=== PATIENT | male | born 1950 | race Caucasian/White ===

== ENCOUNTER 2019-09-04 18:55 | Inpatient (IN) | payer MEDICARE, BC ==
--- NOTE | 2019-09-04 19:33 | ED ---
Skin/Abscess/FB HPI - General Chief complaint: Skin/Abscess/Foreign Body Stated complaint: Infection Time Seen by Provider: 09/04/19 19:08 Source: patient Mode of arrival: wheelchair Limitations: no limitations - History of Present Illness Initial comments: Patient is 68-year-old male presenting to emergency Department with chief complaint of a scrotal abscess. 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 White states the patient developed a scrotal abscess on July 25 and they went to the hospital. States the urologist at [facility] performed an incision and drainage 2 days afterwards. Patient was started on Keflex but no improvement in symptoms. States she has been taking the abscess ever since. Although, the infection continues to not fully resolved and the cavity is enlarging. States today she went to [facility] for his pressure ulcers and also examined the scrotum. They performed a CT of the pelvis and it revealed a deep abscess measuring approximately 5 senators 3 cm 4 cm. Disposition the facility advised the patient to go to the ED for further evaluation. Patient has no sensation below the waist so has no complaints at this time. Denies any fevers or chills nausea vomiting or diarrhea. - Related Data Home Medications Medication Instructions Recorded Confirmed Liraglutide [Victoza 2-Peewee] 1.2 mg SQ DAILY 06/24/17 12/06/17 Lisinopril [Prinivil] 10 mg PO DAILY 06/24/17 12/06/17 Lovastatin [Mevacor] 40 mg PO DAILY 06/24/17 12/06/17 glipiZIDE XL [Glucotrol XL] 2.5 mg PO DAILY 06/24/17 12/06/17 metFORMIN HCL [Glucophage] 1,000 mg PO BID 06/24/17 12/06/17 Previous Rx's Medication Instructions Recorded Multivitamins, Thera [Multivitamin 1 each PO DAILY@1200 #30 tab 07/05/17 (formulary)] Allergies Allergy/AdvReac Type Severity Reaction Status Date / Time phenytoin [From Dilantin] Allergy Itching Verified 09/04/19 19:05 Sulfa (Sulfonamide Allergy Itching Verified 09/04/19 19:05 Antibiotics) Review of Systems ROS Statement: Those systems with pertinent positive or pertinent negative responses have been documented in the HPI. ROS Other: All systems not noted in ROS Statement are negative. Past Medical History Past Medical History: Diabetes Mellitus Additional Past Medical History / Comment(s): 2 aneusyms brain and aorta, p aralysis from T10 down History of Any Multi-Drug Resistant Organisms: None Reported Past Surgical History: Appendectomy Additional Past Surgical History / Comment(s): sabrina filter Past Psychological History: No Psychological Hx Reported Smoking Status: Former smoker Past Alcohol Use History: None Reported Past Drug Use History: None Reported - Past Family History Father Additional Family Medical History / Comment(s): of cancer General Exam Limitations: physical limitation (Paralysis below the with a baseline) General appearance: alert, in no apparent distress Head exam: Present: atraumatic, normocephalic, normal inspection Eye exam: Present: normal appearance Pupils: Present: normal accommodation ENT exam: Present: normal exam Neck exam: Present: normal inspection, full ROM Respiratory exam: Present: normal lung sounds bilaterally Cardiovascular Exam: Present: regular rate, normal rhythm, normal heart sounds exam: Present: scrotal swelling. Absent: normal inspection (Abscess that is covered dressing located on the posterior aspect of the scrotum. Yellowed drainage.), testicular tenderness (Paralysis), urethral discharge Extremities exam: Present: normal inspection, full ROM Back exam: Present: normal inspection, full ROM Neurological exam: Present: alert, oriented X3 Psychiatric exam: Present: normal affect, normal mood Skin exam: Present: warm, dry, intact, normal color Course Vital Signs 09/04/19 18:58 Temperature 98.9 F Pulse Rate 104 H Respiratory 20 Rate Blood Pressure 118/76 O2 Sat by Pulse 96 Oximetry Medical Decision Making - Medical Decision Making patient is 68-year-old male presenting to emergency Department with a chief complaint of scrotal abscess. The abscess was present for about 1.5 months. Incision and drainage performed 2 days after it was detected by urologist at [facility]. Patient was on antibiotics minimal improvement in symptoms. Packing was performed at rest since the incision and drainage with no improvement in symptoms. CBC and CMP obtained. Blood cultures and lactic pe nding. UA and urine culture pending. Wound culture obtained. Patient will be admitted for further medical management. Case discussed with Admitting is Dr. bradley. urology consulted Disposition Clinical Impression: Scrotal abscess Disposition: ADMITTED IP TO THIS HOSP Condition: Stable Instructions (If sedation given, give patient instructions): Abscess (ED) Additional Instructions: Patient will be admitted Is patient prescribed a controlled substance at d/c from ED?: No Referrals: Jeremiah Ferreira DO [Primary Care Provider] - 1-2 days Time of Disposition: 20:07
[2019-09-04] MEDS ORDERED: NALOXONE 0.4 MG/ML 1 ML VIAL IV PRN (19:54)
[2019-09-04] MEDS ORDERED: MORPHINE SULFATE 4 MG/ML SYRINGE IV PRN (19:54)
[2019-09-04] MEDS ORDERED: IBUPROFEN 400 MG TAB PO PRN (19:54)
[2019-09-04] MEDS ORDERED: ACETAMINOPHEN TAB 325 MG TAB PO PRN (19:54)
[2019-09-04] MEDS ORDERED: HYDROcodone/APAP 5-325MG 1 EACH TAB PO PRN (19:54)
[2019-09-04] MEDS ORDERED: ONDANSETRON 4 MG/2 ML VIAL IVP PRN (19:54)
[2019-09-04 20:01] LABS: Basophils % (A) 0 %; Eosinophils # (A) 0.2 k/uL (0-0.7); Eosinophils % (A) 3 %; HGB 13.5 gm/dL (13.0-17.5); Lymphocytes # (A) 1.6 k/uL (1.0-4.8); Lymphocytes % (A) 21 %; MCH 28.7 pg (25.0-35.0); MCHC 32.1 g/dL (31.0-37.0); MCV 89.4 fL (80.0-100.0); Mean Platelet Volume 7.6; Monocytes # (A) 0.4 k/uL (0-1.0); Monocytes % (A) 5 %; Neutrophils # (A) 5.4 k/uL (1.3-7.7); Neutrophils % (A) 68 %; Platelet Count 303 k/uL (150-450); RDW 15.4 % (11.5-15.5); WBC 7.9 k/uL (3.8-10.6)
[2019-09-04 20:10] LABS: ALT 19 U/L (4-49); AST 23 U/L (17-59); African American GFR (CKD) >90 (>60 ml/min/1.73 sqM); Albumin 3.6 g/dL (3.5-5.0); Alkaline Phosphatase 94 U/L (38-126); Anion Gap 9 mmol/L; Blood Urea Nitrogen 20 mg/dL (9-20); Calcium 9.4 mg/dL (8.4-10.2); Carbon Dioxide 24 mmol/L (22-30); Chloride 104 mmol/L (98-107); Glucose 150 mg/dL (74-99); Non-African American GFR(CKD) >90 (>60 ml/min/1.73 sqM); Potassium 5.2 mmol/L (3.5-5.1); Sodium 137 mmol/L (137-145); Total Bilirubin 0.2 mg/dL (0.2-1.3); Total Protein 6.6 g/dL (6.3-8.2)
[2019-09-04] MEDS ORDERED: cefTRIAXone IN SWFI 1,000 MG/10 ML SYRINGE IVP STA (20:14)
[2019-09-04 20:21] LABS: Amorphous Sediment,Urine Rare /hpf; Appearance,Urine Clear (Clear); Bacteria,Urine Occasional /hpf; Bilirubin,Urine Negative (Negative); Blood,Urine Negative (Negative); Color,Urine Yellow; Glucose,Urine (UA) Negative (Negative); Hyaline Casts,Urine 1 /lpf (0-2); Ketones,Urine Negative (Negative); Leukocyte Esterase,Urine Large (Negative); Mucus,Urine Rare /hpf; Nitrite,Urine Positive (Negative); PH, Urine 5.5 (5.0-8.0); Protein,Urine Negative (Negative); RBC,Urine 4 /hpf (0-5); Specific Gravity,Urine 1.016 (1.001-1.035); Squamous Epithelial Cell,Urine 1 /hpf (0-4); Urobilinogen,Urine <2.0 mg/dL (<2.0); WBC,Urine 40 /hpf (0-5)
[2019-09-04] MEDS: SODIUM CHLORIDE 0.9% 1,000 ML IV SCH (20:28)
[2019-09-04] MEDS: metFORMIN 500 MG TAB PO SCH (21:51)
[2019-09-04 21:54] LABS: Glucose,Whole Blood 111 mg/dL (75-99)
[2019-09-05 04:17] LABS: Basophils % (A) 0 %; Eosinophils # (A) 0.3 k/uL (0-0.7); Eosinophils % (A) 4 %; HCT 40.7 % (39.0-53.0); HGB 12.8 gm/dL (13.0-17.5); Lymphocytes # (A) 2.5 k/uL (1.0-4.8); Lymphocytes % (A) 33 %; MCH 28.8 pg (25.0-35.0); MCHC 31.5 g/dL (31.0-37.0); MCV 91.4 fL (80.0-100.0); Mean Platelet Volume 7.5; Monocytes # (A) 0.5 k/uL (0-1.0); Monocytes % (A) 7 %; Neutrophils # (A) 4.2 k/uL (1.3-7.7); Neutrophils % (A) 54 %; Platelet Count 265 k/uL (150-450); RBC 4.46 m/uL (4.30-5.90); RDW 15.7 % (11.5-15.5); WBC 7.8 k/uL (3.8-10.6)
[2019-09-05 04:26] LABS: ALT 17 U/L (4-49); AST 19 U/L (17-59); African American GFR (CKD) >90 (>60 ml/min/1.73 sqM); Albumin 3.4 g/dL (3.5-5.0); Alkaline Phosphatase 90 U/L (38-126); Anion Gap 7 mmol/L; Blood Urea Nitrogen 17 mg/dL (9-20); Carbon Dioxide 25 mmol/L (22-30); Chloride 105 mmol/L (98-107); Glucose 115 mg/dL (74-99); Non-African American GFR(CKD) >90 (>60 ml/min/1.73 sqM); Potassium 4.7 mmol/L (3.5-5.1); Sodium 137 mmol/L (137-145); Total Bilirubin 0.1 mg/dL (0.2-1.3); Total Protein 6.2 g/dL (6.3-8.2)
[2019-09-05 07:30] LABS: Glucose,Whole Blood 134 mg/dL (75-99)
[2019-09-05] MEDS ORDERED: CEFDINIR 300 MG CAP PO SCH (09:00)
[2019-09-05] MEDS ORDERED: NON FORMULARY DRUG (L.Acidoph,Paracasei, B.Lactis [Probiotic] 1 CAP) PO SCH (09:00)
[2019-09-05] MEDS ORDERED: NON FORMULARY DRUG (Cranberry Fruit Extract [Cranberry] 500 MG) PO SCH (09:00)
[2019-09-05] MEDS: metFORMIN 500 MG TAB PO SCH ×2 (09:03→20:17)
[2019-09-05] MEDS: ATORVASTATIN 10 MG TAB PO SCH (09:04)
[2019-09-05] MEDS: LISINOPRIL 10 MG TAB PO SCH (09:04)
[2019-09-05] MEDS: ASPIRIN 325 MG TAB PO SCH (09:04)
[2019-09-05] MEDS: IMIPRAMINE 10 MG TAB PO SCH (09:04)
[2019-09-05] MEDS: MULTIVITAMINS, THERA 1 EACH TAB PO SCH (09:04)
[2019-09-05] MEDS: Liraglutide [Victoza 2-Pak] 1.2 MG SQ SCH (09:24)
[2019-09-05] MEDS ORDERED: VANCOMYCIN IV PER PHARMACY 1 EACH MISC MISCELLANE PRN (10:27)
[2019-09-05] MEDS ORDERED: PIPERACILLIN-TAZOBACTAM 3.375 GM in SODIUM CHLORIDE 0.9% 100 ML IVPB SCH (11:00)
[2019-09-05 11:48] LABS: Glucose,Whole Blood 114 mg/dL (75-99)
[2019-09-05] MEDS: VANCOMYCIN 1,500 MG in SODIUM CHLORIDE 0.9% 250 ML IVPB SCH ×2 (12:18→21:03)
[2019-09-05] MEDS: SODIUM CHLORIDE 0.9% 1,000 ML IV SCH (12:41)
--- NOTE | 2019-09-05 13:53 | US ---
EXAMINATION TYPE: US venous doppler duplex LE LT DATE OF EXAM: 09/05/2019 1:00 PM COMPARISON: NONE CLINICAL HISTORY: assess for DVT lower left leg. Paralysis and immobility, scrotal abscess SIDE PERFORMED: Left TECHNIQUE: The lower extremity deep venous system is examined utilizing real time linear array sonog deonna with graded compression, doppler sonography and color-flow sonography. VESSELS IMAGED: External Iliac Vein (EIV) Common Femoral Vein Deep Femoral Vein Greater Saphenous Vein * Femoral Vein Popliteal Vein Small Saphenous Vein * Proximal Calf Veins (* superficial vessels) There is normal flow, compressibility, vascular waveforms. Left Leg: Negative for DVT IMPRESSION: No evident deep venous thrombosis at or above the left knee
--- NOTE | 2019-09-05 15:39 | P.HPIM ---
History of Present Illness H&P Date: 09/05/19 Chief Complaint: Scrotal wound History of presenting complaint: This is a 68-year-old patient of Dr. Ferreira. Chronic stable medical conditions include history of T10 paraplegia following a spinal injection, brain aneurysm, AAA, hyperlipidemia, [place] filter, diabetes. Patient on July 25 diagnosed to have a left scrotal abscess. Patient was taken to the [facility]. From there patient was transferred to Hospital where he stayed from July 26 through July 29. I&D was carried out. Patient is discharged home on 10 days of Keflex. Patient was sent home with dressing twice a day. It had pretty much cleared up. His noticed that recently the drainage was intermittently clear and body. Noticed 2 days patient noticed that the patient's urine was cloudy. Urine culture was sent off to [facility]. Patient normally straight cath himself 2-3 times a day. Due to neurogenic bladder Elliott catheter was placed in the hospital. No fever no chills. No pain. Review of systems: GEN.: None EYES: None HEENT: None NECK: None RESPIRATORY: None CARDIOVASCULAR: None GASTROINTESTINAL: None GENITOURINARY: As above MUSCULOSKELETAL: None LYMPHATICS: None HEMATOLOGICAL: None PSYCHIATRY: None NEUROLOGICAL: [Lower extremity weakness Past medical history to include: T10 paraplegia from spinal injection, prerenal aneurysm, abdominal aortic aneurysm, diabetes, Sabrina filter, hyperlipidemia, Social history: Does smoke in the remote past. No alcohol. . Physical examination: VITAL SIGNS: 98.9, 104, 20, 1180 76, 96% on room air GENERAL: BMI 27.5, laying in bed, awake. EYES: Pupils equal. Conjunctiva normal. HEENT: External appearance of nose and ears normal, oral cavity grossly normal. NECK: JVD not raised; masses not palpable. HEART: First and second heart sounds are normal; no edema. LUNGS: Respiratory rate normal; clear to auscultation. ABDOMEN: Soft, nontender, liver spleen not palpable, no masses palpable. Scrotum-on the left side opening with clear fluid, margins well epithelialized, no pus expressed PSYCH: Alert and oriented x3; mood and affect normal. NEUROLOGICAL: [Cranial nerves grossly intact; no facial asymmetry, lower extremity power 0/5 LYMPHATICS: No lymph nodes palpable in the axilla and neck INVESTIGATIONS, reviewed in the clinical context: White count 7.90 with 13.5 potassium 4.2 creatinine 0.64 Lactic acid 2.6 UA positive for leukoesterase, WBC Assessment: -This is a pleasant 68-year-old patient who on July 25 current diagnoses scrotal abscess taken down to: Hospital was there from July 26 through July 29. I&D was carried out. Was discharged on Keflex for 10 days. Drainage at clear. No having cloudy appearing urine and clear drainage from the same opening. Need to rule out a fistula. Otherwise the opening pot is a rather well epithelialized. 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 Consultations made to infectious disease and neurology. Patient started on vancomycin and cefepime. Lovenox for DVT prophylaxis. Accu-Cheks will be followed. Care was discussed with the patient and questions were answered. Past Medical History Past Medical History: Diabetes Mellitus Additional Past Medical History / Comment(s): 2 aneusyms brain and aorta, paralysis from T10 down History of Any Multi-Drug Resistant Organisms: None Reported Past Surgical History: Appendectomy Additional Past Surgical History / Comment(s): sabrina filter Past Psychological History: No Psychological Hx Reported Additional Psychological History / Comment(s): lives with his in the family home Smoking Status: Former smoker Past Alcohol Use History: None Reported Past Drug Use History: None Reported - Past Family History Father Additional Family Medical History / Comment(s): of cancer Medications and Allergies Home Medications Medication Instructions Recorded Confirmed Type Liraglutide [Victoza 2-Peewee] 1.2 mg SQ DAILY 06/24/17 09/04/19 History Lisinopril [Prinivil] 10 mg PO DAILY 06/24/17 09/04/19 History Lovastatin [Mevacor] 40 mg PO DAILY 06/24/17 09/04/19 History metFORMIN HCL [Glucophage] 1,000 mg PO BID 06/24/17 09/04/19 History Aspirin EC [Ecotrin] 325 mg PO DAILY 09/04/19 09/04/19 History Cefuroxime Axetil [Ceftin] 500 mg PO BID 09/04/19 09/04/19 History Cranberry Fruit Extract [Cranberry] 500 mg PO DAILY 09/04/19 09/04/19 History Imipramine [Tofranil] 10 mg PO DAILY 09/04/19 09/04/19 History L.acidoph,Paracasei, B.lactis 1 cap PO DAILY 09/04/19 09/04/19 History [Probiotic] Multivitamins, Thera [Multivitamin 1 tab PO DAILY 09/04/19 09/04/19 History (formulary)] Allergies Allergy/AdvReac Type Severity Reaction Status Date / Time phenytoin [From Dilantin] Allergy Rash/Hives Verified 09/04/19 20:16 Sulfa (Sulfonamide Allergy Rash/Hives Verified 09/04/19 20:16 Antibiotics) Physical Exam Vitals: Vital Signs Temp Pulse Pulse Resp BP BP Pulse Ox 09/05/19 08:24 97.5 F L 88 18 100/65 09/04/19 23:00 98.0 F 89 16 120/56 95 09/04/19 20:34 98.9 F 100 18 109/78 98 09/04/19 18:58 98.9 F 104 H 20 118/76 96 Intake and Output 09/04/19 09/05/19 09/05/19 22:59 06:59 14:59 Intake Total 225 590 Output Total 700 Balance 225 -110 Intake: Intake, IV Titration 225 Amount Sodium Chloride 0.9% 1, 225 000 ml @ 75 mls/hr IV . [id number] [facility] Rx#:[id number] Oral 590 Output: Urine 700 Other: Voiding Method Incontinent Indwelling Catheter Weight 87 kg Results CBC & Chem 7: 09/05/19 03:51 09/05/19 03:51 Labs: Abnormal Lab Results - Last 24 Hours (Table) 09/04/19 09/04/19 09/04/19 Range/Units 19:50 19:50 20:05 Hgb (13.0-17.5) gm/dL RDW (11.5-15.5) % Potassium 5.2 H (3.5-5.1) mmol/L Creatinine 0.64 L (0.66-1.25) mg/dL Glucose 150 H (74-99) mg/dL POC Glucose (mg/dL) (75-99) mg/dL Plasma Lactic Acid Carl 2.6 H* (0.7-2.0) mmol/L Total Bilirubin (0.2-1.3) mg/dL Total Protein (6.3-8.2) g/dL Albumin (3.5-5.0) g/dL Ur Leukocyte Esterase Large H (Negative) Urine WBC 40 H (0-5) /hpf Urine WBC Clumps Moderate H (None) /hpf Amorphous Sediment Rare H (None) /hpf Urine Bacteria Occasional H (None) /hpf Urine Mucus Rare H (None) /hpf 09/04/19 09/04/19 09/05/19 Range/Units 21:48 23:40 03:51 Hgb 12.8 L (13.0-17.5) gm/dL RDW 15.7 H (11.5-15.5) % Potassium (3.5-5.1) mmol/L Creatinine (0.66-1.25) mg/dL Glucose (74-99) mg/dL POC Glucose (mg/dL) 111 H (75-99) mg/dL Plasma Lactic Acid Carl 2.1 H* (0.7-2.0) mmol/L Total Bilirubin (0.2-1.3) mg/dL Total Protein (6.3-8.2) g/dL Albumin (3.5-5.0) g/dL Ur Leukocyte Esterase (Negative) Urine WBC (0-5) /hpf Urine WBC Clumps (None) /hpf Amorphous Sediment (None) /hpf Urine Bacteria (None) /hpf Urine Mucus (None) /hpf 09/05/19 09/05/19 Range/Units 03:51 07:29 Hgb (13.0-17.5) gm/dL RDW (11.5-15.5) % Potassium (3.5-5.1) mmol/L Creatinine 0.54 L (0.66-1.25) mg/dL Glucose 115 H (74-99) mg/dL POC Glucose (mg/dL) 134 H (75-99) mg/dL Plasma Lactic Acid Carl (0.7-2.0) mmol/L Total Bilirubin 0.1 L (0.2-1.3) mg/dL Total Protein 6.2 L (6.3-8.2) g/dL Albumin 3.4 L (3.5-5.0) g/dL Ur Leukocyte Esterase (Negative) Urine WBC (0-5) /hpf Urine WBC Clumps (None) /hpf Amorphous Sediment (None) /hpf Urine Bacteria (None) /hpf Urine Mucus (None) /hpf Microbiology - Last 24 Hours (Table) 09/04/19 20:20 Gram Stain - Preliminary Other - Other Wound Culture - Preliminary 09/04/19 20:05 Urine Culture - Preliminary Urine,Voided Thrombosis Risk Factor Assmnt - Choose All That Apply Any of the Below Risk Factors Present?: Yes Each Factor Represents 1 point: Obesity (BMI >25) Other Risk Factors: Yes Each Risk Factor Represents 2 Points: Patient confined to bed Other congenital or acquired thrombophilia - If yes, enter type in comment: No Thrombosis Risk Factor Assessment Total Risk Factor Score: 3 Thrombosis Risk Factor Assessment Level: Moderate Risk
[2019-09-05 16:26] LABS: Glucose,Whole Blood 170 mg/dL (75-99)
[2019-09-05] MEDS: INSULIN ASPART (NovoLOG) 100 UNIT/ML VIAL SQ SCH ×2 (17:27→21:03)
--- NOTE | 2019-09-05 18:35 | P.GSCN ---
History of Present Illness Consult date: 09/05/19 Reason for Consult: Scrotal abscess Requesting physician: Ramon Mancera History of present illness: The patient is a 68-year-old white male with an abdominal aortic aneurysm. 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 He has a neurogenic bladder as a result of this. Several years after the injury, he was evaluated at [facility] for urinary incontinence and underwent an attempted sling procedure. The patient and his are very vague regarding details of this. He self catheterizes 2-3 times daily and experiences urinary incontinence while transferring. It is for this reason he is taking imipramine. On 07/25/2019 the patient developed a small amount of perineal drainage. He was hospitalized at [facility] and underwent incision and drainage, the enlargement of the perineal incision. He has undergone dressing changes, but this is difficult due to the small size of the perineal incision. He was treated with Keflex, but recently has experienced increased drainage. He currently has an indwelling Elliott catheter in place. A CT scan of the pelvis performed yesterday at [facility] in [place] revealed a 33 x 49 mm right posterior scrotal abscess. The CT scan also showed several bladder calculi measuring up to 18 mm in size. In view of this, he was transferred to [facility] for further management. 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 Past Psychological History: No Psychological Hx Reported Additional Psychological History / Comment(s): lives with his in e family home Smoking Status: Former smoker Past Alcohol Use History: None Reported Past Drug Use History: None Reported - Past Family History Father Additional Family Medical History / Comment(s): of cancer Medications and Allergies Home Medications Medication Instructions Recorded Confirmed Type Liraglutide [Victoza 2-Peewee] 1.2 mg SQ DAILY 06/24/17 09/04/19 History Lisinopril [Prinivil] 10 mg PO DAILY 06/24/17 09/04/19 History Lovastatin [Mevacor] 40 mg PO DAILY 06/24/17 09/04/19 History metFORMIN HCL [Glucophage] 1,000 mg PO BID 06/24/17 09/04/19 History Aspirin EC [Ecotrin] 325 mg PO DAILY 09/04/19 09/04/19 History Cefuroxime Axetil [Ceftin] 500 mg PO BID 09/04/19 09/04/19 History Cranberry Fruit Extract [Cranberry] 500 mg PO DAILY 09/04/19 09/04/19 History Imipramine [Tofranil] 10 mg PO DAILY 09/04/19 09/04/19 History L.acidoph,Paracasei, B.lactis 1 cap PO DAILY 09/04/19 09/04/19 History [Probiotic] Multivitamins, Thera [Multivitamin 1 tab PO DAILY 09/04/19 09/04/19 History (formulary)] Allergies Allergy/AdvReac Type Severity Reaction Status Date / Time phenytoin [From Dilantin] Allergy Rash/Hives Verified 09/04/19 20:16 Sulfa (Sulfonamide Allergy Rash/Hives Verified 09/04/19 20:16 Antibiotics) Surgical - Exam Vital Signs Temp Pulse Resp BP Pulse Ox 98.9 F 104 H 20 118/76 96 09/04/19 18:58 09/04/19 18:58 09/04/19 18:58 09/04/19 18:58 09/04/19 18:58 - General well developed, well nourished, no distress - Respiratory normal respiratory effort - Abdomen Abdomen: soft, non tender, no guarding, no rigid, no rebound - Genitourinary normal penis with no external lesions, other (The left testicle is normal. 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 Induration of the right intrascrotal tissues as noted. There is no fluctuance. A small amount of fluid can be expressed through a small midline perineal incision.) - Psychiatric oriented to time, oriented to person, oriented to place, speech is normal, memory intact Results - Labs 09/05/19 03:51 09/05/19 03:51 Abnormal Lab Results - Last 24 Hours (Table) 09/04/19 09/04/19 09/04/19 Range/Units 19:50 19:50 20:05 Hgb (13.0-17.5) gm/dL RDW (11.5-15.5) % Potassium 5.2 H (3.5-5.1) mmol/L Creatinine 0.64 L (0.66-1.25) mg/dL Glucose 150 H (74-99) mg/dL POC Glucose (mg/dL) (75-99) mg/dL Plasma Lactic Acid Carl 2.6 H* (0.7-2.0) mmol/L Total Bilirubin (0.2-1.3) mg/dL Total Protein (6.3-8.2) g/dL Albumin (3.5-5.0) g/dL Ur Leukocyte Esterase Large H (Negative) Urine WBC 40 H (0-5) /hpf Urine WBC Clumps Moderate H (None) /hpf Amorphous Sediment Rare H (None) /hpf Urine Bacteria Occasional H (None) /hpf Urine Mucus Rare H (None) /hpf 09/04/19 09/04/19 09/05/19 Range/Units 21:48 23:40 03:51 Hgb 12.8 L (13.0-17.5) gm/dL RDW 15.7 H (11.5-15.5) % Potassium (3.5-5.1) mmol/L Creatinine (0.66-1.25) mg/dL Glucose (74-99) mg/dL POC Glucose (mg/dL) 111 H (75-99) mg/dL Plasma Lactic Acid Carl 2.1 H* (0.7-2.0) mmol/L Total Bilirubin (0.2-1.3) mg/dL Total Protein (6.3-8.2) g/dL Albumin (3.5-5.0) g/dL Ur Leukocyte Esterase (Negative) Urine WBC (0-5) /hpf Urine WBC Clumps (None) /hpf Amorphous Sediment (None) /hpf Urine Bacteria (None) /hpf Urine Mucus (None) /hpf 09/05/19 09/05/19 09/05/19 Range/Units 03:51 07:29 11:46 Hgb (13.0-17.5) gm/dL RDW (11.5-15.5) % Potassium (3.5-5.1) mmol/L Creatinine 0.54 L (0.66-1.25) mg/dL Glucose 115 H (74-99) mg/dL POC Glucose (mg/dL) 134 H 114 H (75-99) mg/dL Plasma Lactic Acid Carl (0.7-2.0) mmol/L Total Bilirubin 0.1 L (0.2-1.3) mg/dL Total Protein 6.2 L (6.3-8.2) g/dL Albumin 3.4 L (3.5-5.0) g/dL Ur Leukocyte Esterase (Negative) Urine WBC (0-5) /hpf Urine WBC Clumps (None) /hpf Amorphous Sediment (None) /hpf Urine Bacteria (None) /hpf Urine Mucus (None) /hpf 09/05/19 Range/Units 16:25 Hgb (13.0-17.5) gm/dL RDW (11.5-15.5) % Potassium (3.5-5.1) mmol/L Creatinine (0.66-1.25) mg/dL Glucose (74-99) mg/dL POC Glucose (mg/dL) 170 H (75-99) mg/dL Plasma Lactic Acid Carl (0.7-2.0) mmol/L Total Bilirubin (0.2-1.3) mg/dL Total Protein (6.3-8.2) g/dL Albumin (3.5-5.0) g/dL Ur Leukocyte Esterase (Negative) Urine WBC (0-5) /hpf Urine WBC Clumps (None) /hpf Amorphous Sediment (None) /hpf Urine Bacteria (None) /hpf Urine Mucus (None) /hpf Microbiology - Last 24 Hours (Table) 09/04/19 20:20 Gram Stain - Preliminary Other - Other Wound Culture - Preliminary Presumptive Staph aureus Gram Neg Bacilli 09/04/19 20:05 Urine Culture - Preliminary Urine,Voided Diabetes panel 09/04/19 09/05/19 Range/Units 19:50 03:51 Sodium 137 137 (137-145) mmol/L Potassium 5.2 H 4.7 (3.5-5.1) mmol/L Chloride 104 105 (98-107) mmol/L Carbon Dioxide 24 25 (22-30) mmol/L BUN 20 17 (9-20) mg/dL Creatinine 0.64 L 0.54 L (0.66-1.25) mg/dL Glucose 150 H 115 H (74-99) mg/dL Calcium 9.4 9.0 (8.4-10.2) mg/dL AST 23 19 (17-59) U/L ALT 19 17 (4-49) U/L Alkaline Phosphatase 94 90 (38-126) U/L Total Protein 6.6 6.2 L (6.3-8.2) g/dL Albumin 3.6 3.4 L (3.5-5.0) g/dL Calcium panel 09/04/19 09/05/19 Range/Units 19:50 03:51 Calcium 9.4 9.0 (8.4-10.2) mg/dL Albumin 3.6 3.4 L (3.5-5.0) g/dL Pituitary panel 09/04/19 09/05/19 Range/Units 19:50 03:51 Sodium 137 137 (137-145) mmol/L Potassium 5.2 H 4.7 (3.5-5.1) mmol/L Chloride 104 105 (98-107) mmol/L Carbon Dioxide 24 25 (22-30) mmol/L BUN 20 17 (9-20) mg/dL Creatinine 0.64 L 0.54 L (0.66-1.25) mg/dL Glucose 150 H 115 H (74-99) mg/dL Calcium 9.4 9.0 (8.4-10.2) mg/dL Adrenal panel 09/04/19 09/05/19 Range/Units 19:50 03:51 Sodium 137 137 (137-145) mmol/L Potassium 5.2 H 4.7 (3.5-5.1) mmol/L Chloride 104 105 (98-107) mmol/L Carbon Dioxide 24 25 (22-30) mmol/L BUN 20 17 (9-20) mg/dL Creatinine 0.64 L 0.54 L (0.66-1.25) mg/dL Glucose 150 H 115 H (74-99) mg/dL Calcium 9.4 9.0 (8.4-10.2) mg/dL Total Bilirubin 0.2 0.1 L (0.2-1.3) mg/dL AST 23 19 (17-59) U/L ALT 19 17 (4-49) U/L Alkaline Phosphatase 94 90 (38-126) U/L Total Protein 6.6 6.2 L (6.3-8.2) g/dL Albumin 3.6 3.4 L (3.5-5.0) g/dL - Imaging CT scan - pelvis: report reviewed Assessment and Plan (1) Scrotal abscess Current Visit: Yes Status: Acute Code(s): N49.2 - INFLAMMATORY DISORDERS OF SCROTUM SNOMED Code(s): 02795427 Plan: The patient has an open perineal wound that appears to have a right scrotal abscess which is incompletely drained. He has a Elliott catheter in place, dr tobar clear yellow urine. I intend to perform cystoscopy, examination under anesthesia, incision and drainage of right scrotal abscess. If there is evidence of a urethral fistula, a suprapubic cystostomy tube will be placed. The rationale for this is been reviewed with the patient and his . They are aware of potential risks, which include anesthesia, bleeding, infection, and incomplete resolution of the abscess. An attempt will be made to obtain surgical records from [facility], to determine whether or not the patient has a perineal mesh sling in place. Time with Patient: Greater than 30
[2019-09-05] MEDS: CEFEPIME 2 GM in SODIUM CHLORIDE 0.9% 100 ML IVPB SCH (20:18)
[2019-09-05 20:43] LABS: Glucose,Whole Blood 190 mg/dL (75-99)
--- NOTE | 2019-09-05 22:59 | P.CONS ---
History of Present Illness - Reason for Consult Consult date: 09/05/19 scrotal abscess Requesting physician: Ramon Mancera - Chief Complaint scrotal wound and draiange x few weeks - History of Present Illness Patient is a 68-year-old male with a past medical history significant for T10 paraplegia and this patient who did have urinary retention requiring self-catheterization the patient apparently did develop [facility] the next day the patient was taken to the local hospital with the patient has been diagnosed with a scrotal abscess patient did have surgical drainage of the same he mention that he was treated with IV antibiotic therapy and subsequently discharged home on oral Keflex patient apparently did have a follow-up visit with his urologist who told the patient to keep packing the wound however did notice a significant drainage from his wound for which the patient was taken to the wound care center antibiotics patient has been evaluated there and a CT scan subsequently was done which did shows evidence of scrotal abscess and the patient has been advised to come to [facility] to be evaluated by urology and drainage of this abscess, patient denies high- grade fever or chills patient do not have any pain in the region because of her underlying paraplegia the drainage has been moderate in amount per the has been changing the dressing. 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 History of Any Multi-Drug Resistant Organisms: None Reported Past Surgical History: Appendectomy Additional Past Surgical History / Comment(s): sabrina filter Past Psychological History: No Psychological Hx Reported Additional Psychological History / Comment(s): lives with his in the family home Smoking Status: Former smoker Past Alcohol Use History: None Reported Past Drug Use History: None Reported - Past Family History Father Additional Family Medical History / Comment(s): of cancer Medications and Allergies Home Medications Medication Instructions Recorded Confirmed Type Liraglutide [Victoza 2-Peewee] 1.2 mg SQ DAILY 06/24/17 09/04/19 History Lisinopril [Prinivil] 10 mg PO DAILY 06/24/17 09/04/19 History Lovastatin [Mevacor] 40 mg PO DAILY 06/24/17 09/04/19 History metFORMIN HCL [Glucophage] 1,000 mg PO BID 06/24/17 09/04/19 History Aspirin EC [Ecotrin] 325 mg PO DAILY 09/04/19 09/04/19 History Cefuroxime Axetil [Ceftin] 500 mg PO BID 09/04/19 09/04/19 History Cranberry Fruit Extract [Cranberry] 500 mg PO DAILY 09/04/19 09/04/19 History Imipramine [Tofranil] 10 mg PO DAILY 09/04/19 09/04/19 History L.acidoph,Paracasei, B.lactis 1 cap PO DAILY 09/04/19 09/04/19 History [Probiotic] Multivitamins, Thera [Multivitamin 1 tab PO DAILY 09/04/19 09/04/19 History (formulary)] Allergies Allergy/AdvReac Type Severity Reaction Status Date / Time phenytoin [From Dilantin] Allergy Rash/Hives Verified 09/04/19 20:16 Sulfa (Sulfonamide Allergy Rash/Hives Verified 09/04/19 20:16 Antibiotics) Physical Exam Vitals: Vital Signs Temp Pulse Pulse Resp BP BP Pulse Ox 09/05/19 12:49 98.3 F 85 17 125/59 98 09/05/19 08:24 97.5 F L 88 18 100/65 09/04/19 23:00 98.0 F 89 16 120/56 95 09/04/19 20:34 98.9 F 100 18 109/78 98 09/04/19 18:58 98.9 F 104 H 20 118/76 96 Intake and Output 09/04/19 09/05/19 09/05/19 22:59 06:59 14:59 Intake Total 225 590 Output Total 700 Balance 225 -110 Intake: Intake, IV Titration 225 Amount Sodium Chloride 0.9% 1, 225 000 ml @ 75 mls/hr IV . [id number] [facility] Rx#:[id number] Oral 590 Output: Urine 700 Other: Voiding Method Incontinent Incontinent Indwelling Catheter Indwelling Catheter Weight 87 kg GENERAL DESCRIPTION: Middle-aged male lying in bed, no distress. No tachypnea or accessory muscle of respiration use. HEENT: Shows Pallor , no scleral icterus. Oral mucous membrane is dry. NECK: Trachea central, no thyromegaly. LUNGS: Unlabored breathing. Clear to auscultation anteriorly. No wheeze or crackle. HEART: S1, S2, regular rate and rhythm. ABDOMEN: Soft, no tenderness , guarding or rigidity. : Patient did have a small perineal wound with purulent drainage some surrounding swelling EXTREMITIES: No edema of feet. SKIN: No rash, no masses palpable. NEUROLOGICAL: The patient is awake, alert, oriented x3, mood and affect normal. Results CBC & Chem 7: 09/05/19 03:51 09/05/19 03:51 Labs: Abnormal Lab Results - Last 24 Hours (Table) 09/04/19 09/04/19 09/04/19 Range/Units 19:50 19:50 20:05 Hgb (13.0-17.5) gm/dL RDW (11.5-15.5) % Potassium 5.2 H (3.5-5.1) mmol/L Creatinine 0.64 L (0.66-1.25) mg/dL Glucose 150 H (74-99) mg/dL POC Glucose (mg/dL) (75-99) mg/dL Plasma Lactic Acid Carl 2.6 H* (0.7-2.0) mmol/L Total Bilirubin (0.2-1.3) mg/dL Total Protein (6.3-8.2) g/dL Albumin (3.5-5.0) g/dL Ur Leukocyte Esterase Large H (Negative) Urine WBC 40 H (0-5) /hpf Urine WBC Clumps Moderate H (None) /hpf Amorphous Sediment Rare H (None) /hpf Urine Bacteria Occasional H (None) /hpf Urine Mucus Rare H (None) /hpf 09/04/19 09/04/19 09/05/19 Range/Units 21:48 23:40 03:51 Hgb 12.8 L (13.0-17.5) gm/dL RDW 15.7 H (11.5-15.5) % Potassium (3.5-5.1) mmol/L Creatinine (0.66-1.25) mg/dL Glucose (74-99) mg/dL POC Glucose (mg/dL) 111 H (75-99) mg/dL Plasma Lactic Acid Carl 2.1 H* (0.7-2.0) mmol/L Total Bilirubin (0.2-1.3) mg/dL Total Protein (6.3-8.2) g/dL Albumin (3.5-5.0) g/dL Ur Leukocyte Esterase (Negative) Urine WBC (0-5) /hpf Urine WBC Clumps (None) /hpf Amorphous Sediment (None) /hpf Urine Bacteria (None) /hpf Urine Mucus (None) /hpf 09/05/19 09/05/19 09/05/19 Range/Units 03:51 07:29 11:46 Hgb (13.0-17.5) gm/dL RDW (11.5-15.5) % Potassium (3.5-5.1) mmol/L Creatinine 0.54 L (0.66-1.25) mg/dL Glucose 115 H (74-99) mg/dL POC Glucose (mg/dL) 134 H 114 H (75-99) mg/dL Plasma Lactic Acid Carl (0.7-2.0) mmol/L Total Bilirubin 0.1 L (0.2-1.3) mg/dL Total Protein 6.2 L (6.3-8.2) g/dL Albumin 3.4 L (3.5-5.0) g/dL Ur Leukocyte Esterase (Negative) Urine WBC (0-5) /hpf Urine WBC Clumps (None) /hpf Amorphous Sediment (None) /hpf Urine Bacteria (None) /hpf Urine Mucus (None) /hpf Microbiology - Last 24 Hours (Table) 09/04/19 20:20 Gram Stain - Preliminary Other - Other Wound Culture - Preliminary 09/04/19 20:05 Urine Culture - Preliminary Urine,Voided Assessment and Plan Assessment: patient admitted to hospital with scrotal abscess that has not been drained completely with a history of treatment with Keflex possibly pointing towards MSSA to be the pathogen however underlying gram-negative infection and trend excluded we are waiting for the surgical drainage of this abscess and deep cultures for which urology has been consulted (1) Scrotal abscess Current Visit: Yes Status: Acute Code(s): N49.2 - INFLAMMATORY DISORDERS OF SCROTUM SNOMED Code(s): 50392492 Plan: 1-vancomycin pharmacy to dose her with a target trough of 15 while watching her kidney function and Vanco trough closely. 2- discontinue Zosyn to decrease risk of nephrotoxicity and add cefepime 2 g every 12 hours We will follow on clinical condition and cultures to further adjust medication if needed Thank you for this consultation we will follow the patient along with you Time with Patient: Greater than 30
[2019-09-06] MEDS: SODIUM CHLORIDE 0.9% 1,000 ML IV SCH ×3 (00:30→22:08)
[2019-09-06 06:53] LABS: Glucose,Whole Blood 137 mg/dL (75-99)
[2019-09-06 08:02] LABS: African American GFR (CKD) >90 (>60 ml/min/1.73 sqM); Non-African American GFR(CKD) >90 (>60 ml/min/1.73 sqM)
[2019-09-06] MEDS: MULTIVITAMINS, THERA 1 EACH TAB PO SCH (08:36)
[2019-09-06] MEDS: metFORMIN 500 MG TAB PO SCH ×2 (08:36→21:18)
[2019-09-06] MEDS: ATORVASTATIN 10 MG TAB PO SCH (08:36)
[2019-09-06] MEDS: LISINOPRIL 10 MG TAB PO SCH (08:36)
[2019-09-06] MEDS: IMIPRAMINE 10 MG TAB PO SCH (08:36)
[2019-09-06] MEDS: ASPIRIN 325 MG TAB PO SCH (08:36)
[2019-09-06] MEDS: INSULIN ASPART (NovoLOG) 100 UNIT/ML VIAL SQ SCH ×4 (08:36→21:18)
[2019-09-06] MEDS: CEFEPIME 2 GM in SODIUM CHLORIDE 0.9% 100 ML IVPB SCH ×2 (08:36→21:08)
[2019-09-06] MEDS: Liraglutide [Victoza 2-Pak] 1.2 MG SQ SCH (08:37)
[2019-09-06] MEDS: VANCOMYCIN 1,500 MG in SODIUM CHLORIDE 0.9% 250 ML IVPB SCH ×2 (11:03→22:08)
[2019-09-06 11:44] LABS: Glucose,Whole Blood 124 mg/dL (75-99)
[2019-09-06] MEDS ORDERED: IV FLUID CONTINUATION 1,000 ML IV ONE ×2 (11:50)
[2019-09-06] MEDS ORDERED: MIDAZOLAM 2 MG/2 ML VIAL ONE (12:27)
[2019-09-06] MEDS ORDERED: PHENYLEPHRINE-0.9% NACL SYG 1 MG/10 ML SYRINGE ONE (12:27)
[2019-09-06] MEDS ORDERED: fentaNYL (PF) 50 MCG/ML 2 ML AMP ONE (12:27)
[2019-09-06] MEDS ORDERED: PROPOFOL 10 MG/ML 20 ML VIAL IV ONE (12:27)
[2019-09-06] MEDS ORDERED: LIDOCAINE 1% INJ 10MG/ML (20 ML MDV) ONE (12:27)
--- NOTE | 2019-09-06 13:27 | P.OP ---
Date of Procedure: 09/06/19 Preoperative Diagnosis: Bladder calculi, right scrotal abscess Postoperative Diagnosis: Same Procedure(s) Performed: Cystoscopy, incision and drainage of right scrotal abscess, removal of right scrotal mesh graft Anesthesia: ASHLY Surgeon: Oziel Colon Estimated Blood Loss (ml): 5 IV fluids (ml): 500 Pathology: other (Sling mesh graft) Condition: stable Disposition: PACU Indications for Procedure: The patient is a 68-year-old white male with an abdominal aortic aneurysm. 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 He has a neurogenic bladder as a result of this. Several years after the injury, he was evaluated at [facility] for urinary incontinence and underwent an attempted sling procedure. The patient and his are very vague regarding details of this. He self catheterizes 2-3 times daily and experiences urinary incontinence while transferring. It is for this reason he is taking imipramine. On 07/25/2019 the patient developed a small amount of perineal drainage. He was hospitalized at [facility] and underwent incision and drainage, the enlargement of the perineal incision. He has undergone dressing changes, but t his is difficult due to the small size of the perineal incision. He was treated with Keflex, but recently has experienced increased drainage. He currently has an indwelling Elliott catheter in place. A CT scan of the pelvis performed yesterday at [facility] in [place] revealed a 33 x 49 mm right posterior scrotal abscess. The CT scan also showed several bladder calculi measuring up to 18 mm in size. Operative Findings: 4 flat bladder calculi, measuring up to 2 cm in size. Right intrascrotal mesh graft, removed entirely. Description of Procedure: The patient was taken to the operating room and placed in the dorsolithotomy position, with legs supported in Wei stirrups. The external genitalia was prepped and draped sterilely. The 30 lens was used to introduce the 17-Peruvian Stortz cystoscopic sheath through the urethra and into the bladder under direct vision. The anterior urethra appeared normal. The prostatic urethra showed evidence of mild lateral lobe enlargement. The bladder was examined in its entirety. Both ureteral orifices were normal anatomic location and configuration. No tumors were seen. 4 flat bladder calculi were seen, measuring up to 2 cm in diameter. The cystoscope was removed, and a 16-Peruvian Elliott catheter was placed and connected to gravity drainage. The perineal incision was probed. It was easy to advance a hemostat into the right intrascrotal cavity. A 2 cm transverse incision was made over an area of fluctuance. There was virtually no drainage. A finger was used to probe the right intrascrotal space. A mesh graft was palpable. It was secured to the right pubis. It was not secured on the left side. The graft was grasped with a hemostat, and digital dissection was used to pinch the area that was secured to the pubis. It was possible to remove the graft intact, along with the 2 right- sided bone anchors. A single left-sided bone anchor was secured to the graft. Palpation of the right intrascrotal space revealed no residual foreign bodies. The space was then thoroughly irrigated with 0.9 normal saline. A Dulce Maria drain was then passed from the scrotal incision through the perineal incision, and the drain was secured to the skin edges at each incision using a 2-0 nylon suture. Half-inch iodoform gauze was then used to pack the right hemiscrotum. Blood loss was minimal. Sponge and needle counts were correct. A sterile dressing was applied over the scrotum and perineum. The patient tolerated the procedure well was taken to the recovery room in stable condition.
[2019-09-06 13:39] LABS: Glucose,Whole Blood 108 mg/dL (75-99)
--- NOTE | 2019-09-06 14:06 | PN ---
PROGRESS NOTE DATE OF SERVICE: 09/06/2019. REASON FOR FOLLOWUP: Scrotal abscess. INTERVAL HISTORY: The patient is currently afebrile. The patient has been breathing comfortably. The patient denies having any chest pain. No shortness of breath or cough. No nausea. No vomiting or abdominal pain. No diarrhea. PHYSICAL EXAMINATION: Blood pressure 120/56 with pulse of 79, temperature 97.4, he is 98% on room air. General description is an elderly male lying in bed in no distress. RESPIRATORY SYSTEM: Unlabored breathing. Clear to auscultation anteriorly. HEART: S1, S2. Regular rate and rhythm. ABDOMEN: Soft. No tenderness. LABS: No new labs have been obtained today. Culture showed gram-negative bacilli. DIAGNOSTIC IMPRESSION AND PLAN: Patient with scrotal abscess, status post drainage. Waiting for surgery this afternoon. The patient is covered with vancomycin and cefepime. Will be discharged on antibiotic depending upon the culture report. Continue with supportive care. MMODL / IJN: [id number] /
[2019-09-06 17:22] LABS: Glucose,Whole Blood 174 mg/dL (75-99)
--- NOTE | 2019-09-06 18:53 | P.PN ---
Progress Note - Text Progress Note Date: 09/06/19 Chief Complaint: Scrotal wound History of presenting complaint: This is a 68-year-old patient of Dr. Ferreira. Chronic stable medical conditions include history of T10 paraplegia following a spinal injection, brain aneurysm, AAA, hyperlipidemia, [place] filter, diabetes. Patient on July 25 diagnosed to have a left scrotal abscess. Patient was taken to the [facility]. From there patient was transferred to Hospital where he stayed from July 26 through July 29. I&D was carried out. Patient is discharged home on 10 days of Keflex. Patient was sent home with dressing twice a day. It had pretty much cleared up. His noticed that recently the drainage was intermittently clear and body. Noticed 2 days patient noticed that the patient's urine was cloudy. Urine culture was [facility]. Patient normally straight cath himself 2-3 times a day. Due to neurogenic bladder Elliott catheter was placed in the hospital. No fever no chills. No pain. Today-laying in bed. Comfortable. at the bedside. Saw the patient the morning. Pending to go down to the operating room this afternoon with Dr. Webster. Review of systems: Was done for constitutional, cardiovascular, GI, pulmonary. relevant finding as above Active Medications Acetaminophen (Tylenol Tab) 650 mg PO Q6HR PRN PRN Reason: Mild Pain or Fever > 100.5 Hydrocodone Bitart/Acetaminophen ([place] 5-325) 1 each PO Q4HR PRN PRN Reason: Moderate Pain Aspirin (Aspirin) 325 mg PO DAILY [facility] Last Admin: 09/06/19 08:36 Dose: 325 mg Documented by: Atorvastatin Calcium (Lipitor) 10 mg PO DAILY [facility] Last Admin: 09/06/19 08:36 Dose: 10 mg Documented by: Sodium Chloride (Saline 0.9%) 1,000 mls @ 75 mls/hr IV .[id number] [facility] Last Admin: 09/06/19 11:45 Dose: Not Given Documented by: Vancomycin HCl 1,500 mg/ (Sodium Chloride) 250 mls @ 125 mls/hr IVPB Q12HR [facility] Last Admin: 09/06/19 11:03 Dose: 125 mls/hr Documented by: Cefepime HCl 2 gm/ Sodium (Chloride) 100 mls @ 200 mls/hr IVPB Q12HR [facility] Last Admin: 09/06/19 08:36 Dose: 200 mls/hr Documented by: Ibuprofen (Motrin) 400 mg PO Q6HR PRN PRN Reason: Mild Pain or Fever > 100.5 Imipramine HCl (Tofranil) 10 mg PO DAILY [facility] Last Admin: 09/06/19 08:36 Dose: 10 mg Documented by: Insulin Aspart (Novolog) 0 unit SQ ACHS [facility]; Protocol Last Admin: 09/06/19 17:38 Dose: 2 unit Documented by: Lisinopril (Zestril) 10 mg PO DAILY [facility] Last Admin: 09/06/19 08:36 Dose: 10 mg Documented by: Metformin HCl (Glucophage) 1,000 mg PO BID [facility] Last Admin: 09/06/19 08:36 Dose: 1,000 mg Documented by: Miscellaneous Information (Vancomycin Trough Due) 0 each MISCELLANE DIRECTED ONE Stop: 09/07/19 08:01 Morphine Sulfate (Morphine Sulfate (Inj)) 4 mg IV Q4HR PRN PRN Reason: Severe Pain Multivitamins (Theragran) 1 each PO DAILY [facility] Last Admin: 09/06/19 08:36 Dose: 1 each Documented by: Naloxone HCl (Narcan) 0.2 mg IV Q2M PRN PRN Reason: Opioid Reversal Liraglutide [Victoza (2-Peewee] 1.2 Mg) 1.2 mg SQ DAILY [facility] Last Admin: 09/06/19 08:37 Dose: Not Given Documented by: Ondansetron HCl (Zofran) 4 mg IVP Q8HR PRN PRN Reason: Nausea And Vomiting Last Admin: 09/06/19 11:56 Dose: 4 mg Documented by: Physical examination: VITAL SIGNS: 97.4, 79, 16, 120/56, 98% on room air GENERAL: BMI 27.5, laying in bed, awake. EYES: Pupils equal. Conjunctiva normal. HEENT: External appearance of nose and ears normal, oral cavity grossly normal. NECK: JVD not raised; masses not palpable. HEART: First and second heart sounds are normal; no edema. LUNGS: Respiratory rate normal; clear to auscultation. ABDOMEN: Soft, nontender, liver spleen not palpable, no masses palpable. Scrotum-on the left side opening with clear fluid, margins well epithelialized, no pus expressed PSYCH: Alert and oriented x3; mood and affect normal. NEUROLOGICAL: [Cranial nerves grossly intact; no facial asymmetry, lower extremity power 0/5 INVESTIGATIONS, reviewed in the clinical context: White count 7.90 with 13.5 potassium 4.2 creatinine 0.64 Lactic acid 2.6 UA positive for leukoesterase, WBC Assessment: -This is a pleasant 68-year-old patient who on July 25 current diagnoses scrotal abscess taken down to: Hospital was there from July 26 through July 29. I&D was carried out. Was discharged on Keflex for 10 days. Drainage at clear. No having cloudy appearing urine and clear drainage from the same opening. Need to rule out a fistula. Otherwise the opening pot is a rather well epithelialized. 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 Patient late in the day was taken to the operating room. Patient had a cystoscopy with I&D of the right scrotal abscess and removal of right scrotal mesh graft.
[2019-09-06 20:20] LABS: Glucose,Whole Blood 200 mg/dL (75-99)
[2019-09-07 06:48] LABS: Glucose,Whole Blood 144 mg/dL (75-99)
[2019-09-07] MEDS ORDERED: VANCOMYCIN TROUGH DUE 1 EACH MISC MISCELLANE ONE (08:00)
[2019-09-07 08:41] LABS: African American GFR (CKD) >90 (>60 ml/min/1.73 sqM); Non-African American GFR(CKD) >90 (>60 ml/min/1.73 sqM)
[2019-09-07] MEDS: CEFEPIME 2 GM in SODIUM CHLORIDE 0.9% 100 ML IVPB SCH ×2 (09:00→21:11)
[2019-09-07] MEDS: ASPIRIN 325 MG TAB PO SCH (09:01)
[2019-09-07] MEDS: MULTIVITAMINS, THERA 1 EACH TAB PO SCH (09:01)
[2019-09-07] MEDS: metFORMIN 500 MG TAB PO SCH ×2 (09:01→21:00)
[2019-09-07] MEDS: LISINOPRIL 10 MG TAB PO SCH (09:01)
[2019-09-07] MEDS: ATORVASTATIN 10 MG TAB PO SCH (09:01)
[2019-09-07] MEDS: INSULIN ASPART (NovoLOG) 100 UNIT/ML VIAL SQ SCH ×4 (09:02→21:00)
[2019-09-07] MEDS: Liraglutide [Victoza 2-Pak] 1.2 MG SQ SCH (09:03)
[2019-09-07] MEDS: IMIPRAMINE 10 MG TAB PO SCH (09:06)
[2019-09-07] MEDS: VANCOMYCIN 1,500 MG in SODIUM CHLORIDE 0.9% 250 ML IVPB SCH (10:48)
[2019-09-07 11:27] LABS: Glucose,Whole Blood 133 mg/dL (75-99)
[2019-09-07] MEDS: SODIUM CHLORIDE 0.9% 1,000 ML IV SCH (15:45)
--- NOTE | 2019-09-07 16:15 | PN ---
PROGRESS NOTE DATE OF SERVICE: 09/07/2019. REASON FOR FOLLOWUP: Scrotal abscess. INTERVAL HISTORY: The patient is currently afebrile, has been breathing comfortably. The patient denies having any chest pain, shortness of breath or cough. No nausea, vomiting, abdominal pain or diarrhea. PHYSICAL EXAMINATION: Blood pressure 107/56, pulse of 70, temperature is 97.6. He is 99% on room air. General description is an elderly male lying in bed in no distress. RESPIRATORY SYSTEM: Unlabored breathing. Clear to auscultation anteriorly. HEART: S1, S2. Regular rate and rhythm. ABDOMEN: Soft. No tenderness. LABS: No new labs have been obtained today. Cultures showing Gram-negative bacilli and Staph aureus. DIAGNOSTIC IMPRESSION AND PLAN: Patient with scrotal abscess in this patient who is status post surgery yesterday with drainage of the abscess and removal of the mass. Unfortunately no deep cultures were done. Superficial culture is showing MSSA and a Gram-negative, with ID of the Gram- negative still pending. The patient will continue on cefepime. Vancomycin will be discontinued. He will get a midline for outpatient IV antibiotic therapy and continue supportive care. MMODL / IJN: [id number] /
--- NOTE | 2019-09-07 16:26 | P.PN ---
Progress Note - Text Progress Note Date: 09/07/19 Chief Complaint: Scrotal wound History of presenting complaint: This is a 68-year-old patient of Dr. Ferreira. Chronic stable medical conditions include history of T10 paraplegia following a spinal injection, brain aneurysm, AAA, hyperlipidemia, [place] filter, diabetes. Patient on July 25 diagnosed to have a left scrotal abscess. Patient was taken to the [facility] [place] [facility]. From there patient was transferred to Hospital where he stayed from July 26 through July 29. I&D was carried out. Patient is discharged home on 10 days of Keflex. Patient was sent home with dressing twice a day. It had pretty much cleared up. His noticed that recently the drainage was intermittently clear and body. Noticed 2 days patient noticed that the patient's urine was cloudy. Urine culture was sent off to [facility]. Patient normally straight cath himself 2-3 times a day. Due to neurogenic bladder Elliott catheter was placed in the hospital. No fever no chills. No pain. Underwent left scrotal abscess I&D. Dulce Maria drain in place Today-laying in bed. No new issues. No fever no chills. at bedside. Review of systems: Was done for constitutional, cardiovascular, GI, pulmonary. relevant finding as above Active Medications Acetaminophen (Tylenol Tab) 650 mg PO Q6HR PRN PRN Reason: Mild Pain or Fever > 100.5 Hydrocodone Bitart/Acetaminophen ([place] 5-325) 1 each PO Q4HR PRN PRN Reason: Moderate Pain Aspirin (Aspirin) 325 mg PO DAILY [facility] Last Admin: 09/07/19 09:01 Dose: 325 mg Documented by: Atorvastatin Calcium (Lipitor) 10 mg PO DAILY [facility] Last Admin: 09/07/19 09:01 Dose: 10 mg Documented by: Sodium Chloride (Saline 0.9%) 1,000 mls @ 75 mls/hr IV .[id number] [facility] Last Admin: 09/07/19 15:45 Dose: Not Given Documented by: Cefepime HCl 2 gm/ Sodium (Chloride) 100 mls @ 200 mls/hr IVPB Q12HR [facility] Last Admin: 09/07/19 09:00 Dose: 200 mls/hr Documented by: Ibuprofen (Motrin) 400 mg PO Q6HR PRN PRN Reason: Mild Pain or Fever > 100.5 Imipramine HCl (Tofranil) 10 mg PO DAILY [facility] Last Admin: 09/07/19 09:06 Dose: 10 mg Documented by: Insulin Aspart (Novolog) [address] [facility]; Protocol Last Admin: 09/07/19 13:44 Dose: Not Given Documented by: Lisinopril (Zestril) 10 mg PO DAILY [facility] Last Admin: 09/07/19 09:01 Dose: 10 mg Documented by: Metformin HCl (Glucophage) 1,000 mg PO BID [facility] Last Admin: 09/07/19 09:01 Dose: 1,000 mg Documented by: Morphine Sulfate (Morphine Sulfate (Inj)) 4 mg IV Q4HR PRN PRN Reason: Severe Pain Multivitamins (Theragran) 1 each PO DAILY [facility] Last Admin: 09/07/19 09:01 Dose: 1 each Documented by: Naloxone HCl (Narcan) 0.2 mg IV Q2M PRN PRN Reason: Opioid Reversal Liraglutide [Victoza (2-Peewee] 1.2 Mg) 1.2 mg SQ DAILY [facility] Last Admin: 09/07/19 09:03 Dose: Not Given Documented by: Ondansetron HCl (Zofran) 4 mg IVP Q8HR PRN PRN Reason: Nausea And Vomiting Last Admin: 09/06/19 11:56 Dose: 4 mg Documented by: Physical examination: VITAL SIGNS: 97.6, 70, 17, 107/56, 99% on room air GENERAL: Laying in bed, comfortable EYES: Pupils equal. Conjunctiva normal. HEENT: External appearance of nose and ears normal, oral cavity grossly normal. NECK: JVD not raised; masses not palpable. HEART: First and second heart sounds are normal; no edema. LUNGS: Respiratory rate normal; clear to auscultation. ABDOMEN: Soft, nontender, liver spleen not palpable, no masses palpable. Scrotal-Dulce Maria drain PSYCH: Alert and oriented x3; mood and affect normal. 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 Other medications to continue. Local wound care per Dr. Webster. Discussed with patient and .
[2019-09-07 17:05] LABS: Glucose,Whole Blood 209 mg/dL (75-99)
--- NOTE | 2019-09-07 19:07 | P.PN ---
Progress Note - Text Progress Note Date: 09/07/19 Mr. Arnett feels well today. He is afebrile with stable vital signs. The Elliott catheter is draining clear yellow urine. The wound is packed and there is no visible drainage. Urine culture has shown Klebsiella. The wound culture results are pending. Dressing changes will be initiated, and the is prepared to continue them at home. They are already established with a local wound care center. I anticipate he will be ready for discharge on September 08.
[2019-09-07 19:58] LABS: Glucose,Whole Blood 183 mg/dL (75-99)
[2019-09-08] MEDS: SODIUM CHLORIDE 0.9% 1,000 ML IV SCH ×2 (04:12→17:46)
[2019-09-08 06:49] LABS: Glucose,Whole Blood 138 mg/dL (75-99)
[2019-09-08 07:12] LABS: HCT 36.3 % (39.0-53.0); HGB 11.6 gm/dL (13.0-17.5); Hypochromasia Slight; MCHC 32.1 g/dL (31.0-37.0); MCV 90.4 fL (80.0-100.0); Mean Platelet Volume 7.2; Platelet Count 239 k/uL (150-450); RBC 4.02 m/uL (4.30-5.90); RDW 15.5 % (11.5-15.5); WBC 5.5 k/uL (3.8-10.6)
[2019-09-08 07:25] LABS: African American GFR (CKD) >90 (>60 ml/min/1.73 sqM); Anion Gap 7 mmol/L; Blood Urea Nitrogen 13 mg/dL (9-20); Calcium 8.6 mg/dL (8.4-10.2); Carbon Dioxide 25 mmol/L (22-30); Chloride 106 mmol/L (98-107); Glucose 131 mg/dL (74-99); Non-African American GFR(CKD) >90 (>60 ml/min/1.73 sqM); Potassium 4.6 mmol/L (3.5-5.1); Sodium 138 mmol/L (137-145)
[2019-09-08] MEDS: LISINOPRIL 10 MG TAB PO SCH (07:54)
[2019-09-08] MEDS: metFORMIN 500 MG TAB PO SCH ×2 (07:54→21:42)
[2019-09-08] MEDS: MULTIVITAMINS, THERA 1 EACH TAB PO SCH (07:54)
[2019-09-08] MEDS: INSULIN ASPART (NovoLOG) 100 UNIT/ML VIAL SQ SCH ×4 (07:54→21:43)
[2019-09-08] MEDS: ATORVASTATIN 10 MG TAB PO SCH (07:54)
[2019-09-08] MEDS: ASPIRIN 325 MG TAB PO SCH (07:54)
[2019-09-08] MEDS: IMIPRAMINE 10 MG TAB PO SCH (07:55)
[2019-09-08] MEDS: CEFEPIME 2 GM in SODIUM CHLORIDE 0.9% 100 ML IVPB SCH (07:55)
[2019-09-08] MEDS: Liraglutide [Victoza 2-Pak] 1.2 MG SQ SCH (07:57)
--- NOTE | 2019-09-08 11:28 | P.PN ---
Progress Note - Text Progress Note Date: 09/08/19 Mr. Arnett feels well and has no complaints. He remains afebrile. His Elliott catheter is draining clear yellow urine. His scrotal wound is clean. There is minimal drainage. I removed his Dulce Maria drain this morning, and the Elliott catheter will be removed. He will resume self-catheterization. To clarify, no residual abscess was identified at the time of his scrotal exploration. A scrotal incision was made at an area of fluctuance, and through this incision it was possible to identify and remove the mesh which I'm sure is the reason the infection persisted. Based on the culture results, I am not convinced that the patient will require outpatient IV antibiotics but I will defer to Dr. Paris. Mr. Arnett will follow-up with me in 3 weeks. Once the scrotal wound has healed, he will undergo elective outpatient cystolithotripsy. Please notify me if I can be of any further assistance during this hospitalization.
[2019-09-08 11:48] LABS: Glucose,Whole Blood 187 mg/dL (75-99)
[2019-09-08] MEDS: AMPICILLIN-SULBACTAM 3 GM in SODIUM CHLORIDE 0.9% 100 ML IVPB SCH ×3 (14:06→23:33)
--- NOTE | 2019-09-08 15:49 | PN ---
PROGRESS NOTE DATE OF SERVICE: 09/08/2019 REASON FOR FOLLOWUP: Scrotal abscess and cellulitis. INTERVAL HISTORY: The patient is currently afebrile. The patient has been breathing comfortably. Denies having any chest pain or cough. No nausea. No vomiting. No abdominal pain. Patient's drain from the surgical site has been discontinued this morning per Urology. PHYSICAL EXAMINATION: Blood pressure 107/51 with pulse of 70, temperature 96.4. He is 96% on room air. General description is an elderly male lying in bed in no distress. RESPIRATORY SYSTEM: Unlabored breathing, clear to auscultation anteriorly. HEART: S1, S2. Regular rate and rhythm. ABDOMEN: Soft, no tenderness. LABS: Hemoglobin is 11.6, white count 5.5, creatinine 0.51. Wound culture has been MSSA, Acinetobacter, Klebsiella. DIAGNOSTIC IMPRESSION AND PLAN: Patient with a scrotal abscess with infected mesh that has been discontinued. Culture has been different multiple pathogen. Antibiotic will be adjusted to Unasyn 3 g q.6 hours. Recommend finishing therapy with Unasyn 3 grams q. hours for at least 2 weeks with close outpatient followup. MMODL / IJN: [id number] /
[2019-09-08 17:01] LABS: Glucose,Whole Blood 168 mg/dL (75-99)
[2019-09-08 20:45] LABS: Glucose,Whole Blood 200 mg/dL (75-99)
[2019-09-09] MEDS: AMPICILLIN-SULBACTAM 3 GM in SODIUM CHLORIDE 0.9% 100 ML IVPB SCH ×4 (06:04→23:35)
[2019-09-09 06:21] VITALS: RESP 16
[2019-09-09 07:13] LABS: Glucose,Whole Blood 143 mg/dL (75-99)
[2019-09-09] MEDS: LISINOPRIL 10 MG TAB PO SCH (07:56)
[2019-09-09] MEDS: ATORVASTATIN 10 MG TAB PO SCH (07:56)
[2019-09-09] MEDS: MULTIVITAMINS, THERA 1 EACH TAB PO SCH (07:56)
[2019-09-09] MEDS: metFORMIN 500 MG TAB PO SCH ×2 (07:57→21:51)
[2019-09-09] MEDS: INSULIN ASPART (NovoLOG) 100 UNIT/ML VIAL SQ SCH ×4 (07:57→21:50)
[2019-09-09] MEDS: ASPIRIN 325 MG TAB PO SCH (07:57)
[2019-09-09] MEDS: IMIPRAMINE 10 MG TAB PO SCH (07:59)
[2019-09-09] MEDS: SODIUM CHLORIDE 0.9% 1,000 ML IV SCH ×2 (08:00→22:51)
[2019-09-09] MEDS: Liraglutide [Victoza 2-Pak] 1.2 MG SQ SCH (09:53)
[2019-09-09 11:39] LABS: Glucose,Whole Blood 135 mg/dL (75-99)
[2019-09-09 16:40] LABS: Glucose,Whole Blood 106 mg/dL (75-99)
--- NOTE | 2019-09-09 16:55 | PN ---
PROGRESS NOTE DATE OF SERVICE: 09/09/2019 REASON FOR FOLLOWUP: Scrotal abscess and cellulitis. INTERVAL HISTORY: The patient is currently afebrile, has been breathing comfortably. Patient denies having any chest pain. No shortness of breath. No cough. No abdominal pain. No diarrhea. No purulent drainage from his scrotal wound. PHYSICAL EXAMINATION: Blood pressure 147/71 with a pulse of 70. Temperature 97.4. He is 98% on room air. General description is an elderly male lying in bed in no distress. Respiratory system: Unlabored breathing, clear to auscultation anteriorly. Heart S1, S2. Regular rate and rhythm. ABDOMEN: Soft, no tenderness. Scrotal wound no purulent drainage, redness has resolved. LABS: Hemoglobin 11.6, white count 5.5, BUN of 13, creatinine 0.51. DIAGNOSTIC IMPRESSION AND PLAN: Patient with scrotal abscess in this patient who is status post drainage. Culture positive for MSSA, Acinetobacter and Klebsiella. The patient is currently covered with Unasyn. Recommend keeping the patient on Unasyn 3 g q.8 hours for at least 2 weeks and if this is not a possibility, the other option would be Rocephin 2 g daily and oral Cipro. We will discuss further with the rn case manager, working on discharge. Continue supportive care. MMODL / IJN: [id number] /
[2019-09-09 21:40] LABS: Glucose,Whole Blood 158 mg/dL (75-99)
--- NOTE | 2019-09-09 23:18 | P.PN ---
Subjective Progress Note Date: 09/08/19 Principal diagnosis: scrotal wound This is a 68-year-old patient of Dr. Ferreira. Chronic stable medical conditions include history of T10 paraplegia following a spinal injection, brain aneurysm, AAA, hyperlipidemia, Wells filter, diabetes. Patient on July 25 diagnosed to have a left scrotal abscess. Patient was taken to the [facility]. From there patient was transferred to Hospital where he stayed from July 26 through July 29. I&D was carried out. Patient is discharged home on 10 days of Keflex. Patient was sent home with dressing twice a day. It had pretty much cleared up. His noticed that recently the drainage was intermittently clear and body. Noticed 2 days patient noticed that the patient's urine was cloudy. Urine culture was sent off to [facility]. Patient normally straight cath himself 2-3 times a day. Due to neurogenic bladder Elliott catheter was placed in the hospital. No fever no chills. No pain. Underwent left scrotal abscess I&D. Dulce Maria drain in place 09/08/2019-laying in bed. No new issues. No fever no chills. at bedside. urine culture showed Klebsiella pneumonia Wound cultures showed staph aureus, Klebsiella pneumonia and a Citrobacter. Antibiotics changed to Unasyn. ID is on board. urology is following. Dulce Maria drain was removed. Review of systems: Was done for constitutional, cardiovascular, GI, pulmonary. relevant finding as above Objective - Vital Signs Vital signs: Vital Signs Temp 96.4 F L 09/08/19 12:36 Pulse 70 09/08/19 12:36 Resp 17 09/08/19 12:36 BP 107/51 09/08/19 12:36 Pulse Ox 96 09/08/19 12:36 Intake & Output 09/07/19 09/08/19 09/08/19 18:59 06:59 18:59 Intake Total 1162 1180 240 Output Total 1700 1550 Balance 1162 -520 -1310 Intake: Intake, IV Titration 762 Amount Cefepime 2 gm In Sodium 100 Chloride 0.9% 100 ml @ 200 mls/hr IVPB Q12HR [facility] Rx#:[id number] Sodium Chloride 0.9% 1, 412 000 ml @ 75 mls/hr IV . [id number] [facility] Rx#:[id number] Vancomycin 1,500 mg In 250 Sodium Chloride 0.9% 250 ml @ 125 mls/hr IVPB Q12HR [facility] Rx#:[id number] Oral 400 1180 240 Output: Urine 1700 1550 Suprapubic 1700 Other: Voiding Method Indwelling Catheter Indwelling Catheter # Bowel Movements 1 0 - Exam GENERAL: Laying in bed, comfortable EYES: Pupils equal. Conjunctiva normal. HEENT: External appearance of nose and ears normal, oral cavity grossly normal. NECK: JVD not raised; masses not palpable. HEART: First and second heart sounds are normal; no edema. LUNGS: Respiratory rate normal; clear to auscultation. ABDOMEN: Soft, nontender, liver spleen not palpable, no masses palpable. Scrotal-wound packed PSYCH: Alert and oriented x3; mood and affect normal. NEUROLOGICAL: [Cranial nerves grossly intact; no facial asymmetry, lower extremity power 0/5 - Respiratory Details: INVESTIGATIONS, reviewed in the clinical context: White count 7.90 with 13.5 potassium 4.2 creatinine 0.64 Lactic acid 2.6 UA positive for Klebsiella pneumoniae Scrotal wound-positive for Staphylococcus aureus, gram-negative bacilli - Labs CBC & Chem 7: 09/08/19 06:35 09/08/19 06:35 Labs: Abnormal Lab Results - Last 24 Hours (Table) 09/07/19 09/07/19 09/08/19 Range/Units 17:04 19:56 06:35 RBC (4.30-5.90) m/uL Hgb (13.0-17.5) gm/dL Hct (39.0-53.0) % Creatinine 0.51 L (0.66-1.25) mg/dL Glucose 131 H (74-99) mg/dL POC Glucose (mg/dL) 209 H 183 H (75-99) mg/dL 09/08/19 09/08/19 09/08/19 Range/Units 06:35 06:47 11:46 RBC 4.02 L (4.30-5.90) m/uL Hgb 11.6 L (13.0-17.5) gm/dL Hct 36.3 L (39.0-53.0) % Creatinine (0.66-1.25) mg/dL Glucose (74-99) mg/dL POC Glucose (mg/dL) 138 H 187 H (75-99) mg/dL Microbiology - Last 24 Hours (Table) 09/04/19 19:50 Blood Culture - Preliminary Blood No Growth after 72 hours 09/04/19 20:20 Gram Stain - Final Other - Other Wound Culture - Preliminary Staphylococcus aureus Acinetobacter avi/haemol Klebsiella pneumoniae Assessment and Plan Assessment: -Left scrotal abscess-status post I&D has a Dulce Maria drain.-Positive for staph aureus and gram-negative bacilli -Chronic paraplegia from spinal cord injury at T10 -Abdominal aortic aneurysm -Diabetes mellitus type 2 -Wells filter history of -Hyperlipidemia -Chronic medical debility -Acute UTI from cystitis with Klebsiella pneumoniae Plan: Continued IV cefepime. changed to Unasyn. Other medications to continue. Local wound care per Dr. Webster. Discussed with patient and . Time with Patient: Greater than 30
--- NOTE | 2019-09-09 23:23 | P.PN ---
Subjective Progress Note Date: 09/09/19 Principal diagnosis: scrotal wound This is a 68-year-old patient of Dr. Ferreira. Chronic stable medical conditions include history of T10 paraplegia following a spinal injection, brain aneurysm, AAA, hyperlipidemia, [place] filter, diabetes. Patient on July 25 diagnosed to have a left scrotal abscess. Patient was taken to the [facility]. From there patient was transferred to Hospital where he stayed from July 26 through July 29. I&D was carried out. Patient is discharged home on 10 days of Keflex. Patient was sent home with dressing twice a day. It had pretty much cleared up. His noticed that recently the drainage was intermittently clear and body. Noticed 2 days patient noticed that the patient's urine was cloudy. Urine culture was sent off to [facility]. Patient normally straight cath himself 2-3 times a day. Due to neurogenic bladder Elliott catheter was placed in the hospital. No fever no chills. No pain. Underwent left scrotal abscess I&D. Dulce Maria drain in place 09/08/2019-laying in bed. No new issues. No fever no chills. at bedside. urine culture showed Klebsiella pneumonia Wound cultures showed staph aureus, Klebsiella pneumonia and a Citrobacter. Antibiotics changed to Unasyn. ID is on board. urology is following. Dulce Maria drain was removed. 09/09/2019 Patient denied any new complaints today. No discharge noted from the scrotal wound. Patient has been afebrile. No complaints of chest pain or shortne Patient is being continued on antibiotics the form of Unasyn. PICC line was obtained anticipate discharge in the next 24 hours with IV antibiotics at home or to rehab to complete antibiotic course. Review of systems: Was done for constitutional, cardiovascular, GI, pulmonary. relevant finding as above Objective - Vital Signs Vital signs: Vital Signs Temp 97.4 F L 09/09/19 13:00 Pulse 70 09/09/19 13:00 Resp 16 09/09/19 13:00 BP 147/71 09/09/19 13:00 Pulse Ox 98 09/09/19 13:00 Intake & Output 09/08/19 09/09/19 09/09/19 18:59 06:59 18:59 Intake Total 240 Output Total 1999 823 1806 Balance -5788 -248 -1801 Intake: Oral 240 Output: Urine 1999 575 1800 Stool 1 Other: Voiding Method Self-Catheterization # Voids 1 1 # Bowel Movements 0 - Exam GENERAL: Laying in bed, comfortable EYES: Pupils equal. Conjunctiva normal. HEENT: External appearance of nose and ears normal, oral cavity grossly normal. NECK: JVD not raised; masses not palpable. HEART: First and second heart sounds are normal; no edema. LUNGS: Respiratory rate normal; clear to auscultation. ABDOMEN: Soft, nontender, liver spleen not palpable, no masses palpable. Scrotal-wound packed PSYCH: Alert and oriented x3; mood and affect normal. NEUROLOGICAL: [Cranial nerves grossly intact; no facial asymmetry, lower extremity power 0/5 - Labs CBC & Chem 7: 09/08/19 06:35 09/08/19 06:35 Labs: Abnormal Lab Results - Last 24 Hours (Table) 09/08/19 09/08/19 09/09/19 Range/Units 17:00 20:43 07:11 POC Glucose (mg/dL) 168 H 200 H 143 H (75-99) mg/dL 09/09/19 Range/Units 11:38 POC Glucose (mg/dL) 135 H (75-99) mg/dL Microbiology - Last 24 Hours (Table) 09/04/19 19:50 Blood Culture - Preliminary Blood No Growth after 96 hours Assessment and Plan Assessment: -Left scrotal abscess-status post I&D has a [place] drain.-Positive for staph aureus and gram-negative bacilli -Chronic paraplegia from spinal cord injury at T10 -Abdominal aortic aneurysm -Diabetes mellitus type 2 -Rockwood filter history of -Hyperlipidemia -Chronic medical debility -Acute UTI from cystitis with Klebsiella pneumoniae Plan: Continued IV cefepime. changed to Unasynas per culture report. Other medications to continue. Local wound care per Dr. Webster. Discussed with p atient and .ID is recommending IV antibiotics via PICC line. CMS is following. Time with Patient: Greater than 30
[2019-09-10] MEDS: AMPICILLIN-SULBACTAM 3 GM in SODIUM CHLORIDE 0.9% 100 ML IVPB SCH (05:37)
[2019-09-10 06:41] VITALS: BP 132/63; PULSE 79; TEMP 97.7
[2019-09-10 07:00] LABS: Glucose,Whole Blood 125 mg/dL (75-99)
[2019-09-10] MEDS: INSULIN ASPART (NovoLOG) 100 UNIT/ML VIAL SQ SCH ×2 (07:12→12:14)
[2019-09-10] MEDS: LISINOPRIL 10 MG TAB PO SCH (07:46)
[2019-09-10] MEDS: MULTIVITAMINS, THERA 1 EACH TAB PO SCH (07:46)
[2019-09-10] MEDS: ASPIRIN 325 MG TAB PO SCH (07:46)
[2019-09-10] MEDS: metFORMIN 500 MG TAB PO SCH (07:47)
[2019-09-10] MEDS: ATORVASTATIN 10 MG TAB PO SCH (07:47)
[2019-09-10] MEDS: Liraglutide [Victoza 2-Pak] 1.2 MG SQ SCH (07:47)
[2019-09-10] MEDS: IMIPRAMINE 10 MG TAB PO SCH (10:05)
[2019-09-10] MEDS: SODIUM CHLORIDE 0.9% 1,000 ML IV SCH (10:06)
[2019-09-10] MEDS ORDERED: CIPROFLOXACIN HCL 500 MG TAB PO SCH (10:15)
[2019-09-10 12:15] LABS: Glucose,Whole Blood 102 mg/dL (75-99)
--- NOTE | 2019-09-10 12:52 | PN ---
PROGRESS NOTE DATE OF SERVICE: 09/10/2019. REASON FOR FOLLOWUP: Scrotal abscess and cellulitis. INTERVAL HISTORY: The patient is currently afebrile, has been breathing comfortably. The patient denies having any chest pain or shortness of breath or cough. No abdominal pain and no diarrhea. PHYSICAL EXAMINATION: Blood pressure 132/63 with a pulse of 79, temperature is 97.7. He is 95% on room air. General description is an elderly male lying in bed in no distress. RESPIRATORY SYSTEM: Unlabored breathing, clear to auscultation anteriorly. HEART: S1, S2. Regular rate and rhythm. ABDOMEN: Soft, no tenderness. Wound has been dressed by the RN make sure wound is clean. LAB: Last creatinine 0.51. No blood work has been done. DIAGNOSTIC IMPRESSION AND PLAN: Patient with scrotal abscess status post drainage. Culture with multiple pathogen was advised Unasyn 3 grams q.8 for 10 days. Unfortunately, they were not able to do it, requesting a once a day antibiotic. Will be switched over to Rocephin 2 grams daily and oral Cipro for the same duration. Local wound care to continue per Surgery and close outpatient followup. MMODL / IJN: [id number] /
--- NOTE | 2019-09-11 07:06 | DS ---
DISCHARGE SUMMARY DATE OF SERVICE: 09/10/2019 FINAL DIAGNOSES: 1. Left scrotal abscess, status post incision and drainage, has Dulce Maria drain. Positive for Staphylococcus aureus as well as Acinetobacter, Klebsiella pneumoniae, Staphylococcus aureus MSSA. 2. Chronic paraplegia from spinal cord injury at T10. 3. Abdominal aortic aneurysm. 4. Diabetes mellitus type 2. 5. Jolley filter history. 6. Hyperlipidemia. 7. Chronic medical debility. 8. Acute urinary tract infection with cystitis with Klebsiella pneumoniae present on admission. DISCHARGE DISPOSITION: The patient will be discharged in stable condition with guarded prognosis. Total time 35 minutes. HISTORY OF PRESENT ILLNESS: This 68-year-old gentleman with a past medical history of multiple medical problems admitted with left scrotal abscess, incision and drainage done and multiple organisms grown as mentioned earlier. Patient treated with antibiotics. Infectious Disease and as well as Urology saw the patient. Care was coordinated. Patient improved significantly. On exam, vitals are stable. CARDIOVASCULAR: S1, S2 muffled. ABDOMEN: Soft. NERVOUS SYSTEM: Unchanged. The scrotal abscess is improving. The patient will be discharged in stable condition with guarded prognosis. DISCHARGE ADVICE: 1. Diet is cardiac. 2. Activity limited until followup. 3. Follow up with Dr. Ferreira in 2 to 3 days. 4. Follow up with Dr. Colon and Dr. Prais as recommended. Medications are: 1. Cranberry 500 mg p.o. daily. 2. Ecotrin 325 mg p.o. daily. 3. Glucophage 1000 mg p.o. b.i.d. 4. Mevacor 40 mg p.o. daily. 5. Multivitamins one p.o. daily. 6. Prinivil 10 mg p.o. daily. 7. Probiotic 1 daily. 8. Tofranil 10 mg p.o. daily. 9. Victoza 1.2 subcu daily. 10.Cipro 500 mg p.o. b.i.d. for 10 days. 11.Rocephin 2 grams IV daily for 10 days through [facility]. 12.Tylenol p.r.n. Once again the patient will be discharged in stable condition with guarded prognosis. Total time taken 35 minutes. MMODL / IJN: [id number] /
--- NOTE | 2019-09-12 13:32 | CDI ---
Documentation Clarification Form Date: 09/12/2019 01:17:16 PM From: Samantha Griffith Phone: If you have a question about this query, please contact Luzmaria Berry Miter Cutter at [phone] between 8am and 5pm. Admit Date: 09/05/2019 10:54:00 AM Patient Name: Milton Arnett Visit Number: [id number] Discharge Date: 09/10/2019 03:33:00 PM ATTENTION: The Clinical Documentation Specialists (CDI) and [facility] Coding Staff appreciate your assistance in clarifying documentation. Please respond to the clarification below the line at the bottom and electronically sign. The CDI & [facility] Coding staff will review the response and follow-up if needed. Please note: Queries are made part of the Legal Health Record. If you have any questions, please contact the author of this message via ITS. Dr. Ramon Mancera Per ER notes patient went to [place] for wound care for his pressure ulcers and also examined the scrotum. Please clarify if patient has pressure ulcers and if so, location and stage.. History/Risk Factors: paraplegia from T10 spinal injury Location: no location given Wound description: none given Elements for accurate and compliant documentation of an ulcer: *The location/laterality of the ulcer *Etiology (decubitus/pressure, diabetic, PVD) *Stage I-IV, Unstageable, Suspected Deep Tissue Injury (To the deepest stage) *If the ulcer was present at admission (POA) or occurred after admission Pressure ulcer ruled out In your professional opinion, can you please clarify if patient has pressure ulcers if so please document the diagnosis, location, laterality and whether present on admission (POA): Stage 1 Pressure/Decubitus Ulcer (intact skin, non-blanching redness of local area) Stage 2 Pressure/Decubitus Ulcer (Partial thickness, loss of dermis, pink wound bed) Stage 3 Pressure/Decubitus Ulcer (Full thickness tissue loss) Stage 4 Pressure/Decubitus Ulcer (Full thickness tissue loss with exposed bone, tendon, or muscle. May have slough or eschar present) Unstageable Other condition, please specify Unable to determine Please indicate etiology of pressure ulcer (if known). ____Unable to determine MTDD
== END 2019-09-10 15:33 | disposition home health service (06) | DRG 921 ==
LOC: EC 18:55 → 5NMEDONC 19:28 → OBSVTOIN 09-05 10:54 → 6NMEDSUR 09-07 13:42
PROVIDERS: ADMIT Hospitalist; ATTEND Hospitalist
PROC: 0WJM0ZZ Inspection of Male Perineum, Open Approach (ICD-10-PCS; principal; 2019-09-06 12:30)
PROC: 0TJB8ZZ Inspection of Bladder, Via Natural or Artificial Opening Endoscopic (ICD-10-PCS; principal; 2019-09-06 12:30)
PROC: 0WP Anatomical Regions, General, Removal (ICD-10-PCS; principal; 2019-09-06 12:30)
DX: T85.79XA Infection and inflammatory reaction due to other internal prosthetic devices, implants and grafts, initial encounter (principal); N49.2 Inflammatory disorders of scrotum; B95.61 Methicillin susceptible Staphylococcus aureus infection as the cause of diseases classified elsewhere; B96.4 Proteus (mirabilis) (morganii) as the cause of diseases classified elsewhere; B96.1 Klebsiella pneumoniae [K. pneumoniae] as the cause of diseases classified elsewhere; E78.5 Hyperlipidemia, unspecified; E11.9 Type 2 diabetes mellitus without complications; I71.4 Abdominal aortic aneurysm, without rupture; N21.0 Calculus in bladder; N30.90 Cystitis, unspecified without hematuria; N31.9 Neuromuscular dysfunction of bladder, unspecified; Y84.8 Other medical procedures as the cause of abnormal reaction of the patient, or of later complication, without mention of misadventure at the time of the procedure; S24.103S Unspecified injury at T7-T10 level of thoracic spinal cord, sequela; Z79.82 Long term (current) use of aspirin; Z79.84 Long term (current) use of oral hypoglycemic drugs; Z79.899 Other long term (current) drug therapy; Z87.891 Personal history of nicotine dependence; L89.90 Pressure ulcer of unspecified site, unspecified stage
CPT/HCPCS: 36410; 36415; 76937; 80048; 80053; 80202; 81001; 82565; 83605; 85025; 85027; 87040; 87070; 87077; 87086; 87186; 87205; 88300; 96374; 99284

== ENCOUNTER 2020-01-29 12:03 | Day surgery (SDC) | payer MEDICARE, BC ==
[2020-01-25 10:22] VITALS: BMI 29.8
--- NOTE | 2020-01-27 21:10 | P.GSHP ---
History of Present Illness H&P Date: 01/22/20 Chief Complaint: Bladder calculi The patient is a 69-year-old white male with an abdominal aortic aneurysm. 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 He has a neurogenic bladder as a result of this. Several years after the injury, he was evaluated at [facility] for urinary incontinence and underwent an attempted sling procedure. The patient and his are very vague regarding details of this. He self catheterizes 2-3 times daily and experiences urinary incontinence while transferring. It is for this reason he is taking imipramine. On 07/25/2019 the patient developed a small amount of perineal drainage. He was hospitalized at [facility] and underwent incision and drainage, with enlargement of the perineal incision. He was treated conservatively but experienced increased drainage. A CT scan of the pelvis at [facility] in [place] in late August 2019 revealed a 33 x 49 mm right posterior scrotal abscess, as well as several bladder calculi measuring up to 18 mm in size. In view of this, he was transferred to [facility] for further management. He underwent incision and drainage of a right scrotal abscess, al olga with removal of infected mesh. He continues to undergo local wound care and the incision is healing. - Constitutional Constitutional: Denies chills, Denies fever - Genitourinary (Female) Genitourinary: Denies hematuria Past Medical History Past Medical History: Diabetes Mellitus Additional Past Medical History / Comment(s): 2 aneusyms brain and aorta, paralysis from T10 down History of Any Multi-Drug Resistant Organisms: None Reported Past Surgical History: Appendectomy Additional Past Surgical History / Comment(s): sabrina filter Past Psychological History: No Psychological Hx Reported Additional Psychological History / Comment(s): lives with his in the family home Past Alcohol Use History: None Reported Past Drug Use History: None Reported - Past Family History Father Additional Family Medical History / Comment(s): of cancer Medications and Allergies Home Medications Medication Instructions Recorded Confirmed Type Liraglutide [Victoza 2-Peewee] 1.2 mg SQ DAILY 06/24/17 09/04/19 History Lisinopril [Prinivil] 10 mg PO DAILY 06/24/17 09/04/19 History Lovastatin [Mevacor] 40 mg PO DAILY 06/24/17 09/04/19 History metFORMIN HCL [Glucophage] 1,000 mg PO BID 06/24/17 09/04/19 History Aspirin EC [Ecotrin] 325 mg PO DAILY 09/04/19 09/04/19 History Cranberry Fruit Extract [Cranberry] 500 mg PO DAILY 09/04/19 09/04/19 History Imipramine [Tofranil] 10 mg PO DAILY 09/04/19 09/04/19 History L.acidoph,Paracasei, B.lactis 1 cap PO DAILY 09/04/19 09/04/19 History [Probiotic] Multivitamins, Thera [Multivitamin 1 tab PO DAILY 09/04/19 09/04/19 History (formulary)] Acetaminophen Tab [Tylenol] 650 mg PO Q6HR PRN tab 09/10/19 Rx Ciprofloxacin HCl [Cipro] 500 mg PO Q12H #20 tab 09/10/19 Rx cefTRIAXone [Rocephin] 2,000 mg IVP ONCE #10 vial 09/10/19 Rx Allergies Allergy/AdvReac Type Severity Reaction Status Date / Time phenytoin [From Dilantin] Allergy Rash/Hives Verified 01/25/20 09:56 Sulfa (Sulfonamide Allergy Rash/Hives Verified 01/25/20 09:56 Antibiotics) Surgical - Exam - General well developed, well nourished, no distress - Respiratory normal respiratory effort - Abdomen Abdomen: soft, non tender, no guarding, no rigid, no rebound - Genitourinary normal penis with no external lesions right: testicle absent - Psychiatric oriented to time, oriented to person, oriented to place, speech is normal, memory intact Assessment and Plan (1) Calculus in bladder Status: Acute Code(s): N21.0 - CALCULUS IN BLADDER SNOMED Code(s): 23006449 Plan: Cystoscopy with cystolithotripsy. The procedure has been reviewed in detail with the patient and his . The anticipated perioperative course was discussed, as were potential risks. These include anesthesia, bleeding, infection, and bladder perforation.
[~2020-01-29 12:03] MED LIST: DEXAMETHASONE SOD PHOSPHATE 10 MG/ML 1 ML VIAL IV ONE; HYDROmorphone 0.5 MG/0.5 ML SYRINGE IVP PRN; LACTATED RINGERS 1,000 ML IV SCH; LIDOCAINE 1% (10MG/ML) FOR IV START INTRADERMA PRN; ONDANSETRON 4 MG/2 ML VIAL IVP ONE
[2020-01-29] MEDS ORDERED: ONDANSETRON 4 MG/2 ML VIAL ONE (12:37)
[2020-01-29 12:38] LABS: Glucose,Whole Blood 133 mg/dL (75-99)
[2020-01-29] MEDS ORDERED: MIDAZOLAM 2 MG/2 ML VIAL ONE (15:15)
[2020-01-29] MEDS ORDERED: PROPOFOL 10 MG/ML 20 ML VIAL IV ONE (15:15)
[2020-01-29] MEDS ORDERED: PHENYLEPHRINE-0.9% NACL SYG 1 MG/10 ML SYRINGE ONE (15:15)
[2020-01-29] MEDS ORDERED: LIDOCAINE 1% INJ 10MG/ML (20 ML MDV) ONE (15:15)
[2020-01-29] MEDS ORDERED: fentaNYL (PF) 50 MCG/ML 2 ML AMP ONE (15:15)
[2020-01-29] MEDS ORDERED: LACTATED RINGERS 1,000 ML IV ONE (16:21)
[2020-01-29 16:38] VITALS: TEMP 97
--- NOTE | 2020-01-29 16:42 | P.OP ---
Date of Procedure: 01/29/20 Preoperative Diagnosis: Bladder Calculi Postoperative Diagnosis: Same Procedure(s) Performed: Cystoscopy with Cystolithotripsy Anesthesia: ASHLY Surgeon: Oziel Colon Estimated Blood Loss (ml): 0 IV fluids (ml): 600 Pathology: other (Bladder calculi) Condition: stable Disposition: PACU Indications for Procedure: The patient is a 69-year-old white male with an abdominal aortic aneurysm. 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 He has a neurogenic bladder as a result of this. Several years after the injury, he was evaluated at [facility] for urinary incontinence and underwent an attempted sling procedure. The patient and his are very vague regarding details of this. He self catheterizes 2-3 times daily and experiences urinary incontinence while transferring. It is for this reason he is taking imipramine. On 07/25/2019 the patient developed a small amount of perineal drainage. He was hospitalized at [facility] and underwent incision and drainage, with enlargement of the perineal incision. He was treated conservatively but experienced increased drainage. A CT scan of the pelvis at [facility] in [place] in late August 2019 revealed a 33 x 49 mm right posterior scrotal abscess, as well as several bladder calculi measuring up to 18 mm in size. In view of this, he was transferred to [facility] for further management. He underwent incision and drainage of a right scrotal abscess, along with removal of infected mesh. He continues to undergo local wound care, but the wound has failed to completely heal. Operative Findings: Multiple flat bladder calculi measuring up to 3 cm in diameter Description of Procedure: The patient was taken to the operating room and placed in the dorsal lithotomy position, with legs supported in Wei stirrups. The external genitalia was prepped and draped sterilely. The 30 lens was used to introduce the 24-Ivorian Mckenzie continuous flow cystoscopic sheath through the urethra and into the bladder under direct vision. The urethra appeared normal. The prostate showed evidence of lateral lobe enlargement consistent with the patient's age. The bladder was examined in its entirety. The ureteral orifices appeared normal. Several flat calculi were seen, measuring up to 3 cm in diameter. No tumors were seen. No diverticuli were seen. Using the 550 micron Holmium laser probe, lithotripsy was performed. Lithotripsy was continued until all calculus fragments could be removed using the Zentric evacuator. Once this was completed, the bladder was inspected. There was no active bleeding, and no evidence of bladder perforation. The bladder was emptied and the cystoscope removed. The patient tolerated the procedure well was taken to the recovery room in stable condition.
[2020-01-29 17:03] VITALS: RESP 16
[2020-01-29 17:41] VITALS: BP 137/74; PULSE 86
== END 2020-01-29 18:27 | disposition home or self-care (01) ==
LOC: OR 12:03
PROVIDERS: ATTEND Urology
DX: N21.0 Calculus in bladder (principal); E11.9 Type 2 diabetes mellitus without complications; I71.4 Abdominal aortic aneurysm, without rupture; G82.20 Paraplegia, unspecified; S24.153S Other incomplete lesion at T7-T10 level of thoracic spinal cord, sequela; N31.9 Neuromuscular dysfunction of bladder, unspecified; N39.498 Other specified urinary incontinence; I73.9 Peripheral vascular disease, unspecified; Z88.2 Allergy status to sulfonamides; Z88.8 Allergy status to other drugs, medicaments and biological substances; Z98.890 Other specified postprocedural states; Z90.49 Acquired absence of other specified parts of digestive tract; Z79.84 Long term (current) use of oral hypoglycemic drugs; Z79.899 Other long term (current) drug therapy; Z79.82 Long term (current) use of aspirin; Z86.19 Personal history of other infectious and parasitic diseases; Z86.79 Personal history of other diseases of the circulatory system; Z80.9 Family history of malignant neoplasm, unspecified; Y83.8 Other surgical procedures as the cause of abnormal reaction of the patient, or of later complication, without mention of misadventure at the time of the procedure
CPT/HCPCS: 82365; 52318; J2250; J1100; J0690; J2405; J2001; J3010; J2370; J2704

== ENCOUNTER 2020-06-03 11:20 | Inpatient (IN) | payer MEDICARE, BC ==
--- NOTE | 2020-06-03 12:10 | ED ---
General Adult HPI - General Chief complaint: Shortness of Breath Stated complaint: SOB,Covid+ Time Seen by Provider: 06/03/20 11:23 Source: patient, family Mode of arrival: EMS Limitations: physical limitation - History of Present Illness Initial comments: 69-year-old male with history of paraplegia after brain aneursym surgery, hx of AAA presents today for chief complaint of hypoxia. Patient states that he was diagnosed at [place] on Tuesday wtih covid. he states that his was diagnosed as well. he states he has had come increasing dyspnea over the past few days. He states he has had fevers, body aches. Denies chest pain, leg swelling, nausea, vomiting, diarrhea. Patient states his oxygen was very low when EMS arrived (80s) and he felt SOB. But he states since he has been on oxygen supplementation for ride over and while in ER he denies current dyspnea. Pt resting comfortably. Does not appears in distress on history taking/exam - Related Data Home Medications Medication Instructions Recorded Confirmed Liraglutide [Victoza 2-Peewee] 1.2 mg SQ DAILY 06/24/17 06/03/20 Lisinopril [Prinivil] 10 mg PO DAILY 06/24/17 06/03/20 Lovastatin [Mevacor] 40 mg PO DAILY 06/24/17 06/03/20 metFORMIN HCL [Glucophage] 1,000 mg PO BID 06/24/17 06/03/20 Aspirin EC [Ecotrin] 325 mg PO DAILY 09/04/19 06/03/20 Cranberry Fruit Extract [Cranberry] 500 mg PO DAILY 09/04/19 06/03/20 L.acidoph,Paracasei, B.lactis 1 cap PO DAILY 09/04/19 06/03/20 [Probiotic] Multivitamins, Thera [Multivitamin 1 tab PO DAILY 09/04/19 06/03/20 (formulary)] Albuterol Sulfate [Albuterol 1 puff PO RT-Q4H PRN 06/03/20 06/03/20 Sulfate Hfa] Cholecalciferol [Vitamin D3 (25 1,000 unit PO DAILY 06/03/20 06/03/20 Mcg = 1000 Iu)] Dexamethasone [Decadron] 6 mg PO DAILY 06/03/20 06/03/20 Doxycycline Hyclate [Vibramycin] 100 mg PO BID 06/03/20 06/03/20 Previous Rx's Medication Instructions Recorded Acetaminophen Tab [Tylenol] 650 mg PO Q6HR PRN tab 09/10/19 Allergies Allergy/AdvReac Type Severity Reaction Status Date / Time phenytoin [From Dilantin] Allergy Rash/Hives Verified 06/03/20 12:47 Sulfa (Sulfonamide Allergy Rash/Hives Verified 06/03/20 12:47 Antibiotics) Review of Systems ROS Statement: Those systems with pertinent positive or pertinent negative responses have been documented in the HPI. ROS Other: All systems not noted in ROS Statement are negative. Past Medical History Past Medical History: Diabetes Mellitus, Hyperlipidemia, Hypertension Additional Past Medical History / Comment(s): 2 aneursyms- brain and AAA, paralysis from T10 down. BLADDER STONE. ABSCESS ON RT SCROTUM SINCE JUL 2019- WOUND IS TUNNELING NOW. NEUROGENIC BLADDER, PT SELF CATHS History of Any Multi-Drug Resistant Organisms: None Reported Past Surgical History: Appendectomy Additional Past Surgical History / Comment(s): sabrina filter. I & D RT SCROTUM. LITHOTRIPSY 01/29/20 Past Anesthesia/Blood Transfusion Reactions: No Reported Reaction Past Psychological History: No Psychological Hx Reported Smoking Status: Former smoker Past Alcohol Use History: None Reported Past Drug Use History: None Reported - Past Family History Father Family Medical History: Cancer Additional Family Medical History / Comment(s): of cancer General Exam - General Exam Comments Initial Comments: General: The patient is awake and alert, in no distress Eye: Pupils are equal, round and reactive to light, extra-ocular movements are intact. No nystagmus. There is normal conjunctiva bilaterally. No signs of icterus. Ears, nose, mouth and throat: There are moist mucous membranes and no oral lesions. Neck: The neck is supple, there is no tenderness or JVD. Cardiovascular: There is a regular rate and rhythm. No murmur, rub or gallop is appreciated. Respiratory: Respirations are non-labored, breath sounds are equal. No wheezes, stridor=. Diffuse rhonchi/sales noted. Gastrointestinal: Soft, non-distended, non-tender abdomen without masses or organomegaly noted. There is no rebound or guarding present. Musculoskeletal: Normal ROM, no tenderness. Strength 5/5 of the UE, LE paralysis noted. Sensation intact of the UE. Radial and DP pulses equal bilaterally 2+. Neurological: A&O x 3. CN II-XII intact grossly, There are no obvious motor or sensory deficits. Coordination appears grossly intact. Speech is normal. Skin: Skin is warm and dry and no rashes or lesions are noted. Psychiatric: Cooperative, appropriate mood & affect, normal judgment. Limitations: physical limitation Course Vital Signs 06/03/20 06/03/20 06/03/20 11:25 11:59 13:00 Temperature 97.1 F L Pulse Rate 82 81 81 Respiratory 22 18 18 Rate Blood Pressure 119/71 119/78 123/80 O2 Sat by Pulse 96 96 98 Oximetry 06/03/20 06/03/20 13:56 14:41 Temperature 98.4 F Pulse Rate 73 74 Respiratory 18 18 Rate Blood Pressure 122/78 124/61 O2 Sat by Pulse 97 95 Oximetry Medical Decision Making - Medical Decision Making Covid + male. Presented for hypoxia. In 80s on RA on EMS arrival. Pt states less SOB after oxygen supplementation. Patient CXR covid pneumonia. Patient dimer elevated CTA revealed--- . Pt denies chest pain. Pt does not appear in distress. Patient will be admitted for oxygen supplementation/monitoring. Dr. Gutierrez ag reeable to care plan. - Lab Data Result diagrams: 06/03/20 12:03 06/03/20 12:03 Lab Results 06/03/20 06/03/20 06/03/20 Range/Units 12:03 12:03 12:03 WBC 8.1 (3.8-10.6) k/uL RBC 4.99 (4.30-5.90) m/uL Hgb 15.5 (13.0-17.5) gm/dL Hct 46.5 (39.0-53.0) % MCV 93.1 (80.0-100.0) fL MCH 31.1 (25.0-35.0) pg MCHC 33.4 (31.0-37.0) g/dL RDW 13.6 (11.5-15.5) % Plt Count 227 (150-450) k/uL MPV 7.3 Neutrophils % 88 % Lymphocytes % 6 % Monocytes % 5 % Eosinophils % 0 % Basophils % 0 % Neutrophils # 7.2 (1.3-7.7) k/uL Lymphocytes # 0.5 L (1.0-4.8) k/uL Monocytes # 0.4 (0-1.0) k/uL Eosinophils # 0.0 (0-0.7) k/uL Basophils # 0.0 (0-0.2) k/uL PT 9.6 (9.0-12.0) sec INR 0.9 (<1.2) APTT 23.3 (22.0-30.0) sec D-Dimer 1.03 H (<0.60) mg/L FEU Sodium 136 L (137-145) mmol/L Potassium 4.5 (3.5-5.1) mmol/L Chloride 99 (98-107) mmol/L Carbon Dioxide 27 (22-30) mmol/L Anion Gap 10 mmol/L BUN 17 (9-20) mg/dL Creatinine 0.53 L (0.66-1.25) mg/dL Est GFR (CKD-EPI)AfAm >90 (>60 ml/min/1.73 sqM) Est GFR (CKD-EPI)NonAf >90 (>60 ml/min/1.73 sqM) Glucose 118 H (74-99) mg/dL Lactic Ac Sepsis Rflx Plasma Lactic Acid Carl (0.7-2.0) mmol/L Calcium 9.6 (8.4-10.2) mg/dL Magnesium 1.6 (1.6-2.3) mg/dL Total Bilirubin 0.8 (0.2-1.3) mg/dL AST 46 (17-59) U/L ALT 38 (4-49) U/L Alkaline Phosphatase 73 (38-126) U/L Lactate Dehydrogenase 757 H (313-618) U/L C-Reactive Protein 61.3 H (<10.0) mg/L Total Protein 6.5 (6.3-8.2) g/dL Albumin 3.6 (3.5-5.0) g/dL 06/03/20 06/03/20 Range/Units 12:03 12:46 WBC (3.8-10.6) k/uL RBC (4.30-5.90) m/uL Hgb (13.0-17.5) gm/dL Hct (39.0-53.0) % MCV (80.0-100.0) fL MCH (25.0-35.0) pg MCHC (31.0-37.0) g/dL RDW (11.5-15.5) % Plt Count (150-450) k/uL MPV Neutrophils % % Lymphocytes % % Monocytes % % Eosinophils % % Basophils % % Neutrophils # (1.3-7.7) k/uL Lymphocytes # (1.0-4.8) k/uL Monocytes # (0-1.0) k/uL Eosinophils # (0-0.7) k/uL Basophils # (0-0.2) k/uL PT (9.0-12.0) sec INR (<1.2) APTT (22.0-30.0) sec D-Dimer (<0.60) mg/L FEU Sodium (137-145) mmol/L Potassium (3.5-5.1) mmol/L Chloride (98-107) mmol/L Carbon Dioxide (22-30) mmol/L Anion Gap mmol/L BUN (9-20) mg/dL Creatinine (0.66-1.25) mg/dL Est GFR (CKD-EPI)AfAm (>60 ml/min/1.73 sqM) Est GFR (CKD-EPI)NonAf (>60 ml/min/1.73 sqM) Glucose (74-99) mg/dL Lactic Ac Sepsis Rflx Y Plasma Lactic Acid Carl 2.6 H* (0.7-2.0) mmol/L Calcium (8.4-10.2) mg/dL Magnesium (1.6-2.3) mg/dL Total Bilirubin (0.2-1.3) mg/dL AST (17-59) U/L ALT (4-49) U/L Alkaline Phosphatase (38-126) U/L Lactate Dehydrogenase (313-618) U/L C-Reactive Protein (<10.0) mg/L Total Protein (6.3-8.2) g/dL Albumin (3.5-5.0) g/dL Disposition Clinical Impression: Pneumonia due to COVID-19 virus, Hypoxia Disposition: ADMITTED IP TO THIS HOSP Condition: Stable Is patient prescribed a controlled substance at d/c from ED?: No Time of Disposition: 15:28 Decision to Admit Reason: Admit from EC Decision Date: 06/03/20 Decision Time: 13:28
[2020-06-03 12:27] LABS: Basophils % (A) 0 %; Eosinophils % (A) 0 %; HCT 46.5 % (39.0-53.0); HGB 15.5 gm/dL (13.0-17.5); Lymphocytes # (A) 0.5 k/uL (1.0-4.8); Lymphocytes % (A) 6 %; MCH 31.1 pg (25.0-35.0); MCHC 33.4 g/dL (31.0-37.0); MCV 93.1 fL (80.0-100.0); Mean Platelet Volume 7.3; Monocytes # (A) 0.4 k/uL (0-1.0); Monocytes % (A) 5 %; Neutrophils # (A) 7.2 k/uL (1.3-7.7); Neutrophils % (A) 88 %; Platelet Count 227 k/uL (150-450); RBC 4.99 m/uL (4.30-5.90); RDW 13.6 % (11.5-15.5); WBC 8.1 k/uL (3.8-10.6)
[2020-06-03 12:34] LABS: ALT 38 U/L (4-49); AST 46 U/L (17-59); African American GFR (CKD) >90 (>60 ml/min/1.73 sqM); Albumin 3.6 g/dL (3.5-5.0); Alkaline Phosphatase 73 U/L (38-126); Anion Gap 10 mmol/L; Blood Urea Nitrogen 17 mg/dL (9-20); C Reactive Protein 61.3 mg/L (<10.0); Calcium 9.6 mg/dL (8.4-10.2); Carbon Dioxide 27 mmol/L (22-30); Chloride 99 mmol/L (98-107); Glucose 118 mg/dL (74-99); LDH 757 U/L (313-618); Magnesium 1.6 mg/dL (1.6-2.3); Non-African American GFR(CKD) >90 (>60 ml/min/1.73 sqM); Potassium 4.5 mmol/L (3.5-5.1); Sodium 136 mmol/L (137-145); Total Bilirubin 0.8 mg/dL (0.2-1.3); Total Protein 6.5 g/dL (6.3-8.2)
[2020-06-03] MEDS ORDERED: DEXAMETHASONE SOD PHOSPHATE 10 MG/ML 1 ML VIAL IV STA (12:47)
[2020-06-03] MEDS ORDERED: SODIUM CHLORIDE 0.9% 1,000 ML IV ONE (12:48)
[2020-06-03 12:50] LABS: INR 0.9 (<1.2); Partial Thromboplastin Time 23.3 sec (22.0-30.0); Prothrombin Time 9.6 sec (9.0-12.0)
--- NOTE | 2020-06-03 12:52 | XR ---
EXAMINATION TYPE: XR chest 1V portable DATE OF EXAM: 06/03/2020 COMPARISON: NONE HISTORY: Shortness of breath. Suspected covid 19 pneumonia. TECHNIQUE: Single AP portable frontal upright view of the chest is obtained. FINDINGS: There is chronic parenchymal change bilaterally suspected with patchy areas of increased o pacity in the bilateral lungs. No pleural effusion or pneumothorax seen. The cardiac silhouette size is upper limits of normal. The osseous structures are intact. IMPRESSION: Suspect bilateral patchy multifocal acute infiltrates consistent with clinical suspicion for covid-19 infection.
[2020-06-03 12:58] LABS: D-Dimer 1.03 mg/L FEU (<0.60)
[2020-06-03] MEDS ORDERED: NALOXONE 0.4 MG/ML 1 ML VIAL IV PRN (13:00)
--- NOTE | 2020-06-03 13:43 | CT ---
EXAMINATION TYPE: CT chest angio for PE DATE OF EXAM: 06/03/2020 COMPARISON: None HISTORY: hypoxic CT DLP: 422.7 mGycm CONTRAST: CT chest with contrast and 3D reconstruction with MIP imaging is performed with IV Contrast, patient injected with 100 mL of Isovue 300. Contrast-enhanced CT of the chest was performed through the course of the pulmonary arteries with agustín g and mediastinal window settings submitted. 3D reconstruction with MIP imaging was also performed. PULMONARY ARTERIES: The pulmonary arteries and their major tributaries are patent. I do not see krzysztof dence for sizable filling defect to suggest pulmonary embolic process. LUNGS: There is evidence of basilar compressive atelectasis. Scattered groundglass densities may refl ect developing infiltrate. Correlate clinically. MEDIASTINUM: Ectasia thoracic aorta. The heart is enlarged. No evidence for mediastinal mass. No me diastinal lymph nodes greater than 1cm. HILAR STRUCTURES: No evidence for mass. No hilar lymph nodes greater than 1 cm. UPPER ABDOMEN: No significant abnormality is seen. IMPRESSION: 1. No evidence for Pulmonary embolism at this time. 2.There is evidence of basilar compressive atelectasis. Scattered groundglass densities may reflect d eveloping infiltrate. Correlate clinically
[2020-06-03] MEDS: SODIUM CHLORIDE 0.9% 1,000 ML IV SCH (14:06)
[2020-06-03] MEDS ORDERED: dexAMETHasone 2 MG TAB PO SCH (15:30)
[2020-06-03] MEDS ORDERED: REMDESIVIR (EUA) 200 MG in SODIUM CHLORIDE 0.9% 250 ML IVPB ONE (16:00)
[2020-06-03] MEDS ORDERED: ACETAMINOPHEN TAB 325 MG TAB PO PRN (17:50)
[2020-06-03] MEDS ORDERED: ONDANSETRON 4 MG/2 ML VIAL IVP PRN (17:52)
[2020-06-03] MEDS ORDERED: CALCIUM CARBONATE 500 MG CHEWABLE PO PRN (17:52)
[2020-06-03] MEDS ORDERED: MAG HYDROX/AL HYDROX/SIMETH 30 ML CUP PO PRN (17:52)
[2020-06-03] MEDS ORDERED: LACTULOSE 20 GM/30 ML CUP PO PRN (17:52)
[2020-06-03] MEDS: metFORMIN 500 MG TAB PO SCH (18:04)
[2020-06-03] MEDS: ASCORBIC ACID 500 MG TAB PO SCH (18:04)
[2020-06-03] MEDS: ZINC SULFATE 220 MG CAP PO SCH (18:04)
[2020-06-03] MEDS: ENOXAPARIN 40 MG/0.4 ML SYRINGE SQ SCH (18:04)
[2020-06-03] MEDS: CHOLECALCIFEROL 400 UNIT TAB PO SCH (18:07)
[2020-06-03 18:11] LABS: Glucose,Whole Blood 155 mg/dL (75-99)
[2020-06-03 19:05] LABS: Ferritin 596.3 ng/mL (22.0-322.0)
--- NOTE | 2020-06-03 20:16 | P.CNPUL ---
History of Present Illness Consult date: 06/03/20 Reason for consult: dyspnea Chief complaint: Suspect COVID 19 pneumonitis History of present illness: 69-year-old white male patient of Dr. Ferreira with history of paraplegia, after brain aneurysm, diabetes mellitus, hypertension, hyperlipidemia, resides to the emergency department on 06/03/2024 complaints of generalized weakness, cough, fatigue, wanting to sleep all the time, and hypoxemia. Patient reports onset of symptoms for approximately 3 days, he states his was tested positive for COVID. Patient also states that he was diagnosed with COVID 19 at [place] on Tuesday. Since then he has had increasing dyspnea, fevers, body aches. He denied any chest pain, leg swelling, no nausea vomiting or diarrhea. He was hypoxic when EMS arrived with a pulse ox in the 80s and felt short of breath. He is currently on supplemental oxygen at 3 L, with a pulse ox of 95%, his been afebrile while at this institution, chest x-ray showed bilateral patchy multifocal acute infiltrates consistent with COVID 19 pneumonitis. Lab which revealed lymphopenia with lymphocyte count of 0.5, d-dimer of 1.03, electrolytes and renal profile were unremarkable, plasma lactic acid was mildly elevated at 2.6, ferritin level is 596, LDH was 757, CRP was 61.3, pro-calcitonin level was low at 0.12. Review of Systems All systems: negative Constitutional: Reports lethargy, Reports malaise, Reports weakness, Denies chills, Denies fever Eyes: denies blurred vision, denies pain Ears, nose, mouth and throat: Denies headache, Denies sore throat Cardiovascular: Denies chest pain, Denies shortness of breath Respiratory: Reports dyspnea, Denies cough Gastrointestinal: Denies abdominal pain, Denies diarrhea, Denies nausea, Denies vomiting Musculoskeletal: Denies myalgias Integumentary: Denies pruritus, Denies rash Neurological: Denies numbness, Denies weakness Psychiatric: Denies anxiety, Denies depression Endocrine: Denies fatigue, Denies weight change Past Medical History Past Medical History: Diabetes Mellitus, Hyperlipidemia, Hypertension, Vascular Disorder Additional Past Medical History / Comment(s): Paraplegic T10 down after brain aneurysm surgery, neurogenic bladder/pt self caths 2-3 times a day, pt has a bowel program to have bowel movements each morning, urinary incontinence when he transfers which caused a R scrotal abscess/wound which is now healed, AAA with surgery, NIDDM type II, bladder stones with surgical removal, chronic back pain. History of Any Multi-Drug Resistant Organisms: None Reported Past Surgical History: Appendectomy Additional Past Surgical History / Comment(s): AAA wrapped, brain aneurysm with clips, sabrina filter, I&D R scrotal abscess, cystoscopy with cystolithotripsy, attempted bladder sling surgery. 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 Medications and Allergies Home Medications Medication Instructions Recorded Confirmed Type Liraglutide [Victoza 2-Peewee] 1.2 mg SQ DAILY 06/24/17 06/03/20 History Lisinopril [Prinivil] 10 mg PO DAILY 06/24/17 06/03/20 History Lovastatin [Mevacor] 40 mg PO DAILY 06/24/17 06/03/20 History metFORMIN HCL [Glucophage] 1,000 mg PO BID 06/24/17 06/03/20 History Aspirin EC [Ecotrin] 325 mg PO DAILY 09/04/19 06/03/20 History Cranberry Fruit Extract [Cranberry] 500 mg PO DAILY 09/04/19 06/03/20 History L.acidoph,Paracasei, B.lactis 1 cap PO DAILY 09/04/19 06/03/20 History [Probiotic] Multivitamins, Thera [Multivitamin 1 tab PO DAILY 09/04/19 06/03/20 History (formulary)] Acetaminophen Tab [Tylenol] 650 mg PO Q6HR PRN tab 09/10/19 06/03/20 Rx Albuterol Sulfate [Albuterol 1 puff PO RT-Q4H PRN 06/03/20 06/03/20 History Sulfate Hfa] Cholecalciferol [Vitamin D3 (25 1,000 unit PO DAILY 06/03/20 06/03/20 History Mcg = 1000 Iu)] Dexamethasone [Decadron] 6 mg PO DAILY 06/03/20 06/03/20 History Doxycycline Hyclate [Vibramycin] 100 mg PO BID 06/03/20 06/03/20 History Allergies Allergy/AdvReac Type Severity Reaction Status Date / Time phenytoin [From Dilantin] Allergy Rash/Hives Verified 06/03/20 12:47 Sulfa (Sulfonamide Allergy Rash/Hives Verified 06/03/20 12:47 Antibiotics) Physical Exam Vitals: Vital Signs Temp Pulse Pulse Resp BP BP Pulse Ox 06/03/20 17:20 97.4 F L 77 20 132/73 94 L 06/03/20 16:30 20 06/03/20 15:10 97.5 F L 68 22 132/72 97 06/03/20 14:41 98.4 F 74 18 124/61 95 06/03/20 13:56 73 18 122/78 97 06/03/20 13:00 81 18 123/80 98 06/03/20 11:59 81 18 119/78 96 06/03/20 11:25 97.1 F L 82 22 119/71 96 Intake and Output 06/03/20 06/03/20 06/03/20 06:59 14:59 22:59 Other: Voiding Method Diaper Incontinent Self-Catheterization Weight 89.811 kg 89.811 kg GENERAL EXAM: Alert, very pleasant, 69-year-old white male, on 3 L of oxygen with a pulse ox of 95% comfortable in no apparent distress. HEAD: Normocephalic/atraumatic. EYES: Normal reaction of pupils, equal size. Conjunctiva pink, sclera white. NOSE: Clear with pink turbinates. THROAT: No erythema or exudates. NECK: No masses, no JVD, no thyroid enlargement, no adenopathy. CHEST: No chest wall deformity. Symmetrical expansion. LUNGS: Equal air entry with no crackles, wheeze, rhonchi or dullness. CVS: Regular rate and rhythm, normal S1 and S2, no gallops, no murmurs, no rubs ABDOMEN: Soft, nontender. No hepatosplenomegaly, normal bowel sounds, no guarding or rigidity. EXTREMITIES: No clubbing, no edema, no cyanosis, 2+ pulses and upper and lower extremities. MUSCULOSKELETAL: Muscle strength and tone normal. SPINE: No scoliosis or deformity SKIN: No rashes CENTRAL NERVOUS SYSTEM: Alert and oriented -3. No focal deficits, tone is normal in all 4 extremities. PSYCHIATRIC: Alert and oriented -3. Appropriate affect. Intact judgment and insight. Results - Laboratory Findings CBC and BMP: 06/03/20 12:03 06/03/20 12:03 PT/INR, D-dimer PT 9.6 sec (9.0-12.0) 06/03/20 12:03 INR 0.9 (<1.2) 06/03/20 12:03 D-Dimer 1.03 mg/L FEU (<0.60) H 06/03/20 12:03 Abnormal lab findings: Abnormal Labs 06/03/20 06/03/20 06/03/20 12:03 12:03 12:03 Lymphocytes # 0.5 L D-Dimer 1.03 H Sodium 136 L Creatinine 0.53 L Glucose 118 H POC Glucose (mg/dL) Plasma Lactic Acid Carl Ferritin 596.3 H Lactate Dehydrogenase 757 H C-Reactive Protein 61.3 H Procalcitonin 06/03/20 06/03/20 06/03/20 12:03 12:03 18:03 Lymphocytes # D-Dimer Sodium Creatinine Glucose POC Glucose (mg/dL) 155 H Plasma Lactic Acid Carl 2.6 H* Ferritin Lactate Dehydrogenase C-Reactive Protein Procalcitonin 0.12 H - Diagnostic Findings Chest x-ray: report reviewed, image reviewed CT scan - chest: report reviewed, image reviewed Assessment and Plan Plan: Assessment: #1. Acute hypoxic respiratory failure related to acute COVID 19 pneumonitis, started on Remdesivir today on 06/03/2020. Patient tested positive for COVID 19 at [facility] on 06/01/2020, his was also tested positive for COVID 19 #2. Dyspnea, fever, body aches, weakness related to the above #3. Increased inflammatory markers, lymphopenia #4. Increased d-dimer but no evidence of pulmonary embolism on CTA chest #5. Hypertension #6. Hyperlipidemia #7. Diabetes mellitus type 2 #8. History of brain aneurysm, and AAA #9. History of paraplegia after a brain aneurysm surgery #10. Mild lactic acidosis Plan: We'll continue current medical treatment, continue oral Decadron, therapeutic dose of Lovenox, we'll start Remdesivir, will continue on vitamin C, thinks supplement, melatonin, continue monitoring oxygenation, and febrile. We'll follow I performed a history & physical examination of the patient and discussed their management with my nurse practitioner, Araceli Rutherford. I reviewed the nurse practitioner's note and agree with the documented findings and plan of care. Lung sounds are positive for diminished breath sounds. The findings and the impression was discussed with the patient. I attest to the documentation by the nurse practitioner. Time with Patient: Greater than 30
[2020-06-03 20:38] LABS: Glucose,Whole Blood 222 mg/dL (75-99)
[2020-06-03] MEDS: INSULIN ASPART (NovoLOG) 100 UNIT/ML VIAL SQ SCH (21:10)
[2020-06-03] MEDS: MELATONIN 5 MG TABLET PO SCH (21:10)
--- NOTE | 2020-06-03 22:35 | P.HPIM ---
History of Present Illness H&P Date: 06/03/20 Chief Complaint: cough History of presenting complaint: This is a 68-year-old patient of Dr. Ferreira. Chronic stable medical conditions include history of T10 paraplegia following a spinal injection, brain aneurysm, AAA, hyperlipidemia, [place] filter, diabetes. neurogenic bladder. Patient is cared for by his . Patient developed respiratory symptoms on the n inth of this month. This started having fever or chills and other symptoms of coronavirus. Patient has a slight cough. Minimal shortness of breath. Came to the ER with the .3 days ago COVID 19 testing was done at [facility]. Patient tested positive. It felt slightly short of breath. Per the EMS talked and was down to the 80s. Patient's is also admitted to the hospital. With the [facility] Review of systems: GEN.: tired EYES: None HEENT: None NECK: None RESPIRATORY:some cough and shortness of breath CARDIOVASCULAR: None GASTROINTESTINAL: None GENITOURINARY: As above MUSCULOSKELETAL: None LYMPHATICS: None HEMATOLOGICAL: None PSYCHIATRY: None NEUROLOGICAL: chronic[Lower extremity weakness Past medical history to include: T10 paraplegia from spinal injection, prerenal aneurysm, abdominal aortic aneurysm, diabetes, [place] filter, hyperlipidemia,neurogenic bladder Social history: Does smoke in the remote past. No alcohol. . Physical examination: VITAL SIGNS: 97.1, 82, 22, 119/71, 96% on 6 L GENERAL:BMI 27.6, laying in bed, awake EYES: Pupils equal. Conjunctiva normal. HEENT: External appearance of nose and ears normal, oral cavity grossly normal. NECK: JVD not raised; masses not palpable. HEART: First and second heart sounds are normal; no edema. LUNGS: Respiratory rate normal; clear to auscultation. ABDOMEN: Soft, nontender, liver spleen not palpable, no masses palpable. PSYCH: Alert and oriented x3; mood and affect normal. NEUROLOGICAL: [Cranial nerves grossly intact; no facial asymmetry, lower extremity power 0/5 LYMPHATICS: No lymph nodes palpable in the axilla and neck INVESTIGATIONS, reviewed in the clinical context: tested positive for: 19 3 days ago at [facility]. White count 8.1 hemoglobin 15.5 platelets 277 lymphocytes decreased at 0.5 Lactic acid 2.6 CRP 61.3 pro-calcitonin 0.12 EKG tracing personally reviewed by me-Normal sinus rhythm Chest x-ray film personally reviewed by me-Scant infiltrate Chest CT-negative for PE. Some scattered groundglass densities. Assessment: -patient tested positive for coronavirus 3 days ago at [facility]. Now presenting with COVID-19 pneumonia -Chronic paraplegia from spinal cord injury at T10 -Abdominal aortic aneurysm -Diabetes mellitus type 2 -[place] filter history of -Hyperlipidemia -Chronic medical debility Plan: patient be supplemented with oxygen and put in COVID 19 precautions.also started on dexamethasone and Lovenox. Zinc. Started by pulmonary on Remdesivir. Add Pepcid. Past Medical History Past Medical History: Diabetes Mellitus, Hyperlipidemia, Hypertension, Vascular Disorder Additional Past Medical History / Comment(s): Paraplegic T10 down after brain aneurysm surgery, neurogenic bladder/pt self caths 2-3 times a day, pt has a bowel program to have bowel movements each morning, urinary incontinence when he transfers which caused a R scrotal abscess/wound which is now healed, AAA with surgery, NIDDM type II, bladder stones with surgical removal, chronic back pain. History of Any Multi-Drug Resistant Organisms: None Reported Past Surgical History: Appendectomy Additional Past Surgical History / Comment(s): AAA wrapped, brain aneurysm with clips, melba filter, I&D R scrotal abscess, cystoscopy with cystolithotripsy, attempted bladder sling surgery. 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 Medications and Allergies Home Medications Medication Instructions Recorded Confirmed Type Liraglutide [Victoza 2-Peewee] 1.2 mg SQ DAILY 06/24/17 06/03/20 History Lisinopril [Prinivil] 10 mg PO DAILY 06/24/17 06/03/20 History Lovastatin [Mevacor] 40 mg PO DAILY 06/24/17 06/03/20 History metFORMIN HCL [Glucophage] 1,000 mg PO BID 06/24/17 06/03/20 History Aspirin EC [Ecotrin] 325 mg PO DAILY 09/04/19 06/03/20 History Cranberry Fruit Extract [Cranberry] 500 mg PO DAILY 09/04/19 06/03/20 History L.acidoph,Paracasei, B.lactis 1 cap PO DAILY 09/04/19 06/03/20 History [Probiotic] Multivitamins, Thera [Multivitamin 1 tab PO DAILY 09/04/19 06/03/20 History (formulary)] Acetaminophen Tab [Tylenol] 650 mg PO Q6HR PRN tab 09/10/19 06/03/20 Rx Albuterol Sulfate [Albuterol 1 puff PO RT-Q4H PRN 06/03/20 06/03/20 History Sulfate Hfa] Cholecalciferol [Vitamin D3 (25 1,000 unit PO DAILY 06/03/20 06/03/20 History Mcg = 1000 Iu)] Dexamethasone [Decadron] 6 mg PO DAILY 06/03/20 06/03/20 History Doxycycline Hyclate [Vibramycin] 100 mg PO BID 06/03/20 06/03/20 History Allergies Allergy/AdvReac Type Severity Reaction Status Date / Time phenytoin [From Dilantin] Allergy Rash/Hives Verified 06/03/20 12:47 Sulfa (Sulfonamide Allergy Rash/Hives Verified 06/03/20 12:47 Antibiotics) Physical Exam Vitals: Vital Signs Temp Pulse Pulse Resp BP BP Pulse Ox 06/03/20 17:20 97.4 F L 77 20 132/73 94 L 06/03/20 16:30 20 06/03/20 15:10 97.5 F L 68 22 132/72 97 06/03/20 14:41 98.4 F 74 18 124/61 95 06/03/20 13:56 73 18 122/78 97 06/03/20 13:00 81 18 123/80 98 06/03/20 11:59 81 18 119/78 96 06/03/20 11:25 97.1 F L 82 22 119/71 96 Intake and Output 06/03/20 06/03/20 06/03/20 06:59 14:59 22:59 Other: Voiding Method Diaper Incontinent Self-Catheterization Weight 89.811 kg 89.811 kg Results CBC & Chem 7: 06/03/20 12:03 06/03/20 12:03 Labs: Abnormal Lab Results - Last 24 Hours (Table) 06/03/20 06/03/20 06/03/20 Range/Units 12:03 12:03 12:03 Lymphocytes # 0.5 L (1.0-4.8) k/uL D-Dimer 1.03 H (<0.60) mg/L FEU Sodium 136 L (137-145) mmol/L Creatinine 0.53 L (0.66-1.25) mg/dL Glucose 118 H (74-99) mg/dL POC Glucose (mg/dL) (75-99) mg/dL Plasma Lactic Acid Carl (0.7-2.0) mmol/L Ferritin 596.3 H (22.0-322.0) ng/mL Lactate Dehydrogenase 757 H (313-618) U/L C-Reactive Protein 61.3 H (<10.0) mg/L Procalcitonin (0.02-0.09) ng/mL 06/03/20 06/03/20 06/03/20 Range/Units 12:03 12:03 18:03 Lymphocytes # (1.0-4.8) k/uL D-Dimer (<0.60) mg/L FEU Sodium (137-145) mmol/L Creatinine (0.66-1.25) mg/dL Glucose (74-99) mg/dL POC Glucose (mg/dL) 155 H (75-99) mg/dL Plasma Lactic Acid Carl 2.6 H* (0.7-2.0) mmol/L Ferritin (22.0-322.0) ng/mL Lactate Dehydrogenase (313-618) U/L C-Reactive Protein (<10.0) mg/L Procalcitonin 0.12 H (0.02-0.09) ng/mL 06/03/20 Range/Units 20:33 Lymphocytes # (1.0-4.8) k/uL D-Dimer (<0.60) mg/L FEU Sodium (137-145) mmol/L Creatinine (0.66-1.25) mg/dL Glucose (74-99) mg/dL POC Glucose (mg/dL) 222 H (75-99) mg/dL Plasma Lactic Acid Carl (0.7-2.0) mmol/L Ferritin (22.0-322.0) ng/mL Lactate Dehydrogenase (313-618) U/L C-Reactive Protein (<10.0) mg/L Procalcitonin (0.02-0.09) ng/mL Thrombosis Risk Factor Assmnt - Choose All That Apply Any of the Below Risk Factors Present?: Yes Each Factor Represents 1 point: Medical pt on bed rest, Obesity (BMI >25), Serious lung disease incl. pneumonia (< 1month) Other Risk Factors: Yes Each Risk Factor Represents 2 Points: Age 61-74 years, Patient confined to bed Other congenital or acquired thrombophilia - If yes, enter type in comment: No Thrombosis Risk Factor Assessment Total Risk Factor Score: 7 Thrombosis Risk Factor Assessment Level: High Risk
[2020-06-04] MEDS: SODIUM CHLORIDE 0.9% 1,000 ML IV SCH ×2 (03:11→17:09)
[2020-06-04 07:03] LABS: Glucose,Whole Blood 142 mg/dL (75-99)
[2020-06-04] MEDS: lisinopriL 10 MG TAB PO SCH (08:27)
[2020-06-04] MEDS: ZINC SULFATE 220 MG CAP PO SCH (08:27)
[2020-06-04] MEDS: MULTIVITAMINS, THERA 1 EACH TAB PO SCH (08:27)
[2020-06-04] MEDS: metFORMIN 500 MG TAB PO SCH ×2 (08:27→17:29)
[2020-06-04] MEDS: dexAMETHasone 2 MG TAB PO SCH (08:27)
[2020-06-04] MEDS: ASCORBIC ACID 500 MG TAB PO SCH (08:27)
[2020-06-04] MEDS: ATORVASTATIN 10 MG TAB PO SCH (08:27)
[2020-06-04] MEDS: ASPIRIN 325 MG TAB PO SCH (08:27)
[2020-06-04] MEDS: INSULIN ASPART (NovoLOG) 100 UNIT/ML VIAL SQ SCH ×4 (08:27→20:56)
[2020-06-04] MEDS: CHOLECALCIFEROL 400 UNIT TAB PO SCH (08:28)
[2020-06-04] MEDS: FAMOTIDINE 20 MG TAB PO SCH ×2 (08:28→20:56)
[2020-06-04] MEDS: NON FORMULARY DRUG (Liraglutide [Victoza 2-Pak] 0.6 MG/0.1 ML Pen.Injctr) SQ SCH (08:30)
[2020-06-04] MEDS: ENOXAPARIN 40 MG/0.4 ML SYRINGE SQ SCH ×2 (08:31→20:56)
[2020-06-04 10:02] LABS: C Reactive Protein 7.9 mg/dL (0.0-0.8)
--- NOTE | 2020-06-04 10:57 | XR ---
EXAMINATION TYPE: XR chest 1V portable DATE OF EXAM: 06/04/2020 CLINICAL HISTORY: COVID 19. TECHNIQUE: Portable frontal view of the chest. COMPARISON: 06/03/2020 CTA chest and chest radiograph FINDINGS: The cardiac silhouette is within normal limits for size. Chronic interstitial coarsening. Superimposed patchy airspace opacities of the bilateral peripheral lungs not significantly changed. N o pleural effusion or pneumothorax seen. IMPRESSION: Unchanged patchy peripheral airspace opacities versus 06/03/2020, consistent with Covid 19 viral infection.
[2020-06-04 11:54] VITALS: BMI 27.6
[2020-06-04 11:55] LABS: Glucose,Whole Blood 170 mg/dL (75-99)
--- NOTE | 2020-06-04 15:40 | P.PN ---
Subjective Progress Note Date: 06/04/20 Principal diagnosis: COVID 19 pneumonitis 69-year-old white male patient of Dr. Ferreira with history of paraplegia, after brain aneurysm, diabetes mellitus, hypertension, hyperlipidemia, resides to the emergency department on 06/03/2024 complaints of generalized weakness, cough, fatigue, wanting to sleep all the time, and hypoxemia. Patient reports onset of symptoms for approximately 3 days, he states his was tested positive for COVID. Patient also states that he was diagnosed with COVID 19 at [place] on Tuesday. Since then he has had increasing dyspnea, fevers, body aches. He denied any chest pain, leg swelling, no nausea vomiting or diarrhea. He was hypoxic when EMS arrived with a pulse ox in the 80s and felt short of breath. He is currently on supplemental oxygen at 3 L, with a pulse ox of 95%, his been afebrile while at this institution, chest x-ray showed bilateral patchy multifocal acute infiltrates consistent with COVID 19 pneumonitis. Lab which revealed lymphopenia with lymphocyte count of 0.5, d-dimer of 1.03, electrolytes and renal profile were unremarkable, plasma lactic acid was mildly elevated at 2.6, ferritin level is 596, LDH was 757, CRP was 61.3, pro-calcitonin level was low at 0.12. On 06/04/2020 patient seen in follow-up on medical surgical floor. [place] on 4 L of oxygen pulse ox is 94%, overall she is feeling better, today's is the 2 of Remdesivir treatment, continues on oral Decadron. Today's chest x-ray shows patchy perihilar airspace opacities, stable in appearance. His labs have been reviewed, d-dimer is 0.97, relatively stable, LDH is down to 312 from yesterday's value of 757, and CRP is down to 7.9 from 61.3 on yesterday's labs, pro-calcitonin level is not significantly elevated to 0.12. No complaint of ch est pain, patient has been afebrile, does have some exertional dyspnea, occasional cough, overall improving Objective - Vital Signs Vital signs: Vital Signs Temp 97.7 F 06/04/20 14:27 Pulse 82 06/04/20 14:27 Resp 26 H 06/04/20 14:27 BP 126/67 06/04/20 14:27 Pulse Ox 94 L 06/04/20 14:27 Intake & Output 06/03/20 06/04/20 06/04/20 18:59 06:59 18:59 Intake Total 600 Output Total 500 1400 Balance 100 -1400 Weight 89.811 kg 89.811 kg Intake: Oral 600 Output: Urine 500 1400 Straight 500 700 Other: Voiding Method Diaper Diaper Diaper Incontinent Incontinent Incontinent Self-Catheterization Self-Catheterization Self-Catheterization # Voids 1 - Exam GENERAL EXAM: Alert, very pleasant, 69-year-old white male, on 3 L of oxygen with a pulse ox of 95% comfortable in no apparent distress. HEAD: Normocephalic/atraumatic. EYES: Normal reaction of pupils, equal size. Conjunctiva pink, sclera white. NOSE: Clear with pink turbinates. THROAT: No erythema or exudates. NECK: No masses, no JVD, no thyroid enlargement, no adenopathy. CHEST: No chest wall deformity. Symmetrical expansion. LUNGS: Equal air entry with no crackles, wheeze, rhonchi or dullness. CVS: Regular rate and rhythm, normal S1 and S2, no gallops, no murmurs, no rubs ABDOMEN: Soft, nontender. No hepatosplenomegaly, normal bowel sounds, no g uarding or rigidity. EXTREMITIES: No clubbing, no edema, no cyanosis, 2+ pulses and upper and lower extremities. MUSCULOSKELETAL: Muscle strength and tone normal. SPINE: No scoliosis or deformity SKIN: No rashes CENTRAL NERVOUS SYSTEM: Alert and oriented -3. No focal deficits, tone is normal in all 4 extremities. PSYCHIATRIC: Alert and oriented -3. Appropriate affect. Intact judgment and insight. - Labs CBC & Chem 7: 06/03/20 12:03 06/03/20 12:03 Labs: Abnormal Lab Results - Last 24 Hours (Table) 06/03/20 06/03/20 06/03/20 Range/Units 12:03 12:03 18:03 D-Dimer (<0.60) mg/L FEU POC Glucose (mg/dL) 155 H (75-99) mg/dL Ferritin 596.3 H (22.0-322.0) ng/mL Lactate Dehydrogenase (120-246) U/L C-Reactive Protein (0.0-0.8) mg/dL Procalcitonin 0.12 H (0.02-0.09) ng/mL 06/03/20 06/04/20 06/04/20 Range/Units 20:33 06:04 06:04 D-Dimer 0.97 H (<0.60) mg/L FEU POC Glucose (mg/dL) 222 H (75-99) mg/dL Ferritin (22.0-322.0) ng/mL Lactate Dehydrogenase 312 H (120-246) U/L C-Reactive Protein 7.9 H (0.0-0.8) mg/dL Procalcitonin (0.02-0.09) ng/mL 06/04/20 06/04/20 Range/Units 07:01 11:53 D-Dimer (<0.60) mg/L FEU POC Glucose (mg/dL) 142 H 170 H (75-99) mg/dL Ferritin (22.0-322.0) ng/mL Lactate Dehydrogenase (120-246) U/L C-Reactive Protein (0.0-0.8) mg/dL Procalcitonin (0.02-0.09) ng/mL Microbiology - Last 24 Hours (Table) 06/03/20 12:03 Blood Culture - Preliminary Blood No Growth after 24 hours Assessment and Plan Plan: Assessment: #1. Acute hypoxic respiratory failure related to acute COVID 19 pneumonitis, started on Remdesivir today on 06/03/2020. Patient tested positive for COVID 19 at [facility] on 06/01/2020, his was also tested positive for COVID 19 #2. Dyspnea, fever, body aches, weakness related to the above #3. Increased inflammatory markers, lymphopenia #4. Increased d-dimer but no evidence of pulmonary embolism on CTA chest #5. Hypertension #6. Hyperlipidemia #7. Diabetes mellitus type 2 #8. History of brain aneurysm, and AAA #9. History of paraplegia after a brain aneurysm surgery #10. Mild lactic acidosis Plan: Continue medical treatment, continue Remdesivir, Decadron, today's chest x-ray shows stable appearance of bilateral infiltrates, he is afebrile, overall feeling better, inflammatory markers are trending down, we'll continue to follow I performed a history & physical examination of the patient and discussed their management with my nurse practitioner, Araceli Rutherford. I reviewed the nurse practitioner's note and agree with the documented findings and plan of care. Lung sounds are positive for diminished breath sounds. The findings and the impression was discussed with the patient. I attest to the documentation by the nurse practitioner. Time with Patient: Less than 30
[2020-06-04] MEDS: ALBUTEROL HFA INHALER INHALATION SCH ×2 (16:15→19:13)
[2020-06-04 16:24] LABS: Glucose,Whole Blood 228 mg/dL (75-99)
--- NOTE | 2020-06-04 16:30 | PN ---
PROGRESS NOTE DATE OF SERVICE: 06/04/2020 This 69-year-old gentleman who was admitted with bilateral COVID-19 pneumonia was started on remdesivir. The patient also has multiple medical problems, including diabetes mellitus, hypertension, hyperlipidemia. The patient's is also being admitted with COVID-19. The patient is being closely monitored. The patient is hypoxic, still on [address] Buck is following the patient closely. CT of the chest showed no evidence of pulmonary embolism, but evidence of bilateral interstitial pneumonia was confirmed. Past medical history reviewed. REVIEW OF SYSTEMS: CARDIOVASCULAR SYSTEM: No angina, palpitations. RESPIRATORY SYSTEM: As mentioned earlier. GI: As mentioned earlier. : No dysuria or retention. NERVOUS SYSTEM: No numbness, weakness. CURRENT MEDICATIONS: Reviewed. They include Tylenol, Maalox, vitamin C, Lipitor, Tums, vitamin D, Hexadrol, Lovenox, Zestril, remdesivir. Doses of medications are noted. PHYSICAL EXAMINATION: Patient is alert, oriented x3. Pulse 82, blood pressure 129/67, respirations 26, temperature 97.6, pulse ox 94% on 4 L. HEENT: Conjunctivae normal. NECK: No jugular venous distention. CARDIOVASCULAR SYSTEM: S1, S2 muffled. RESPIRATORY SYSTEM: Breath sounds diminished at the bases. Bilateral scattered rhonchi and crackles. ABDOMEN: Soft, non-tender. LEGS: No edema. No swelling. NERVOUS SYSTEM: Paraplegia present. LABS: WBC 8.2, hemoglobin is 15.5, sodium is 136. Other labs are noted. LDH is 312 and C- reactive protein is 7.9. Procalcitonin 0.12. ASSESSMENT: 1. Bilateral interstitial pneumonia with COVID-19 pneumonia, acute pneumonia with acute hypoxic respiratory failure, present on admission. 2. Elevated inflammatory markers, including LDH and CRP. 3. Elevated procalcitonin. 4. History of chronic paraplegia at T10. 5. History of abdominal aortic aneurysm. 6. History of scrotal abscess. 7. History of diabetes mellitus, type 2. 8. History of [place] filter. 9. Hyperlipidemia. 10.History of chronic medical debility. 11.Hyponatremia. 12.History of brain aneurysm with clips. 13.Hypertension. 14.History of diabetes mellitus. 15.History of peripheral vascular disease. 16.Remote history of nicotine dependence. 17.FULL CODE. RECOMMENDATIONS AND DISCUSSION: In this 69-year-old gentleman with multiple complex medical issues, we will monitor the patient closely, continue the current medications, continue with symptomatic treatment. Continue with the dexamethasone. Continue with the Lovenox. Continue with remdesivir. Continue with the bronchodilators. Closely follow with Dr. Buck. Guarded prognosis because of multiple complex medical issues. Further recommendations to follow. MMODL / IJN: [id number] /
[2020-06-04] MEDS: REMDESIVIR (EUA) 100 MG in SODIUM CHLORIDE 0.9% 250 ML IVPB SCH (17:10)
[2020-06-04 20:41] LABS: Glucose,Whole Blood 260 mg/dL (75-99)
[2020-06-04] MEDS: MELATONIN 5 MG TABLET PO SCH (20:56)
[2020-06-05 01:13] LABS: Appearance,Urine Cloudy (Clear); Bacteria,Urine Few /hpf; Bilirubin,Urine Negative (Negative); Blood,Urine Negative (Negative); Color,Urine Yellow; Glucose,Urine (UA) 1+ (Negative); Ketones,Urine Negative (Negative); Leukocyte Esterase,Urine Large (Negative); Nitrite,Urine Positive (Negative); Protein,Urine Negative (Negative); RBC,Urine 2 /hpf (0-5); Specific Gravity,Urine 1.018 (1.001-1.035); Squamous Epithelial Cell,Urine 3 /hpf (0-4); Triple Phosphate Crystal,Urine Rare /hpf; Urobilinogen,Urine <2.0 mg/dL (<2.0); WBC,Urine 82 /hpf (0-5)
[2020-06-05 06:57] LABS: Glucose,Whole Blood 84 mg/dL (75-99)
[2020-06-05 06:57] LABS: Basophils # (A) 0.1 k/uL (0-0.2); Basophils % (A) 1 %; Eosinophils % (A) 0 %; HCT 46.2 % (39.0-53.0); HGB 14.6 gm/dL (13.0-17.5); Lymphocytes # (A) 1.2 k/uL (1.0-4.8); Lymphocytes % (A) 15 %; MCH 30.1 pg (25.0-35.0); MCHC 31.7 g/dL (31.0-37.0); Mean Platelet Volume 7.1; Monocytes # (A) 0.3 k/uL (0-1.0); Monocytes % (A) 4 %; Neutrophils # (A) 6.3 k/uL (1.3-7.7); Neutrophils % (A) 78 %; Platelet Count 245 k/uL (150-450); RBC 4.86 m/uL (4.30-5.90); RDW 14.3 % (11.5-15.5)
[2020-06-05] MEDS: INSULIN ASPART (NovoLOG) 100 UNIT/ML VIAL SQ SCH ×4 (06:58→21:17)
--- NOTE | 2020-06-05 06:58 | CONS ---
CONSULTATION DATE OF SERVICE: 06/04/2020. REASON FOR CONSULTATION: COVID-19 pneumonia. HISTORY OF PRESENT ILLNESS: The patient is a 69-year-old male with a past medical history significant for brain aneurysm with surgery, along with AAA repair. This patient was seen at [facility] 2 days ago for evaluation of increasing shortness of breath and hypoxemia. Apparently, the patient was diagnosed with COVID-19 a few days ago at [facility] and the patient has been treated symptomatically. However, the patient started having increasing shortness of breath on minimal exertion and even at rest and difficulty taking a deep breath. He also had a cough which was mild to moderate in intensity, not bringing up any sputum. No nausea, no vomiting. No abdominal pain or any diarrhea. With these symptoms, the patient was evaluated by the ER physician. On arrival to the ER, the patient was afebrile. The patient was hypoxic with O2 sats down to 89% at one point and is currently on supplemental oxygen. The patient did have elevated CRP, LDH, D-dimer and evidence of lymphopenia. The patient did have a chest x-ray followed by CT angiogram with evidence of bilateral ground-glass opacities. The patient was admitted to the hospital. The patient will be started on Remdesivir, Lovenox, dexamethasone, and zinc sulfate. Infectious Disease was consulted for further management. REVIEW OF SYSTEMS: Positive points have been mentioned in HPI. Rest of systems are negative. PAST MEDICAL HISTORY: Diabetes mellitus, hypertension, hyperlipidemia, brain aneurysm, . PAST SURGICAL HISTORY: Appendectomy, [place] filter placement, abscess of scrotum, lithotripsy. SOCIAL HISTORY: Former smoker. No drinking or drug use. FAMILY HISTORY: Father with history of cancer. ALLERGIES: SULFA AND PHENYTOIN. MEDICATIONS: The patient is currently on Tylenol, Maalox, vitamin C, aspirin, Lipitor, Tums, vitamin D3, dexamethasone, Lovenox, Pepcid, NovoLog, Zestril, Narcan, Remdesivir and zinc sulfate. PHYSICAL EXAMINATION: VITAL SIGNS: Blood pressure 132/79 with a pulse of 77, temperature 97.3. He is 94% on 4 L nasal cannula. GENERAL DESCRIPTION: He is an elderly male lying in bed in no distress. No tachypnea or accessory muscles of respiration use. HEENT: Shows pallor, no scleral icterus. Oral mucous membranes are dry. NECK: Trachea central. No thyromegaly. LUNGS: Unlabored breathing, decreased intensity of breath sounds. No wheeze. HEART: S1, S2. Regular rate and rhythm. ABDOMEN: Soft, no tenderness, no guarding or rigidity. EXTREMITIES: No edema of the feet. SKIN: No rash or mass palpable. NEUROLOGICAL: The patient is awake, alert, oriented x3. Mood and affect normal. LABS: Hemoglobin 15.5, white count 8.1. BUN of 17, creatinine 0.52. Lactic acid was 2.6, down to 1.1. mildly elevated. IMAGING: Chest x-ray and CT report as mentioned above. DIAGNOSTIC IMPRESSION: Patient presented to the hospital with increasing shortness of breath and cough in this patient with recent diagnosis of COVID-10 pneumonia confirmed also with evidence of bilateral infiltrate on the CT, likely representing acute COVID-19 pneumonia. Clinically not behaving as a secondary bacterial infection. PLAN: 1. Patient to be treated with remdesivir per protocol in addition to the Lovenox, dexamethasone and zinc sulfate. 2. respiratory support. 3. We will follow on clinical condition and further adjust medication if needed. Thank you for this consultation. Will follow this patient along with you. MMODL / IJN: [id number] /
[2020-06-05] MEDS: NON FORMULARY DRUG (Liraglutide [Victoza 2-Pak] 0.6 MG/0.1 ML Pen.Injctr) SQ SCH (07:19)
[2020-06-05] MEDS: LACTOBACILLUS ACIDOPH & BULGAR 1 EACH PACKET PO SCH (07:24)
[2020-06-05] MEDS: CHOLECALCIFEROL 400 UNIT TAB PO SCH (07:24)
[2020-06-05] MEDS: ZINC SULFATE 220 MG CAP PO SCH (07:24)
[2020-06-05] MEDS: ATORVASTATIN 10 MG TAB PO SCH (07:24)
[2020-06-05] MEDS: FAMOTIDINE 20 MG TAB PO SCH ×2 (07:24→21:17)
[2020-06-05] MEDS: MULTIVITAMINS, THERA 1 EACH TAB PO SCH (07:24)
[2020-06-05] MEDS: dexAMETHasone 2 MG TAB PO SCH (07:25)
[2020-06-05] MEDS: lisinopriL 10 MG TAB PO SCH (07:25)
[2020-06-05] MEDS: ASPIRIN 325 MG TAB PO SCH (07:25)
[2020-06-05] MEDS: metFORMIN 500 MG TAB PO SCH ×2 (07:25→17:14)
[2020-06-05] MEDS: ENOXAPARIN 40 MG/0.4 ML SYRINGE SQ SCH ×2 (07:25→21:17)
[2020-06-05] MEDS: ASCORBIC ACID 500 MG TAB PO SCH (07:25)
[2020-06-05] MEDS: ALBUTEROL HFA INHALER INHALATION SCH ×3 (07:57→19:28)
[2020-06-05 10:00] LABS: African American GFR (CKD) 117.2 (60.0-200.0); Albumin 3.8 g/dL (3.80-4.90); Anion Gap 9.7 mmol/L (4.00-12.00); BUN/Creat Ratio 33.33 Ratio (12.00-20.00); C Reactive Protein 7.2 mg/dL (0.0-0.8); Calcium 9.1 mg/dL (8.7-10.3); Carbon Dioxide 26.3 mmol/L (21.6-31.8); Globulin 1.9 g/dL (1.6-3.3); Non-African American GFR(CKD) 101.2 (60.0-200.0); Potassium 4.3 mmol/L (3.5-5.5); Total Bilirubin 0.6 mg/dL (0.3-1.2); Total Protein 5.7 g/dL (6.2-8.2)
[2020-06-05 11:53] LABS: Glucose,Whole Blood 150 mg/dL (75-99)
[2020-06-05] MEDS: REMDESIVIR (EUA) 100 MG in SODIUM CHLORIDE 0.9% 250 ML IVPB SCH (15:18)
[2020-06-05] MEDS: SODIUM CHLORIDE 0.9% 1,000 ML IV SCH (15:19)
--- NOTE | 2020-06-05 15:58 | P.PN ---
Subjective Progress Note Date: 06/05/20 Principal diagnosis: CoVID 19 pneumonitis 69-year-old white male patient of Dr. Ferreira with history of paraplegia, after brain aneurysm, diabetes mellitus, hypertension, hyperlipidemia, resides to the emergency department on 06/03/2024 complaints of generalized weakness, cough, fatigue, wanting to sleep all the time, and hypoxemia. Patient reports onset of symptoms for approximately 3 days, he states his was tested positive for COVID. Patient also states that he was diagnosed with COVID 19 at [place] on Tuesday. Since then he has had increasing dyspnea, fevers, body aches. He denied any chest pain, leg swelling, no nausea vomiting or diarrhea. He was hypoxic when EMS arrived with a pulse ox in the 80s and felt short of breath. He is currently on supplemental oxygen at 3 L, with a pulse ox of 95%, his been afebrile while at this institution, chest x-ray showed bilateral patchy multifocal acute infiltrates consistent with COVID 19 pneumonitis. Lab which revealed lymphopenia with lymphocyte count of 0.5, d-dimer of 1.03, electrolytes and renal profile were unremarkable, plasma lactic acid was mildly elevated at 2.6, ferritin level is 596, LDH was 757, CRP was 61.3, pro-calcitonin level was low at 0.12. On 06/04/2020 patient seen in follow-up on medical surgical floor. Bradley on 4 L of oxygen pulse ox is 94%, overall she is feeling better, today's is the 2 of Remdesivir treatment, continues on oral Decadron. Today's chest x-ray shows patchy perihilar airspace opacities, stable in appearance. His labs have been reviewed, d-dimer is 0.97, relatively stable, LDH is down to 312 from yesterday's value of 757, and CRP is down to 7.9 from 61.3 on yesterday's labs, pro-calcitonin level is not significantly elevated to 0.12. No complaint of ch est pain, patient has been afebrile, does have some exertional dyspnea, occasional cough, overall improving The patient is seen today 06/05/2020 in follow-up on the regular medical floor. He is awake and alert in no acute distress. Continues to improve daily. Feeling less short of breath today compared to yesterday. This is day #3 of his Remdesivir. He is maintaining O2 saturations in the low 90s on 4 L/m per nasal cannula. Currently afebrile. Hemodynamically stable. White count 8.0. H emoglobin 14.6. Sodium 139. Potassium 4.3. Creatinine 0.6. LDH 384. C- reactive protein 7.2. Objective - Vital Signs Vital signs: Vital Signs Temp 97.9 F 06/05/20 13:18 Pulse 87 06/05/20 13:18 Resp 17 06/05/20 13:18 BP 133/78 06/05/20 13:18 Pulse Ox 90 L 06/05/20 13:18 Intake & Output 06/04/20 06/05/20 06/05/20 18:59 06:59 18:59 Intake Total 160 540 Output Total 1400 600 Balance -1400 -440 540 Weight 89.811 kg Intake: Intake, IV Titration 160 140 Amount Sodium Chloride 0.9% 1, 160 140 000 ml @ 20 mls/hr IV . Q24H [facility] Rx#:[id number] Oral 400 Output: Urine 1400 600 Straight 700 300 Other: Voiding Method Diaper Diaper Diaper Incontinent Incontinent Incontinent Self-Catheterization Self-Catheterization Self-Catheterization # Voids 1 - Exam GENERAL EXAM: Alert, very pleasant, 69-year-old male patient, on 4 L of oxygen with a pulse ox of 90%, comfortable in no apparent distress. HEAD: Normocephalic/atraumatic. EYES: Normal reaction of pupils, equal size. Conjunctiva pink, sclera white. NOSE: Clear with pink turbinates. THROAT: No erythema or exudates. NECK: No masses, no JVD, no thyroid enlargement, no adenopathy. CHEST: No chest wall deformity. Symmetrical expansion. LUNGS: Equal air entry with few scattered rhonchi. CVS: Regular rate and rhythm, normal S1 and S2, no gallops, no murmurs, no rubs ABDOMEN: Soft, nontender. No hepatosplenomegaly, normal bowel sounds, no guarding or rigidity. EXTREMITIES: No clubbing, no edema, no cyanosis, 2+ pulses and upper and lower extremities. MUSCULOSKELETAL: Muscle strength and tone normal. SPINE: No scoliosis or deformity SKIN: No rashes CENTRAL NERVOUS SYSTEM: Alert and oriented -3. No focal deficits, tone is normal in all 4 extremities. PSYCHIATRIC: Alert and oriented -3. Appropriate affect. Intact judgment and insight. - Labs CBC & Chem 7: 06/05/20 06:17 06/05/20 06:17 Labs: Abnormal Lab Results - Last 24 Hours (Table) 06/04/20 06/04/20 06/05/20 Range/Units 16:23 20:39 00:50 BUN/Creatinine Ratio (12.00-20.00) Ratio POC Glucose (mg/dL) 228 H 260 H (75-99) mg/dL Lactate Dehydrogenase (120-246) U/L C-Reactive Protein (0.0-0.8) mg/dL Total Protein (6.2-8.2) g/dL Urine Glucose (UA) 1+ H (Negative) Ur Leukocyte Esterase Large H (Negative) Urine WBC 82 H (0-5) /hpf Urine WBC Clumps Occasional H (None) /hpf Triple Phos Crystals Rare H (None) /hpf Urine Bacteria Few H (None) /hpf 06/05/20 06/05/20 Range/Units 06:17 11:49 BUN/Creatinine Ratio 33.33 H (12.00-20.00) Ratio POC Glucose (mg/dL) 150 H (75-99) mg/dL Lactate Dehydrogenase 384 H (120-246) U/L C-Reactive Protein 7.2 H (0.0-0.8) mg/dL Total Protein 5.7 L (6.2-8.2) g/dL Urine Glucose (UA) (Negative) Ur Leukocyte Esterase (Negative) Urine WBC (0-5) /hpf Urine WBC Clumps (None) /hpf Triple Phos Crystals (None) /hpf Urine Bacteria (None) /hpf Microbiology - Last 24 Hours (Table) 06/03/20 12:03 Blood Culture - Preliminary Blood No Growth after 48 hours Assessment and Plan Assessment: #1. Acute hypoxic respiratory failure related to acute COVID 19 pneumonitis, started on Remdesivir today on 06/03/2020. Patient tested positive for COVID [address] [facility] on 06/01/2020, his was also tested positive for COVID 19 #2. Dyspnea, fever, body aches, weakness related to the above #3. Increased inflammatory markers, lymphopenia #4. Increased d-dimer but no evidence of pulmonary embolism on CTA chest #5. Hypertension #6. Hyperlipidemia #7. Diabetes mellitus type 2 #8. History of brain aneurysm, and AAA #9. History of paraplegia after a brain aneurysm surgery #10. Mild lactic acidosis Plan: The patient was seen and evaluated by Dr. Buck Currently stable from the pulmonary standpoint This is day #3 of Remdesivir Continue the current treatment plan Titrate down the FiO2 as tolerated We will continue to follow I, the cosigning physician, performed a history & physical examination of the patient. Lungs sounds with bilateral scattered rhonchi. Maintaining good O2 saturations in the 90s on 4 L/m per nasal cannula. I discussed the assessment and plan of care with my nurse practitioner, Jerri Morales. I attest to the above note as dictated by her.
[2020-06-05 16:40] LABS: Glucose,Whole Blood 316 mg/dL (75-99)
[2020-06-05 21:01] LABS: Glucose,Whole Blood 178 mg/dL (75-99)
[2020-06-05] MEDS: MELATONIN 5 MG TABLET PO SCH (21:17)
--- NOTE | 2020-06-06 00:39 | PN ---
PROGRESS NOTE DATE OF SERVICE: 06/05/2020 This 69-year-old gentleman was admitted with bilateral COVID-19 pneumonia, started on remdesivir. The patient is closely monitored at this time. The most recent chest x-ray which was reviewed personally by me showed bilateral opacities at this time. The patient is currently saturating at 90% on 4 L nasal cannula. Multiple consultants are following the patient closely. As for inflammatory markers, they are still elevated. Patient closely monitored at this time. UA shows possible UTI also. PAST MEDICAL HISTORY: Reviewed. REVIEW OF SYSTEMS: CARDIOVASCULAR SYSTEM: No angina. RESPIRATORY SYSTEM: As mentioned earlier. GI: As mentioned earlier. : No dysuria. NERVOUS SYSTEM: No numbness or weakness. CURRENT MEDICATIONS: Current medications are reviewed and include: Tylenol, Maalox, Ventolin, Vitamin D3, Lovenox, Cephulac. Doses are reviewed. PHYSICAL EXAMINATION: The patient is alert and oriented x3. Pulse 81, blood pressure 143/79, respirations 17, temperature 97.5, pulse ox 90% on 4 L. HEENT: Conjunctivae normal. NECK: No jugular venous distention. CARDIOVASCULAR: S1, S2 muffled. RESPIRATORY; Breath sounds diminished at the bases. Bilateral scattered rhonchi and crackles. ABDOMEN: Soft, nontender. LEGS: No edema, no swelling. NERVOUS SYSTEM: No focal abscess. LABS: CBC and Accu-Cheks noted. ASSESSMENT: 1. Bilateral interstitial pneumonia with COVID-19 pneumonia with acute hypoxic respiratory failure on O2. 2. Elevated inflammatory markers including LDH and CRP. 3. Acute urinary tract infection, present on admission. 4. Elevated procalcitonin. 5. History of chronic paraplegia at T10. 6. History of abdominal aortic aneurysm. 7. History of scrotal abscess. 8. History of diabetes mellitus type 2. 9. History of [place] filter. 10.Hyperlipidemia. 11.History of chronic medical debility. 12.Hyponatremia. 13.History of brain aneurysm with clips. 14.Hypertension. 15.History of diabetes mellitus type 2. 16.History of peripheral vascular disease. 17.Remote history of nicotine dependence. 18.FULL CODE. RECOMMENDATIONS AND DISCUSSION: Recommend to continue current medications, continue symptomatic treatment. Continue with remdesivir. Otherwise, I would follow the rest of the medications. The last course will be on June 07, which will be Tuesday. I would also recommend a short course of antibiotics also after obtaining the cultures. The patient had multiple organisms from the wound. Prognosis guarded. Further recommendations to follow. MMODL / IJN: [id number] /
--- NOTE | 2020-06-06 06:46 | PN ---
PROGRESS NOTE DATE OF SERVICE: 06/05/2020 REASON FOR FOLLOWUP: COVID-19 pneumonia. INTERVAL HISTORY: The patient is currently afebrile. The patient is feeling better. Breathing comfortably. The patient denies having any chest pain or cough. No nausea, no vomiting, no abdominal pain, no diarrhea. PHYSICAL EXAMINATION: Blood pressure 119/68 with a pulse of 82, temperature 97.6. He is 91% on 4 L nasal cannula. General description is an elderly male lying in bed in no distress. Respiratory system: Unlabored breathing, decreased breath sounds at bases. No wheeze. HEART: S1, S2. Regular rate and rhythm. ABDOMEN: Soft, no tenderness. LABS: Hemoglobin is 14.6, white count 8.0, BUN of 20, creatinine 0.6. IMPRESSION/PLAN: Patient with acute COVID-19 infection in this patient currently being treated with dexamethasone, Lovenox and Remdesivir, to continue along with respiratory support. Monitor clinical course closely. MMODL / IJN: [id number] /
[2020-06-06 07:12] LABS: Glucose,Whole Blood 82 mg/dL (75-99)
[2020-06-06] MEDS: INSULIN ASPART (NovoLOG) 100 UNIT/ML VIAL SQ SCH ×4 (07:16→21:44)
[2020-06-06 07:43] LABS: Basophils # (A) 0.1 k/uL (0-0.2); Basophils % (A) 1 %; Eosinophils % (A) 0 %; HCT 48.1 % (39.0-53.0); HGB 15.3 gm/dL (13.0-17.5); Lymphocytes # (A) 1.3 k/uL (1.0-4.8); Lymphocytes % (A) 11 %; MCH 30.2 pg (25.0-35.0); MCHC 31.9 g/dL (31.0-37.0); MCV 94.5 fL (80.0-100.0); Mean Platelet Volume 7.1; Monocytes # (A) 0.3 k/uL (0-1.0); Monocytes % (A) 3 %; Neutrophils # (A) 9.8 k/uL (1.3-7.7); Neutrophils % (A) 84 %; Platelet Count 279 k/uL (150-450); RBC 5.09 m/uL (4.30-5.90); RDW 14.4 % (11.5-15.5); WBC 11.7 k/uL (3.8-10.6)
[2020-06-06] MEDS: FAMOTIDINE 20 MG TAB PO SCH ×2 (08:13→21:43)
[2020-06-06] MEDS: MULTIVITAMINS, THERA 1 EACH TAB PO SCH (08:13)
[2020-06-06] MEDS: ATORVASTATIN 10 MG TAB PO SCH (08:13)
[2020-06-06] MEDS: ASPIRIN 325 MG TAB PO SCH (08:13)
[2020-06-06] MEDS: LACTOBACILLUS ACIDOPH & BULGAR 1 EACH PACKET PO SCH (08:13)
[2020-06-06] MEDS: CHOLECALCIFEROL 400 UNIT TAB PO SCH (08:13)
[2020-06-06] MEDS: ZINC SULFATE 220 MG CAP PO SCH (08:13)
[2020-06-06] MEDS: lisinopriL 10 MG TAB PO SCH (08:13)
[2020-06-06] MEDS: ENOXAPARIN 40 MG/0.4 ML SYRINGE SQ SCH ×2 (08:13→21:43)
[2020-06-06] MEDS: dexAMETHasone 2 MG TAB PO SCH (08:13)
[2020-06-06] MEDS: ASCORBIC ACID 500 MG TAB PO SCH (08:14)
[2020-06-06] MEDS: metFORMIN 500 MG TAB PO SCH ×2 (08:14→17:19)
[2020-06-06] MEDS: NON FORMULARY DRUG (Liraglutide [Victoza 2-Pak] 0.6 MG/0.1 ML Pen.Injctr) SQ SCH (08:19)
[2020-06-06] MEDS: ALBUTEROL HFA INHALER INHALATION SCH ×3 (08:43→20:11)
[2020-06-06 10:57] LABS: Albumin 3.8 g/dL (3.80-4.90); Albumin/Globulin Ratio 1.81 (1.60-3.17); Anion Gap 12.4 mmol/L (4.00-12.00); BUN/Creat Ratio 38.57 Ratio (12.00-20.00); C Reactive Protein 6.5 mg/dL (0.0-0.8); Calcium 9.4 mg/dL (8.7-10.3); Carbon Dioxide 24.6 mmol/L (21.6-31.8); Globulin 2.1 g/dL (1.6-3.3); Non-African American GFR(CKD) 94.9 (60.0-200.0); Potassium 4.8 mmol/L (3.5-5.5); Total Bilirubin 0.6 mg/dL (0.3-1.2); Total Protein 5.9 g/dL (6.2-8.2)
[2020-06-06 11:30] LABS: Glucose,Whole Blood 114 mg/dL (75-99)
--- NOTE | 2020-06-06 12:00 | XR ---
EXAMINATION TYPE: XR chest 1V portable DATE OF EXAM: 06/06/2020 CLINICAL HISTORY: COVID 19. TECHNIQUE: Portable frontal view of the chest. COMPARISON: 06/04/2020 chest radiograph FINDINGS: The cardiac silhouette is within normal limits for size. Chronic interstitial coarsening. Patchy peripheral bilateral airspace opacities appear similar. No pleural effusion or pneumothorax se en. IMPRESSION: Similar appearing patchy peripheral airspace opacities versus 06/04/2020. Findings are c onsistent with Covid 19 viral infection.
[2020-06-06] MEDS: REMDESIVIR (EUA) 100 MG in SODIUM CHLORIDE 0.9% 250 ML IVPB SCH (15:28)
[2020-06-06] MEDS: SODIUM CHLORIDE 0.9% 1,000 ML IV SCH (15:35)
--- NOTE | 2020-06-06 15:51 | P.PN ---
Subjective Progress Note Date: 06/06/20 Principal diagnosis: CoVID 19 pneumonitis 69-year-old white male patient of Dr. Ferreira with history of paraplegia, after brain aneurysm, diabetes mellitus, hypertension, hyperlipidemia, resides to the emergency department on 06/03/2024 complaints of generalized weakness, cough, fatigue, wanting to sleep all the time, and hypoxemia. Patient reports onset of symptoms for approximately 3 days, he states his was tested positive for COVID. Patient also states that he was diagnosed with COVID 19 at [place] on Tuesday. Since then he has had increasing dyspnea, fevers, body aches. He denied any chest pain, leg swelling, no nausea vomiting or diarrhea. He was hypoxic when EMS arrived with a pulse ox in the 80s and felt short of breath. He is currently on supplemental oxygen at 3 L, with a pulse ox of 95%, his been afebrile while at this institution, chest x-ray showed bilateral patchy multifocal acute infiltrates consistent with COVID 19 pneumonitis. Lab which revealed lymphopenia with lymphocyte count of 0.5, d-dimer of 1.03, electrolytes and renal profile were unremarkable, plasma lactic acid was mildly elevated at 2.6, ferritin level is 596, LDH was 757, CRP was 61.3, pro-calcitonin level was low at 0.12. On 06/04/2020 patient seen in follow-up on medical surgical floor. Bradley on 4 L of oxygen pulse ox is 94%, overall she is feeling better, today's is the 2 of Remdesivir treatment, continues on oral Decadron. Today's chest x-ray shows patchy perihilar airspace opacities, stable in appearance. His labs have been reviewed, d-dimer is 0.97, relatively stable, LDH is down to 312 from yesterday's value of 757, and CRP is down to 7.9 from 61.3 on yesterday's labs, pro-calcitonin level is not significantly elevated to 0.12. No complaint of ch est pain, patient has been afebrile, does have some exertional dyspnea, occasional cough, overall improving The patient is seen today 06/05/2020 in follow-up on the regular medical floor. He is awake and alert in no acute distress. Continues to improve daily. Feeling less short of breath today compared to yesterday. This is day #3 of his Remdesivir. He is maintaining O2 saturations in the low 90s on 4 L/m per nasal cannula. Currently afebrile. Hemodynamically stable. White count 8.0. H emoglobin 14.6. Sodium 139. Potassium 4.3. Creatinine 0.6. LDH 384. C- reactive protein 7.2. The patient is seen today 06/06/2020 in follow-up on the regular medical floor. He is currently resting in bed. He is having some issues with dizziness, nausea. No diarrhea. He was having issues with constipation due to his paraplegia. He is on day #4 of Remdesivir. Continued on Lovenox and dexa methasone. Lungs sounds continue with crackles in the posterior bases. He is maintaining O2 saturations in the high 80s on 6 L high flow nasal cannula. Remains on it antibiotics in the form of ceftriaxone. Chest x-ray reveals similar patchy peripheral airspace opacities. Blood culture reveals no growth. Urine culture pending. White count 11.7. Hemoglobin 15.3. Sodium 140. Potassium 4.8. Creatinine 0.7. LDH 391. C-reactive protein 6.5. Objective - Vital Signs Vital signs: Vital Signs Temp 98.6 F 06/06/20 13:45 Pulse 85 06/06/20 13:45 Resp 18 06/06/20 13:45 BP 114/69 06/06/20 13:45 Pulse Ox 95 06/06/20 13:45 Intake & Output 06/05/20 06/06/20 06/06/20 18:59 06:59 18:59 Intake Total 540 320 100 Output Total 400 Balance 540 -80 100 Intake: Intake, IV Titration 140 320 Amount Sodium Chloride 0.9% 1, 140 320 000 ml @ 20 mls/hr IV . Q24H [facility] Rx#:[id number] Oral 400 100 Output: Urine 400 Other: Voiding Method Diaper Diaper Diaper Incontinent Incontinent Incontinent Self-Catheterization Self-Catheterization Self-Catheterization # Voids 1 2 - Exam GENERAL EXAM: Alert, very pleasant, 69-year-old male patient, on 6 L of oxygen with a pulse ox of 95%, comfortable in no apparent distress. HEAD: Normocephalic/atraumatic. EYES: Normal reaction of pupils, equal size. Conjunctiva pink, sclera white. NOSE: Clear with pink turbinates. THROAT: No erythema or exudates. NECK: No masses, no JVD, no thyroid enlargement, no adenopathy. CHEST: No chest wall deformity. Symmetrical expansion. LUNGS: Equal air entry with few scattered rhonchi. CVS: Regular rate and rhythm, normal S1 and S2, no gallops, no murmurs, no rubs ABDOMEN: Soft, nontender. No hepatosplenomegaly, normal bowel sounds, no guarding or rigidity. EXTREMITIES: No clubbing, no edema, no cyanosis, 2+ pulses and upper and lower extremities. MUSCULOSKELETAL: Muscle strength and tone normal. SPINE: No scoliosis or deformity SKIN: No rashes CENTRAL NERVOUS SYSTEM: Alert and oriented -3. Patient is paraplegic. No focal deficits, tone is normal in all 4 extremities. PSYCHIATRIC: Alert and oriented -3. Appropriate affect. Intact judgment and insight. - Labs CBC & Chem 7: 06/06/20 06:47 06/06/20 06:47 Labs: Abnormal Lab Results - Last 24 Hours (Table) 06/05/20 06/05/20 06/06/20 Range/Units 16:37 20:59 06:47 WBC 11.7 H (3.8-10.6) k/uL Neutrophils # 9.8 H (1.3-7.7) k/uL Anion Gap (4.00-12.00) mmol/L BUN/Creatinine Ratio (12.00-20.00) Ratio POC Glucose (mg/dL) 316 H 178 H (75-99) mg/dL Lactate Dehydrogenase (120-246) U/L C-Reactive Protein (0.0-0.8) mg/dL Total Protein (6.2-8.2) g/dL 06/06/20 06/06/20 Range/Units 06:47 11:17 WBC (3.8-10.6) k/uL Neutrophils # (1.3-7.7) k/uL Anion Gap 12.40 H (4.00-12.00) mmol/L BUN/Creatinine Ratio 38.57 H (12.00-20.00) Ratio POC Glucose (mg/dL) 114 H (75-99) mg/dL Lactate Dehydrogenase 391 H (120-246) U/L C-Reactive Protein 6.5 H (0.0-0.8) mg/dL Total Protein 5.9 L (6.2-8.2) g/dL Microbiology - Last 24 Hours (Table) 06/03/20 12:03 Blood Culture - Preliminary Blood No Growth after 72 hours 06/05/20 21:30 Urine Culture - Preliminary Urine,Catheterized Assessment and Plan Assessment: #1. Acute hypoxic respiratory failure related to acute COVID 19 pneumonitis, started on Remdesivir on 06/03/2020. Patient tested positive for COVID 19 at [facility] on 06/01/2020, his was also tested positive for COVID 19 #2. Dyspnea, fever, body aches, weakness related to the above #3. Increased inflammatory markers, lymphopenia #4. Increased d-dimer but no evidence of pulmonary embolism on CTA chest #5. Hypertension #6. Hyperlipidemia #7. Diabetes mellitus type 2 #8. History of brain aneurysm, and AAA #9. History of paraplegia after a brain aneurysm surgery #10. Mild lactic acidosis Plan: The patient was seen and evaluated by Dr. Buck Chest x-ray and labs reviewed This is day #4 of Remdesivir Remains on antibiotics in the form of ceftriaxone Continued on Lovenox and dexamethasone Titrate down the FiO2 as tolerated We will continue to follow I, the cosigning physician, performed a history & physical examination of the patient. Lungs sounds with bilateral scattered rhonchi. Maintaining good O2 saturations in the 90s on 6 L/m per nasal cannula. I discussed the assessment and plan of care with my nurse practitioner, Jerri Morales. I attest to the above note as dictated by her.
[2020-06-06 16:31] LABS: Glucose,Whole Blood 237 mg/dL (75-99)
--- NOTE | 2020-06-06 16:43 | PN ---
PROGRESS NOTE DATE OF SERVICE: 06/06/2020 This is a 69-year-old gentleman who was admitted with bilateral COVID-19 pneumonia, started on Remdesivir. The patient was feeling better yesterday, but last night the patient took a turn for the worse and patient complaining of increased shortness of breath and some congestion, also. The patient is being followed by Dr. Paris and Pulmonary. The most recent chest x-ray ordered today which is reviewed showed bilateral interstitial pneumonia, which is actually almost similar in intensity and the lab was WBC 11.7 and C-reactive protein is elevated at 6.5, which is less than on admission values. The patient also had a UTI also. The patient also started on empiric antibiotics also. The cultures are negative so far. PAST MEDICAL HISTORY: Reviewed. REVIEW OF SYSTEMS: CARDIOVASCULAR SYSTEM: No angina. RESPIRATION: As mentioned earlier. GI: No nausea. : No dysuria. NERVOUS SYSTEM: No numbness, weakness. CURRENT MEDICATIONS: Reviewed and include, current medications include: 1. Tylenol. 2. Maalox. 3. Ventolin. 4. Vitamin C. 5. Aspirin. 6. Lipitor. 7. Tums. 8. Rocephin. 9. Vitamin D3. 10.Lovenox. 11.Pepcid. 12.NovoLog. 13.Cephulac. 14.Melatonin. 15.Glucophage. PHYSICAL EXAM: Patient is alert and oriented x3, pulse 85, blood pressure 140/60, respiration 18, temperature 98.6, pulse ox 94% on 6 L. HEENT: Conjunctivae normal. NECK: No jugular venous distension. CARDIOVASCULAR SYSTEM: S1, S2, muffled. RESPIRATION: Breath sounds diminished at the bases, bilateral scattered rhonchi, no crackles. ABDOMEN: Soft, nontender. LEGS: No edema. No swelling. NERVOUS SYSTEM: No focal deficits. LABS: At this time shows WBC 7.2, hemoglobin 15.3, sodium 140, potassium 4.8. ASSESSMENT: 1. Bilateral interstitial pneumonia secondary to acute COVID-19 pneumonia and acute hypoxic respiratory failure with possible sepsis present on admission, on high-flow oxygen. 2. Elevated inflammatory markers including LDH and CRP. 3. Acute urinary tract infection, present on admission. 4. Elevated procalcitonin. 5. History of chronic paraplegia at T10. 6. History of abdominal aortic aneurysm. 7. History of scrotal abscess. 8. History of diabetes mellitus type 2. 9. History of [place] filter. 10.Hyperlipidemia. 11.History of chronic medical debility. 12.Hyponatremia. 13.History of brain aneurysm with clips. 14.Hypertension. 15.History of peripheral vascular disease. 16.Remote history of nicotine dependence. 17.FULL CODE. RECOMMENDATION: Recommend to continue current medications, continue management and symptomatic treatment. Otherwise, at this time, continue the Remdesivir. Continue with the bronchodilators. Continue with the rest of medication. Monitor blood sugars closely. Closely follow with Infectious Disease and Pulmonary. Guarded prognosis. Further recommendations to follow. MMODL / IJN: [id number] /
[2020-06-06 21:25] LABS: Glucose,Whole Blood 191 mg/dL (75-99)
[2020-06-06] MEDS: MELATONIN 5 MG TABLET PO SCH (21:44)
--- NOTE | 2020-06-06 22:46 | PN ---
PROGRESS NOTE DATE OF SERVICE: June 06, 2020. REASON FOR FOLLOWUP VISIT: Covid-19 pneumonia. INTERVAL HISTORY: Patient is currently afebrile. He seems to have some problem with breathing this morning. However, subsequently has stabilized and is currently on 6 L nasal cannula. Denies having any chest pain. Minimal cough. No nausea, no vomiting. No abdominal pain. No diarrhea. PHYSICAL EXAMINATION: Blood pressure 116/66, pulse 85, temperature 97.4, he is 93% on 6 L nasal cannula. General description is an elderly male lying in bed in no distress. Respiratory system: Unlabored breathing with diminished breath sounds per nursing staff. Extremities: No edema of the feet. LABS: Hemoglobin is 15.2, white count 11.7, BUN of 27, creatinine 0.7. CRP is down to 6.5. . Chest x-ray this morning, no significant change. DIAGNOSTIC IMPRESSION AND PLAN: Patient with acute COVID-19 pneumonia in this patient seemed to have shown some clinical improvement. The patient is currently covered with Remdesivir, dexamethasone and Lovenox to continue along with supportive care. Monitor clinical course closely. MMODL / IJN: [id number] /
[2020-06-07 06:58] LABS: Glucose,Whole Blood 114 mg/dL (75-99)
[2020-06-07 07:30] LABS: Basophils # (A) 0.1 k/uL (0-0.2); Basophils % (A) 1 %; Eosinophils # (A) 0.1 k/uL (0-0.7); Eosinophils % (A) 1 %; HCT 45.6 % (39.0-53.0); HGB 15.2 gm/dL (13.0-17.5); Lymphocytes # (A) 1.2 k/uL (1.0-4.8); Lymphocytes % (A) 11 %; MCH 31.1 pg (25.0-35.0); MCHC 33.4 g/dL (31.0-37.0); MCV 93.3 fL (80.0-100.0); Monocytes # (A) 0.4 k/uL (0-1.0); Monocytes % (A) 4 %; Neutrophils # (A) 9.3 k/uL (1.3-7.7); Neutrophils % (A) 84 %; Platelet Count 293 k/uL (150-450); RBC 4.88 m/uL (4.30-5.90); WBC 11.2 k/uL (3.8-10.6)
[2020-06-07] MEDS: INSULIN ASPART (NovoLOG) 100 UNIT/ML VIAL SQ SCH ×4 (08:00→20:48)
[2020-06-07] MEDS: ZINC SULFATE 220 MG CAP PO SCH (08:21)
[2020-06-07] MEDS: dexAMETHasone 2 MG TAB PO SCH (08:21)
[2020-06-07] MEDS: FAMOTIDINE 20 MG TAB PO SCH ×2 (08:21→20:47)
[2020-06-07] MEDS: metFORMIN 500 MG TAB PO SCH ×2 (08:21→17:06)
[2020-06-07] MEDS: LACTOBACILLUS ACIDOPH & BULGAR 1 EACH PACKET PO SCH (08:21)
[2020-06-07] MEDS: MULTIVITAMINS, THERA 1 EACH TAB PO SCH (08:21)
[2020-06-07] MEDS: ATORVASTATIN 10 MG TAB PO SCH (08:21)
[2020-06-07] MEDS: ASPIRIN 325 MG TAB PO SCH (08:21)
[2020-06-07] MEDS: ENOXAPARIN 40 MG/0.4 ML SYRINGE SQ SCH ×2 (08:21→20:48)
[2020-06-07] MEDS: ASCORBIC ACID 500 MG TAB PO SCH (08:22)
[2020-06-07] MEDS: CHOLECALCIFEROL 400 UNIT TAB PO SCH (08:22)
[2020-06-07] MEDS: NON FORMULARY DRUG (Liraglutide [Victoza 2-Pak] 0.6 MG/0.1 ML Pen.Injctr) SQ SCH (08:25)
[2020-06-07] MEDS: lisinopriL 10 MG TAB PO SCH (08:25)
[2020-06-07] MEDS: ALBUTEROL HFA INHALER INHALATION SCH ×3 (10:28→19:53)
[2020-06-07 11:14] LABS: Glucose,Whole Blood 164 mg/dL (75-99)
[2020-06-07 13:41] LABS: African American GFR (CKD) 117.2 (60.0-200.0); Albumin 3.6 g/dL (3.80-4.90); Albumin/Globulin Ratio 1.64 (1.60-3.17); Anion Gap 12.3 mmol/L (4.00-12.00); BUN/Creat Ratio 41.67 Ratio (12.00-20.00); Calcium 9.1 mg/dL (8.7-10.3); Carbon Dioxide 24.7 mmol/L (21.6-31.8); Globulin 2.2 g/dL (1.6-3.3); Non-African American GFR(CKD) 101.2 (60.0-200.0); Potassium 4.5 mmol/L (3.5-5.5); Total Bilirubin 0.7 mg/dL (0.3-1.2); Total Protein 5.8 g/dL (6.2-8.2)
[2020-06-07] MEDS: SODIUM CHLORIDE 0.9% 1,000 ML IV SCH (15:06)
--- NOTE | 2020-06-07 15:41 | P.PN ---
Subjective Progress Note Date: 06/07/20 Principal diagnosis: CoVID 19 pneumonitis 69-year-old white male patient of Dr. Ferreira with history of paraplegia, after brain aneurysm, diabetes mellitus, hypertension, hyperlipidemia, resides to the emergency department on 06/03/2024 complaints of generalized weakness, cough, fatigue, wanting to sleep all the time, and hypoxemia. Patient reports onset of symptoms for approximately 3 days, he states his was tested positive for COVID. Patient also states that he was diagnosed with COVID 19 at [place] on Tuesday. Since then he has had increasing dyspnea, fevers, body aches. He denied any chest pain, leg swelling, no nausea vomiting or diarrhea. He was hypoxic when EMS arrived with a pulse ox in the 80s and felt short of breath. He is currently on supplemental oxygen at 3 L, with a pulse ox of 95%, his been afebrile while at this institution, chest x-ray showed bilateral patchy multifocal acute infiltrates consistent with COVID 19 pneumonitis. Lab which revealed lymphopenia with lymphocyte count of 0.5, d-dimer of 1.03, electrolytes and renal profile were unremarkable, plasma lactic acid was mildly elevated at 2.6, ferritin level is 596, LDH was 757, CRP was 61.3, pro-calcitonin level was low at 0.12. On 06/04/2020 patient seen in follow-up on medical surgical floor. [place] on 4 L of oxygen pulse ox is 94%, overall she is feeling better, today's is the 2 of Remdesivir treatment, continues on oral Decadron. Today's chest x-ray shows patchy perihilar airspace opacities, stable in appearance. His labs have been reviewed, d-dimer is 0.97, relatively stable, LDH is down to 312 from yesterday's value of 757, and CRP is down to 7.9 from 61.3 on yesterday's labs, pro-calcitonin level is not significantly elevated to 0.12. No complaint of ch est pain, patient has been afebrile, does have some exertional dyspnea, occasional cough, overall improving The patient is seen today 06/05/2020 in follow-up on the regular medical floor. He is awake and alert in no acute distress. Continues to improve daily. Feeling less short of breath today compared to yesterday. This is day #3 of his Remdesivir. He is maintaining O2 saturations in the low 90s on 4 L/m per nasal cannula. Currently afebrile. Hemodynamically stable. White count 8.0. H emoglobin 14.6. Sodium 139. Potassium 4.3. Creatinine 0.6. LDH 384. C- reactive protein 7.2. The patient is seen today 06/06/2020 in follow-up on the regular medical floor. He is currently resting in bed. He is having some issues with dizziness, nausea. No diarrhea. He was having issues with constipation due to his paraplegia. He is on day #4 of Remdesivir. Continued on Lovenox and dexa methasone. Lungs sounds continue with crackles in the posterior bases. He is maintaining O2 saturations in the high 80s on 6 L high flow nasal cannula. Remains on it antibiotics in the form of ceftriaxone. Chest x-ray reveals similar patchy peripheral airspace opacities. Blood culture reveals no growth. Urine culture pending. White count 11.7. Hemoglobin 15.3. Sodium 140. Potassium 4.8. Creatinine 0.7. LDH 391. C-reactive protein 6.5. The patient is seen today 06/07/2020 in follow-up on the regular medical floor. He is awake and alert in no acute distress. He is feeling quite a bit better today compared to yesterday. Less nausea, less dizziness. This is day #5 of Remdesivir. He is down to 8 L high flow nasal cannula to maintain O2 saturations in the low 90s. He is afebrile. Hemodynamically stable. Urine culture was positive for gram-negative bacilli. Blood culture reveals no growth. White count 11.2. Hemoglobin 15.2. Sodium 139. Potassium 4.5. Creatinine 0.6. LDH 353. C-reactive protein 15.0. Remains on ceftriaxone. Objective - Vital Signs Vital signs: Vital Signs Temp 98.3 F 06/07/20 12:57 Pulse 94 06/07/20 12:57 Resp 18 06/07/20 12:57 BP 115/68 06/07/20 12:57 Pulse Ox 91 L 06/07/20 12:57 Intake & Output 06/06/20 06/07/20 06/07/20 18:59 06:59 18:59 Intake Total 900 Output Total 700 800 Balance 900 -700 -800 Intake: Intake, IV Titration 400 Amount Remdesivir (Eua) 100 mg 250 In Sodium Chloride 0.9% 250 ml @ 250 mls/hr IVPB Q24H [facility] Rx#:[id number] Sodium Chloride 0.9% 1, 100 000 ml @ 20 mls/hr IV . Q24H [facility] Rx#:[id number] cefTRIAXone 1 gm In 50 Sodium Chloride 0.9% 50 ml @ 100 mls/hr IVPB Q24HR [facility] Rx#:[id number] Oral 500 Output: Urine 700 800 Straight 800 Other: Voiding Method Diaper Self-Catheterization Diaper Incontinent Incontinent Self-Catheterization Self-Catheterization # Voids 2 2 - Exam GENERAL EXAM: Alert, very pleasant, 69-year-old male patient, on 8 L of oxygen with a pulse ox of 91%, comfortable in no apparent distress. HEAD: Normocephalic/atraumatic. EYES: Normal reaction of pupils, equal size. Conjunctiva pink, sclera white. NOSE: Clear with pink turbinates. THROAT: No erythema or exudates. NECK: No masses, no JVD, no thyroid enlargement, no adenopathy. CHEST: No chest wall deformity. Symmetrical expansion. LUNGS: Equal air entry with few scattered rhonchi. CVS: Regular rate and rhythm, normal S1 and S2, no gallops, no murmurs, no rubs ABDOMEN: Soft, nontender. No hepatosplenomegaly, normal bowel sounds, no guarding or rigidity. EXTREMITIES: No clubbing, no edema, no cyanosis, 2+ pulses and upper and lower extremities. MUSCULOSKELETAL: Muscle strength and tone normal. SPINE: No scoliosis or deformity SKIN: No rashes CENTRAL NERVOUS SYSTEM: Patient is paraplegic. No focal deficits, tone is normal in all 4 extremities. PSYCHIATRIC: Alert and oriented -3. Appropriate affect. Intact judgment and insight. - Labs CBC & Chem 7: 06/07/20 06:43 06/07/20 06:43 Labs: Abnormal Lab Results - Last 24 Hours (Table) 06/06/20 06/06/20 06/07/20 Range/Units 16:28 21:24 06:43 WBC 11.2 H (3.8-10.6) k/uL Neutrophils # 9.3 H (1.3-7.7) k/uL Anion Gap (4.00-12.00) mmol/L BUN/Creatinine Ratio (12.00-20.00) Ratio Glucose (70-110) mg/dL POC Glucose (mg/dL) 237 H 191 H (75-99) mg/dL Lactate Dehydrogenase (120-246) U/L C-Reactive Protein (0.0-0.8) mg/dL Total Protein (6.2-8.2) g/dL Albumin (3.80-4.90) g/dL 06/07/20 06/07/20 06/07/20 Range/Units 06:43 06:56 11:12 WBC (3.8-10.6) k/uL Neutrophils # (1.3-7.7) k/uL Anion Gap 12.30 H (4.00-12.00) mmol/L BUN/Creatinine Ratio 41.67 H (12.00-20.00) Ratio Glucose 135 H (70-110) mg/dL POC Glucose (mg/dL) 114 H 164 H (75-99) mg/dL Lactate Dehydrogenase 353 H (120-246) U/L C-Reactive Protein 15.0 H (0.0-0.8) mg/dL Total Protein 5.8 L (6.2-8.2) g/dL Albumin 3.60 L (3.80-4.90) g/dL Microbiology - Last 24 Hours (Table) 06/03/20 12:03 Blood Culture - Preliminary Blood No Growth after 96 hours 06/05/20 21:30 Urine Culture - Preliminary Urine,Catheterized Gram Neg Bacilli Assessment and Plan Assessment: 1 Acute hypoxic respiratory failure related to acute COVID 19 pneumonitis, started on Remdesivir on 06/03/2020. Patient tested positive for COVID 19 at [facility] on 06/01/2020, his was also tested positive for COVID 19 2 Dyspnea, fever, body aches, weakness related to the above 3 Increased inflammatory markers, lymphopenia 4 Increased d-dimer but no evidence of pulmonary embolism on CTA chest 5 Hypertension 6 Hyperlipidemia 7 Diabetes mellitus type 2 8 History of brain aneurysm, and AAA 9 History of paraplegia after a brain aneurysm surgery 10 Mild lactic acidosis 11 Urinary tract infection secondary to gram-negative bacilli Plan: The patient was seen and evaluated by Dr. Buck This is day #5 of Remdesivir, continued on Lovenox and dexamethasone Remains on antibiotics in the form of ceftriaxone Titrate down the FiO2 as tolerated Repeat chest x-ray in a.m. We will continue to follow I, the cosigning physician, performed a history & physical examination of the patient. Lungs sounds with bilateral scattered rhonchi. Maintaining good O2 saturations in the 90s on 8 L/m per nasal cannula. I discussed the assessment and plan of care with my nurse practitioner, Jerri Morales. I attest to the above note as dictated by her.
[2020-06-07] MEDS: REMDESIVIR (EUA) 100 MG in SODIUM CHLORIDE 0.9% 250 ML IVPB SCH (15:43)
[2020-06-07 16:31] LABS: Glucose,Whole Blood 280 mg/dL (75-99)
[2020-06-07 20:28] LABS: Glucose,Whole Blood 265 mg/dL (75-99)
[2020-06-07] MEDS: MELATONIN 5 MG TABLET PO SCH (20:47)
--- NOTE | 2020-06-07 21:36 | PN ---
PROGRESS NOTE DATE OF SERVICE: 06/07/2020 I am covering for Dr. Mancera. HISTORY OF PRESENT ILLNESS: This 69-year-old gentleman was admitted with COVID-19 pneumonia is on Remdesivir. The patient is complaining of significant shortness of breath. The patient also currently on high-flow nasal cannula. The patient patient's also had COVID-19, apparently discharged recently and the is doing better. The blood sugar is elevated and the patient is being closely monitored. Inflammatory markers of COVID-19 also elevated. PAST MEDICAL HISTORY: Reviewed. REVIEW OF SYSTEMS: CARDIOVASCULAR: No angina. RESPIRATORY: As mentioned earlier. GI: As mentioned earlier. : No dysuria. NEURO: No numbness or weakness. CURRENT MEDICATIONS: Reviewed include Tylenol, Maalox, Ventolin, vitamin C, aspirin, calcium, Colace, Pepcid. Doses reviewed. PHYSICAL EXAMINATION: Alert and oriented x3. Pulse 85, blood pressure 110/77, respiration 17, temperature 98.9, pulse ox 90% on 8 L. HEENT: Conjunctivae normal. Oral mucosa moist. NECK: No jugular venous distention. No lymph node enlargement. CARDIOVASCULAR: S1, S2, muffled. No S3, no S4, RESPIRATORY: Diminished breath sounds at the bases. Bilateral scattered rhonchi and crackles. ABDOMEN: Soft, nontender. LEGS: No edema, no swelling. NERVOUS SYSTEM: Paraplegia. LABS: WBC 11.2, sodium 120, potassium 4.5. ASSESSMENT: 1. Bilateral interstitial pneumonia secondary to acute COVID-19 pneumonia as well as acute hypoxic respiratory failure with possible sepsis present on admission, on high-flow oxygen. 2. Status post Remdesivir. 3. Elevated inflammatory markers including LDH and CRP. 4. Acute urinary tract infection, present on admission. 5. Elevated procalcitonin. 6. History of chronic paraplegia at [facility]. 7. History of abdominal aortic aneurysm. 8. History of scrotal abscess. 9. History of diabetes type 2. 10.History of [place] filter. 11.Hyperlipidemia. 12.History of chronic medical debility. 13.Hyponatremia. 14.History of brain aneurysm with clips. 15.Hypertension. 16.History of peripheral vascular disease. 17.Remote history of nicotine dependence. 18.FULL CODE. RECOMMENDATIONS AND DISCUSSION: Recommend to continue current management and symptomatic treatment and monitor blood sugars closely. Otherwise continue with broad-spectrum IV antibiotics, bronchodilators, dexamethasone. The urine culture showed Gram-negative bacilli. We will await the final report. Guarded prognosis. Further recommendations to follow. We will closely follow with Infectious Disease as well as Pulmonary. MMODL / IJN: [id number] /
[2020-06-08] MEDS: methylPREDNISolone SOD SUCCI 125 MG/2 ML VIAL IV SCH ×5 (00:16→23:12)
--- NOTE | 2020-06-08 04:57 | PN ---
PROGRESS NOTE DATE OF SERVICE: 06/07/2020 REASON FOR FOLLOWUP: COVID-19 pneumonia. INTERVAL HISTORY: Patient is currently afebrile, has been breathing more comfortably. The patient denies having any chest pain. Minimal cough. No nausea, vomiting, abdominal pain or diarrhea. PHYSICAL EXAMINATION: Blood pressure 115/56, pulse of 80, temperature 97.4. He is 91% on 10 L nasal cannula. General description is an elderly male lying in bed in no distress. Respiratory system: Unlabored breathing with decreased breath sounds, no wheeze. Heart S1, S2. Regular rate and rhythm. Abdomen is soft, no tenderness. LABS: Hemoglobin 16.1, white count 11.2, BUN of 25, creatinine 0.6. IMPRESSION/PLAN: 1. Patient with acute COVID-19 pneumonia. This patient has completed his remdesivir therapy, however, he still requiring high-flow oxygen. We will switch over his dexamethasone to Solu-Medrol to see if that will help with inflammation and will monitor clinical course closely. 2. Patient with Gram-negative urinary tract infection. He is covered with Rocephin. MMODL / IJN: [id number] /
[2020-06-08 07:04] LABS: Glucose,Whole Blood 189 mg/dL (75-99)
[2020-06-08] MEDS: INSULIN ASPART (NovoLOG) 100 UNIT/ML VIAL SQ SCH ×4 (07:51→21:11)
[2020-06-08] MEDS: MULTIVITAMINS, THERA 1 EACH TAB PO SCH (07:53)
[2020-06-08] MEDS: lisinopriL 10 MG TAB PO SCH (07:53)
[2020-06-08] MEDS: CHOLECALCIFEROL 400 UNIT TAB PO SCH (07:53)
[2020-06-08] MEDS: ATORVASTATIN 10 MG TAB PO SCH (07:53)
[2020-06-08] MEDS: ASCORBIC ACID 500 MG TAB PO SCH (07:53)
[2020-06-08] MEDS: ENOXAPARIN 40 MG/0.4 ML SYRINGE SQ SCH ×2 (07:53→21:11)
[2020-06-08] MEDS: FAMOTIDINE 20 MG TAB PO SCH ×2 (07:53→21:11)
[2020-06-08] MEDS: ZINC SULFATE 220 MG CAP PO SCH (07:53)
[2020-06-08] MEDS: DOCUSATE 100 MG CAP PO SCH (07:54)
[2020-06-08] MEDS: LACTOBACILLUS ACIDOPH & BULGAR 1 EACH PACKET PO SCH (07:54)
[2020-06-08] MEDS: ASPIRIN 325 MG TAB PO SCH (07:54)
[2020-06-08] MEDS: metFORMIN 500 MG TAB PO SCH ×2 (07:54→16:20)
[2020-06-08] MEDS: NON FORMULARY DRUG (Liraglutide [Victoza 2-Pak] 0.6 MG/0.1 ML Pen.Injctr) SQ SCH (07:55)
--- NOTE | 2020-06-08 08:07 | XR ---
EXAMINATION TYPE: XR chest 1V portable DATE OF EXAM: 06/08/2020 CLINICAL HISTORY: Difficulty breathing progress study. Covid pneumonitis TECHNIQUE: Single AP portable upright view of the chest is obtained. COMPARISON: Chest x-ray from 2 days earlier and older studies. CTA chest 5 days ago. FINDINGS: Background cardiomegaly with atherosclerotic aorta. Background chronic emphysematous fontanez e with persistent bilateral peripheral opacities. No pleural effusion or pneumothorax seen bilaterall y. Multilevel spurring and spine redemonstrated. IMPRESSION: Persistent bilateral peripheral acute infiltrates consistent with covid-19 infection. No significant change from most recent x-ray.
[2020-06-08] MEDS: ALBUTEROL HFA INHALER INHALATION SCH ×3 (08:46→16:02)
[2020-06-08 11:24] LABS: Glucose,Whole Blood 281 mg/dL (75-99)
--- NOTE | 2020-06-08 14:45 | P.PN ---
Subjective Progress Note Date: 06/08/20 Principal diagnosis: CoVID 19 pneumonitis 69-year-old white male patient of Dr. Ferreira with history of paraplegia, after brain aneurysm, diabetes mellitus, hypertension, hyperlipidemia, resides to the emergency department on 06/03/2024 complaints of generalized weakness, cough, fatigue, wanting to sleep all the time, and hypoxemia. Patient reports onset of symptoms for approximately 3 days, he states his was tested positive for COVID. Patient also states that he was diagnosed with COVID 19 at [place] on Tuesday. Since then he has had increasing dyspnea, fevers, body aches. He denied any chest pain, leg swelling, no nausea vomiting or diarrhea. He was hypoxic when EMS arrived with a pulse ox in the 80s and felt short of breath. He is currently on supplemental oxygen at 3 L, with a pulse ox of 95%, his been afebrile while at this institution, chest x-ray showed bilateral patchy multifocal acute infiltrates consistent with COVID 19 pneumonitis. Lab which revealed lymphopenia with lymphocyte count of 0.5, d-dimer of 1.03, electrolytes and renal profile were unremarkable, plasma lactic acid was mildly elevated at 2.6, ferritin level is 596, LDH was 757, CRP was 61.3, pro-calcitonin level was low at 0.12. On 06/04/2020 patient seen in follow-up on medical surgical floor. [place] on 4 L of oxygen pulse ox is 94%, overall she is feeling better, today's is the 2 of Remdesivir treatment, continues on oral Decadron. Today's chest x-ray shows patchy perihilar airspace opacities, stable in appearance. His labs have been reviewed, d-dimer is 0.97, relatively stable, LDH is down to 312 from yesterday's value of 757, and CRP is down to 7.9 from 61.3 on yesterday's labs, pro-calcitonin level is not significantly elevated to 0.12. No complaint of ch est pain, patient has been afebrile, does have some exertional dyspnea, occasional cough, overall improving The patient is seen today 06/05/2020 in follow-up on the regular medical floor. He is awake and alert in no acute distress. Continues to improve daily. Feeling less short of breath today compared to yesterday. This is day #3 of his Remdesivir. He is maintaining O2 saturations in the low 90s on 4 L/m per nasal cannula. Currently afebrile. Hemodynamically stable. White count 8.0. H emoglobin 14.6. Sodium 139. Potassium 4.3. Creatinine 0.6. LDH 384. C- reactive protein 7.2. The patient is seen today 06/06/2020 in follow-up on the regular medical floor. He is currently resting in bed. He is having some issues with dizziness, nausea. No diarrhea. He was having issues with constipation due to his paraplegia. He is on day #4 of Remdesivir. Continued on Lovenox and dexa methasone. Lungs sounds continue with crackles in the posterior bases. He is maintaining O2 saturations in the high 80s on 6 L high flow nasal cannula. Remains on it antibiotics in the form of ceftriaxone. Chest x-ray reveals similar patchy peripheral airspace opacities. Blood culture reveals no growth. Urine culture pending. White count 11.7. Hemoglobin 15.3. Sodium 140. Potassium 4.8. Creatinine 0.7. LDH 391. C-reactive protein 6.5. The patient is seen today 06/07/2020 in follow-up on the regular medical floor. He is awake and alert in no acute distress. He is feeling quite a bit better today compared to yesterday. Less nausea, less dizziness. This is day #5 of Remdesivir. He is down to 8 L high flow nasal cannula to maintain O2 saturations in the low 90s. He is afebrile. Hemodynamically stable. Urine culture was positive for gram-negative bacilli. Blood culture reveals no growth. White count 11.2. Hemoglobin 15.2. Sodium 139. Potassium 4.5. Creatinine 0.6. LDH 353. C-reactive protein 15.0. Remains on ceftriaxone. The patient is seen today 06/08/2020 in follow-up on the regular medical floor. He continues rest quite comfortably in bed. Awake and alert in no acute distress. Feeling a bit better today compared to yesterday. He is down to 5 L high flow nasal cannula to maintain O2 saturations in the low 90s. Chest x-ray reveals persistent bilateral patchy infiltrates consistent with CoVID 19 infection. He is afebrile. Urine culture positive for Providencia rettgeri. Blood glucose 281. He is currently on ceftriaxone. Lovenox for DVT pr ophylaxis. Remains on IV Solu-Medrol. Objective - Vital Signs Vital signs: Vital Signs Temp 98.2 F 06/08/20 09:26 Pulse 82 06/08/20 09:26 Resp 18 06/08/20 09:26 BP 120/69 06/08/20 09:26 Pulse Ox 91 L 06/08/20 09:26 Intake & Output 06/07/20 06/08/20 06/08/20 18:59 06:59 18:59 Intake Total 560 Output Total 800 1650 Balance -800 -1090 Intake: Intake, IV Titration 260 Amount Sodium Chloride 0.9% 1, 260 000 ml @ 20 mls/hr IV . Q24H [facility] Rx#:[id number] Oral 300 Output: Urine 800 1650 Straight 800 Other: Voiding Method Diaper Diaper Indwelling Catheter Incontinent Incontinent Self-Catheterization Indwelling Catheter # Voids 2 - Exam GENERAL EXAM: Alert, very pleasant, 69-year-old male patient, on 5 L of oxygen with a pulse ox of 91%, comfortable in no apparent distress. HEAD: Normocephalic/atraumatic. EYES: Normal reaction of pupils, equal size. Conjunctiva pink, sclera white. NOSE: Clear with pink turbinates. THROAT: No erythema or exudates. NECK: No masses, no JVD, no thyroid enlargement, no adenopathy. CHEST: No chest wall deformity. Symmetrical expansion. LUNGS: Equal air entry with few scattered rhonchi. CVS: Regular rate and rhythm, normal S1 and S2, no gallops, no murmurs, no rubs ABDOMEN: Soft, nontender. No hepatosplenomegaly, normal bowel sounds, no guarding or rigidity. EXTREMITIES: No clubbing, no edema, no cyanosis, 2+ pulses and upper and lower extremities. MUSCULOSKELETAL: Muscle strength and tone normal. SPINE: No scoliosis or deformity SKIN: No rashes CENTRAL NERVOUS SYSTEM: Patient is paraplegic. No focal deficits, tone is normal in all 4 extremities. PSYCHIATRIC: Alert and oriented -3. Appropriate affect. Intact judgment and i nsight. - Labs CBC & Chem 7: 06/07/20 06:43 06/07/20 06:43 Labs: Abnormal Lab Results - Last 24 Hours (Table) 06/07/20 06/07/20 06/08/20 Range/Units 16:28 20:13 07:02 POC Glucose (mg/dL) 280 H 265 H 189 H (75-99) mg/dL 06/08/20 Range/Units 11:21 POC Glucose (mg/dL) 281 H (75-99) mg/dL Microbiology - Last 24 Hours (Table) 06/03/20 12:03 Blood Culture - Preliminary Blood No Growth after 120 hours 06/05/20 21:30 Urine Culture - Final Urine,Catheterized Providemeia rettgeri Assessment and Plan Assessment: 1 Acute hypoxic respiratory failure related to acute COVID 19 pneumonitis, started on Remdesivir on 06/03/2020. Patient tested positive for COVID 19 at [facility] on 06/01/2020, his was also tested positive for COVID 19 2 Dyspnea, fever, body aches, weakness related to the above 3 Increased inflammatory markers, lymphopenia 4 Increased d-dimer but no evidence of pulmonary embolism on CTA chest 5 Hypertension 6 Hyperlipidemia 7 Diabetes mellitus type 2 8 History of brain aneurysm, and AAA 9 History of paraplegia after a brain aneurysm surgery 10 Mild lactic acidosis 11 Urinary tract infection secondary to gram-negative bacilli Plan: The patient was seen and evaluated by Dr. Buck Chest x-ray continues to revealed patchy bilateral infiltrates Improved from the pulmonary standpoint, requiring less oxygen Home once cleared medically Will most likely need some home oxygen We will continue to follow I, the cosigning physician, performed a history & physical examination of the patient. Lungs sounds with bilateral scattered rhonchi. Maintaining good O2 saturations in the 90s on 5 L/m per nasal cannula. I discussed the assessment and plan of care with my nurse practitioner, Jerri Morales. I attest to the above note as dictated by her.
[2020-06-08 16:15] LABS: Glucose,Whole Blood 274 mg/dL (75-99)
[2020-06-08] MEDS: SODIUM CHLORIDE 0.9% 1,000 ML IV SCH (16:21)
--- NOTE | 2020-06-08 18:20 | PN ---
PROGRESS NOTE DATE OF SERVICE: 06/08/2020 I am covering for Dr. Mancera. This 69-year-old gentleman who was admitted with Covid-19 pneumonia received and completed a course of Remdesivir. The patient is also on bronchodilators. The patient has significant hypoxia which is fluctuating at this time. Dr. Buck and Infectious Disease following the patient closely. The most recent chest x-ray which was reviewed personally by me showed extensive bilateral lesions, suggestive of COVID-19 pneumonia. Past medical history reviewed. REVIEW OF SYSTEMS: Cardiovascular: No angina. Respiration as mentioned earlier. GI mentioned earlier. : No dysuria. NERVOUS SYSTEM: No numbness or weakness. CURRENT MEDICATIONS: Reviewed and include: Tylenol p.r.n. Maalox, Ventolin, vitamin C, aspirin, Tums, Rocephin. Vitamin D3, Lovenox Pepcid, Lactinex, Cephulac. Zestril. Solu-Medrol, oral zinc. PHYSICAL EXAM: Patient is alert, oriented x3. Pulse is 82. Blood pressure 117/70, respiration 18, temperature 97.2, pulse ox 94% on 5 L. HEENT: Conjunctivae normal. NECK: No JVD. CARDIOVASCULAR: S1, S2 muffled. RESPIRATION: Breath sounds diminished in the bases. Bilateral scattered rhonchi and crackles. ABDOMEN: Soft, nontender. LEGS are no edema. No swelling. NERVOUS SYSTEM: No focal deficits. LABS: Sodium 139. Other labs are noted. ASSESSMENT: 1. Bilateral interstitial pneumonia secondary to acute COVID-19 pneumonia as well as acute hypoxic respiratory failure with possible sepsis present on admission, on high-flow oxygen. 2. Status post Remdesivir. 3. Elevated inflammatory markers including LDH, CRP. 4. Acute urinary tract infection present on admission. 5. Secondary to Providencia rettgeri. 6. Elevated procalcitonin. 7. History of chronic paraplegia at T10. 8. History of abdominal aortic aneurysm. 9. History of scrotal abscess. 10.History of diabetes type 2. 11.History of [place] filter. 12.Hyperlipidemia. 13.History of chronic medical debility. 14.Hyponatremia. 15.History of brain aneurysm with clips. 16.Hypertension. 17.History of peripheral vascular disease. 18.Remote history of nicotine dependence. 19.FULL CODE. RECOMMENDATIONS AND DISCUSSION: I recommend to continue current management and symptomatic treatment. Continue with bronchodilators. Continue with steroids. Continue to monitor blood sugars closely. Closely follow with Pulmonary. Monitor oxygenation. Further recommendations to follow. MMODL / IJN: [id number] /
[2020-06-08 20:44] LABS: Glucose,Whole Blood 279 mg/dL (75-99)
[2020-06-08] MEDS: MELATONIN 5 MG TABLET PO SCH (21:11)
--- NOTE | 2020-06-09 04:52 | PN ---
PROGRESS NOTE DATE OF SERVICE: 06/08/2020 REASON FOR FOLLOWUP: COVID-19 pneumonia. INTERVAL HISTORY: The patient is currently afebrile. The patient is feeling slightly better. He is breathing comfortably. The FiO2 is currently down to 5 L from 10 L yesterday. The patient denies any chest pain. Minimal cough. No abdominal pain, no diarrhea. PHYSICAL EXAMINATION: Blood pressure 107/60 with a pulse of 90, temperature 97.5. He is 93% on 5 L nasal cannula. General description is an elderly male lying in bed in no distress. Respiratory system: Unlabored breathing, decreased breath sounds in the base, no wheeze. Heart S1, S2. Regular rate and rhythm. Abdomen soft, no tenderness. LABS: No new labs have been obtained today. DIAGNOSTIC IMPRESSION AND PLAN: 1. Patient with acute COVID-19 infection in this patient slowly clinically responding to the current treatment protocol of Remdesivir, Solu-Medrol and zinc sulfate, to continue. 2. Patient with gram-negative urinary tract infection covered with Rocephin, to continue and monitor clinical course closely. MMODL / IJN: [id number] /
[2020-06-09] MEDS: methylPREDNISolone SOD SUCCI 125 MG/2 ML VIAL IV SCH ×2 (05:51→12:07)
[2020-06-09 07:04] LABS: Glucose,Whole Blood 153 mg/dL (75-99)
[2020-06-09] MEDS: metFORMIN 500 MG TAB PO SCH ×2 (07:52→16:59)
[2020-06-09] MEDS: ASCORBIC ACID 500 MG TAB PO SCH (07:52)
[2020-06-09] MEDS: INSULIN ASPART (NovoLOG) 100 UNIT/ML VIAL SQ SCH ×3 (07:52→17:00)
[2020-06-09] MEDS: lisinopriL 10 MG TAB PO SCH (07:53)
[2020-06-09] MEDS: ATORVASTATIN 10 MG TAB PO SCH (07:53)
[2020-06-09] MEDS: DOCUSATE 100 MG CAP PO SCH (07:53)
[2020-06-09] MEDS: MULTIVITAMINS, THERA 1 EACH TAB PO SCH (07:53)
[2020-06-09] MEDS: ZINC SULFATE 220 MG CAP PO SCH (07:53)
[2020-06-09] MEDS: ASPIRIN 325 MG TAB PO SCH (07:53)
[2020-06-09] MEDS: LACTOBACILLUS ACIDOPH & BULGAR 1 EACH PACKET PO SCH (07:53)
[2020-06-09] MEDS: FAMOTIDINE 20 MG TAB PO SCH (07:53)
[2020-06-09] MEDS: NON FORMULARY DRUG (Liraglutide [Victoza 2-Pak] 0.6 MG/0.1 ML Pen.Injctr) SQ SCH (07:54)
[2020-06-09] MEDS: CHOLECALCIFEROL 400 UNIT TAB PO SCH (09:05)
[2020-06-09] MEDS: ENOXAPARIN 40 MG/0.4 ML SYRINGE SQ SCH (09:06)
[2020-06-09] MEDS: ALBUTEROL HFA INHALER INHALATION SCH ×2 (10:21→10:22)
[2020-06-09 11:38] LABS: Glucose,Whole Blood 182 mg/dL (75-99)
[2020-06-09 15:00] VITALS: BP 122/72; PULSE 105; RESP 16; TEMP 97.4
[2020-06-09] MEDS: SODIUM CHLORIDE 0.9% 1,000 ML IV SCH (16:10)
[2020-06-09 16:39] LABS: Glucose,Whole Blood 354 mg/dL (75-99)
--- NOTE | 2020-06-09 17:40 | P.PN ---
Subjective Progress Note Date: 06/09/20 Principal diagnosis: COVID 19 pneumonitis 69-year-old white male patient of Dr. Ferreira with history of paraplegia, after brain aneurysm, diabetes mellitus, hypertension, hyperlipidemia, resides to the emergency department on 06/03/2024 complaints of generalized weakness, cough, fatigue, wanting to sleep all the time, and hypoxemia. Patient reports onset of symptoms for approximately 3 days, he states his was tested positive for COVID. Patient also states that he was diagnosed with COVID 19 at [facility] on Tuesday. Since then he has had increasing dyspnea, fevers, body aches. He denied any chest pain, leg swelling, no nausea vomiting or diarrhea. He was hypoxic when EMS arrived with a pulse ox in the 80s and felt short of breath. He is currently on supplemental oxygen at 3 L, with a pulse ox of 95%, his been afebrile while at this institution, chest x-ray showed bilateral patchy multifocal acute infiltrates consistent with COVID 19 pneumonitis. Lab which revealed lymphopenia with lymphocyte count of 0.5, d-dimer of 1.03, electrolytes and renal profile were unremarkable, plasma lactic acid was mildly elevated at 2.6, ferritin level is 596, LDH was 757, CRP was 61.3, pro-calcitonin level was low at 0.12. On 06/04/2020 patient seen in follow-up on medical surgical floor. Bradley on 4 L of oxygen pulse ox is 94%, overall she is feeling better, today's is the 2 of Remdesivir treatment, continues on oral Decadron. Today's chest x-ray shows patchy perihilar airspace opacities, stable in appearance. His labs have been reviewed, d-dimer is 0.97, relatively stable, LDH is down to 312 from yesterday's value of 757, and CRP is down to 7.9 from 61.3 on yesterday's labs, pro-calcitonin level is not significantly elevated to 0.12. No complaint of ch est pain, patient has been afebrile, does have some exertional dyspnea, occasional cough, overall improving On 06/09/2020 patient seen in follow-up on Gen. medical surgical floor. He is improving, breathing easier, still requiring supplemental oxygen, currently on 4 L with a pulse ox of 94-96%, room air pulse ox was 85%, he has been afebrile. No chest discomfort no palpitations, his last chest x-ray showed the persistent bilateral peripheral acute infiltrates consistent with COVID 19 infection. He remains on high-dose IV Solu-Medrol 60 mg every 6 hours, he completed his Remdesivir treatment, he received empiric antibiotics in the form of Rocephin, he received prophylactic dose of Lovenox 40 mg twice daily. He's had no acute events overnight, his urine culture showed procidentia Rettgeri susceptible to Rocephin. He had no acute events overnight, minimal cough, no abdominal pain, no nausea vomiting or diarrhea. Objective - Vital Signs Vital signs: Vital Signs Temp 97.4 F L 06/09/20 14:00 Pulse 105 H 06/09/20 14:00 Resp 16 06/09/20 14:00 BP 122/72 06/09/20 14:00 Pulse Ox 94 L 06/09/20 14:00 Intake & Output 06/08/20 06/09/20 06/09/20 18:59 06:59 18:59 Intake Total 720 400 Output Total 700 1200 Balance -700 -480 400 Intake: Intake, IV Titration 120 Amount Sodium Chloride 0.9% 1, 120 000 ml @ 20 mls/hr IV . Q24H [facility] Rx#:[id number] Oral 600 400 Output: Urine 700 1200 Other: Voiding Method Indwelling Catheter Indwelling Catheter Indwelling Catheter # Bowel Movements 1 - Exam GENERAL EXAM: Alert, very pleasant, 69-year-old white male, on 4 L of oxygen with a pulse ox of 94% comfortable in no apparent distress. HEAD: Normocephalic/atraumatic. EYES: Normal reaction of pupils, equal size. Conjunctiva pink, sclera white. NOSE: Clear with pink turbinates. THROAT: No erythema or exudates. NECK: No masses, no JVD, no thyroid enlargement, no adenopathy. CHEST: No chest wall deformity. Symmetrical expansion. LUNGS: Equal air entry with no crackles, wheeze, rhonchi or dullness. CVS: Regular rate and rhythm, normal S1 and S2, no gallops, no murmurs, no rubs ABDOMEN: Soft, nontender. No hepatosplenomegaly, normal bowel sounds, no guarding or rigidity. EXTREMITIES: No clubbing, no edema, no cyanosis, 2+ pulses and upper and lower extremities. MUSCULOSKELETAL: Muscle strength and tone normal. SPINE: No scoliosis or deformity SKIN: No rashes CENTRAL NERVOUS SYSTEM: Alert and oriented -3. No focal deficits, tone is normal in all 4 extremities. PSYCHIATRIC: Alert and oriented -3. Appropriate affect. Intact judgment and insight. - Labs CBC & Chem 7: 06/07/20 06:43 06/07/20 06:43 Labs: Abnormal Lab Results - Last 24 Hours (Table) 06/08/20 06/09/20 06/09/20 Range/Units 20:41 07:00 11:29 POC Glucose (mg/dL) 279 H 153 H 182 H (75-99) mg/dL 06/09/20 Range/Units 16:34 POC Glucose (mg/dL) 354 H (75-99) mg/dL Microbiology - Last 24 Hours (Table) 06/03/20 12:03 Blood Culture - Final Blood No Growth after 144 hours Assessment and Plan Plan: Assessment: #1. Acute hypoxic respiratory failure related to acute COVID 19 pneumonitis, started on Remdesivir today on 06/03/2020. Patient tested positive for COVID 19 at [facility] on 06/01/2020, his was also tested positive for COVID 19 #2. Dyspnea, fever, body aches, weakness related to the above, resolved #3. Increased inflammatory markers, lymphopenia #4. Increased d-dimer but no evidence of pulmonary embolism on CTA chest #5. Hypertension #6. Hyperlipidemia #7. Diabetes mellitus type 2 #8. History of brain aneurysm, and AAA #9. History of paraplegia after a brain aneurysm surgery #10. Mild lactic acidosis #11. Acute urinary tract infection related to Providencia Rettgeri Plan: Patient has had no acute events overnight, FiO2 is being weaned down, currently at 4 L, patient did qualify for home oxygen, breathing is comfortable, no worsening dyspnea, he has completed his Remdesivir course. Continues on IV steroids, is on IV antibiotics for urinary tract infection. From pulmonary perspective patient can be considered for discharge home on home oxygen, he can complete either prednisone taper and course of oral antibiotics of ID service recommendations. I performed a history & physical examination of the patient and discussed their management with my nurse practitioner, Araceli Rutherford. I reviewed the nurse practitioner's note and agree with the documented findings and plan of care. Lung sounds are positive for diminished breath sounds. The findings and the impression was discussed with the patient. I attest to the documentation by the nurse practitioner. Time with Patient: Less than 30
--- NOTE | 2020-06-11 00:34 | P.DS ---
Providers Date of admission: 06/03/20 13:03 Expected date of discharge: 06/09/20 Attending physician: Ramon Mancera Consults: 06/03/20 13:07 Consult Physician Routine Consulting Provider: Maria Del Carmen Buck Consult Reason/Comments: hypoxic covid pneumonia Do you want consulting provider notified?: Yes 06/04/20 14:35 Consult Physician Routine Consulting Provider: Tari Paris Consult Reason/Comments: covid Do you want consulting provider notified?: Yes Primary care physician: [facility] Course: Chief Complaint: cough History of presenting complaint: This is a 68-year-old patient of Dr. Ferreira. Chronic stable medical conditions include history of T10 paraplegia following a spinal injection, brain aneurysm, AAA, hyperlipidemia, Melba filter, diabetes. neurogenic bladder. Patient is cared for by his . Patient developed respiratory symptoms on the ninth of this month. This started having fever or chills and other symptoms of coronavirus. Patient has a slight cough. Minimal shortness of breath. Came to the ER with the .3 days ago COVID 19 testing was done at [facility]. Patient tested positive. It felt slightly short of breath. Per the EMS talked and was down to the 80s. Patient's is also admitted to the hospital. With the same Admitted with COVID 19 pneumonia. Treated with Remdesivir, Lovenox, steroids. Computed tomography scan was negative for PE. Doing better with the time of discharge. Also treated for a UTI with Rocephin. Urine culture positive for probably dementia. Blood culture negative. Eating well but the time of discharge. Consultation: Dr. Buck from pulmonary Dr. Paris from [place]. Physical examination: VITAL SIGNS: 97.4, 105, 16, 122/72, 94% on 4 L GENERAL: Sitting up, comfortable EYES: Pupils equal. Conjunctiva normal. NECK: JVD not raised; masses not palpable. HEART: First and second heart sounds are normal; no edema. LUNGS: Respiratory rate normal; clear to auscultation. ABDOMEN: Soft, nontender, liver spleen not palpable, no masses palpable. PSYCH: Alert and oriented x3; mood and affect normal. NEUROLOGICAL: lower extremity power 0/5 INVESTIGATIONS, reviewed in the clinical context: White count 11.7 hemoglobin 15.3 potassium 4.8 creatinine 0.7 COVID 19 positive [address] [facility]. White count 8.1 hemoglobin 15.5 platelets 277 lymphocytes decreased at 0.5 Lactic acid 2.6 CRP 61.3 pro-calcitonin 0.12 EKG tracing personally reviewed by me-Normal sinus rhythm Chest x-ray film personally reviewed by me-Scant infiltrate Chest CT-negative for PE. Some scattered groundglass densities. Assessment: - COVID-19 pneumonia -Chronic paraplegia from spinal cord injury at T10 -Abdominal aortic aneurysm -Diabetes mellitus type 2 -Melba filter history of -Hyperlipidemia -Chronic medical debility -Acute UTI with cystitis from procidentia rettgeri -Acute hypoxic respiratory failure from pneumonia Disposition: Home Patient Condition at Discharge: Stable Plan - Discharge Summary Discharge Rx Participant: No New Discharge Prescriptions: New Cefuroxime [Ceftin] 250 mg PO BID #14 tab Zinc Sulfate [Orazinc] 220 mg PO DAILY #30 cap Famotidine [Pepcid] 20 mg PO BID #60 tab predniSONE 10 mg PO DAILY #30 tab Ascorbic Acid [Vitamin C] 1,000 mg PO DAILY #30 tab Rivaroxaban [Xarelto] 2.5 mg PO DAILY #30 tab Continue Lovastatin [Mevacor] 40 mg PO DAILY Lisinopril [Prinivil] 10 mg PO DAILY Liraglutide [Victoza 2-Peewee] 1.2 mg SQ DAILY metFORMIN HCL [Glucophage] 1,000 mg PO BID L.acidoph,Paracasei, B.lactis [Probiotic] 1 cap PO DAILY Cranberry Fruit Extract [Cranberry] 500 mg PO DAILY Aspirin EC [Ecotrin] 325 mg PO DAILY Multivitamins, Thera [Multivitamin (formulary)] 1 tab PO DAILY Acetaminophen Tab [Tylenol] 650 mg PO Q6HR PRN tab PRN Reason: Mild Pain Or Fever > 100.5 Cholecalciferol [Vitamin D3 (25 Mcg = 1000 Iu)] 1,000 unit PO DAILY Albuterol Sulfate [Albuterol Sulfate Hfa] 1 puff PO RT-Q4H PRN PRN Reason: Shortness Of Breath Discontinued Doxycycline Hyclate [Vibramycin] 100 mg PO BID Dexamethasone [Decadron] 6 mg PO DAILY Discharge Medication List Liraglutide [Victoza 2-Peewee] 1.2 mg SQ DAILY 06/24/17 [History] Lisinopril [Prinivil] 10 mg PO DAILY 12/15/17 [History] Lovastatin [Mevacor] 40 mg PO DAILY 06/24/17 [History] metFORMIN HCL [Glucophage] 1,000 mg PO BID 06/24/17 [History] Aspirin EC [Ecotrin] 325 mg PO DAILY 09/04/19 [History] Cranberry Fruit Extract [Cranberry] 500 mg PO DAILY 09/04/19 [History] L.acidoph,Paracasei, B.lactis [Probiotic] 1 cap PO DAILY 09/04/19 [History] Multivitamins, Thera [Multivitamin (formulary)] 1 tab PO DAILY 09/04/19 [History] Acetaminophen Tab [Tylenol] 650 mg PO Q6HR PRN tab 09/10/19 [Rx] Albuterol Sulfate [Albuterol Sulfate Hfa] 1 puff PO RT-Q4H PRN 06/03/20 [History] Cholecalciferol [Vitamin D3 (25 Mcg = 1000 Iu)] 1,000 unit PO DAILY 06/03/20 [History] Ascorbic Acid [Vitamin C] 1,000 mg PO DAILY #30 tab 06/09/20 [Rx] Cefuroxime [Ceftin] 250 mg PO BID #14 tab 06/09/20 [Rx] Famotidine [Pepcid] 20 mg PO BID #60 tab 06/09/20 [Rx] Rivaroxaban [Xarelto] 2.5 mg PO DAILY #30 tab 06/09/20 [Rx] Zinc Sulfate [Orazinc] 220 mg PO DAILY #30 cap 06/09/20 [Rx] predniSONE 10 mg PO DAILY #30 tab 06/09/20 [Rx] Follow up Appointment(s)/Referral(s): Maria Del Carmen Buck MD [STAFF PHYSICIAN] - 1 Week Jeremiah Ferreira DO [Primary Care Provider] - 1-[address] [facility],Equipment [NON-STAFF] - (*Please call [facility] once home to arrange delivery of oxygen concentrator. ) [facility], [NON-STAFF] - 1 Week Patient Instructions/Handouts: Viral Pneumonia (DC), Urinary Tract Infection in Men (DC) Activity/Diet/Wound Care/Special Instructions: cbc/bmp- 5 days home fio2- 3l ATC Discharge Disposition: HOME SELF-CARE
== END 2020-06-09 18:37 | disposition home or self-care (01) | DRG 177 ==
LOC: EC 11:20 → 4SSUR 13:03
PROVIDERS: ADMIT Hospitalist; ATTEND Hospitalist
PROC: XW033E5 Introduction of Remdesivir Anti-infective into Peripheral Vein, Percutaneous Approach, New Technology Group 5 (ICD-10-PCS; principal; 2020-06-03)
DX: U07.1 COVID-19 (principal); J12.89 Other viral pneumonia; J96.01 Acute respiratory failure with hypoxia; N39.0 Urinary tract infection, site not specified; G82.20 Paraplegia, unspecified; E87.1 Hypo-osmolality and hyponatremia; E87.2 Acidosis; N31.9 Neuromuscular dysfunction of bladder, unspecified; B96.89 Other specified bacterial agents as the cause of diseases classified elsewhere; D72.810 Lymphocytopenia; R32 Unspecified urinary incontinence; T81.89XS Other complications of procedures, not elsewhere classified, sequela; E11.9 Type 2 diabetes mellitus without complications; Z79.84 Long term (current) use of oral hypoglycemic drugs; E78.5 Hyperlipidemia, unspecified; I10 Essential (primary) hypertension; Z86.79 Personal history of other diseases of the circulatory system; Z95.828 Presence of other vascular implants and grafts; Z79.82 Long term (current) use of aspirin; Z79.899 Other long term (current) drug therapy; Z80.9 Family history of malignant neoplasm, unspecified; Z87.891 Personal history of nicotine dependence; E66.9 Obesity, unspecified; Z68.27 Body mass index [BMI] 27.0-27.9, adult; M54.9 Dorsalgia, unspecified; G89.29 Other chronic pain; Z88.2 Allergy status to sulfonamides; Z88.8 Allergy status to other drugs, medicaments and biological substances; Z83.1 Family history of other infectious and parasitic diseases
CPT/HCPCS: 36415; 71045; 71275; 80053; 81001; 82728; 83520; 83605; 83615; 83735; 84145; 85025; 85379; 85610; 85730; 86140; 87040; 87077; 87086; 87186; 93005; 94640; 96361; 96374; 99285

== ENCOUNTER 2020-09-15 12:52 | Inpatient (IN) | payer MEDICARE, BC ==
--- NOTE | 2020-09-15 14:46 | ED ---
Skin/Abscess/FB HPI - General Chief complaint: Skin/Abscess/Foreign Body Stated complaint: Wound Time Seen by Provider: 09/15/20 14:22 Source: patient, family Mode of arrival: wheelchair Limitations: no limitations - History of Present Illness Initial comments: 69-year-old male with hx of DM, HTN, paraplegic secondary to a surgical complications from spinal blood clot (AAA repair/brain anerusym repair) presenting today for chief complaint of right buttock bedsore concern for worsening infection. He states he been struggling with a right buttock bedsore that is now tunneling they state for the past few days as been draining and very odorous. They're told by a wound care at her last appointment to come to the emergency department if is worsening. informs a bandage changes states that it was significantly worse today and she brought patient in for evaluation. Patient denies any fevers chills general malaise lethargy. They deny any spre ading of redness away from the site of the bedsore. Patient afebrile nontoxic on arrival, however odor is very strong in the room upon history taking. - Related Data Home Medications Medication Instructions Recorded Confirmed Liraglutide [Victoza 2-Peewee] 1.2 mg SQ DAILY 06/24/17 06/03/20 Lisinopril [Prinivil] 10 mg PO DAILY 06/24/17 06/03/20 Lovastatin [Mevacor] 40 mg PO DAILY 06/24/17 06/03/20 metFORMIN HCL [Glucophage] 1,000 mg PO BID 06/24/17 06/03/20 Aspirin EC [Ecotrin] 325 mg PO DAILY 09/04/19 06/03/20 Cranberry Fruit Extract [Cranberry] 500 mg PO DAILY 09/04/19 06/03/20 L.acidoph,Paracasei, B.lactis 1 cap PO DAILY 09/04/19 06/03/20 [Probiotic] Multivitamins, Thera [Multivitamin 1 tab PO DAILY 09/04/19 06/03/20 (formulary)] Albuterol Sulfate [Albuterol 1 puff PO RT-Q4H PRN 06/03/20 06/03/20 Sulfate Hfa] Cholecalciferol [Vitamin D3 (25 1,000 unit PO DAILY 06/03/20 06/03/20 Mcg = 1000 Iu)] Previous Rx's Medication Instructions Recorded Acetaminophen Tab [Tylenol] 650 mg PO Q6HR PRN tab 09/10/19 Ascorbic Acid [Vitamin C] 1,000 mg PO DAILY #30 tab 06/09/20 Cefuroxime [Ceftin] 250 mg PO BID #14 tab 06/09/20 Famotidine [Pepcid] 20 mg PO BID #60 tab 06/09/20 Rivaroxaban [Xarelto] 2.5 mg PO DAILY #30 tab 06/09/20 Zinc Sulfate [Orazinc] 220 mg PO DAILY #30 cap 06/09/20 predniSONE 10 mg PO DAILY #30 tab 06/09/20 Allergies Allergy/AdvReac Type Severity Reaction Status Date / Time phenytoin [From Dilantin] Allergy Rash/Hives Verified 09/15/20 13:14 Sulfa (Sulfonamide Allergy Rash/Hives Verified 09/15/20 13:14 Antibiotics) Review of Systems ROS Statement: Those systems with pertinent positive or pertinent negative responses have been documented in the HPI. ROS Other: All systems not noted in ROS Statement are negative. Past Medical History Past Medical History: Diabetes Mellitus, Hyperlipidemia, Hypertension, Vascular Disorder Additional Past Medical History / Comment(s): Paraplegic T10 down after brain aneurysm surgery, neurogenic bladder/pt self caths 2-3 times a day, pt has a bowel program to have bowel movements each morning, urinary incontinence when he transfers which caused a R scrotal abscess/wound which is now healed, AAA with surgery, NIDDM type II, bladder stones with surgical removal, chronic back pain. History of Any Multi-Drug Resistant Organisms: None Reported Past Surgical History: Appendectomy Additional Past Surgical History / Comment(s): AAA wrapped, brain aneurysm with clips, sabrina filter, I&D R scrotal abscess, cystoscopy with cystolithotripsy, attempted bladder sling surgery. 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 Eye: Pupils are equal, round and reactive to light, extra-ocular movements are intact. No nystagmus. There is normal conjunctiva bilaterally. No signs of icterus. Ears, nose, mouth and throat: There are moist mucous membranes and no oral lesions. Neck: The neck is supple, there is no tenderness or JVD. Cardiovascular: There is a regular rate and rhythm. No murmur, rub or gallop is appreciated. Respiratory: Lungs are clear to auscultation, respirations are non-labored, breath sounds are equal. No wheezes, stridor, rales, or rhonchi. Gastrointestinal: Soft, non-distended, non-tender abdomen without masses or organomegaly noted. There is no rebound or guarding present. Musculoskeletal: Normal ROM, no tenderness. Strength 5/5. Sensation intact. Pulses equal bilaterally 2+. Neurological: A&O x 3. CN II-XII intact, There are no obvious motor or sensory deficits. Coordination appears grossly intact. Speech is normal. Skin: Skin is warm and dry and no rashes. Roughly 5x5cm circular sore to the right buttock. Very odorous, tunneling Psychiatric: Cooperative, appropriate mood & affect, normal judgment. Limitations: no limitations Course Vital Signs 09/15/20 09/15/20 13:10 14:13 Temperature 98.6 F Pulse Rate 94 Respiratory 18 18 Rate Blood Pressure 110/68 O2 Sat by Pulse 98 Oximetry Medical Decision Making - Medical Decision Making Very odorous right buttock decubitus ulcer. Patient states is now tunneling. Patient has mild leukocytosis. Although he does not appear toxic--there is concern given the odor and appearance for developing gangrene. Patient will be admitted for IV antibiotics and further evaluation. Dr. Mancera accepted admission. Dr Aguilar is agreeable to care plan. - Lab Data Result diagrams: 09/15/20 15:00 09/15/20 15:00 Lab Results 09/15/20 09/15/20 09/15/20 Range/Units 15:00 15:00 15:00 WBC 10.7 H (3.8-10.6) k/uL RBC 4.68 (4.30-5.90) m/uL Hgb 13.6 (13.0-17.5) gm/dL Hct 42.3 (39.0-53.0) % MCV 90.3 (80.0-100.0) fL MCH 29.0 (25.0-35.0) pg MCHC 32.1 (31.0-37.0) g/dL RDW 14.8 (11.5-15.5) % Plt Count 324 (150-450) k/uL MPV 6.7 Neutrophils % 82 % Lymphocytes % 11 % Monocytes % 6 % Eosinophils % 1 % Basophils % 0 % Neutrophils # 8.7 H (1.3-7.7) k/uL Lymphocytes # 1.1 (1.0-4.8) k/uL Monocytes # 0.6 (0-1.0) k/uL Eosinophils # 0.1 (0-0.7) k/uL Basophils # 0.0 (0-0.2) k/uL Sodium 134 L (137-145) mmol/L Potassium 4.4 (3.5-5.1) mmol/L Chloride 98 (98-107) mmol/L Carbon Dioxide 27 (22-30) mmol/L Anion Gap 9 mmol/L BUN 13 (9-20) mg/dL Creatinine 0.50 L (0.66-1.25) mg/dL Est GFR (CKD-EPI)AfAm >90 (>60 ml/min/1.73 sqM) Est GFR (CKD-EPI)NonAf >90 (>60 ml/min/1.73 sqM) Glucose 124 H (74-99) mg/dL Plasma Lactic Acid Carl 1.6 (0.7-2.0) mmol/L Calcium 9.2 (8.4-10.2) mg/dL Total Bilirubin 0.5 (0.2-1.3) mg/dL AST 18 (17-59) U/L ALT 17 (4-49) U/L Alkaline Phosphatase 99 (38-126) U/L Total Protein 6.6 (6.3-8.2) g/dL Albumin 3.6 (3.5-5.0) g/dL Disposition Clinical Impression: Infected wound, Decubitus skin ulcer Disposition: ADMITTED IP TO THIS [facility] Condition: Stable Is patient prescribed a controlled substance at d/c from ED?: No Referrals: Jeremiah Ferreira DO [Primary Care Provider] - 1-2 days Time of Disposition: 15:50 Decision to Admit Reason: Admit from EC Decision Date: 09/15/20 Decision Time: 15:50
[2020-09-15 15:16] LABS: Basophils % (A) 0 %; Eosinophils # (A) 0.1 k/uL (0-0.7); Eosinophils % (A) 1 %; HCT 42.3 % (39.0-53.0); HGB 13.6 gm/dL (13.0-17.5); Lymphocytes # (A) 1.1 k/uL (1.0-4.8); Lymphocytes % (A) 11 %; MCHC 32.1 g/dL (31.0-37.0); MCV 90.3 fL (80.0-100.0); Mean Platelet Volume 6.7; Monocytes # (A) 0.6 k/uL (0-1.0); Monocytes % (A) 6 %; Neutrophils # (A) 8.7 k/uL (1.3-7.7); Neutrophils % (A) 82 %; Platelet Count 324 k/uL (150-450); RBC 4.68 m/uL (4.30-5.90); RDW 14.8 % (11.5-15.5); WBC 10.7 k/uL (3.8-10.6)
[2020-09-15 15:25] LABS: ALT 17 U/L (4-49); AST 18 U/L (17-59); African American GFR (CKD) >90 (>60 ml/min/1.73 sqM); Albumin 3.6 g/dL (3.5-5.0); Alkaline Phosphatase 99 U/L (38-126); Anion Gap 9 mmol/L; Blood Urea Nitrogen 13 mg/dL (9-20); Calcium 9.2 mg/dL (8.4-10.2); Carbon Dioxide 27 mmol/L (22-30); Chloride 98 mmol/L (98-107); Glucose 124 mg/dL (74-99); Non-African American GFR(CKD) >90 (>60 ml/min/1.73 sqM); Potassium 4.4 mmol/L (3.5-5.1); Sodium 134 mmol/L (137-145); Total Bilirubin 0.5 mg/dL (0.2-1.3); Total Protein 6.6 g/dL (6.3-8.2)
[2020-09-15] MEDS ORDERED: VANCOMYCIN IV PER PHARMACY 1 EACH MISC MISCELLANE PRN (15:47)
[2020-09-15] MEDS ORDERED: PIPERACILLIN-TAZOBACTAM 3.375 GM in SODIUM CHLORIDE 0.9% 100 ML IVPB STA (15:47)
[2020-09-15] MEDS ORDERED: NALOXONE 0.4 MG/ML 1 ML VIAL IV PRN (15:50)
[2020-09-15] MEDS ORDERED: VANCOMYCIN 1,750 MG in SODIUM CHLORIDE 0.9% 500 ML 500 ML IVPB ONE (16:30)
[2020-09-15] MEDS: SODIUM CHLORIDE 0.9% 1,000 ML IV SCH (16:38)
[2020-09-16] MEDS: VANCOMYCIN 1,500 MG in SODIUM CHLORIDE 0.9% 250 ML IVPB SCH ×2 (05:24→18:49)
[2020-09-16] MEDS: SODIUM CHLORIDE 0.9% 1,000 ML IV SCH ×2 (05:24→21:06)
[2020-09-16 10:39] LABS: Glucose,Whole Blood 250 mg/dL (75-99)
[2020-09-16] MEDS: metFORMIN 500 MG TAB PO SCH ×2 (12:04→21:18)
[2020-09-16] MEDS: ASPIRIN 325 MG TAB PO SCH (12:04)
[2020-09-16] MEDS: MULTIVITAMINS, THERA 1 EACH TAB PO SCH (12:05)
[2020-09-16] MEDS: ATORVASTATIN 10 MG TAB PO SCH (12:06)
[2020-09-16] MEDS: lisinopriL 10 MG TAB PO SCH (12:06)
[2020-09-16] MEDS: LACTOBACILLUS ACIDOPH & BULGAR 1 EACH PACKET PO SCH (12:06)
[2020-09-16] MEDS: NON FORMULARY DRUG (Liraglutide [Victoza 2-Pak] 0.6 MG/0.1 ML Pen.Injctr) SQ SCH (12:07)
[2020-09-16] MEDS: IMIPRAMINE 10 MG TAB PO SCH (13:01)
[2020-09-16] MEDS: ENOXAPARIN 40 MG/0.4 ML SYRINGE SQ SCH (16:00)
[2020-09-16] MEDS ORDERED: ACETAMINOPHEN TAB 325 MG TAB PO PRN (18:35)
--- NOTE | 2020-09-16 23:38 | P.HPIM ---
History of Present Illness H&P Date: 09/16/20 Chief Complaint: Right buttock Cyst History of presenting complaint: This is a 69-year-old patient of Dr. Ferreira. Chronic stable medical conditions include history of T10 paraplegia following a spinal injection, brain aneurysm, AAA, hyperlipidemia, [place] filter, diabetes. neurogenic bladder-patient does self-catheterization. Patient is cared for by his . Patient is admitted in May 2020 with COVID 19 pneumonia. Patient now presents with abscess on the right buttock. Getting present for about 2 months. This was dictated by a wound care nurse on a monitored ER. Progressively getting worse. Has been no fever. Some chills. Because of it getting worse and decided to bring him and Review of systems: GEN.: tired EYES: None HEENT: None NECK: None RESPIRATORY: None CARDIOVASCULAR: None GASTROINTESTINAL: None GENITOURINARY: As above MUSCULOSKELETAL: As above LYMPHATICS: None HEMATOLOGICAL: None PSYCHIATRY: None NEUROLOGICAL: chronic[Lower extremity weakness Past medical history to include: T10 paraplegia from spinal injection, prerenal aneurysm, abdominal aortic aneurysm, diabetes, Sabrina filter, hyperlipidemia,neurogenic bladder Social history: Does smoke in the remote past. No alcohol. . Physical examination: VITAL SIGNS: 98.6, 94, 18, 110/68, 98% room air GENERAL:BMI 28.4, laying in bed, awake EYES: Pupils equal. Conjunctiva normal. HEENT: External appearance of nose and ears normal, oral cavity grossly normal. NECK: JVD not raised; masses not palpable. HEART: First and second heart sounds are normal; no edema. LUNGS: Respiratory rate normal; clear to auscultation. ABDOMEN: Soft, nontender, liver spleen not palpable, no masses palpable. BUTTOCKS: Right but a candidate abscess. With drainage more detail of the nursing notes PSYCH: Alert and oriented x3; mood and affect normal. NEUROLOGICAL: [Cranial nerves grossly intact; no facial asymmetry, lower extremity power 0/5. No sensation of lower extremity. LYMPHATICS: No lymph nodes palpable in the axilla and neck INVESTIGATIONS, reviewed in the clinical context: WBC 10.7 hemoglobin 13.6 potassium 4.4 creatinine 0.50 Coronavirus [PCR]-not detected Assessment and plan: -This is a patient respiratory much bedbound now presents with the abscess on the right buttock. This had been K by a nurse under monitored hospital is a wound care nurse. But has failed outpatient treatment. Consultation to Gen. surgery and ID being made. -Chronic paraplegia from spinal cord injury at T10 -Abdominal aortic aneurysm -Diabetes mellitus type 2, continue with Accu-Cheks. Resume oral hypoglycemic and Victoza -Sabrina filter history of -Hyperlipidemia, continue with Mevacor -Chronic medical debility -Chronic bladder dysfunction patient does self-catheterization. Elliott catheterization placed here. Care was discussed with the patient and at the bedside. Given the complexity and severity of patient's condition expect the patient to be in the hospital at least for 2 overnights Past Medical History Past Medical History: Diabetes Mellitus, Hyperlipidemia, Hypertension, Vascular Disorder Additional Past Medical History / Comment(s): Paraplegic T10 down after brain aneurysm surgery, neurogenic bladder/pt self caths 2-3 times a day, pt has a bowel program to have bowel movements each morning, urinary incontinence when he transfers which caused a R scrotal abscess/wound which is now healed, AAA with surgery, NIDDM type II, bladder stones with surgical removal, chronic back pain. History of Any Multi-Drug Resistant Organisms: None Reported Past Surgical History: Appendectomy Additional Past Surgical History / Comment(s): AAA wrapped, brain aneurysm with clips, sabrina filter, I&D R scrotal abscess, cystoscopy with cystolithotripsy, attempted bladder sling surgery. 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 Medications and Allergies Home Medications Medication Instructions Recorded Confirmed Type Liraglutide [Victoza 2-Peewee] 1.2 mg SQ DAILY 06/24/17 09/15/20 History Lisinopril [Prinivil] 10 mg PO DAILY 06/24/17 09/15/20 History Lovastatin [Mevacor] 40 mg PO DAILY 06/24/17 09/15/20 History metFORMIN HCL [Glucophage] 1,000 mg PO BID 06/24/17 09/15/20 History Aspirin EC [Ecotrin] 325 mg PO DAILY 09/04/19 09/15/20 History Cranberry Fruit Extract [Cranberry] 500 mg PO DAILY 09/04/19 09/15/20 History L.acidoph,Paracasei, B.lactis 1 cap PO DAILY 09/04/19 09/15/20 History [Probiotic] Multivitamins, Thera [Multivitamin 1 tab PO DAILY 09/04/19 09/15/20 History (formulary)] Cephalexin [Keflex] 500 mg PO QID 09/15/20 09/15/20 History Imipramine [Tofranil] 10 mg PO DAILY 09/15/20 09/15/20 History Allergies Allergy/AdvReac Type Severity Reaction Status Date / Time phenytoin [From Dilantin] Allergy Rash/Hives Verified 09/15/20 17:04 Sulfa (Sulfonamide Allergy Rash/Hives Verified 09/15/20 17:04 Antibiotics) Physical Exam Vitals: Vital Signs Temp Pulse Resp BP Pulse Ox 09/16/20 08:36 98.3 F 90 18 120/76 100 09/16/20 03:18 94 16 117/58 94 L 09/15/20 21:11 89 16 112/57 100 09/15/20 19:00 18 99 09/15/20 18:00 18 99 09/15/20 17:21 95 18 105/55 99 09/15/20 16:00 97 18 117/57 99 09/15/20 15:00 18 09/15/20 14:13 18 09/15/20 13:10 98.6 F 94 18 110/68 98 Intake and Output 09/15/20 09/16/20 09/16/20 22:59 06:59 14:59 Output Total 700 Balance -700 Output: Urine 700 Results CBC & Chem 7: 09/15/20 15:00 09/15/20 15:00 Labs: Abnormal Lab Results - Last 24 Hours (Table) 09/15/20 09/15/20 09/16/20 Range/Units 15:00 15:00 10:38 WBC 10.7 H (3.8-10.6) k/uL Neutrophils # 8.7 H (1.3-7.7) k/uL Sodium 134 L (137-145) mmol/L Creatinine 0.50 L (0.66-1.25) mg/dL Glucose 124 H (74-99) mg/dL POC Glucose (mg/dL) 250 H (75-99) mg/dL
[2020-09-17] MEDS: VANCOMYCIN 1,500 MG in SODIUM CHLORIDE 0.9% 250 ML IVPB SCH ×2 (05:38→18:14)
[2020-09-17 06:50] LABS: Glucose,Whole Blood 167 mg/dL (75-99)
[2020-09-17] MEDS: NON FORMULARY DRUG (Liraglutide [Victoza 2-Pak] 0.6 MG/0.1 ML Pen.Injctr) SQ SCH (07:09)
[2020-09-17] MEDS: ENOXAPARIN 40 MG/0.4 ML SYRINGE SQ SCH (08:45)
[2020-09-17] MEDS: MULTIVITAMINS, THERA 1 EACH TAB PO SCH (08:45)
[2020-09-17] MEDS: ATORVASTATIN 10 MG TAB PO SCH (08:45)
[2020-09-17] MEDS: metFORMIN 500 MG TAB PO SCH ×2 (08:45→20:39)
[2020-09-17] MEDS: IMIPRAMINE 10 MG TAB PO SCH (08:51)
[2020-09-17] MEDS: SODIUM CHLORIDE 0.9% 1,000 ML IV SCH (08:51)
[2020-09-17] MEDS: lisinopriL 10 MG TAB PO SCH (09:14)
[2020-09-17] MEDS: LACTOBACILLUS ACIDOPH & BULGAR 1 EACH PACKET PO SCH (09:14)
[2020-09-17] MEDS: ASPIRIN 325 MG TAB PO SCH (09:14)
[2020-09-17 11:07] LABS: African American GFR (CKD) 117.2 (60.0-200.0); Non-African American GFR(CKD) 101.2 (60.0-200.0)
[2020-09-17 11:29] VITALS: BMI 28.4
[2020-09-17 11:34] LABS: Glucose,Whole Blood 366 mg/dL (75-99)
[2020-09-17] MEDS: INSULIN ASPART (NovoLOG) 100 UNIT/ML VIAL SQ SCH ×3 (13:21→20:40)
[2020-09-17 17:07] LABS: Glucose,Whole Blood 202 mg/dL (75-99)
[2020-09-17 20:30] LABS: Glucose,Whole Blood 265 mg/dL (75-99)
[2020-09-17] MEDS ORDERED: CEFEPIME 2 GM in SODIUM CHLORIDE 0.9% 100 ML IVPB ONE (21:00)
--- NOTE | 2020-09-17 22:24 | P.PN ---
Progress Note - Text Progress Note Date: 09/17/20 Chief Complaint: Right buttock Cyst History of presenting complaint: This is a 69-year-old patient of Dr. Ferreira. Chronic stable medical conditions include history of T10 paraplegia following a spinal injection, brain aneurysm, AAA, hyperlipidemia, Melba filter, diabetes. neurogenic bladder-patient does self-catheterization. Patient is cared for by his . Patient is admitted in May 2020 with COVID 19 pneumonia. Patient now presents with abscess on the right buttock. Getting present for about 2 months. This was dictated by a wound care nurse on a monitored ER. Progressively getting worse. Has been no fever. Some chills. Because of it getting worse and decided to bring him and Today-laying in bed. Getting antibiotics. Starting a diet. Pain control. Review of systems: Was done for constitutional, cardiovascular, GI, pulmonary. relevant finding as above Active Medications Acetaminophen (Acetaminophen Tab 325 Mg Tab) 650 mg PO Q4HR PRN PRN Reason: Fever and/ or Pain Aspirin (Aspirin 325 Mg Tab) 325 mg PO DAILY [facility] Last Admin: 09/17/20 09:14 Dose: 325 mg Documented by: Atorvastatin Calcium (Atorvastatin 10 Mg Tab) 10 mg PO DAILY [facility] Last Admin: 09/17/20 08:45 Dose: 10 mg Documented by: Enoxaparin Sodium (Enoxaparin 40 Mg/0.4 Ml Syringe) 40 mg SQ DAILY [facility] Last Admin: 09/17/20 08:45 Dose: 40 mg Documented by: Sodium Chloride (Saline 0.9%) 1,000 mls @ 75 mls/hr IV .[id number] [facility] Last Admin: 09/17/20 08:51 Dose: 75 mls/hr Documented by: Vancomycin HCl 1,500 mg/ (Sodium Chloride) 250 mls @ 125 mls/hr IVPB Q12H [facility] Last Admin: 09/17/20 18:14 Dose: 125 mls/hr Documented by: Cefepime HCl 2 gm/ Sodium (Chloride) 100 mls @ 25 mls/hr IVPB Q12HR [facility] Imipramine HCl (Imipramine 10 Mg Tab) 10 mg PO DAILY [facility] Last Admin: 09/17/20 08:51 Dose: 10 mg Documented by: Insulin Aspart (Insulin Aspart (Novolog) 100 Unit/Ml Vial) 0 unit SQ [facility]; Protocol Last Admin: 09/17/20 20:40 Dose: 4 unit Documented by: Lactobacillus Acidoph/Bulgaricus (Lactobacillus Acidoph & Bulgar 1 Each Packet) 1 each PO DAILY [facility] Last Admin: 09/17/20 09:14 Dose: 1 each Documented by: Lisinopril (Lisinopril 10 Mg Tab) 10 mg PO DAILY [facility] Last Admin: 09/17/20 09:14 Dose: 10 mg Documented by: Metformin HCl (Metformin 500 Mg Tab) 1,000 mg PO BID [facility] Last Admin: 09/17/20 20:39 Dose: 1,000 mg Documented by: Multivitamins (Multivitamins, Thera 1 Each Tab) 1 each PO DAILY [facility] Last Admin: 09/17/20 08:45 Dose: 1 each Documented by: Naloxone HCl (Naloxone 0.4 Mg/Ml 1 Ml Vial) 0.2 mg IV Q2M PRN PRN Reason: Opioid Reversal Non-Formulary Medication (Liraglutide [Victoza 2-Peewee]) 1.2 mg SQ DAILY [facility] Last Admin: 09/17/20 07:09 Dose: Not Given Documented by: Past medical history to include: T10 paraplegia from spinal injection, prerenal aneurysm, abdominal aortic a neurysm, diabetes, [place] filter, hyperlipidemia,neurogenic bladder Social history: Does smoke in the remote past. No alcohol. . Physical examination: VITAL SIGNS: 98, 93, 18, 123 / 77, 93% room air GENERAL:BMI 28.4, laying in bed, awake EYES: Pupils equal. Conjunctiva normal. HEENT: External appearance of nose and ears normal, oral cavity grossly normal. NECK: JVD not raised; masses not palpable. HEART: First and second heart sounds are normal; no edema. LUNGS: Respiratory rate normal; clear to auscultation. ABDOMEN: Soft, nontender, liver spleen not palpable, no masses palpable. BUTTOCKS: Right but a candidate abscess. With drainage more detail of the nursing notes PSYCH: Alert and oriented x3; mood and affect normal. NEUROLOGICAL: [Cranial nerves grossly intact; no facial asymmetry, lower extremity power 0/5. No sensation of lower extremity. INVESTIGATIONS, reviewed in the clinical context: WBC 10.7 hemoglobin 13.6 potassium 4.4 creatinine 0.50 Coronavirus [PCR]-not detected Assessment and plan: -This is a patient ;h bedbound now presents with the abscess on the right buttock. This had been attended by a nurse and monitored by wound care nurse. failed outpatient treatment. Consultation to Gen. surgery and ID. On IV cefepime and vancomycin. -Chronic paraplegia from spinal cord injury at T10 -Abdominal aortic aneurysm -Diabetes mellitus type 2, continue with Accu-Cheks. Resume oral hypoglycemic and Victoza -[place] filter history of -Hyperlipidemia, continue with Mevacor -Essential hypertension continue with Prinivil -Chronic medical debility -Chronic bladder dysfunction patient does self-catheterization. Elliott catheterization placed here. Continue with IV cefepime and vancomycin. Other medications to continue.
[2020-09-18] MEDS: VANCOMYCIN 1,500 MG in SODIUM CHLORIDE 0.9% 250 ML IVPB SCH ×2 (05:47→18:32)
--- NOTE | 2020-09-18 06:21 | CONS ---
CONSULTATION DATE OF SERVICE: 09/17/2020 REASON FOR CONSULTATION: Right gluteal pressure ulcer, infected. HISTORY OF PRESENT ILLNESS: The patient is a 69-year-old male with a past medical history significant for paraplegia secondary to surgical complication from after AAA repair. This patient did have a chronic nonhealing wound to the right gluteal area for a couple of months now and has been previously treated at [facility]. The patient noticed to have recent worsening with deepening of the wound, discoloration and some foul-smelling drainage. The patient did not have any sensation in the area and denies any pain. He did have some chills but denies high-grade fever. With these symptoms, the patient has been presented to the hospital. The patient did have a low-grade fever of 99.8. The patient did have a white count of 10.7 with left shift. Creatinine was normal. [place] PCR was negative. Blood culture obtained which is currently pending. Patient started on vancomycin and cefepime. Infectious Disease was consulted for further management of antibiotic therapy. REVIEW OF SYSTEMS: Positive points have been mentioned in HPI. Rest of systems are negative. PAST MEDICAL HISTORY: Significant for paraplegia, diabetes mellitus, hypertension, hyperlipidemia, vascular disorder and pressure ulcer. PAST SURGICAL HISTORY: Appendectomy, AAA repair, brain aneurysm clipped, Melba filter placement, cystoscopy with lithotripsy. SOCIAL HISTORY: Remote history of smoking. No drinking or drug use. FAMILY HISTORY: Father with history of cancer. ALLERGIES: PHENYTOIN AND SULFA. MEDICATIONS: The patient is currently on Tylenol, aspirin, cefepime, Lovenox, Tofranil, NovoLog, Zestril, metformin, Theragran, Vancomycin, Pharmacy to dose. PHYSICAL EXAMINATION: VITAL SIGNS: Blood pressure 113/66, pulse of 100, temperature 99.3, he is 96% on room air. GENERAL DESCRIPTION: An elderly male lying in bed in no distress. No tachypnea or accessory muscles of respiration use. HEENT: Shows the no pallor or scleral icterus. Oral mucous membrane is dry. NECK: Trachea central, no thyromegaly. LUNGS: Unlabored breathing, clear to auscultation anteriorly. No wheeze or crackles. HEART: S1, S2. Regular rate and rhythm. ABDOMEN: Soft, no tenderness. No guarding or rigidity. EXTREMITIES: No edema of the feet. SKIN: Examination the right gluteal pressure ulcer did shows deep ulcer, unstageable, with significant amount of slough tissue with surrounding swelling and redness, and foul smelling drainage. NEUROLOGICAL: The patient is awake, alert, oriented. Mood and affect normal. LABS: Hemoglobin 13.1, white count 10.7, BUN of 10, creatinine 0.6. Electrolytes have been normal. DIAGNOSTIC IMPRESSION: Patient with right gluteal pressure ulcer, unstageable, with secondary infection and concern for possible deep infection and need to cover for both Gram-positive as well as Gram-negative. The patient needs surgical debridement and deep cultures. PLAN: 1. Surgical consultation for debridement of the wound and deep cultures. 2. Vancomycin, Pharmacy to dose, and cefepime to provide coverage. 3. Patient likely need a PICC line for outpatient IV antibiotic therapy and possible wound VAC. 4. Thank you for this consultation. Will follow this patient along with you. MMODL / IJN: [id number] /
[2020-09-18 07:11] LABS: Glucose,Whole Blood 231 mg/dL (75-99)
[2020-09-18] MEDS: INSULIN ASPART (NovoLOG) 100 UNIT/ML VIAL SQ SCH ×4 (07:59→20:27)
[2020-09-18] MEDS: CEFEPIME 2 GM in SODIUM CHLORIDE 0.9% 100 ML IVPB SCH ×2 (08:01→20:28)
[2020-09-18 09:54] LABS: African American GFR (CKD) 117.2 (60.0-200.0); Non-African American GFR(CKD) 101.2 (60.0-200.0)
[2020-09-18] MEDS ORDERED: IV FLUID CONTINUATION 550 ML IV ONE (10:57)
[2020-09-18] MEDS ORDERED: ONDANSETRON 4 MG/2 ML VIAL ONE (11:07)
[2020-09-18 11:13] LABS: Glucose,Whole Blood 171 mg/dL (75-99)
[2020-09-18] MEDS ORDERED: DEXAMETHASONE SOD PHOSPHATE 4 MG/ML 1 ML VIAL IV ONE (11:13)
[2020-09-18] MEDS ORDERED: ONDANSETRON 4 MG/2 ML VIAL IVP ONE (11:14)
[2020-09-18] MEDS ORDERED: PROPOFOL 10 MG/ML 20 ML VIAL IV ONE (12:36)
[2020-09-18] MEDS ORDERED: LIDOCAINE 1% INJ 10MG/ML (20 ML MDV) ONE (12:36)
[2020-09-18] MEDS ORDERED: fentaNYL (PF) 50 MCG/ML 2 ML AMP ONE (12:36)
[2020-09-18] MEDS ORDERED: MIDAZOLAM 2 MG/2 ML VIAL ONE (12:36)
[2020-09-18 12:53] LABS: Hemoglobin A1C 7.2 % (4.0-6.0)
[2020-09-18 14:15] LABS: Glucose,Whole Blood 189 mg/dL (75-99)
--- NOTE | 2020-09-18 15:30 | P.GSCN ---
History of Present Illness Consult date: 09/18/20 History of present illness: CHIEF COMPLAINT: Right hip decubitus ulcer HISTORY OF PRESENT ILLNESS: This is a 69-year-old male with a known history of paraplegia secondary to complication from spinal blood clot during an abdominal aortic aneurysm repair. He also has history of diabetes, hypertension and hyperlipidemia. He has a chronic nonhealing wound on the right hip gluteal area. Apparently he presented to the ER with worsening of this wound and drainage and follow odor. Surgical consult was placed for debridement. Patient was seen and examined by Dr. hawley. PAST MEDICAL HISTORY: See list. PAST SURGICAL HISTORY: See list. MEDICATIONS: See list. ALLERGIES: See list. SOCIAL HISTORY: No illicit drug use. REVIEW OF SYSTEMS: CONSTITUTIONAL: Denies fever or chills. HEENT: Denies blurred vision, vision changes, or eye pain. Denies hemoptysis CARDIOVASCULAR: Denies chest pain or pressure. RESPIRATORY: No shortness of breath. GASTROINTESTINAL: See HPI for pertinent findings HEMATOLOGIC: Denies bleeding disorders. GENITOURINARY: Denies any blood in urine or increased urinary frequency. SKIN: Denies pruitis. Denies rash. PHYSICAL EXAM: VITAL SIGNS: Reviewed GENERAL: Well-developed in no acute distress. HEENT: No sclera icterus. Extraocular movements grossly intact. Moist buccal mucosa. Head is atraumatic, normocephalic. No nasal drainage. ABDOMEN: Soft. Nondistended. Nondistended NEUROLOGIC: Alert and oriented. Cranial nerves II through XII grossly intact. Skin: Unstageable right gluteus and hip ulcer that is about 9 x 9 cm with sloughing of the tissue and foul smelling drainage. LABORATORY DATA: WBC 10.7 H she be 13.6 A1c is 7.2 lactic 1.6 IMAGING: ASSESSMENT: 1. Right hip and gluteal decubitus pressure ulcer 2. History of diabetes mellitus PLAN: -Patient scheduled for debridement of right hip decubitus ulcer with Dr. Hawley today -Continue antibiotics per ID recommendations Thank you for this consultation [employer] note has been reviewed by physician. Signing provider agrees with the documented findings, assessment, and plan of care. Past Medical History Past Medical History: Diabetes Mellitus, Hyperlipidemia, Hypertension, Vascular Disorder Additional Past Medical History / Comment(s): Paraplegic T10 down after brain aneurysm surgery, neurogenic bladder/pt self caths 2-3 times a day, pt has a bowel program to have bowel movements each morning, urinary incontinence when he transfers which caused a R scrotal abscess/wound which is now healed, AAA with surgery, NIDDM type II, bladder stones with surgical removal, chronic back pain. History of Any Multi-Drug Resistant Organisms: None Reported Past Surgical History: Appendectomy Additional Past Surgical History / Comment(s): AAA wrapped, brain aneurysm with clips, sabrina filter, I&D R scrotal abscess, cystoscopy with cystolithotripsy, attempted bladder sling surgery. 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 Medications and Allergies Home Medications Medication Instructions Recorded Confirmed Type Liraglutide [Victoza 2-Peewee] 1.2 mg SQ DAILY 06/24/17 09/15/20 History Lisinopril [Prinivil] 10 mg PO DAILY 06/24/17 09/15/20 History Lovastatin [Mevacor] 40 mg PO DAILY 06/24/17 09/15/20 History metFORMIN HCL [Glucophage] 1,000 mg PO BID 06/24/17 09/15/20 History Aspirin EC [Ecotrin] 325 mg PO DAILY 09/04/19 09/15/20 History Cranberry Fruit Extract [Cranberry] 500 mg PO DAILY 09/04/19 09/15/20 History L.acidoph,Paracasei, B.lactis 1 cap PO DAILY 09/04/19 09/15/20 History [Probiotic] Multivitamins, Thera [Multivitamin 1 tab PO DAILY 09/04/19 09/15/20 History (formulary)] Cephalexin [Keflex] 500 mg PO QID 09/15/20 09/15/20 History Imipramine [Tofranil] 10 mg PO DAILY 09/15/20 09/15/20 History Allergies Allergy/AdvReac Type Severity Reaction Status Date / Time phenytoin [From Dilantin] Allergy Rash/Hives Verified 09/18/20 11:14 Sulfa (Sulfonamide Allergy Rash/Hives Verified 09/18/20 11:14 Antibiotics) Surgical - Exam Vital Signs Temp Pulse Resp BP Pulse Ox 98.6 F 94 18 110/68 98 09/15/20 13:10 09/15/20 13:10 09/15/20 13:10 09/15/20 13:10 09/15/20 13:10 Results - Labs 09/15/20 15:00 09/18/20 05:53 Abnormal Lab Results - Last 24 Hours (Table) 09/17/20 09/17/20 09/18/20 Range/Units 17:05 20:12 05:53 POC Glucose (mg/dL) 202 H 265 H (75-99) mg/dL Hemoglobin A1c 7.2 H (4.0-6.0) % 09/18/20 09/18/20 09/18/20 Range/Units 06:59 11:12 14:13 POC Glucose (mg/dL) 231 H 171 H 189 H (75-99) mg/dL Hemoglobin A1c (4.0-6.0) % Microbiology - Last 24 Hours (Table) 09/15/20 15:06 Blood Culture - Preliminary Blood No Growth after 48 hours 09/15/20 15:06 Blood Culture - Preliminary Blood No Growth after 48 hours Diabetes panel 09/18/20 09/18/20 Range/Units 05:53 05:53 Creatinine 0.6 (0.6-1.5) mg/dL Hemoglobin A1c 7.2 H (4.0-6.0) % Pituitary panel 09/18/20 Range/Units 05:53 Creatinine 0.6 (0.6-1.5) mg/dL Adrenal panel 09/18/20 Range/Units 05:53 Creatinine 0.6 (0.6-1.5) mg/dL
[2020-09-18] MEDS: ENOXAPARIN 40 MG/0.4 ML SYRINGE SQ SCH (16:10)
[2020-09-18] MEDS: ATORVASTATIN 10 MG TAB PO SCH (16:10)
[2020-09-18] MEDS: LACTOBACILLUS ACIDOPH & BULGAR 1 EACH PACKET PO SCH (16:10)
[2020-09-18] MEDS: lisinopriL 10 MG TAB PO SCH (16:11)
[2020-09-18] MEDS: ASPIRIN 325 MG TAB PO SCH (16:11)
[2020-09-18] MEDS: MULTIVITAMINS, THERA 1 EACH TAB PO SCH (16:11)
[2020-09-18] MEDS: NON FORMULARY DRUG (Liraglutide [Victoza 2-Pak] 0.6 MG/0.1 ML Pen.Injctr) SQ SCH (16:11)
[2020-09-18] MEDS: IMIPRAMINE 10 MG TAB PO SCH (16:11)
[2020-09-18] MEDS: metFORMIN 500 MG TAB PO SCH ×2 (16:12→20:23)
[2020-09-18] MEDS: SODIUM CHLORIDE 0.9% 1,000 ML IV SCH ×2 (16:12)
[2020-09-18 17:53] LABS: Glucose,Whole Blood 336 mg/dL (75-99)
[2020-09-18 20:06] LABS: Glucose,Whole Blood 347 mg/dL (75-99)
--- NOTE | 2020-09-18 20:06 | PN ---
PROGRESS NOTE DATE OF SERVICE: 09/18/2020 REASON FOR FOLLOWUP: Right gluteal pressure ulcer infection. INTERVAL HISTORY: The patient is afebrile. The patient is status post surgical debridement of the right gluteal wound and deep cultures. The patient denies having any chest pain, shortness of breath or cough. No nausea, no vomiting, no abdominal pain or diarrhea. PHYSICAL EXAMINATION: Blood pressure 127/69, pulse 78, temperature 96.8. He is 98% on 2 L nasal cannula. General description is an elderly male lying in bed in no distress. RESPIRATORY SYSTEM: Unlabored breathing. Clear to auscultation anteriorly. HEART: S1, S2. Regular rate and rhythm. ABDOMEN: Soft. No tenderness. Right gluteal wound is currently dressed up. LABS: Cultures currently pending. DIAGNOSTIC IMPRESSION AND PLAN: Patient with right gluteal pressure ulcer. Will wait for the culture to finalize. The patient will likely need a wound V.A.C. as well as outpatient antibiotic therapy. Patient's at the bedside. Questions were answered. Continue with cefepime and vancomycin. Discharge antibiotic on the basis of culture report. MMODL / IJN: [id number] /
--- NOTE | 2020-09-18 23:16 | P.PN ---
Progress Note - Text Progress Note Date: 09/18/20 Chief Complaint: Right buttock Cyst History of presenting complaint: This is a 69-year-old patient of Dr. Ferreira. Chronic stable medical conditions include history of T10 paraplegia following a spinal injection, brain aneurysm, AAA, hyperlipidemia, Melba filter, diabetes. neurogenic bladder-patient does self-catheterization. Patient is cared for by his . Patient is admitted in May 2020 with COVID 19 pneumonia. Patient now presents with abscess on the right buttock. present for about 2 months. This was followed by a wound care nurse from [facility]. Progressively getting worse. no fever. Some chills. Because of it getting worse and decided to bring him. Started on IV antibiotics. Today-taken to the operating room by Dr. Salvador. Wound was cleaned out. Formal report is pending. Patient did tolerate his supper tonight. Review of systems: Was done for constitutional, cardiovascular, GI, pulmonary. relevant finding as above Active Medications Acetaminophen (Acetaminophen Tab 325 Mg Tab) 650 mg PO Q4HR PRN PRN Reason: Fever and/ or Pain Aspirin (Aspirin 325 Mg Tab) 325 mg PO DAILY [facility] Last Admin: 09/18/20 16:11 Dose: 325 mg Documented by: Atorvastatin Calcium (Atorvastatin 10 Mg Tab) 10 mg PO DAILY [facility] Last Admin: 09/18/20 16:10 Dose: 10 mg Documented by: Enoxaparin Sodium (Enoxaparin 40 Mg/0.4 Ml Syringe) 40 mg SQ DAILY [facility] Last Admin: 09/18/20 16:10 Dose: 40 mg Documented by: Sodium Chloride (Saline 0.9%) 1,000 mls @ 75 mls/hr IV .[id number] [facility] Last Admin: 09/18/20 16:12 Dose: 75 mls/hr Documented by: Vancomycin HCl 1,500 mg/ (Sodium Chloride) 250 mls @ 125 mls/hr IVPB Q12H [facility] Last Admin: 09/18/20 18:32 Dose: 125 mls/hr Documented by: Cefepime HCl 2 gm/ Sodium (Chloride) 100 mls @ 25 mls/hr IVPB Q12HR [facility] Last Admin: 09/18/20 20:28 Dose: 25 mls/hr Documented by: Imipramine HCl (Imipramine 10 Mg Tab) 10 mg PO DAILY [facility] Last Admin: 09/18/20 16:11 Dose: 10 mg Documented by: Insulin Aspart (Insulin Aspart (Novolog) 100 Unit/Ml Vial) 0 unit SQ ACHS [facility]; Protocol Last Admin: 09/18/20 20:27 Dose: 6 unit Documented by: Lactobacillus Acidoph/Bulgaricus (Lactobacillus Acidoph & Bulgar 1 Each Packet) 1 each PO DAILY [facility] Last Admin: 09/18/20 16:10 Dose: 1 each Documented by: Lisinopril (Lisinopril 10 Mg Tab) 10 mg PO DAILY [facility] Last Admin: 09/18/20 16:11 Dose: 10 mg Documented by: Metformin HCl (Metformin 500 Mg Tab) 1,000 mg PO BID [facility] Last Admin: 09/18/20 20:23 Dose: 1,000 mg Documented by: Multivitamins (Multivitamins, Thera 1 Each Tab) 1 each PO DAILY [facility] Last Admin: 09/18/20 16:11 Dose: 1 each Documented by: Naloxone HCl (Naloxone 0.4 Mg/Ml 1 Ml Vial) 0.2 mg IV Q2M PRN PRN Reason: Opioid Reversal Non-Formulary Medication (Liraglutide [Victoza 2-Peewee]) 1.2 mg SQ DAILY [facility] Last Admin: 09/18/20 16:11 Dose: Not Given Documented by: Past medical history to include: T10 paraplegia from spinal injection, prerenal aneurysm, abdominal aortic aneurysm, diabetes, [place] filter, hyperlipidemia,neurogenic bladder Social history: Does smoke in the remote past. No alcohol. . Physical examination: VITAL SIGNS: 96.8, 82, 16, 118/65, 93% on room air GENERAL:BMI 28.4, laying in bed, awake EYES: Pupils equal. Conjunctiva normal. HEENT: External appearance of nose and ears normal, oral cavity grossly normal. NECK: JVD not raised; masses not palpable. HEART: First and second heart sounds are normal; no edema. LUNGS: Respiratory rate normal; clear to auscultation. ABDOMEN: Soft, nontender, liver spleen not palpable, no masses palpable. BUTTOCKS: Right buttock has a dressing over the wound PSYCH: Alert and oriented x3; mood and affect normal. NEUROLOGICAL: [Cranial nerves grossly intact; no facial asymmetry, lower extremity power 0/5. No sensation of lower extremity. INVESTIGATIONS, reviewed in the clinical context: Accu-Cheks noted WBC 10.7 hemoglobin 13.6 potassium 4.4 creatinine 0.50 Coronavirus [PCR]-not detected Assessment and plan: -This is a patient ;h bedbound now presents with the abscess on the right buttock. This had been attended by a nurse and monitored by wound care nurse. failed outpatient treatment. On IV cefepime and vancomycin. Today September 18 underwent wound cleansing by Dr. Salvador. -Chronic paraplegia from spinal cord injury at T10 -Abdominal aortic aneurysm -Diabetes mellitus type 2, continue with Accu-Cheks. Resume oral hypoglycemic and Victoza -[place] filter history of -Hyperlipidemia, continue with Mevacor -Essential hypertension continue with Prinivil -Chronic medical debility -Chronic bladder dysfunction patient does self-catheterization. Elliott catheterization placed here. Discussed with the patient. Follow
[2020-09-19] MEDS: SODIUM CHLORIDE 0.9% 1,000 ML IV SCH ×2 (03:02→17:53)
[2020-09-19] MEDS: VANCOMYCIN 1,500 MG in SODIUM CHLORIDE 0.9% 250 ML IVPB SCH ×2 (05:38→17:52)
[2020-09-19 07:04] LABS: Glucose,Whole Blood 293 mg/dL (75-99)
[2020-09-19 07:06] LABS: African American GFR (CKD) >90 (>60 ml/min/1.73 sqM); Non-African American GFR(CKD) >90 (>60 ml/min/1.73 sqM)
[2020-09-19 08:17] LABS: Basophils % (A) 0 %; Eosinophils % (A) 1 %; HGB 11.7 gm/dL (13.0-17.5); Hypochromasia Slight; Lymphocytes # (A) 1.1 k/uL (1.0-4.8); Lymphocytes % (A) 14 %; MCH 29.8 pg (25.0-35.0); MCHC 32.4 g/dL (31.0-37.0); MCV 91.9 fL (80.0-100.0); Mean Platelet Volume 7.3; Monocytes # (A) 0.5 k/uL (0-1.0); Monocytes % (A) 6 %; Neutrophils # (A) 6.4 k/uL (1.3-7.7); Neutrophils % (A) 78 %; Platelet Count 329 k/uL (150-450); RBC 3.92 m/uL (4.30-5.90); RDW 14.5 % (11.5-15.5); WBC 8.2 k/uL (3.8-10.6)
[2020-09-19] MEDS: lisinopriL 10 MG TAB PO SCH (08:21)
[2020-09-19] MEDS: NON FORMULARY DRUG (Liraglutide [Victoza 2-Pak] 0.6 MG/0.1 ML Pen.Injctr) SQ SCH (08:21)
[2020-09-19] MEDS: ATORVASTATIN 10 MG TAB PO SCH (08:22)
[2020-09-19] MEDS: MULTIVITAMINS, THERA 1 EACH TAB PO SCH (08:22)
[2020-09-19] MEDS: ASPIRIN 325 MG TAB PO SCH (08:22)
[2020-09-19] MEDS: ENOXAPARIN 40 MG/0.4 ML SYRINGE SQ SCH (08:22)
[2020-09-19] MEDS: metFORMIN 500 MG TAB PO SCH ×2 (08:22→21:24)
[2020-09-19] MEDS: CEFEPIME 2 GM in SODIUM CHLORIDE 0.9% 100 ML IVPB SCH ×2 (08:22→21:25)
[2020-09-19] MEDS: IMIPRAMINE 10 MG TAB PO SCH (08:22)
[2020-09-19] MEDS: INSULIN ASPART (NovoLOG) 100 UNIT/ML VIAL SQ SCH ×4 (08:22→21:28)
[2020-09-19] MEDS: LACTOBACILLUS ACIDOPH & BULGAR 1 EACH PACKET PO SCH (08:23)
[2020-09-19 11:39] LABS: Glucose,Whole Blood 272 mg/dL (75-99)
[2020-09-19] MEDS: COLLAGENASE 250 UNIT/GM OINTMENT 30 GM TUBE TOPICAL SCH (13:05)
--- NOTE | 2020-09-19 13:09 | P.PN ---
Subjective Progress Note Date: 09/19/20 CHIEF COMPLAINT: Right hip decubitus ulcer HISTORY OF PRESENT ILLNESS: Patient seen and examined with Dr. hawley. Patient is status post debridement of right hip decubitus ulcer. Postop day #1. Patient resting comfortably. No pain reported. Infectious diseases following and they are recommending wound VAC as well as outpatient antibiotic therapy. Culture results are pending. Afebrile. WBC 8.2 per nursing patient did have some saturation and his dressing. These have been changed by nursing staff. PHYSICAL EXAM: VITAL SIGNS: Reviewed. GENERAL: Well-developed in no acute distress. HEENT: No sclera icterus. Extraocular movements grossly intact. Moist buccal mucosa. Head is atraumatic, normocephalic. ABDOMEN: Soft. Nondistended. Nontender. NEUROLOGIC: Alert and oriented. Cranial nerves II through XII grossly intact. Skin: Dressing in place and clean dry and intact ASSESSMENT: 1. Right hip and gluteal decubitus pressure ulcer. 2. History of diabetes mellitus PLAN: -Continue IV antibiotics per ID -Infectious diseases recommending wound VAC -Follow up on culture results -Continue supportive care Physician Bench Carpenter note has been reviewed by physician. Signing provider agrees with the documented findings, assessment, and plan of care. Objective - Vital Signs Vital signs: Vital Signs Temp 97.7 F 09/19/20 11:52 Pulse 81 09/19/20 11:52 Resp 18 09/19/20 11:52 BP 117/56 09/19/20 11:52 Pulse Ox 98 09/19/20 11:52 Intake & Output 09/18/20 09/19/20 09/19/20 18:59 06:59 18:59 Intake Total 1700 1250 240 Output Total 2450 1400 Balance -750 -150 240 Weight 89.811 kg Intake: IV 450 Intake, IV Titration 1250 1250 Amount Cefepime 2 gm In Sodium 100 100 Chloride 0.9% 100 ml @ 25 mls/hr IVPB Q12HR [facility] Rx #:[id number] Sodium Chloride 0.9% 1, 900 900 000 ml @ 75 mls/hr IV . [id number] [facility] Rx#:[id number] Vancomycin 1,500 mg In 250 250 Sodium Chloride 0.9% 250 ml @ 125 mls/hr IVPB Q12H [facility] Rx#:[id number] Oral 240 Output: Urine 2400 1400 Uretheral (Elliott) 750 Estimated Blood Loss 50 Other: Voiding Method Indwelling Catheter Indwelling Catheter Indwelling Catheter # Bowel Movements 0 - Labs CBC & Chem 7: 09/19/20 08:09 09/19/20 06:04 Labs: Abnormal Lab Results - Last 24 Hours (Table) 09/18/20 09/18/20 09/18/20 Range/Units 14:13 17:32 20:04 RBC (4.30-5.90) m/uL Hgb (13.0-17.5) gm/dL Hct (39.0-53.0) % Creatinine (0.66-1.25) mg/dL POC Glucose (mg/dL) 189 H 336 H 347 H (75-99) mg/dL 09/19/20 09/19/20 09/19/20 Range/Units 06:04 07:02 08:09 RBC 3.92 L (4.30-5.90) m/uL Hgb 11.7 L (13.0-17.5) gm/dL Hct 36.0 L (39.0-53.0) % Creatinine 0.53 L (0.66-1.25) mg/dL POC Glucose (mg/dL) 293 H (75-99) mg/dL 09/19/20 Range/Units 11:38 RBC (4.30-5.90) m/uL Hgb (13.0-17.5) gm/dL Hct (39.0-53.0) % Creatinine (0.66-1.25) mg/dL POC Glucose (mg/dL) 272 H (75-99) mg/dL Microbiology - Last 24 Hours (Table) 09/18/20 13:10 Gram Stain - Preliminary Other - Other Tissue Culture - Preliminary 09/18/20 13:10 Gram Stain - Preliminary Other - Other Wound Culture - Preliminary 09/18/20 13:10 Anaerobic Culture - Preliminary Other - Other 09/18/20 13:10 Anaerobic Culture - Preliminary Other - Other 09/15/20 15:06 Blood Culture - Preliminary Blood No Growth after 72 hours 09/15/20 15:06 Blood Culture - Preliminary Blood No Growth after 72 hours
[2020-09-19 17:13] LABS: Glucose,Whole Blood 224 mg/dL (75-99)
--- NOTE | 2020-09-19 17:25 | PN ---
PROGRESS NOTE DATE OF SERVICE: 09/19/2020 REASON FOR FOLLOWUP: Right gluteal infected pressure ulcer with concern for underlying osteomyelitis. INTERVAL HISTORY: The patient is currently afebrile. The patient is breathing comfortably. Denies having any chest pain, shortness of breath or cough. No nausea, no vomiting, no abdominal pain or diarrhea. PHYSICAL EXAMINATION: Blood pressure 113/56, pulse of 81, temperature 97.7. He is 98% on room air. General description is an elderly male lying bed in no distress. RESPIRATORY SYSTEM: Unlabored breathing. Examination of the right gluteal wound shows that it is significantly deep with the bone palpable. It has some tissue at the base. No surrounding redness or foul- smelling drainage. LABS: Hemoglobin is 11.7, white count 8.2. Wound culture is currently pending. DIAGNOSTIC IMPRESSION AND PLAN: Patient with a right gluteal infected pressure ulcer with concern for underlying osteomyelitis. The patient is status post debridement. Local care with Santyl followed by a moist dressing. Will wait for the culture to finalize to determine his discharge antibiotics. Continue supportive care. MMODL / IJN: [id number] /
[2020-09-19 20:49] LABS: Glucose,Whole Blood 266 mg/dL (75-99)
--- NOTE | 2020-09-19 22:18 | P.PN ---
Progress Note - Text Progress Note Date: 09/19/20 Chief Complaint: Right buttock abscess History of presenting complaint: This is a 69-year-old patient of Dr. Ferreira. Chronic stable medical conditions include history of T10 paraplegia following a spinal injection, brain aneurysm, AAA, hyperlipidemia, Melba filter, diabetes. neurogenic bladder-patient does self-catheterization. Patient is cared for by his . Patient is admitted in May 2020 with COVID 19 pneumonia. Patient now presents with abscess on the right buttock. present for about 2 months. This was followed by a wound care nurse from [facility]. Progressively getting worse. no fever. Some chills. Because of it getting worse and decided to bring him. Started on IV antibiotics. September 18-taken to the operating room by Dr. Salvador. Wound was cleaned out. Today- wound deep dressing was carried out by Dr. Park. No fever no chills. Tolerating a diet. Cultures pending. Review of systems: Was done for constitutional, cardiovascular, GI, pulmonary. relevant finding as above Active Medications Acetaminophen (Acetaminophen Tab 325 Mg Tab) 650 mg PO Q4HR PRN PRN Reason: Fever and/ or Pain Aspirin (Aspirin 325 Mg Tab) 325 mg PO DAILY [facility] Last Admin: 09/19/20 08:22 Dose: 325 mg Documented by: Atorvastatin Calcium (Atorvastatin 10 Mg Tab) 10 mg PO DAILY [facility] Last Admin: 09/19/20 08:22 Dose: 10 mg Documented by: Collagenase (Collagenase 250 Unit/Gm Ointment 30 Gm Tube) 1 applic TOPICAL DAILY [facility] Last Admin: 09/19/20 13:05 Dose: 1 applic Documented by: Enoxaparin Sodium (Enoxaparin 40 Mg/0.4 Ml Syringe) 40 mg SQ DAILY [facility] Last Admin: 09/19/20 08:22 Dose: 40 mg Documented by: Sodium Chloride (Saline 0.9%) 1,000 mls @ 75 mls/hr IV .[id number] [facility] Last Admin: 09/19/20 17:53 Dose: 75 mls/hr Documented by: Vancomycin HCl 1,500 mg/ (Sodium Chloride) 250 mls @ 125 mls/hr IVPB Q12H [facility] Last Admin: 09/19/20 17:52 Dose: 125 mls/hr Documented by: Cefepime HCl 2 gm/ Sodium (Chloride) 100 mls @ 25 mls/hr IVPB Q12HR [facility] Last Admin: 09/19/20 21:25 Dose: 25 mls/hr Documented by: Imipramine HCl (Imipramine 10 Mg Tab) 10 mg PO DAILY [facility] Last Admin: 09/19/20 08:22 Dose: 10 mg Documented by: Insulin Aspart (Insulin Aspart (Novolog) 100 Unit/Ml Vial) 0 unit SQ ACHS [facility]; Protocol Last Admin: 09/19/20 21:28 Dose: 4 unit Documented by: Lactobacillus Acidoph/Bulgaricus (Lactobacillus Acidoph & Bulgar 1 Each Packet) 1 each PO DAILY [facility] Last Admin: 09/19/20 08:23 Dose: 1 each Documented by: Lisinopril (Lisinopril 10 Mg Tab) 10 mg PO DAILY [facility] Last Admin: 09/19/20 08:21 Dose: 10 mg Documented by: Metformin HCl (Metformin 500 Mg Tab) 1,000 mg PO BID [facility] Last Admin: 09/19/20 21:24 Dose: 1,000 mg Documented by: Multivitamins (Multivitamins, Thera 1 Each Tab) 1 each PO DAILY [facility] Last Admin: 09/19/20 08:22 Dose: 1 each Documented by: Naloxone HCl (Naloxone 0.4 Mg/Ml 1 Ml Vial) 0.2 mg IV Q2M PRN PRN Reason: Opioid Reversal Non-Formulary Medication (Liraglutide [Victoza 2-Peewee]) 1.2 mg SQ DAILY [facility] Last Admin: 09/19/20 08:21 Dose: Not Given Documented by: Past medical history to include: T10 paraplegia from spinal injection, prerenal aneurysm, abdominal aortic aneurysm, diabetes, [place] filter, hyperlipidemia,neurogenic bladder Social history: Does smoke in the remote past. No alcohol. . Physical examination: VITAL SIGNS: 97.7, 81, 18, 117/56, 98% room air GENERAL:BMI 28.4, laying in bed, awake EYES: Pupils equal. Conjunctiva normal. HEENT: External appearance of nose and ears normal, oral cavity grossly normal. NECK: JVD not raised; masses not palpable. HEART: First and second heart sounds are normal; no edema. LUNGS: Respiratory rate normal; clear to auscultation. ABDOMEN: Soft, nontender, liver spleen not palpable, no masses palpable. BUTTOCKS: Right buttock has a dressing over the wound PSYCH: Alert and oriented x3; mood and affect normal. NEUROLOGICAL: lower extremity power 0/5. No sensation of lower extremity. INVESTIGATIONS, reviewed in the clinical context: September 19: WBC 8.2 hemoglobin 11.7 Wound cultures growing gram-negative bacillary Accu-Cheks noted WBC 10.7 hemoglobin 13.6 potassium 4.4 creatinine 0.50 Coronavirus [PCR]-not detected Assessment and plan: -This patient who is bedbound now presents with the abscess on the right buttock. This had been attended by a nurse and monitored by wound care nurse. failed outpatient treatment. On IV cefepime and vancomycin. September 18 underwent deep wound cleansing by Dr. Salvador. Continue with dressing changes -Chronic paraplegia from spinal cord injury at T10 -Abdominal aortic aneurysm. We will do abdominal ultrasound -Diabetes mellitus type 2, continue with Accu-Cheks. Resume oral hypoglycemic and Victoza. Uncontrolled with hyperglycemia. Add Levemir -Melba filter history of -Hyperlipidemia, continue with Mevacor -Essential hypertension continue with Prinivil -Chronic medical debility -Chronic bladder dysfunction patient does self-catheterization. Elliott catheterization for now Discussed with the patient. Follow with surgery 90
[2020-09-19] MEDS: INSULIN DETEMIR (LEVEMIR) 100 UNIT/ML SYR SQ SCH (23:07)
[2020-09-20] MEDS: VANCOMYCIN 1,500 MG in SODIUM CHLORIDE 0.9% 250 ML IVPB SCH ×2 (06:25→17:39)
[2020-09-20 07:17] LABS: Glucose,Whole Blood 167 mg/dL (75-99)
[2020-09-20 07:42] LABS: African American GFR (CKD) >90 (>60 ml/min/1.73 sqM); Non-African American GFR(CKD) >90 (>60 ml/min/1.73 sqM)
[2020-09-20] MEDS: INSULIN ASPART (NovoLOG) 100 UNIT/ML VIAL SQ SCH ×4 (08:13→21:38)
[2020-09-20] MEDS: LACTOBACILLUS ACIDOPH & BULGAR 1 EACH PACKET PO SCH (08:37)
[2020-09-20] MEDS: ENOXAPARIN 40 MG/0.4 ML SYRINGE SQ SCH (08:37)
[2020-09-20] MEDS: MULTIVITAMINS, THERA 1 EACH TAB PO SCH (08:37)
[2020-09-20] MEDS: ASPIRIN 325 MG TAB PO SCH (08:37)
[2020-09-20] MEDS: IMIPRAMINE 10 MG TAB PO SCH (08:37)
[2020-09-20] MEDS: ATORVASTATIN 10 MG TAB PO SCH (08:37)
[2020-09-20] MEDS: metFORMIN 500 MG TAB PO SCH ×2 (08:37→21:38)
[2020-09-20] MEDS: lisinopriL 10 MG TAB PO SCH (08:37)
[2020-09-20] MEDS: CEFEPIME 2 GM in SODIUM CHLORIDE 0.9% 100 ML IVPB SCH ×2 (08:38→21:38)
[2020-09-20] MEDS: COLLAGENASE 250 UNIT/GM OINTMENT 30 GM TUBE TOPICAL SCH (08:38)
[2020-09-20] MEDS: NON FORMULARY DRUG (Liraglutide [Victoza 2-Pak] 0.6 MG/0.1 ML Pen.Injctr) SQ SCH (08:39)
[2020-09-20] MEDS: SODIUM CHLORIDE 0.9% 1,000 ML IV SCH ×2 (08:47→17:39)
[2020-09-20 11:33] LABS: Glucose,Whole Blood 268 mg/dL (75-99)
[2020-09-20 17:24] LABS: Glucose,Whole Blood 250 mg/dL (75-99)
[2020-09-20 20:23] LABS: Glucose,Whole Blood 236 mg/dL (75-99)
[2020-09-20] MEDS: INSULIN DETEMIR (LEVEMIR) 100 UNIT/ML SYR SQ SCH (21:39)
--- NOTE | 2020-09-20 23:04 | PN ---
PROGRESS NOTE DATE OF SERVICE: 09/20/2020 REASON FOR FOLLOWUP: Left gluteal pressure ulcer, infected wound. INTERVAL HISTORY: The patient is currently afebrile. Patient is breathing comfortably. The patient denies having any chest pain. No shortness of breath or cough. No abdominal pain or pain to the gluteal wound area. PHYSICAL EXAMINATION: Blood pressure 127/75, pulse 84, temperature is 97.6% on room air. GENERAL description is an elderly male lying in bed in no distress. RESPIRATORY system: Unlabored breathing. Clear to auscultation anteriorly HEART S1, S2. Regular rate and rhythm. ABDOMEN: No pressure is currently dressed. No obvious drainage on the dressing. LABS: Wound culture has been finalized with ESBL E coli. DIAGNOSTIC IMPRESSION AND PLAN: Patient with infected right heel pressure ulcer status post debridement. Culture has been showing ESBL E coli. We will discontinue vancomycin and cefepime, start the patient on Invanz. He will need a PICC line for outpatient antibiotic therapy local care with Eva. Transition to wound VAC home in outpatient setting. Once the slough tissue improved continue supportive care negative. MMODL / IJN: [id number] /
[2020-09-20] MEDS: ERTAPENEM 1 GM in SODIUM CHLORIDE 0.9% 50 ML IVPB SCH (23:33)
[2020-09-21] MEDS: SODIUM CHLORIDE 0.9% 1,000 ML IV SCH ×2 (00:06→20:00)
--- NOTE | 2020-09-21 00:15 | P.PN ---
Progress Note - Text Progress Note Date: 09/20/20 Chief Complaint: Right buttock abscess History of presenting complaint: This is a 69-year-old patient of Dr. Ferreira. Chronic stable medical conditions include history of T10 paraplegia following a spinal injection, brain aneurysm, AAA, hyperlipidemia, Melba filter, diabetes. neurogenic bladder-patient does self-catheterization. Patient is cared for by his . Patient is admitted in May 2020 with COVID 19 pneumonia. Patient now presents with abscess on the right buttock. present for about 2 months. This was followed by a wound care nurse from [facility]. Progressively getting worse. no fever. Some chills. Because of it getting worse and decided to bring him. Started on IV antibiotics. September 18-taken to the operating room by Dr. Salvador. Wound was cleaned out. Today- no pain. On IV antibiotics. Wound care as per Dr. Modesto Brown Sayed. Oral intake fair. Family visiting. Review of systems: Was done for constitutional, cardiovascular, GI, pulmonary. relevant finding as above Active Medications Acetaminophen (Acetaminophen Tab 325 Mg Tab) 650 mg PO Q4HR PRN PRN Reason: Fever and/ or Pain Aspirin (Aspirin 325 Mg Tab) 325 mg PO DAILY [facility] Last Admin: 09/20/20 08:37 Dose: 325 mg Documented by: Atorvastatin Calcium (Atorvastatin 10 Mg Tab) 10 mg PO DAILY [facility] Last Admin: 09/20/20 08:37 Dose: 10 mg Documented by: Collagenase (Collagenase 250 Unit/Gm Ointment 30 Gm Tube) 1 applic TOPICAL DAILY [facility] Last Admin: 09/20/20 08:38 Dose: 1 applic Documented by: Enoxaparin Sodium (Enoxaparin 40 Mg/0.4 Ml Syringe) 40 mg SQ DAILY [facility] Last Admin: 09/20/20 08:37 Dose: 40 mg Documented by: Sodium Chloride (Saline 0.9%) 1,000 mls @ 75 mls/hr IV .[id number] [facility] Last Admin: 09/21/20 00:06 Dose: Not Given Documented by: Ertapenem 1 gm/ Sodium (Chloride) 50 mls @ 100 mls/hr IVPB Q24H [facility]; Protocol Last Admin: 09/20/20 23:33 Dose: 100 mls/hr Documented by: Imipramine HCl (Imipramine 10 Mg Tab) 10 mg PO DAILY [facility] Last Admin: 09/20/20 08:37 Dose: 10 mg Documented by: Insulin Aspart (Insulin Aspart (Novolog) 100 Unit/Ml Vial) 0 unit SQ [facility]; Protocol Last Admin: 09/20/20 21:38 Dose: 3 unit Documented by: Insulin Detemir (Insulin Detemir (Levemir) 100 Unit/Ml Syr) 10 unit SQ [facility] Last Admin: 09/20/20 21:39 Dose: 10 unit Documented by: Lactobacillus Acidoph/Bulgaricus (Lactobacillus Acidoph & Bulgar 1 Each Packet) 1 each PO DAILY [facility] Last Admin: 09/20/20 08:37 Dose: 1 each Documented by: Lisinopril (Lisinopril 10 Mg Tab) 10 mg PO DAILY [facility] Last Admin: 09/20/20 08:37 Dose: 10 mg Documented by: Metformin HCl (Metformin 500 Mg Tab) 1,000 mg PO BID [facility] Last Admin: 09/20/20 21:38 Dose: 1,000 mg Documented by: Multivitamins (Multivitamins, Thera 1 Each Tab) 1 each PO DAILY [facility] Last Admin: 09/20/20 08:37 Dose: 1 each Documented by: Naloxone HCl (Naloxone 0.4 Mg/Ml 1 Ml Vial) 0.2 mg IV Q2M PRN PRN Reason: Opioid Reversal Non-Formulary Medication (Liraglutide [Victoza 2-Peewee]) 1.2 mg SQ DAILY [facility] Last Admin: 09/20/20 08:39 Dose: Not Given Documented by: Past medical history to include: T10 paraplegia from spinal injection, prerenal aneurysm, abdominal aortic aneurysm, diabetes, [place] filter, hyperlipidemia,neurogenic bladder Social history: Does smoke in the remote past. No alcohol. . Physical examination: VITAL SIGNS: 97.6, 78, 15, 120/69, 97% on room air GENERAL:BMI 28.4, laying in bed, awake EYES: Pupils equal. Conjunctiva normal. HEENT: External appearance of nose and ears normal, oral cavity grossly normal. NECK: JVD not raised; masses not palpable. HEART: First and second heart sounds are normal; no edema. LUNGS: Respiratory rate normal; clear to auscultation. ABDOMEN: Soft, nontender, liver spleen not palpable, no masses palpable. BUTTOCKS: Right buttock has a dressing over the wound PSYCH: Alert and oriented x3; mood and affect normal. NEUROLOGICAL: lower extremity power 0/5. No sensation of lower extremity. INVESTIGATIONS, reviewed in the clinical context: September 20: Accu-Cheks noted September 19: WBC 8.2 hemoglobin 11.7 Wound cultures growing gram-negative bacillary Accu-Cheks noted WBC 10.7 hemoglobin 13.6 potassium 4.4 creatinine 0.50 Coronavirus [PCR]-not detected Assessment and plan: -This patient who is bedbound now presents with the abscess on the right buttock. This had been attended by a nurse and monitored by wound care nurse. failed outpatient treatment. On IV cefepime and vancomycin. September 18 underwent deep wound cleansing by Dr. Salvador. Continue with dressing changes. Wound cultures pending. -Chronic paraplegia from spinal cord injury at T10 -Abdominal aortic aneurysm. We will do abdominal ultrasound -Diabetes mellitus type 2, continue with Accu-Cheks. Resume oral hypoglycemic and Victoza. Uncontrolled with hyperglycemia. Add Levemir -Melba filter history of -Hyperlipidemia, continue with Mevacor -Essential hypertension continue with Prinivil -Chronic medical debility -Chronic bladder dysfunction patient does self-catheterization. Elliott catheterization for now Discussed with the patient. Increase dose of Levemir
[2020-09-21] MEDS ORDERED: INSULIN DETEMIR (LEVEMIR) 100 UNIT/ML SYR SQ SCH (01:00)
[2020-09-21] MEDS ORDERED: VANCOMYCIN TROUGH DUE 1 EACH MISC MISCELLANE ONE (05:00)
[2020-09-21 07:31] LABS: Glucose,Whole Blood 190 mg/dL (75-99)
[2020-09-21] MEDS: lisinopriL 10 MG TAB PO SCH (08:35)
[2020-09-21] MEDS: IMIPRAMINE 10 MG TAB PO SCH (08:35)
[2020-09-21] MEDS: LACTOBACILLUS ACIDOPH & BULGAR 1 EACH PACKET PO SCH (08:35)
[2020-09-21] MEDS: ENOXAPARIN 40 MG/0.4 ML SYRINGE SQ SCH (08:35)
[2020-09-21] MEDS: MULTIVITAMINS, THERA 1 EACH TAB PO SCH (08:35)
[2020-09-21] MEDS: ASPIRIN 325 MG TAB PO SCH (08:35)
[2020-09-21] MEDS: ATORVASTATIN 10 MG TAB PO SCH (08:35)
[2020-09-21] MEDS: INSULIN ASPART (NovoLOG) 100 UNIT/ML VIAL SQ SCH ×4 (08:36→21:57)
[2020-09-21] MEDS: COLLAGENASE 250 UNIT/GM OINTMENT 30 GM TUBE TOPICAL SCH (08:36)
[2020-09-21] MEDS: metFORMIN 500 MG TAB PO SCH ×2 (08:38→21:58)
[2020-09-21] MEDS: NON FORMULARY DRUG (Liraglutide [Victoza 2-Pak] 0.6 MG/0.1 ML Pen.Injctr) SQ SCH (08:42)
[2020-09-21 09:24] LABS: African American GFR (CKD) 126.4 (60.0-200.0)
[2020-09-21 11:23] LABS: Glucose,Whole Blood 292 mg/dL (75-99)
--- NOTE | 2020-09-21 14:21 | P.PN ---
Progress Note - Text Progress Note Date: 09/21/20 Decubitus ulcer is stable. Wound is unpacked. Continue supportive care.
[2020-09-21 17:31] LABS: Glucose,Whole Blood 213 mg/dL (75-99)
--- NOTE | 2020-09-21 19:10 | PN ---
PROGRESS NOTE DATE OF SERVICE: 09/21/2020 REASON FOR FOLLOWUP: Right gluteal pressure ulcer with underlying osteomyelitis. INTERVAL HISTORY: The patient is currently afebrile. Patient is feeling better. Breathing comfortably. Denies having any chest pain or shortness of breath or cough. No abdominal pain or diarrhea. PHYSICAL EXAMINATION: Blood pressure 119/70 with a pulse of 84, temperature 97.8. He is 96% on room air. General description: The patient is an elderly male lying in bed in no distress. Respiratory system: Unlabored breathing, clear to auscultation anteriorly. Heart S1, S2. Regular rate and rhythm. ABDOMEN: Soft, no tenderness. EXTREMITIES are no edema of the feet. LABS: Wound culture with ESBL E coli. DIAGNOSTIC IMPRESSION AND PLAN: Patient with right gluteal pressure ulcer stage IV with culture positive ESBL E coli. Patient covered on IV Invanz. He will get a PICC line tomorrow and continue for IV antibiotic for another 6 weeks. Local wound care with Santyl for now. Hopefully transition to wound VAC in outpatient setting. MMODL / IJN: [id number] /
[2020-09-21 20:50] LABS: Glucose,Whole Blood 181 mg/dL (75-99)
[2020-09-21] MEDS: INSULIN DETEMIR (LEVEMIR) 100 UNIT/ML SYR SQ SCH (21:57)
[2020-09-21] MEDS: ERTAPENEM 1 GM in SODIUM CHLORIDE 0.9% 50 ML IVPB SCH (21:58)
--- NOTE | 2020-09-21 22:39 | P.PN ---
Progress Note - Text Progress Note Date: 09/21/20 Chief Complaint: Right buttock abscess History of presenting complaint: This is a 69-year-old patient of Dr. Ferreira. Chronic stable medical conditions include history of T10 paraplegia following a spinal injection, brain aneurysm, AAA, hyperlipidemia, [place] filter, diabetes. neurogenic bladder-patient does self-catheterization. Patient is cared for by his . Patient is admitted in May 2020 with COVID 19 pneumonia. Patient now presents with abscess on the right buttock. present for about 2 months. This was followed by a wound care nurse from [facility]. Progressively getting worse. no fever. Some chills. Because of it getting worse and decided to bring him. Started on IV antibiotics. September 18-taken to the operating room by Dr. Salvador. Wound was cleaned out. Today-no new issues. Wound dressing continued. IV antibiotics. Oral intake fair. Review of systems: Was done for constitutional, cardiovascular, GI, pulmonary. relevant finding as above Active Medications Acetaminophen (Acetaminophen Tab 325 Mg Tab) 650 mg PO Q4HR PRN PRN Reason: Fever and/ or Pain Aspirin (Aspirin 325 Mg Tab) 325 mg PO DAILY [facility] Last Admin: 09/21/20 08:35 Dose: 325 mg Documented by: Atorvastatin Calcium (Atorvastatin 10 Mg Tab) 10 mg PO DAILY [facility] Last Admin: 09/21/20 08:35 Dose: 10 mg Documented by: Collagenase (Collagenase 250 Unit/Gm Ointment 30 Gm Tube) 1 applic TOPICAL DAILY [facility] Last Admin: 09/21/20 08:36 Dose: 1 applic Documented by: Enoxaparin Sodium (Enoxaparin 40 Mg/0.4 Ml Syringe) 40 mg SQ DAILY [facility] Last Admin: 09/21/20 08:35 Dose: 40 mg Documented by: Sodium Chloride (Saline 0.9%) 1,000 mls @ 75 mls/hr IV .[id number] [facility] Last Admin: 09/21/20 20:00 Dose: Not Given Documented by: Ertapenem 1 gm/ Sodium (Chloride) 50 mls @ 100 mls/hr IVPB Q24H [facility]; Protocol Last Admin: 09/21/20 21:58 Dose: 100 mls/hr Documented by: Imipramine HCl (Imipramine 10 Mg Tab) 10 mg PO DAILY [facility] Last Admin: 09/21/20 08:35 Dose: 10 mg Documented by: Insulin Aspart (Insulin Aspart (Novolog) 100 Unit/Ml Vial) 0 unit SQ ACHS [facility]; Protocol Last Admin: 09/21/20 21:57 Dose: 2 unit Documented by: Insulin Detemir (Insulin Detemir (Levemir) 100 Unit/Ml Syr) 14 unit SQ HS [facility] Last Admin: 09/21/20 21:57 Dose: 14 unit Documented by: Lactobacillus Acidoph/Bulgaricus (Lactobacillus Acidoph & Bulgar 1 Each Packet) 1 each PO DAILY [facility] Last Admin: 09/21/20 08:35 Dose: 1 each Documented by: Lisinopril (Lisinopril 10 Mg Tab) 10 mg PO DAILY [facility] Last Admin: 09/21/20 08:35 Dose: 10 mg Documented by: Metformin HCl (Metformin 500 Mg Tab) 1,000 mg PO BID [facility] Last Admin: 09/21/20 21:58 Dose: 1,000 mg Documented by: Multivitamins (Multivitamins, Thera 1 Each Tab) 1 each PO DAILY [facility] Last Admin: 09/21/20 08:35 Dose: 1 each Documented by: Naloxone HCl (Naloxone 0.4 Mg/Ml 1 Ml Vial) 0.2 mg IV Q2M PRN PRN Reason: Opioid Reversal Non-Formulary Medication (Liraglutide [Victoza 2-Peewee]) 1.2 mg SQ DAILY [facility] Last Admin: 09/21/20 08:42 Dose: Not Given Documented by: Past medical history to include: T10 paraplegia from spinal injection, prerenal aneurysm, abdominal aortic aneurysm, diabetes, [place] filter, hyperlipidemia,neurogenic bladder Social history: Does smoke in the remote past. No alcohol. . Physical examination: VITAL SIGNS: 97.8, 84, 14, 119/70, 96% on room air GENERAL:BMI 28.4, laying in bed, awake EYES: Pupils equal. Conjunctiva normal. HEENT: External appearance of nose and ears normal, oral cavity grossly normal. NECK: JVD not raised; masses not palpable. HEART: First and second heart sounds are normal; no edema. LUNGS: Respiratory rate normal; clear to auscultation. ABDOMEN: Soft, nontender, liver spleen not palpable, no masses palpable. BUTTOCKS: Right buttock has a dressing over the wound PSYCH: Alert and oriented x3; mood and affect normal. NEUROLOGICAL: lower extremity power 0/5. No sensation of lower extremity. INVESTIGATIONS, reviewed in the clinical context: September 20: Accu-Cheks noted September 19: WBC 8.2 hemoglobin 11.7 Wound cultures growing gram-negative bacillary, and pending Accu-Cheks noted WBC 10.7 hemoglobin 13.6 potassium 4.4 creatinine 0.50 Coronavirus [PCR]-not detected Assessment and plan: -This patient who is bedbound now presents with the abscess on the right buttock. This had been attended by a nurse and monitored by wound care nurse. failed outpatient treatment. On IV cefepime and vancomycin. September 18 underwent deep wound cleansing by Dr. Salvador. Continue with dressing changes. Wound cultures pending. -Chronic paraplegia from spinal cord injury at T10 -Abdominal aortic aneurysm. We will do abdominal ultrasound -Diabetes mellitus type 2, continue with Accu-Cheks. Resume oral hypoglycemic and Victoza. Uncontrolled with hyperglycemia. Add Levemir -[place] filter history of -Hyperlipidemia, continue with Mevacor -Essential hypertension continue with Prinivil -Chronic medical debility -Chronic bladder dysfunction patient does self-catheterization. Elliott catheterization placed Continue current medication treatment plan follow with surgery and ID
[2020-09-22 05:31] LABS: Basophils % (A) 0 %; Eosinophils # (A) 0.2 k/uL (0-0.7); Eosinophils % (A) 3 %; HCT 37.2 % (39.0-53.0); HGB 11.8 gm/dL (13.0-17.5); Lymphocytes # (A) 1.9 k/uL (1.0-4.8); Lymphocytes % (A) 22 %; MCHC 31.8 g/dL (31.0-37.0); MCV 91.2 fL (80.0-100.0); Mean Platelet Volume 6.8; Monocytes # (A) 0.5 k/uL (0-1.0); Monocytes % (A) 6 %; Neutrophils # (A) 5.8 k/uL (1.3-7.7); Neutrophils % (A) 67 %; Platelet Count 374 k/uL (150-450); RBC 4.08 m/uL (4.30-5.90); RDW 14.9 % (11.5-15.5); WBC 8.6 k/uL (3.8-10.6)
[2020-09-22 05:43] LABS: African American GFR (CKD) >90 (>60 ml/min/1.73 sqM); Anion Gap 5 mmol/L; Blood Urea Nitrogen 19 mg/dL (9-20); Calcium 8.9 mg/dL (8.4-10.2); Carbon Dioxide 28 mmol/L (22-30); Chloride 103 mmol/L (98-107); Glucose 146 mg/dL (74-99); Non-African American GFR(CKD) >90 (>60 ml/min/1.73 sqM); Potassium 4.6 mmol/L (3.5-5.1); Sodium 136 mmol/L (137-145)
[2020-09-22 06:17] LABS: Prothrombin Time 10.7 sec (9.0-12.0)
[2020-09-22 07:18] LABS: Glucose,Whole Blood 156 mg/dL (75-99)
[2020-09-22] MEDS: ENOXAPARIN 40 MG/0.4 ML SYRINGE SQ SCH (07:57)
[2020-09-22] MEDS: MULTIVITAMINS, THERA 1 EACH TAB PO SCH (07:57)
[2020-09-22] MEDS: ATORVASTATIN 10 MG TAB PO SCH (07:57)
[2020-09-22] MEDS: metFORMIN 500 MG TAB PO SCH ×2 (07:57→20:31)
[2020-09-22] MEDS: INSULIN ASPART (NovoLOG) 100 UNIT/ML VIAL SQ SCH ×4 (07:59→20:32)
[2020-09-22] MEDS: SODIUM CHLORIDE 0.9% 1,000 ML IV SCH (08:00)
[2020-09-22] MEDS: IMIPRAMINE 10 MG TAB PO SCH (08:00)
[2020-09-22] MEDS: ASPIRIN 325 MG TAB PO SCH (08:00)
[2020-09-22] MEDS: lisinopriL 10 MG TAB PO SCH (08:00)
[2020-09-22] MEDS: LACTOBACILLUS ACIDOPH & BULGAR 1 EACH PACKET PO SCH (08:01)
[2020-09-22] MEDS: NON FORMULARY DRUG (Liraglutide [Victoza 2-Pak] 0.6 MG/0.1 ML Pen.Injctr) SQ SCH (08:01)
[2020-09-22] MEDS ORDERED: LIDOCAINE 1% INJ 10MG/ML (10 ML MDV) SQ ONE (09:29)
--- NOTE | 2020-09-22 09:43 | IR ---
PICC LINE PLACEMENT: HISTORY: Infection requiring long-term antibiotic therapy PROCEDURE: Ultrasound and fluoroscopic guidance of PICC line placement. COMPLICATIONS: None ANESTHESIA: 1. 1% Lidocaine locally. FINDINGS/TECHNIQUE: The procedure was explained to the patient. The risks, complications, benefits and alternatives were discussed and any questions were answered. Informed consent was obtained. The patient was placed supine on the fluoroscopic table and prepped and draped in the usual sterile fash ion. Utilizing a 21 gauge needle and sonographic and fluoroscopic guidance, access in the left basi lic vein was achieved and there is placement of a 0.018 guidewire. The vein is patent. A 4-F sheath was placed over the guidewire. The guidewire and dilator were removed and a 4-F. PICC line was plac ed through the sheath with the tip at the level of the SVC. The sheath was removed, the catheter was flushed and sutured into position. The patient was stable throughout the procedure and remained sta ble upon discharge from the Department of Radiology. The vein puncture was patent under ultrasound. A elkins scale image was obtained to document patency of the vein punctured. All elements of the maximal barrier technique were utilized. FLUOROSCOPY TIME: 0.1 minutes and one image submitted IMPRESSION: Successful PICC line placement under ultrasound and fluoroscopic guidance.
[2020-09-22] MEDS: COLLAGENASE 250 UNIT/GM OINTMENT 30 GM TUBE TOPICAL SCH (11:32)
[2020-09-22 12:28] LABS: Glucose,Whole Blood 188 mg/dL (75-99)
--- NOTE | 2020-09-22 13:26 | P.PN ---
Subjective Progress Note Date: 09/22/20 CHIEF COMPLAINT: Right hip decubitus ulcer HISTORY OF PRESENT ILLNESS: Patient is status post debridement of right hip decubitus ulcer. Postop day #4. Patient is lying in bed comfortably. No pain reported. He has his PICC line. Afebrile. WBC 8.6 infectious diseases recommending Invanz outpatient with wound VAC. PHYSICAL EXAM: VITAL SIGNS: Reviewed. GENERAL: Well-developed in no acute distress. HEENT: No sclera icterus. Extraocular movements grossly intact. Moist buccal mucosa. Head is atraumatic, normocephalic. ABDOMEN: Soft. Nondistended. Nontender. NEUROLOGIC: Alert and oriented. Cranial nerves II through XII grossly intact. Skin: Diffuse ulcer is packed. Dressing in place and clean dry and intact ASSESSMENT: 1. Gangrenous Right hip and gluteal decubitus pressure ulcer. 2. History of diabetes mellitus PLAN: -Continue supportive care -Continue IV antibiotics per ID -Wound VAC per ID -Patient stable for discharge from surgical standpoint when cleared by ID and medicine service Physician Manager Customer Service note has been reviewed by physician. Signing provider agrees with the documented findings, assessment, and plan of care. Objective - Vital Signs Vital signs: Vital Signs Temp 97.9 F 09/22/20 12:46 Pulse 82 09/22/20 12:46 Resp 16 09/22/20 12:46 BP 96/59 09/22/20 12:46 Pulse Ox 96 09/22/20 12:46 Intake & Output 09/21/20 09/22/20 09/22/20 18:59 06:59 18:59 Intake Total 925 Output Total 2300 Balance -2300 925 Intake: Intake, IV Titration 825 Amount Sodium Chloride 0.9% 1, 825 000 ml @ 75 mls/hr IV . [id number] AZRA Rx#:[id number] Oral 100 Output: Urine 2300 Uretheral (Elliott) 800 Other: Voiding Method Indwelling Catheter Indwelling Catheter Indwelling Catheter - Labs CBC & Chem 7: 09/22/20 05:02 09/22/20 05:02 Labs: Abnormal Lab Results - Last 24 Hours (Table) 09/21/20 09/21/20 09/22/20 Range/Units 17:29 20:27 05:02 RBC 4.08 L (4.30-5.90) m/uL Hgb 11.8 L (13.0-17.5) gm/dL Hct 37.2 L (39.0-53.0) % Sodium (137-145) mmol/L Creatinine (0.66-1.25) mg/dL Glucose (74-99) mg/dL POC Glucose (mg/dL) 213 H 181 H (75-99) mg/dL 09/22/20 09/22/20 09/22/20 Range/Units 05:02 07:15 11:57 RBC (4.30-5.90) m/uL Hgb (13.0-17.5) gm/dL Hct (39.0-53.0) % Sodium 136 L (137-145) mmol/L Creatinine 0.50 L (0.66-1.25) mg/dL Glucose 146 H (74-99) mg/dL POC Glucose (mg/dL) 156 H 188 H (75-99) mg/dL Microbiology - Last 24 Hours (Table) 09/18/20 13:10 Gram Stain - Final Other - Other Wound Culture - Final Escherichia coli 09/18/20 13:10 Gram Stain - Final Other - Other Tissue Culture - Final Escherichia coli Alpha Hemolytic Streptococcus Enterococcus faecalis 09/18/20 13:10 Anaerobic Culture - Final Other - Other Anaerobic Gm Negative Bacilli 09/18/20 13:10 Anaerobic Culture - Final Other - Other Anaerobic Gm Negative Bacilli 09/15/20 15:06 Blood Culture - Final Blood No Growth after 144 hours 09/15/20 15:06 Blood Culture - Final Blood No Growth after 144 hours
--- NOTE | 2020-09-22 14:41 | PN ---
PROGRESS NOTE DATE OF SERVICE: 09/22/2020 REASON FOR FOLLOWUP: Right gluteal infected pressure ulcer ESBL E coli. INTERVAL HISTORY: The patient is currently afebrile. The patient is breathing comfortably. He did get his PICC line. Denies having any chest pain, shortness of breath or cough. No abdominal pain. No diarrhea. PHYSICAL EXAMINATION: Blood pressure 96/59 with pulse of 82, temperature 97.9. He is 96% on room air. General description is an elderly male lying in bed in no distress. RESPIRATORY SYSTEM: Unlabored breathing, clear to auscultation anteriorly. HEART: S1, S2. Regular rate and rhythm. ABDOMEN: Soft, no tenderness. The right gluteal wound with left slough tissue surrounding redness has improved, no drainage. LABS: Hemoglobin 11.8, white count 8.6, BUN of 19, creatinine 0.50. DIAGNOSTIC IMPRESSION AND PLAN: Patient with ESBL Escherichia coli right gluteal pressure ulcer with concern for underlying osteomyelitis. culture also shows alpha hemolytic streptococcus, Escherichia coli, and Enterococcus faecalis, all of them are sensitive to penicillin. Plan is for Invanz 1 gram daily for a total of 6 weeks. Local wound care with Santyl followed by moist dressing and hopefully transition to wound VAC in outpatient setting. Advised to follow up in the [facility]. Continue supportive care. MMODL / IJN: [id number] /
[2020-09-22 17:37] LABS: Glucose,Whole Blood 256 mg/dL (75-99)
[2020-09-22] MEDS: ERTAPENEM 1 GM in SODIUM CHLORIDE 0.9% 50 ML IVPB SCH (18:25)
--- NOTE | 2020-09-22 20:08 | P.PN ---
Progress Note - Text Progress Note Date: 09/22/20 Chief Complaint: Right buttock abscess History of presenting complaint: This is a 69-year-old patient of Dr. Ferreira. Chronic stable medical conditions include history of T10 paraplegia following a spinal injection, brain aneurysm, AAA, hyperlipidemia, [place] filter, diabetes. neurogenic bladder-patient does self-catheterization. Patient is cared for by his . Patient is admitted in May 2020 with COVID 19 pneumonia. Patient now presents with abscess on the right buttock. present for about 2 months. This was followed by a wound care nurse from [facility]. Progressively getting worse. no fever. Some chills. Because of it getting worse and decided to bring him. Started on IV antibiotics. September 18-taken to the operating room by Dr. Salvador. Wound was cleaned out. Today-no fever no chills. Pain control. Wound dressing is continued. at the bedside. Oral intake is fair. Review of systems: Was done for constitutional, cardiovascular, GI, pulmonary. relevant finding as above Active Medications Acetaminophen (Acetaminophen Tab 325 Mg Tab) 650 mg PO Q4HR PRN PRN Reason: Fever and/ or Pain Aspirin (Aspirin 325 Mg Tab) 325 mg PO DAILY [facility] Last Admin: 09/22/20 08:00 Dose: 325 mg Documented by: Atorvastatin Calcium (Atorvastatin 10 Mg Tab) 10 mg PO DAILY [facility] Last Admin: 09/22/20 07:57 Dose: 10 mg Documented by: Collagenase (Collagenase 250 Unit/Gm Ointment 30 Gm Tube) 1 applic TOPICAL DAILY [facility] Last Admin: 09/22/20 11:32 Dose: 1 applic Documented by: Enoxaparin Sodium (Enoxaparin 40 Mg/0.4 Ml Syringe) 40 mg SQ DAILY [facility] Last Admin: 09/22/20 07:57 Dose: 40 mg Documented by: Sodium Chloride (Saline 0.9%) 1,000 mls @ 75 mls/hr IV .[id number] [facility] Last Admin: 09/22/20 08:00 Dose: 75 mls/hr Documented by: Ertapenem 1 gm/ Sodium (Chloride) 50 mls @ 100 mls/hr IVPB Q24H [facility]; Protocol Last Admin: 09/22/20 18:25 Dose: 100 mls/hr Documented by: Imipramine HCl (Imipramine 10 Mg Tab) 10 mg PO DAILY [facility] Last Admin: 09/22/20 08:00 Dose: 10 mg Documented by: Insulin Aspart (Insulin Aspart (Novolog) 100 Unit/Ml Vial) 0 unit SQ [facility]; Protocol Last Admin: 09/22/20 18:26 Dose: 4 unit Documented by: Insulin Detemir (Insulin Detemir (Levemir) 100 Unit/Ml Syr) 14 unit SQ [facility] Last Admin: 09/21/20 21:57 Dose: 14 unit Documented by: Lactobacillus Acidoph/Bulgaricus (Lactobacillus Acidoph & Bulgar 1 Each Packet) 1 each PO DAILY [facility] Last Admin: 09/22/20 08:01 Dose: 1 each Documented by: Lisinopril (Lisinopril 10 Mg Tab) 10 mg PO DAILY [facility] Last Admin: 09/22/20 08:00 Dose: 10 mg Documented by: Metformin HCl (Metformin 500 Mg Tab) 1,000 mg PO BID [facility] Last Admin: 09/22/20 07:57 Dose: 1,000 mg Documented by: Multivitamins (Multivitamins, Thera 1 Each Tab) 1 each PO DAILY [facility] Last Admin: 09/22/20 07:57 Dose: 1 each Documented by: Naloxone HCl (Naloxone 0.4 Mg/Ml 1 Ml Vial) 0.2 mg IV Q2M PRN PRN Reason: Opioid Reversal Non-Formulary Medication (Liraglutide [Victoza 2-Peewee]) 1.2 mg SQ DAILY [facility] Last Admin: 09/22/20 08:01 Dose: Not Given Documented by: Past medical history to include: T10 paraplegia from spinal injection, prerenal aneurysm, abdominal aortic aneurysm, diabetes, [place] filter, hyperlipidemia,neurogenic bladder Social history: Does smoke in the remote past. No alcohol. . Physical examination: VITAL SIGNS: 97.9, 82, 16, and he 6/59, 96% room air GENERAL:, laying in bed, awake, comfortable EYES: Pupils equal. Conjunctiva normal. HEENT: External appearance of nose and ears normal, oral cavity grossly normal. NECK: JVD not raised; masses not palpable. HEART: First and second heart sounds are normal; no edema. LUNGS: Respiratory rate normal; clear to auscultation. ABDOMEN: Soft, nontender, liver spleen not palpable, no masses palpable. BUTTOCKS: Right buttock has a dressing over the wound PSYCH: Alert and oriented x3; mood and affect normal. NEUROLOGICAL: lower extremity power 0/5. No sensation of lower extremity. INVESTIGATIONS, reviewed in the clinical context: September 22: WBC 8.6 hemoglobin 11.8 potassium 4.6 September 20: Accu-Cheks noted September 19: WBC 8.2 hemoglobin 11.7 Wound cultures growing : E. coli, alphahemolytic streptococcus, Enterococcus faecalis Accu-Cheks noted WBC 10.7 hemoglobin 13.6 potassium 4.4 creatinine 0.50 Coronavirus [PCR]-not detected Assessment and plan: -This patient who is bedbound now presents with the abscess on the right buttoc k. This had been attended by a nurse and monitored by wound care nurse. failed outpatient treatment. On IV cefepime and vancomycin. September 18 underwent deep wound cleansing by Dr. Salvador. Continue with dressing changes. Wound cultures growing alpha hemolytic streptococcus, Enterococcus faecalis, E. coli. Plan this was patient to be discharged with IV Invanz -Chronic paraplegia from spinal cord injury at T10 -Abdominal aortic aneurysm. We will do abdominal ultrasound -Diabetes mellitus type 2, continue with Accu-Cheks. Resume oral hypoglycemic and Victoza. Uncontrolled with hyperglycemia. Add Levemir -[place] filter history of -Hyperlipidemia, continue with Mevacor -Essential hypertension continue with Prinivil -Chronic medical debility -Chronic bladder dysfunction patient does self-catheterization. Elliott catheterization placed Patient is ready for discharge. Informed by Kirby wiggins and that pending arrangement for outpatient Invanz and wound VAC. Hopefully patient should be able to be discharged tomorrow. Care was discussed with the patient and at the bedside.
[2020-09-22 20:26] LABS: Glucose,Whole Blood 185 mg/dL (75-99)
[2020-09-22] MEDS: INSULIN DETEMIR (LEVEMIR) 100 UNIT/ML SYR SQ SCH (20:32)
[2020-09-23] MEDS: SODIUM CHLORIDE 0.9% 1,000 ML IV SCH ×2 (05:29→12:16)
[2020-09-23 05:44] VITALS: TEMP 97.6
[2020-09-23 07:04] LABS: Glucose,Whole Blood 170 mg/dL (75-99)
[2020-09-23] MEDS: ATORVASTATIN 10 MG TAB PO SCH (07:52)
[2020-09-23] MEDS: metFORMIN 500 MG TAB PO SCH (07:52)
[2020-09-23] MEDS: ENOXAPARIN 40 MG/0.4 ML SYRINGE SQ SCH (07:52)
[2020-09-23] MEDS: LACTOBACILLUS ACIDOPH & BULGAR 1 EACH PACKET PO SCH (07:53)
[2020-09-23] MEDS: INSULIN ASPART (NovoLOG) 100 UNIT/ML VIAL SQ SCH ×2 (07:53→12:16)
[2020-09-23] MEDS: ASPIRIN 325 MG TAB PO SCH (07:53)
[2020-09-23] MEDS: MULTIVITAMINS, THERA 1 EACH TAB PO SCH (07:53)
[2020-09-23] MEDS: IMIPRAMINE 10 MG TAB PO SCH (07:53)
[2020-09-23] MEDS: lisinopriL 10 MG TAB PO SCH (07:53)
[2020-09-23] MEDS: COLLAGENASE 250 UNIT/GM OINTMENT 30 GM TUBE TOPICAL SCH (07:54)
[2020-09-23] MEDS: NON FORMULARY DRUG (Liraglutide [Victoza 2-Pak] 0.6 MG/0.1 ML Pen.Injctr) SQ SCH (08:01)
[2020-09-23 12:05] LABS: Glucose,Whole Blood 153 mg/dL (75-99)
[2020-09-23 12:24] VITALS: BP 107/59; PULSE 81; RESP 17
--- NOTE | 2020-09-23 12:53 | P.PN ---
Subjective Progress Note Date: 09/23/20 CHIEF COMPLAINT: Right hip decubitus ulcer HISTORY OF PRESENT ILLNESS: Patient is status post debridement of right hip decubitus ulcer. Postop day #5. Patient is lying in bed comfortably. No pain reported. He has his PICC line. Afebrile. WBC 8.6 infectious diseases recommending Invanz outpatient with wound VAC. PHYSICAL EXAM: VITAL SIGNS: Reviewed. GENERAL: Well-developed in no acute distress. HEENT: No sclera icterus. Extraocular movements grossly intact. Moist buccal mucosa. Head is atraumatic, normocephalic. ABDOMEN: Soft. Nondistended. Nontender. NEUROLOGIC: Alert and oriented. Cranial nerves II through XII grossly intact. Skin: Diffuse ulcer is packed. Dressing in place and clean dry and intact ASSESSMENT: 1. Gangrenous Right hip and gluteal decubitus pressure ulcer. 2. History of diabetes mellitus PLAN: -Continue supportive care -Continue IV antibiotics per ID -Wound VAC per ID -Patient stable for discharge from surgical standpoint when cleared by ID and medicine service Physician Assembler Production Line note has been reviewed by physician. Signing provider agrees with the documented findings, assessment, and plan of care. Objective - Vital Signs Vital signs: Vital Signs Temp 97.6 F 09/23/20 12:24 Pulse 81 09/23/20 12:24 Resp 17 09/23/20 12:24 BP 107/59 09/23/20 12:24 Pulse Ox 96 09/23/20 12:24 Intake & Output 09/22/20 09/23/20 09/23/20 18:59 06:59 18:59 Intake Total 580 200 240 Output Total 900 2000 Balance -320 -1800 240 Intake: Oral 580 200 240 Output: Urine 900 2000 Uretheral (Elliott) 900 1300 Other: Voiding Method Indwelling Catheter Indwelling Catheter Indwelling Catheter - Labs CBC & Chem 7: 09/22/20 05:02 09/22/20 05:02 Labs: Abnormal Lab Results - Last 24 Hours (Table) 09/22/20 09/22/20 09/23/20 Range/Units 17:25 20:03 07:02 POC Glucose (mg/dL) 256 H 185 H 170 H (75-99) mg/dL 09/23/20 Range/Units 11:40 POC Glucose (mg/dL) 153 H (75-99) mg/dL
[2020-09-23] MEDS: ERTAPENEM 1 GM in SODIUM CHLORIDE 0.9% 50 ML IVPB SCH (15:28)
--- NOTE | 2020-09-23 19:49 | P.DS ---
Providers Date of admission: 09/15/20 15:57 Expected date of discharge: 09/23/20 Attending physician: Ramon Mancera Consults: 09/17/20 13:23 Consult Physician Routine Consulting Provider: Tari Sarabia Consult Reason/Comments: rignt buttock decubitous ulcer Do you want consulting provider notified?: Yes 09/17/20 14:41 Consult Physician Urgent Consulting Provider: Hosea Salvador Consult Reason/Comments: gluteal pressure ulcer , debridment and deep cultures Do you want consulting provider notified?: Yes Primary care physician: [facility] Course: Chief Complaint: Right buttock abscess History of presenting complaint: This is a 69-year-old patient of Dr. Ferreira. Chronic stable medical conditions include history of T10 paraplegia following a spinal injection, brain aneurysm, AAA, hyperlipidemia, [place] filter, diabetes. neurogenic bladder-patient does self-catheterization. Patient is cared for by his . Patient is admitted in May 2020 with COVID 19 pneumonia. Patient now presents with abscess on the right buttock. present for about 2 months. This was followed by a wound care nurse from [facility]. Progr essively getting worse. no fever. Some chills. Because of it getting worse and decided to bring him. Started on IV antibiotics. September 18-taken to the operating room by Dr. Salvador. Wound was cleaned out. Suspected underlying osteomyelitis per ID. We'll get 6 weeks of IV Invanz Today-patient in a mattress at home did not work for him. Hence wound VAC is being done.. Comfortable. Discussed with the patient. Consultation: Dr. Sarabia from ID Dr. Salvador from general surgery Past medical history to include: T10 paraplegia from spinal injection, prerenal aneurysm, abdominal aortic aneurysm, diabetes, [place] filter, hyperlipidemia,neurogenic bladder Social history: Does smoke in the remote past. No alcohol. . Physical examination: VITAL SIGNS: 97.6, 81, 17, 107 x 59, 96% room air GENERAL:, laying in bed, awake, comfortable EYES: Pupils equal. Conjunctiva normal. HEENT: External appearance of nose and ears normal, oral cavity grossly normal. NECK: JVD not raised; masses not palpable. HEART: First and second heart sounds are normal; no edema. LUNGS: Respiratory rate normal; clear to auscultation. ABDOMEN: Soft, nontender, liver spleen not palpable, no masses palpable. BUTTOCKS: Right buttock has a dressing over the wound PSYCH: Alert and oriented x3; mood and affect normal. NEUROLOGICAL: lower extremity power 0/5. No sensation of lower extremity. INVESTIGATIONS, reviewed in the clinical context: September 22: WBC 8.6 hemoglobin 11.8 potassium 4.6 September 20: Accu-Cheks noted September 19: WBC 8.2 hemoglobin 11.7 Wound cultures growing : E. coli, alphahemolytic streptococcus, Enterococcus faecalis Accu-Cheks noted WBC 10.7 hemoglobin 13.6 potassium 4.4 creatinine 0.50 Coronavirus [PCR]-not detected Assessment and plan: -This patient who is bedbound now presents with the abscess on the right buttock. Possibly acute ostium mellitus. This had been attended by a nurse and monitored by wound care nurse. failed outpatient treatment. On IV cefepime and vancomycin. September 18 underwent deep wound cleansing by Dr. Salvador. Continue with dressing changes. Wound cultures growing alpha hemolytic streptococcus, Enterococcus faecalis, E. coli. 6 weeks of IV Invanz. Santyl to wound followed by moist dressing changes daily. We'll follow with Dr. sarabia at the wound care center -Chronic paraplegia from spinal cord injury at T10 -Abdominal aortic aneurysm.-Follow up as an outpatient with vascular surgery -Diabetes mellitus type 2, continue with Accu-Cheks. Uncontrolled with hyperglycemia. -[place] filter history of -Hyperlipidemia, continue with Mevacor -Essential hypertension continue with Prinivil -Chronic medical debility -Chronic bladder dysfunction patient does self-catheterization. Elliott catheterization placed Disposition: Home Patient Condition at Discharge: Stable Plan - Discharge Summary Discharge Rx Participant: No New Discharge Prescriptions: New Ertapenem [INVanz] 1 gm IVPB Q24H #42 bag Continue Lovastatin [Mevacor] 40 mg PO DAILY Lisinopril [Prinivil] 10 mg PO DAILY Liraglutide [Victoza 2-Peewee] 1.2 mg SQ DAILY metFORMIN HCL [Glucophage] 1,000 mg PO BID L.acidoph,Paracasei, B.lactis [Probiotic] 1 cap PO DAILY Cranberry Fruit Extract [Cranberry] 500 mg PO DAILY Aspirin EC [Ecotrin] 325 mg PO DAILY Multivitamins, Thera [Multivitamin (formulary)] 1 tab PO DAILY Imipramine [Tofranil] 10 mg PO DAILY Discontinued Cephalexin [Keflex] 500 mg PO QID Discharge Medication List Liraglutide [Victoza 2-Peewee] 1.2 mg SQ DAILY 06/24/17 [History] Lisinopril [Prinivil] 10 mg PO DAILY 06/24/17 [History] Lovastatin [Mevacor] 40 mg PO DAILY 06/24/17 [History] metFORMIN HCL [Glucophage] 1,000 mg PO BID 06/24/17 [History] Aspirin EC [Ecotrin] 325 mg PO DAILY 09/04/19 [History] Cranberry Fruit Extract [Cranberry] 500 mg PO DAILY 09/04/19 [History] L.acidoph,Paracasei, B.lactis [Probiotic] 1 cap PO DAILY 09/04/19 [History] Multivitamins, Thera [Multivitamin (formulary)] 1 tab PO DAILY 09/04/19 [History] Imipramine [Tofranil] 10 mg PO DAILY 09/15/20 [History] Ertapenem [INVanz] 1 gm IVPB Q24H #42 bag 09/22/20 [Rx] Follow up Appointment(s)/Referral(s): Jeremiah Ferreira DO [Primary Care Provider] - 10/01/20 3:20 pm [facility], [NON-STAFF] - 1 Week Tari Sarabia MD [STAFF PHYSICIAN] - 09/30/20 1:30 pm Hosea Salvador MD [STAFF PHYSICIAN] - 10/02/20 3:15 pm Ambulatory/Diagnostic Orders: Basic Metabolic Panel [LAB.AMB] Location: None Selected C Reactive Protein [LAB.AMB] Location: None Selected Complete Blood Count w/diff [LAB.AMB] Location: None Selected Erythrocyte Sedimentation Rate [LAB.AMB] Location: None Selected Activity/Diet/Wound Care/Special Instructions: Santyl to the wound followed by moist dressing change daily , follow up with Dr sarabia at wound care , 1 week , call [phone] to make appointment Discharge Disposition: HOME WITH HOME HEALTH SERVICES
--- NOTE | 2020-10-10 14:07 | P.OP ---
Date of Procedure: 09/18/20 Preoperative Diagnosis: Right trochanteric decubitus ulcer Postoperative Diagnosis: Right trochanteric decubitus ulcer Procedure(s) Performed: Debridement of decubitus ulcer Anesthesia: ASHLY Surgeon: Hosea Salvador Estimated Blood Loss (ml): 25 Pathology: other (Decubitus ulcer) Condition: stable Disposition: PACU Description of Procedure: The patient's placed on the operative table in the lateral position. Patient had a right trochanteric decubitus ulcer. There was foul smell and skin breakdown of the area ulcer. The tissue was necrotic. Using a 15 blade the skin was incised around the ulcer. And then using sharp dissection with a scalpel and electrocautery the necrotic tissue was debrided. The specimens of pathology. Hemostasis achieved with a Bovie. The specimen measured approximately 8 x 8 x 6 cm. The wound was packed with wet-to-dry Kerlix. Patient top she will was sent to recovery room stable condition.
--- NOTE | 2020-10-14 05:51 | CDI ---
Documentation Clarification Form Date: 10/14/2020 05:43:00 AM From: Deonna Blanco Phone: Admit Date: 09/15/2020 03:57:00 PM Patient Name: Milton Arnett Visit Number: [id number] Discharge Date: 09/23/2020 04:59:00 PM ATTENTION: The Clinical Documentation Specialists (CDI) and [facility] Coding Staff appreciate your assistance in clarifying documentation. Please respond to the clarification below the line at the bottom and electronically sign. The CDI & [facility] Coding staff will review the response and follow-up if needed. Please note: Queries are made part of the Legal Health Record. If you have any questions, please contact the author of this message via ITS. Dr. Hosea Salvador, A debridement is documented in your procedure note. Additional clarification regarding the procedure is requested. History/Risk Factors: abscess of buttock, paraplegia, Type 2 DM w gangrene, osteomyelitis, Clinical Indicators: Stage 4 pressure ulcer of right buttock Treatment: Debridement of decubitus ulcer Please clarify the type of procedure performed and the depth: TYPE OF DEBRIDEMENT Excisional debridement (the removal of necrotic, devitalized tissue or slough by means of cutting away of tissue) Non-excisional debridement (the removal of necrotic, devitalized tissue or slough by means of flushing, brushing, or washing. (Irrigation) Other; please specify Unable to determine DEPTH Skin and subcutaneous tissue Fascia Muscle Bone Other; please specify Unable to determine Five elements required for accurate and compliant documentation of a debridement: Technique used (e.g., excisional, excised, cutting, brushing, jet lavage etc.) Instrument(s) used (e.g., scalpel, curette, etc.) Nature of the tissue removed (e.g., necrotic, devitalized tissues, non-viable tissue, etc.) Appearance and size of the wound (e.g., down to fresh bleeding tissue, 7cm x 10cm, etc.) Depth of the debridement* (e.g., skin, subcutaneous tissue, fascia, muscle, bone Scalpel was used to remove necrotic tissue. Skin subcutaneous fat and muscle was excised. The wound measured approximately 8 x 10 cm. [facility]
--- NOTE | 2020-10-14 05:56 | CDI ---
Documentation Clarification Form Date: 10/14/20 From: Deonna Blanco Phone: Admit Date: 09/15/2020 03:57:00 PM Patient Name: Milton Arnett Visit Number: [id number] Discharge Date: 09/23/2020 04:59:00 PM ATTENTION: The Clinical Documentation Specialists (CDI) and [facility] Coding Staff appreciate your assistance in clarifying documentation. Please respond to the clarification below the line at the bottom and electronically sign. The CDI & [facility] Coding staff will review the response and follow-up if needed. Please note: Queries are made part of the Legal Health Record. If you have any questions, please contact the author of this message via ITS. Dr. Tari Paris, Osteomyelitis is documented . Additional clarification regarding the cause and acuity of the osteomyelitis is requested. History/Risk Factors: Stage IV pressure ulcer of right buttock, abscess of buttock, paraplegia, Type 2 DM w gangrene Clinical Indicators: This patient who is bedbound now presents with the abscess on the right buttock. Possible osteomyelitis. Treatment: Debridement of decubitus ulcer Please clarify the acuity and etiology of the osteomyelitis, if known: Acuity: Acute osteomyelitis Chronic osteomyelitis Subacute osteomyelitis Unable to Determine acute osteomyelitis _ MTDD
== END 2020-09-23 16:59 | disposition home health service (06) | DRG 579 ==
LOC: EC 12:52 → 5NMEDONC 15:57
PROVIDERS: ADMIT Hospitalist; ATTEND Hospitalist
PROC: 0KBQ0ZZ Excision of Right Upper Leg Muscle, Open Approach (ICD-10-PCS; principal; 2020-09-18 12:35)
PROC: 02HV33Z Insertion of Infusion Device into Superior Vena Cava, Percutaneous Approach (ICD-10-PCS; 2020-09-22)
DX: L02.31 Cutaneous abscess of buttock (principal); L89.314 Pressure ulcer of right buttock, stage 4; M86.151 Other acute osteomyelitis, right femur; G82.20 Paraplegia, unspecified; E11.52 Type 2 diabetes mellitus with diabetic peripheral angiopathy with gangrene; I96 Gangrene, not elsewhere classified; I97.89 Other postprocedural complications and disorders of the circulatory system, not elsewhere classified; Z16.24 Resistance to multiple antibiotics; Z16.12 Extended spectrum beta lactamase (ESBL) resistance; E11.69 Type 2 diabetes mellitus with other specified complication; B95.2 Enterococcus as the cause of diseases classified elsewhere; E11.65 Type 2 diabetes mellitus with hyperglycemia; B96.20 Unspecified Escherichia coli [E. coli] as the cause of diseases classified elsewhere; Z20.822 Contact with and (suspected) exposure to COVID-19; E78.5 Hyperlipidemia, unspecified; I10 Essential (primary) hypertension; N31.9 Neuromuscular dysfunction of bladder, unspecified; R32 Unspecified urinary incontinence; G89.29 Other chronic pain; M54.9 Dorsalgia, unspecified; R53.81 Other malaise; Z79.82 Long term (current) use of aspirin; Z79.84 Long term (current) use of oral hypoglycemic drugs; Z79.899 Other long term (current) drug therapy; Z74.01 Bed confinement status; Z86.16 Personal history of COVID-19; Z87.442 Personal history of urinary calculi; Z86.79 Personal history of other diseases of the circulatory system; Z90.49 Acquired absence of other specified parts of digestive tract; Z87.19 Personal history of other diseases of the digestive system; Z95.828 Presence of other vascular implants and grafts; Z87.891 Personal history of nicotine dependence; Z98.890 Other specified postprocedural states; Z88.8 Allergy status to other drugs, medicaments and biological substances; Z88.2 Allergy status to sulfonamides; Z80.9 Family history of malignant neoplasm, unspecified; Y83.2 Surgical operation with anastomosis, bypass or graft as the cause of abnormal reaction of the patient, or of later complication, without mention of misadventure at the time of the procedure
CPT/HCPCS: 36415; 36573; 80048; 80053; 80202; 82565; 83036; 83605; 85025; 85610; 87040; 87070; 87075; 87077; 87186; 87205; 87635; 88304; 96365; 96366; 99284

== ENCOUNTER 2021-07-15 16:15 | Inpatient (IN) | payer MEDICARE, BC ==
[2021-07-15] MEDS ORDERED: SODIUM CHLORIDE 0.9% 500 ML 500 ML IV STA (16:41)
--- NOTE | 2021-07-15 16:52 | ED ---
General Adult HPI - General Source: patient, EMS Mode of arrival: EMS Limitations: no limitations <Ofelia Mario - Last Filed: 07/15/21 20:18> <Sarita Pathak - Last Filed: 07/16/21 13:35> - General Chief complaint: Dizziness Stated complaint: nausea, vomiting Time Seen by Provider: 07/15/21 16:33 - History of Present Illness Initial comments: 70 year-old male patient with past history significant for paralysis with deficits from T10 level, chronic sacral wound with wound vac, and banded brain aneurysm presents for evaluation of dizziness. States around 12:00 this afternoon he started to have some dizziness. States with rolling side to side the room would start spinning. States that he had one episode of vomiting in ambulance on the way here but has not been otherwise nauseous or vomiting. He does have intermittent catheterization and was informed that his urine was dark and had a foul smell today. He denies any headache, blurred vision, or double vision. Denies any recent illness or congestion. Denies ear pain. Patient denies any recent rash, fever, chills, cough, shortness of breath, chest pain, abdominal pain, diarrhea, constipation, back pain, numbness, tingling, dizziness, weakness, headache, visual changes, or any other complaints. (Ofelia Mario) - Related Data Home Medications Medication Instructions Recorded Confirmed Lisinopril [Prinivil] 10 mg PO DAILY 06/24/17 07/15/21 Lovastatin [Mevacor] 40 mg PO HS 06/24/17 07/15/21 metFORMIN HCL [Glucophage] 1,000 mg PO BID 06/24/17 07/15/21 Cranberry Fruit Extract [Cranberry] 500 mg PO DAILY 09/04/19 07/15/21 L.acidoph,Paracasei, B.lactis 1 cap PO DAILY 09/04/19 07/15/21 [Probiotic] Multivitamins, Thera [Multivitamin 1 tab PO DAILY 09/04/19 07/15/21 (formulary)] Imipramine [Tofranil] 10 mg PO BID 09/15/20 07/15/21 Glimepiride [Amaryl] 1 mg PO DAILY 07/15/21 07/15/21 Allergies Allergy/AdvReac Type Severity Reaction Status Date / Time phenytoin [From Dilantin] Allergy Rash/Hives Verified 07/15/21 18:23 Sulfa (Sulfonamide Allergy Rash/Hives Verified 07/15/21 18:23 Antibiotics) Review of Systems ROS Other: All systems not noted in ROS Statement are negative. <Ofelia Mario - Last Filed: 07/15/21 20:18> ROS Other: All systems not noted in ROS Statement are negative. <Daya Pathakah Guerrero - Last Filed: 07/16/21 13:35> ROS Statement: Those systems with pertinent positive or pertinent negative responses have been documented in the HPI. Past Medical History Past Medical History: Diabetes Mellitus, Hyperlipidemia, Hypertension, Vascular Disorder Additional Past Medical History / Comment(s): Paraplegic T10 down after brain aneurysm surgery, neurogenic bladder/pt self caths 2-3 times a day, pt has a bowel program to have bowel movements each morning, urinary incontinence when he transfers which caused a R scrotal abscess/wound which is now healed, AAA with surgery, NIDDM type II, bladder stones with surgical removal, chronic back pain. History of Any Multi-Drug Resistant Organisms: ESBL Date of last positivie culture/infection: 09/18/20 E.coli ESBL MDRO Source:: Pressure ulcer Past Surgical History: Appendectomy Additional Past Surgical History / Comment(s): AAA wrapped, brain aneurysm with clips, [place] filter, I&D R scrotal abscess, cystoscopy with cystolithotripsy, attempted bladder sling surgery. 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 <Ofelia aMrio - Last Filed: 07/15/21 20:18> General Exam Limitations: no limitations General appearance: alert, in no apparent distress, other (This is a well- developed, well-nourished adult male patient in no acute distress.) Eye exam: Present: normal appearance, PERRL, EOMI. Absent: scleral icterus, conjunctival injection, nystagmus, periorbital swelling ENT exam: Present: normal exam, normal oropharynx, mucous membranes moist Respiratory exam: Present: normal lung sounds bilaterally. Absent: respiratory distress, wheezes, rales, rhonchi, stridor Cardiovascular Exam: Present: regular rate, normal rhythm, normal heart sounds. Absent: systolic murmur, diastolic murmur, rubs, gallop, clicks GI/Abdominal exam: Present: soft, normal bowel sounds. Absent: distended, tenderness, guarding, rebound, rigid Extremities exam: Present: normal inspection, full ROM, normal capillary refill, other (Atrophy to the musculature lower extremities). Absent: tenderness, pedal edema, joint swelling, calf tenderness Neurological exam: Present: alert, oriented X3, CN II-XII intact, other (Strength to the upper extremities 5/5. Paralysis to lower extremities.) Psychiatric exam: Present: normal affect, normal mood Skin exam: Present: warm, dry, intact, normal color. Absent: rash <Ofelia Mario - Last Filed: 07/15/21 20:18> Course <Ofelia Mario - Last Filed: 07/15/21 20:18> Vital Signs 07/15/21 07/15/21 07/15/21 16:21 19:18 19:38 Temperature 97.5 F L 98.8 F Pulse Rate 88 82 75 Respiratory 18 18 16 Rate Blood Pressure 130/70 126/67 151/86 O2 Sat by Pulse 99 98 98 Oximetry - Reevaluation(s) Reevaluation #1: 07/15/21 20:00 Sepsis diagnosed at this time. (Ofelia Mario) EKG Findings - EKG Comments: EKG Findings:: EKG obtained at 1620 shows normal sinus rhythm with a ventricular rate is 77, AL interval 144, QRS duration 92, QT 398, QTC 450. No evidence of ST elevation or depression. <Ofelia Mario - Last Filed: 07/15/21 20:18> Medical Decision Making - Lab Data Result diagrams: 07/15/21 17:03 07/15/21 17:03 - Radiology Data Radiology results: report reviewed, image reviewed <Ofelia Mario - Last Filed: 07/15/21 20:18> - Lab Data Result diagrams: 07/16/21 05:57 07/15/21 17:03 <Sarita Pathak - Last Filed: 07/16/21 13:35> - Medical Decision Making 70-year-old male patient presented to the emergency department today for evaluation of dizziness, dark, foul-smelling urine. He does perform self- catheterization and does have lower extremity paralysis. Physical examination did soft, non-tender abdomen. He does have large sacral ulcer with wound vac. He did have positive UTI on urinalysis. Lactic acid 3.5. WBC count 10.7. He is afebrile with normal vital signs. Did review previous urine cultures, last infection was susceptible to rocephin. Will start this pending culture. Patient is agreeable to admission. My attending is Dr. Pathak. (Ofelia Mario) I was available for consultation in the emergency department. The history and physical exam were done by the midlevel provider. I was consulted for this patients care. I reviewed the case with the midlevel provider and based on their presentation of the patient, I agree with the assessment, medical decision making and plan of care as documented. Chart was dictated using Communicado dictation software. Attempts were made to correct any dictation errors however some typographical errors may persist. Patient was seen during a national state of emergency due to the Covid-19 pandemic. (Sarita Pathak) - Lab Data Lab Results 07/15/21 07/15/21 07/15/21 Range/Units 17:03 17:03 17:03 WBC 10.7 H (3.8-10.6) k/uL RBC 4.96 (4.30-5.90) m/uL Hgb 13.6 (13.0-17.5) gm/dL Hct 43.4 (39.0-53.0) % MCV 87.5 (80.0-100.0) fL MCH 27.4 (25.0-35.0) pg MCHC 31.3 (31.0-37.0) g/dL RDW 15.5 (11.5-15.5) % Plt Count 291 (150-450) k/uL MPV 7.3 Neutrophils % 74 % Lymphocytes % 19 % Monocytes % 5 % Eosinophils % 1 % Basophils % 0 % Neutrophils # 7.9 H (1.3-7.7) k/uL Lymphocytes # 2.1 (1.0-4.8) k/uL Monocytes # 0.5 (0-1.0) k/uL Eosinophils # 0.1 (0-0.7) k/uL Basophils # 0.0 (0-0.2) k/uL Hypochromasia Moderate Sodium 137 (137-145) mmol/L Potassium 4.2 (3.5-5.1) mmol/L Chloride 101 (98-107) mmol/L Carbon Dioxide 21 L (22-30) mmol/L Anion Gap 15 mmol/L BUN 14 (9-20) mg/dL Creatinine 0.51 L (0.66-1.25) mg/dL Est GFR (CKD-EPI)AfAm >90 (>60 ml/min/1.73 sqM) Est GFR (CKD-EPI)NonAf >90 (>60 ml/min/1.73 sqM) Glucose 250 H (74-99) mg/dL Lactic Ac Sepsis Rflx Plasma Lactic Acid Carl 3.5 H* (0.7-2.0) mmol/L Calcium 9.4 (8.4-10.2) mg/dL Magnesium 1.7 (1.6-2.3) mg/dL Total Bilirubin 0.6 (0.2-1.3) mg/dL AST 25 (17-59) U/L ALT 18 (4-49) U/L Alkaline Phosphatase 155 H (38-126) U/L Troponin I (0.000-0.034) ng/mL Total Protein 7.1 (6.3-8.2) g/dL Albumin 3.8 (3.5-5.0) g/dL Urine Color Urine Appearance (Clear) Urine pH (5.0-8.0) Ur Specific [place] (1.001-1.035) Urine Protein (Negative) Urine Glucose (UA) (Negative) Urine Ketones (Negative) Urine Blood (Negative) Urine Nitrite (Negative) Urine Bilirubin (Negative) Urine Urobilinogen (<2.0) mg/dL Ur Leukocyte Esterase (Negative) Urine RBC (0-5) /hpf Urine WBC (0-5) /hpf Ur Squamous Epith Cells (0-4) /hpf Urine Bacteria (None) /hpf Urine Mucus (None) /hpf 01/11/2907/15/21 07/15/21 Range/Units 17:03 17:54 19:00 WBC (3.8-10.6) k/uL RBC (4.30-5.90) m/uL Hgb (13.0-17.5) gm/dL Hct (39.0-53.0) % MCV (80.0-100.0) fL MCH (25.0-35.0) pg MCHC (31.0-37.0) g/dL RDW (11.5-15.5) % Plt Count (150-450) k/uL MPV Neutrophils % % Lymphocytes % % Monocytes % % Eosinophils % % Basophils % % Neutrophils # (1.3-7.7) k/uL Lymphocytes # (1.0-4.8) k/uL Monocytes # (0-1.0) k/uL Eosinophils # (0-0.7) k/uL Basophils # (0-0.2) k/uL Hypochromasia Sodium (137-145) mmol/L Potassium (3.5-5.1) mmol/L Chloride (98-107) mmol/L Carbon Dioxide (22-30) mmol/L Anion Gap mmol/L BUN (9-20) mg/dL Creatinine (0.66-1.25) mg/dL Est GFR (CKD-EPI)AfAm (>60 ml/min/1.73 sqM) Est GFR (CKD-EPI)NonAf (>60 ml/min/1.73 sqM) Glucose (74-99) mg/dL Lactic Ac Sepsis Rflx Y Plasma Lactic Acid Carl (0.7-2.0) mmol/L Calcium (8.4-10.2) mg/dL Magnesium (1.6-2.3) mg/dL Total Bilirubin (0.2-1.3) mg/dL AST (17-59) U/L ALT (4-49) U/L Alkaline Phosphatase (38-126) U/L Troponin I <0.012 (0.000-0.034) ng/mL Total Protein (6.3-8.2) g/dL Albumin (3.5-5.0) g/dL Urine Color Yellow Urine Appearance Cloudy (Clear) Urine pH 5.5 (5.0-8.0) Ur Specific [place] 1.023 (1.001-1.035) Urine Protein Trace H (Negative) Urine Glucose (UA) 3+ H (Negative) Urine Ketones 2+ H (Negative) Urine Blood Negative (Negative) Urine Nitrite Negative (Negative) Urine Bilirubin Negative (Negative) Urine Urobilinogen <2.0 (<2.0) mg/dL Ur Leukocyte Esterase Large H (Negative) Urine RBC 4 (0-5) /hpf Urine WBC 138 H (0-5) /hpf Ur Squamous Epith Cells 1 (0-4) /hpf Urine Bacteria Many H (None) /hpf Urine Mucus Occasional H (None) /hpf 07/15/21 Range/Units 20:59 WBC (3.8-10.6) k/uL RBC (4.30-5.90) m/uL Hgb (13.0-17.5) gm/dL Hct (39.0-53.0) % MCV (80.0-100.0) fL MCH (25.0-35.0) pg MCHC (31.0-37.0) g/dL RDW (11.5-15.5) % Plt Count (150-450) k/uL MPV Neutrophils % % Lymphocytes % % Monocytes % % Eosinophils % % Basophils % % Neutrophils # (1.3-7.7) k/uL Lymphocytes # (1.0-4.8) k/uL Monocytes # (0-1.0) k/uL Eosinophils # (0-0.7) k/uL Basophils # (0-0.2) k/uL Hypochromasia Sodium (137-145) mmol/L Potassium (3.5-5.1) mmol/L Chloride (98-107) mmol/L Carbon Dioxide (22-30) mmol/L Anion Gap mmol/L BUN (9-20) mg/dL Creatinine (0.66-1.25) mg/dL Est GFR (CKD-EPI)AfAm (>60 ml/min/1.73 sqM) Est GFR (CKD-EPI)NonAf (>60 ml/min/1.73 sqM) Glucose (74-99) mg/dL Lactic Ac Sepsis Rflx Plasma Lactic Acid Carl 2.2 H* (0.7-2.0) mmol/L Calcium (8.4-10.2) mg/dL Magnesium (1.6-2.3) mg/dL Total Bilirubin (0.2-1.3) mg/dL AST (17-59) U/L ALT (4-49) U/L Alkaline Phosphatase (38-126) U/L Troponin I (0.000-0.034) ng/mL Total Protein (6.3-8.2) g/dL Albumin (3.5-5.0) g/dL Urine Color Urine Appearance (Clear) Urine pH (5.0-8.0) Ur Specific [place] (1.001-1.035) Urine Protein (Negative) Urine Glucose (UA) (Negative) Urine Ketones (Negative) Urine Blood (Negative) Urine Nitrite (Negative) Urine Bilirubin (Negative) Urine Urobilinogen (<2.0) mg/dL Ur Leukocyte Esterase (Negative) Urine RBC (0-5) /hpf Urine WBC (0-5) /hpf Ur Squamous Epith Cells (0-4) /hpf Urine Bacteria (None) /hpf Urine Mucus (None) /hpf - Radiology Data 2 views of the chest are obtained. Report was reviewed in its entirety. Impression by Dr. Andrews shows no active cardiopulmonary disease. There is clearing of the pulmonary interstitial infiltrates compared to old exam. (Ofelia Mario) Disposition Decision to Admit Reason: Admit from EC Decision Date: 07/15/21 Decision Time: 20:20 <Ofelia Mario - Last Filed: 07/15/21 20:18> <Sarita Pathak - Last Filed: 07/16/21 13:35> Clinical Impression: UTI (urinary tract infection), Sepsis Disposition: ADMITTED IP TO THIS HOSP Condition: Serious
[2021-07-15 17:17] LABS: Basophils % (A) 0 %; Eosinophils # (A) 0.1 k/uL (0-0.7); Eosinophils % (A) 1 %; HCT 43.4 % (39.0-53.0); HGB 13.6 gm/dL (13.0-17.5); Hypochromasia Moderate; Lymphocytes # (A) 2.1 k/uL (1.0-4.8); Lymphocytes % (A) 19 %; MCH 27.4 pg (25.0-35.0); MCHC 31.3 g/dL (31.0-37.0); MCV 87.5 fL (80.0-100.0); Mean Platelet Volume 7.3; Monocytes # (A) 0.5 k/uL (0-1.0); Monocytes % (A) 5 %; Neutrophils # (A) 7.9 k/uL (1.3-7.7); Neutrophils % (A) 74 %; Platelet Count 291 k/uL (150-450); RBC 4.96 m/uL (4.30-5.90); RDW 15.5 % (11.5-15.5); WBC 10.7 k/uL (3.8-10.6)
[2021-07-15 17:26] LABS: ALT 18 U/L (4-49); AST 25 U/L (17-59); African American GFR (CKD) >90 (>60 ml/min/1.73 sqM); Albumin 3.8 g/dL (3.5-5.0); Alkaline Phosphatase 155 U/L (38-126); Anion Gap 15 mmol/L; Blood Urea Nitrogen 14 mg/dL (9-20); Calcium 9.4 mg/dL (8.4-10.2); Carbon Dioxide 21 mmol/L (22-30); Chloride 101 mmol/L (98-107); Glucose 250 mg/dL (74-99); Magnesium 1.7 mg/dL (1.6-2.3); Non-African American GFR(CKD) >90 (>60 ml/min/1.73 sqM); Potassium 4.2 mmol/L (3.5-5.1); Sodium 137 mmol/L (137-145); Total Bilirubin 0.6 mg/dL (0.2-1.3); Total Protein 7.1 g/dL (6.3-8.2)
--- NOTE | 2021-07-15 17:46 | XR ---
EXAMINATION TYPE: XR chest 2V DATE OF EXAM: 07/15/2021 COMPARISON: 06/08/2020 HISTORY: Nausea and vomiting TECHNIQUE: 2 view FINDINGS: There is no heart failure nor confluent pneumonic infiltrate. Costophrenic angles are clear . Bony thorax is intact. There is mild spurring in the thoracic spine. IMPRESSION: No active cardiopulmonary disease. There is clearing of the pulmonary interstitial infilt rates compared to old exam.
[2021-07-15] MEDS ORDERED: SODIUM CHLORIDE 0.9% 1,000 ML IV ONE (18:01)
[2021-07-15 19:21] LABS: Appearance,Urine Cloudy (Clear); Bacteria,Urine Many /hpf; Bilirubin,Urine Negative (Negative); Blood,Urine Negative (Negative); Color,Urine Yellow; Glucose,Urine (UA) 3+ (Negative); Leukocyte Esterase,Urine Large (Negative); Mucus,Urine Occasional /hpf; Nitrite,Urine Negative (Negative); PH, Urine 5.5 (5.0-8.0); Protein,Urine Trace (Negative); RBC,Urine 4 /hpf (0-5); Specific Gravity,Urine 1.023 (1.001-1.035); Squamous Epithelial Cell,Urine 1 /hpf (0-4); Urobilinogen,Urine <2.0 mg/dL (<2.0); WBC,Urine 138 /hpf (0-5)
[2021-07-15 19:22] LABS: Ketones,Urine 2+ (Negative)
[2021-07-15] MEDS ORDERED: cefTRIAXone IN SWFI 1,000 MG/10 ML SYRINGE IVP STA (19:37)
[2021-07-15] MEDS ORDERED: NALOXONE 0.4 MG/ML 1 ML VIAL IV PRN (20:21)
[2021-07-15] MEDS ORDERED: ACETAMINOPHEN TAB 325 MG TAB PO PRN (20:21)
[2021-07-15] MEDS ORDERED: ONDANSETRON 4 MG/2 ML VIAL IVP PRN (20:21)
[2021-07-15] MEDS: SODIUM CHLORIDE 0.9% 1,000 ML IV SCH (20:50)
[2021-07-16] MEDS: SODIUM CHLORIDE 0.9% 1,000 ML IV SCH ×2 (04:17→12:35)
[2021-07-16 06:37] LABS: Basophils % (A) 0 %; Eosinophils # (A) 0.1 k/uL (0-0.7); Eosinophils % (A) 2 %; HCT 38.8 % (39.0-53.0); Hypochromasia Moderate; Lymphocytes % (A) 32 %; MCHC 30.9 g/dL (31.0-37.0); MCV 87.4 fL (80.0-100.0); Mean Platelet Volume 7.1; Monocytes # (A) 0.5 k/uL (0-1.0); Monocytes % (A) 8 %; Neutrophils # (A) 3.5 k/uL (1.3-7.7); Neutrophils % (A) 56 %; Platelet Count 270 k/uL (150-450); RBC 4.43 m/uL (4.30-5.90); RDW 15.4 % (11.5-15.5); WBC 6.2 k/uL (3.8-10.6)
[2021-07-16] MEDS: IMIPRAMINE 10 MG TAB PO SCH ×2 (11:31→22:30)
[2021-07-16] MEDS: LACTOBACILLUS ACIDOPH & BULGAR 1 EACH PACKET PO SCH (11:31)
[2021-07-16] MEDS: metFORMIN 500 MG TAB PO SCH ×2 (11:32→21:19)
[2021-07-16] MEDS: ENOXAPARIN 40 MG/0.4 ML SYRINGE SQ SCH (11:32)
[2021-07-16] MEDS: lisinopriL 10 MG TAB PO SCH (11:32)
[2021-07-16] MEDS: INSULIN ASPART (NovoLOG) 100 UNIT/ML VIAL SQ SCH ×3 (12:35→21:19)
[2021-07-16 18:04] LABS: Glucose,Whole Blood 190 mg/dL (75-99)
--- NOTE | 2021-07-16 18:23 | P.HPIM ---
History of Present Illness H&P Date: 07/16/21 Chief Complaint: Room spinning History of presenting complaint: This is a 70-year-old patient of Dr. Ferreira. Chronic stable medical conditions include history of T10 paraplegia following a spinal injection, brain aneurysm, AAA, hyperlipidemia, [place] filter, diabetes. neurogenic bladder-patient does self-catheterization. Patient is cared for by his . Patient got up at home when he felt the room spinning. It lasted for good 1 hour. No obvious fever and chills. Appetite had been fair. He notices urine to become more cloudy and some foul-smelling. Decided to come in. Patient's found to have a UTI. Elliott catheter was placed in the ER. Started on antib iotics. Review of systems: GEN.: tired EYES: None HEENT: None NECK: None RESPIRATORY: None CARDIOVASCULAR: None GASTROINTESTINAL: None GENITOURINARY: As above MUSCULOSKELETAL: As above LYMPHATICS: None HEMATOLOGICAL: None PSYCHIATRY: None NEUROLOGICAL: chronic[Lower extremity weakness Past medical history to include: T10 paraplegia from spinal injection, prerenal aneurysm, abdominal aortic ane urysm, diabetes, [place] filter, hyperlipidemia,neurogenic bladder Social history: Did smoke in the remote past. No alcohol. . Physical examination: VITAL SIGNS: 97.5, 88, 18, 1:30/70, 99% room air GENERAL:BMI 26.2, reclining in bed, awake, comfortable EYES: Pupils equal. Conjunctiva normal. HEENT: External appearance of nose and ears normal, oral cavity grossly normal. NECK: JVD not raised; masses not palpable. HEART: First and second heart sounds are normal; no edema. LUNGS: Respiratory rate normal; clear to auscultation. ABDOMEN: Soft, nontender, liver spleen not palpable, no masses palpable. Elliott catheter with cloudy urine PSYCH: Alert and oriented x3; mood and affect normal. NEUROLOGICAL: [Cranial nerves grossly intact; no facial asymmetry, lower extremity power 0/5. No sensation of lower extremity. LYMPHATICS: No lymph nodes palpable in the axilla and neck INVESTIGATIONS, reviewed in the clinical context: White count 10.7 hemoglobin 13.6 platelets 291 potassium 4.2 creatinine 0.5 one Lactic acid 3.5 UA positive for leukoesterase, WBC EKG tracing personally reviewed by me-normal sinus rhythm. Nonspecific ST segment changes. Chest x-ray from personally reviewed by me: No infiltrates Assessment and plan: -Acute UTI with cystitis secondary to self-catheterization. IV ceftriaxone. Urine culture. -Chronic paraplegia from spinal cord injury at T10 -Diabetes mellitus type 2, Glucophage thousand milligrams twice a day. Amaryl 1 mg daily. Follow Accu- Cheks -[place] filter history of -Hyperlipidemia Mevacor 40 mg daily at bedtime -Essential hypertension Prinivil 10 mg daily -Chronic medical debility -Chronic bladder dysfunction patient does self-catheterization. IV ceftriaxone. Resume home medications. IV fluids. Elliott catheter placed. Urine cultures pending. Discussed with the patient. Past Medical History Past Medical History: Diabetes Mellitus, Hyperlipidemia, Hypertension, Vascular Disorder Additional Past Medical History / Comment(s): Paraplegic T10 down after brain aneurysm surgery, neurogenic bladder/pt self caths 2-3 times a day, pt has a samuel wel program to have bowel movements each morning, urinary incontinence when he transfers which caused a R scrotal abscess/wound which is now healed, AAA with surgery, NIDDM type II, bladder stones with surgical removal, chronic back pain. History of Any Multi-Drug Resistant Organisms: ESBL Date of last positivie culture/infection: 09/18/20 E.coli ESBL MDRO Source:: Pressure ulcer Past Surgical History: Appendectomy Additional Past Surgical History / Comment(s): AAA wrapped, brain aneurysm with clips, [place] filter, I&D R scrotal abscess, cystoscopy with cystolithotr ipsy, attempted bladder sling surgery. Past Anesthesia/Blood Transfusion Reactions: No Reported Reaction, Motion Sickness Past Psychological History: No Psychological Hx Reported Additional Psychological History / Comment(s): lives with his in the family home. Pt is a paraplegic. He is independent. He transfers himself to wheelchair/shower chair. They have a wheelchair accessible van. His spouse assists him at times with dressing. He manages his own meds. He feeds himself and self caths/manages his bowel program. They have a ramp in the garage of their home. Smoking Status: Former smoker Past Alcohol Use History: None Reported Additional Past Alcohol Use History / Comment(s): Pt started smoking in 1964 and quit in 2000. 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 Medications and Allergies Home Medications Medication Instructions Recorded Confirmed Type Lisinopril [Prinivil] 10 mg PO DAILY 06/24/17 07/15/21 History Lovastatin [Mevacor] 40 mg PO HS 06/24/17 07/15/21 History metFORMIN HCL [Glucophage] 1,000 mg PO BID 06/24/17 07/15/21 History Cranberry Fruit Extract [Cranberry] 500 mg PO DAILY 09/04/19 07/15/21 History L.acidoph,Paracasei, B.lactis 1 cap PO DAILY 09/04/19 07/15/21 History [Probiotic] Multivitamins, Thera [Multivitamin 1 tab PO DAILY 09/04/19 07/15/21 History (formulary)] Imipramine [Tofranil] 10 mg PO BID 09/15/20 07/15/21 History Glimepiride [Amaryl] 1 mg PO DAILY 07/15/21 07/15/21 History Allergies Allergy/AdvReac Type Severity Reaction Status Date / Time phenytoin [From Dilantin] Allergy Rash/Hives Verified 07/15/21 18:23 Sulfa (Sulfonamide Allergy Rash/Hives Verified 07/15/21 18:23 Antibiotics) Physical Exam Vitals: Vital Signs Temp Pulse Pulse Resp BP BP Pulse Ox 07/16/21 07:00 97.7 F 81 18 127/67 97 07/16/21 01:54 98.3 F 55 L 18 133/69 97 07/15/21 22:15 98.2 F 85 20 144/82 96 07/15/21 19:38 75 16 151/86 98 07/15/21 19:18 98.8 F 82 18 126/67 98 07/15/21 16:21 97.5 F L 88 18 130/70 99 Intake and Output 07/15/21 07/16/21 07/16/21 22:59 06:59 14:59 Intake Total 118 Output Total 250 700 Balance -250 -700 118 Intake: Oral 118 Output: Urine 250 700 Other: Voiding Method Indwelling Catheter Indwelling Catheter Indwelling Catheter Weight 85.275 kg Results CBC & Chem 7: 07/16/21 05:57 07/15/21 17:03 Labs: Abnormal Lab Results - Last 24 Hours (Table) 07/15/21 07/15/21 07/15/21 Range/Units 17:03 17:03 17:03 WBC 10.7 H (3.8-10.6) k/uL Hgb (13.0-17.5) gm/dL Hct (39.0-53.0) % MCHC (31.0-37.0) g/dL Neutrophils # 7.9 H (1.3-7.7) k/uL Carbon Dioxide 21 L (22-30) mmol/L Creatinine 0.51 L (0.66-1.25) mg/dL Glucose 250 H (74-99) mg/dL Plasma Lactic Acid Carl 3.5 H* (0.7-2.0) mmol/L Alkaline Phosphatase 155 H (38-126) U/L Urine Protein (Negative) Urine Glucose (UA) (Negative) Urine Ketones (Negative) Ur Leukocyte Esterase (Negative) Urine WBC (0-5) /hpf Urine Bacteria (None) /hpf Urine Mucus (None) /hpf 07/15/21 07/15/21 07/16/21 Range/Units 19:00 20:59 05:57 WBC (3.8-10.6) k/uL Hgb 12.0 L (13.0-17.5) gm/dL Hct 38.8 L (39.0-53.0) % MCHC 30.9 L (31.0-37.0) g/dL Neutrophils # (1.3-7.7) k/uL Carbon Dioxide (22-30) mmol/L Creatinine (0.66-1.25) mg/dL Glucose (74-99) mg/dL Plasma Lactic Acid Carl 2.2 H* (0.7-2.0) mmol/L Alkaline Phosphatase (38-126) U/L Urine Protein Trace H (Negative) Urine Glucose (UA) 3+ H (Negative) Urine Ketones 2+ H (Negative) Ur Leukocyte Esterase Large H (Negative) Urine WBC 138 H (0-5) /hpf Urine Bacteria Many H (None) /hpf Urine Mucus Occasional H (None) /hpf Microbiology - Last 24 Hours (Table) 07/15/21 19:00 Urine Culture - Preliminary Urine,Clean Catch Thrombosis Risk Factor Assmnt - Choose All That Apply Each Risk Factor Represents 2 Points: Age 61-74 years Thrombosis Risk Factor Assessment Total Risk Factor Score: 2 Thrombosis Risk Factor Assessment Level: Low Risk
[2021-07-16 20:18] LABS: Glucose,Whole Blood 175 mg/dL (75-99)
[2021-07-16] MEDS: ATORVASTATIN 10 MG TAB PO SCH (21:19)
[2021-07-17] MEDS: SODIUM CHLORIDE 0.9% 1,000 ML IV SCH ×2 (02:19→14:50)
[2021-07-17 08:01] LABS: Glucose,Whole Blood 178 mg/dL (75-99)
[2021-07-17] MEDS: lisinopriL 10 MG TAB PO SCH (08:16)
[2021-07-17] MEDS: LACTOBACILLUS ACIDOPH & BULGAR 1 EACH PACKET PO SCH (08:16)
[2021-07-17] MEDS: MULTIVITAMINS, THERA 1 EACH TAB PO SCH (08:16)
[2021-07-17] MEDS: IMIPRAMINE 10 MG TAB PO SCH ×2 (08:16→20:45)
[2021-07-17] MEDS: metFORMIN 500 MG TAB PO SCH ×2 (08:16→19:46)
[2021-07-17] MEDS: ENOXAPARIN 40 MG/0.4 ML SYRINGE SQ SCH (08:17)
[2021-07-17] MEDS: INSULIN ASPART (NovoLOG) 100 UNIT/ML VIAL SQ SCH ×4 (08:17→20:45)
[2021-07-17 11:44] LABS: Glucose,Whole Blood 146 mg/dL (75-99)
--- NOTE | 2021-07-17 16:44 | P.PN ---
Progress Note - Text Progress Note Date: 07/17/21 Chief Complaint: Room spinning History of presenting complaint: This is a 70-year-old patient of Dr. Ferreira. Chronic stable medical conditions include history of T10 paraplegia following a spinal injection, brain aneurysm, AAA, hyperlipidemia, [place] filter, diabetes. neurogenic bladder-patient does self-catheterization. Patient is cared for by his . Patient got up at home when he felt the room spinning. It lasted for good 1 hour. No obvious fever and chills. Appetite had been fair. He notices urine to become more cloudy and some foul-smelling. Decided to come in. Patient's found to have a UTI. Elliott catheter was placed in the ER. Started on antibiotics. July 17: No fever no chills. Pending cultures. IV ceftriaxone. Oral intake good Review of systems: Was done for constitutional, cardiovascular, GI, pulmonary. relevant finding as above Active Medications Acetaminophen (Acetaminophen Tab 325 Mg Tab) 650 mg PO Q6HR PRN PRN Reason: Mild Pain or Fever > 100.5 Atorvastatin Calcium (Atorvastatin 10 Mg Tab) 10 mg PO HS [facility] Last Admin: 07/16/21 21:19 Dose: 10 mg Documented by: Enoxaparin Sodium (Enoxaparin 40 Mg/0.4 Ml Syringe) 40 mg SQ DAILY [facility] Last Admin: 07/17/21 08:17 Dose: 40 mg Documented by: Sodium Chloride (Saline 0.9%) 1,000 mls @ 75 mls/hr IV .[id number] [facility] Last Admin: 07/17/21 14:50 Dose: Not Given Documented by: Ceftriaxone Sodium 1 gm/ (Sodium Chloride) 50 mls @ 100 mls/hr IVPB Q24HR [facility] Last Admin: 07/17/21 08:16 Dose: 100 mls/hr Documented by: Imipramine HCl (Imipramine 10 Mg Tab) 10 mg PO BID [facility] Last Admin: 07/17/21 08:16 Dose: 10 mg Documented by: Insulin Aspart (Insulin Aspart (Novolog) 100 Unit/Ml Vial) 0 unit SQ ACHS [facility]; Protocol Last Admin: 07/17/21 12:26 Dose: 1 unit Documented by: Lactobacillus Acidoph/Bulgaricus (Lactobacillus Acidoph & Bulgar 1 Each Packet) 1 each PO DAILY [facility] Last Admin: 01/07/22 08:16 Dose: 1 each Documented by: Lisinopril (Lisinopril 10 Mg Tab) 10 mg PO DAILY [facility] Last Admin: 07/17/21 08:16 Dose: 10 mg Documented by: Metformin HCl (Metformin 500 Mg Tab) 1,000 mg PO BID [facility] Last Admin: 07/17/21 08:16 Dose: 1,000 mg Documented by: Multivitamins (Multivitamins, Thera 1 Each Tab) 1 each PO DAILY [facility] Last Admin: 07/17/21 08:16 Dose: 1 each Documented by: Naloxone HCl (Naloxone 0.4 Mg/Ml 1 Ml Vial) 0.2 mg IV Q2M PRN PRN Reason: Opioid Reversal Ondansetron HCl (Ondansetron 4 Mg/2 Ml Vial) 4 mg IVP Q8HR PRN PRN Reason: Nausea And Vomiting Past medical history to include: T10 paraplegia from spinal injection, prerenal aneurysm, abdominal aortic aneurysm, diabetes, [place] filter, hyperlipidemia,neurogenic bladder Social history: Did smoke in the remote past. No alcohol. . Physical examination: VITAL SIGNS: 97.4, 91, 17, 132/68, 97% room air GENERAL:, Laying in bed,, comfortable EYES: Pupils equal. Conjunctiva normal. HEENT: Hard of hearing NECK: JVD not raised; masses not palpable. HEART: First and second heart sounds are normal; no edema. LUNGS: Respiratory rate normal; clear to auscultation. ABDOMEN: Soft, nontender, liver spleen not palpable, no masses palpable. Elliott catheter with cloudy urine PSYCH: Alert and oriented x3; mood and affect normal. NEUROLOGICAL: [Cranial nerves grossly intact; no facial asymmetry, lower extremity power 0/5. No sensation of lower extremity. INVESTIGATIONS, reviewed in the clinical context: White count 10.7 hemoglobin 13.6 platelets 291 potassium 4.2 creatinine 0.5 one Lactic acid 3.5 UA positive for leukoesterase, WBC EKG tracing personally reviewed by me-normal sinus rhythm. Nonspecific ST segment changes. Chest x-ray from personally reviewed by me: No infiltrates Assessment and plan: -Acute UTI with cystitis secondary to self-catheterization.: Cultures growing gram-negative bacilli IV ceftriaxone. Urine culture. -Chronic paraplegia from spinal cord injury at T10 -Diabetes mellitus type 2, Glucophage thousand milligrams twice a day. Amaryl 1 mg daily. Follow Accu- Cheks -[place] filter history of -Hyperlipidemia Mevacor 40 mg daily at bedtime -Essential hypertension Prinivil 10 mg daily -Chronic medical debility -Chronic bladder dysfunction patient does self-catheterization. IV ceftriaxone. Discussed with the patient. Gram-negative bacilli in urine. Continue current care.
[2021-07-17 17:24] LABS: Glucose,Whole Blood 162 mg/dL (75-99)
[2021-07-17] MEDS: ATORVASTATIN 10 MG TAB PO SCH (19:46)
[2021-07-17 20:25] LABS: Glucose,Whole Blood 263 mg/dL (75-99)
[2021-07-18] MEDS: SODIUM CHLORIDE 0.9% 1,000 ML IV SCH ×2 (05:26→19:33)
[2021-07-18 07:48] LABS: Glucose,Whole Blood 147 mg/dL (75-99)
[2021-07-18] MEDS: INSULIN ASPART (NovoLOG) 100 UNIT/ML VIAL SQ SCH ×4 (08:55→20:11)
[2021-07-18] MEDS: metFORMIN 500 MG TAB PO SCH ×2 (08:56→19:32)
[2021-07-18] MEDS: LACTOBACILLUS ACIDOPH & BULGAR 1 EACH PACKET PO SCH (08:56)
[2021-07-18] MEDS: MULTIVITAMINS, THERA 1 EACH TAB PO SCH (08:56)
[2021-07-18] MEDS: IMIPRAMINE 10 MG TAB PO SCH ×2 (08:56→19:33)
[2021-07-18] MEDS: lisinopriL 10 MG TAB PO SCH ×3 (08:57→09:52)
[2021-07-18] MEDS: ENOXAPARIN 40 MG/0.4 ML SYRINGE SQ SCH (08:57)
--- NOTE | 2021-07-18 10:28 | P.GSCN ---
History of Present Illness History of present illness: 70-year-old white male, patient has been admitted with history of acute UTI chronic paraplegia. Patient has a sacral wound on the left gluteal and sacral area. Patient is a under care of wound care under Dr. sarabia infectious disease patient has a history of 4 chronic paraplegia due to brain aneurysm history of diabetes hypertension Patient was seen in his room neck is supple no bruit appreciated Chest is clear auscultation first and second sound normal Abdomen is soft nontender Vascular femorals are 1+ patient has a pressure ulcer on the left gluteal area, and secondary area no discharge or redness noted base of the wound is clean he is been using VAC therapy at this point patient does not need any surgical intervention infectious disease on consult Past Medical History Past Medical History: Diabetes Mellitus, Hyperlipidemia, Hypertension, Vascular Disorder Additional Past Medical History / Comment(s): Paraplegic T10 down after brain aneurysm surgery, neurogenic bladder/pt self caths 2-3 times a day, pt has a bowel program to have bowel movements each morning, urinary incontinence when he transfers which caused a R scrotal abscess/wound which is now healed, AAA with surgery, NIDDM type II, bladder stones with surgical removal, chronic back pain. History of Any Multi-Drug Resistant Organisms: ESBL Year Discovered:: 09/18/20 E.coli ESBL MDRO Source:: Pressure ulcer Past Surgical History: Appendectomy Additional Past Surgical History / Comment(s): AAA wrapped, brain aneurysm with clips, [place] filter, I&D R scrotal abscess, cystoscopy with cystolithotripsy, attempted bladder sling surgery. Past Anesthesia/Blood Transfusion Reactions: No Reported Reaction, Motion Sickness Past Psychological History: No Psychological Hx Reported Additional Psychological History / Comment(s): lives with his in the family home. Pt is a paraplegic. He is independent. He transfers himself to wheelchair/shower chair. They have a wheelchair accessible van. His spouse assists him at times with dressing. He manages his own meds. He feeds himself and self caths/manages his bowel program. They have a ramp in the garage of their home. Smoking Status: Former smoker Past Alcohol Use History: None Reported Additional Past Alcohol Use History / Comment(s): Pt started smoking in 1964 and quit in 2000. 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 Medications and Allergies Home Medications Medication Instructions Recorded Confirmed Type Lisinopril [Prinivil] 10 mg PO DAILY 06/24/17 07/15/21 History Lovastatin [Mevacor] 40 mg PO HS 06/24/17 07/15/21 History metFORMIN HCL [Glucophage] 1,000 mg PO BID 06/24/17 07/15/21 History Cranberry Fruit Extract [Cranberry] 500 mg PO DAILY 09/04/19 07/15/21 History L.acidoph,Paracasei, B.lactis 1 cap PO DAILY 09/04/19 07/15/21 History [Probiotic] Multivitamins, Thera [Multivitamin 1 tab PO DAILY 09/04/19 07/15/21 History (formulary)] Imipramine [Tofranil] 10 mg PO BID 09/15/20 07/15/21 History Glimepiride [Amaryl] 1 mg PO DAILY 07/15/21 07/15/21 History Allergies Allergy/AdvReac Type Severity Reaction Status Date / Time phenytoin [From Dilantin] Allergy Rash/Hives Verified 07/15/21 18:23 Sulfa (Sulfonamide Allergy Rash/Hives Verified 07/15/21 18:23 Antibiotics) Surgical - Exam Vital Signs Temp Pulse Resp BP Pulse Ox 97.5 F L 88 18 130/70 99 07/15/21 16:21 07/15/21 16:21 07/15/21 16:21 07/15/21 16:21 07/15/21 16:21 Results - Labs 07/16/21 05:57 07/15/21 17:03 Abnormal Lab Results - Last 24 Hours (Table) 07/17/21 07/17/21 07/17/21 Range/Units 11:42 17:23 20:23 POC Glucose (mg/dL) 146 H 162 H 263 H (75-99) mg/dL 07/18/21 Range/Units 07:45 POC Glucose (mg/dL) 147 H (75-99) mg/dL Microbiology - Last 24 Hours (Table) 07/15/21 19:00 Urine Culture - Preliminary Urine,Clean Catch Gram Neg Bacilli
[2021-07-18 11:44] LABS: Glucose,Whole Blood 204 mg/dL (75-99)
[2021-07-18 13:44] VITALS: BMI 26.2
[2021-07-18 17:41] LABS: Glucose,Whole Blood 147 mg/dL (75-99)
--- NOTE | 2021-07-18 18:16 | P.PN ---
Progress Note - Text Progress Note Date: 07/18/21 Chief Complaint: Room spinning History of presenting complaint: This is a 70-year-old patient of Dr. Ferreira. Chronic stable medical conditions include history of T10 paraplegia following a spinal injection, brain aneurysm, AAA, hyperlipidemia, [place] filter, diabetes. neurogenic bladder-patient does self-catheterization. Patient is cared for by his . Patient got up at home when he felt the room spinning. It lasted for good 1 hour. No obvious fever and chills. Appetite had been fair. He notices urine to become more cloudy and some foul-smelling. Decided to come in. Patient's found to have a UTI. Elliott catheter was placed in the ER. Started on antibiotics. July 17: No fever no chills. Pending cultures. IV ceftriaxone. Oral intake good July 18: Comfortable. Oral intake good. Urine culture pending. Sacral wound was evaluated by Dr. Hurd. Not for any further intervention Review of systems: Was done for constitutional, cardiovascular, GI, pulmonary. relevant finding as above Active Medications Acetaminophen (Acetaminophen Tab 325 Mg Tab) 650 mg PO Q6HR PRN PRN Reason: Mild Pain or Fever > 100.5 Atorvastatin Calcium (Atorvastatin 10 Mg Tab) 10 mg PO HS [facility] Last Admin: 07/17/21 19:46 Dose: 10 mg Documented by: Enoxaparin Sodium (Enoxaparin 40 Mg/0.4 Ml Syringe) 40 mg SQ DAILY [facility] Last Admin: 07/18/21 08:57 Dose: 40 mg Documented by: Sodium Chloride (Saline 0.9%) 1,000 mls @ 75 mls/hr IV .[id number] [facility] Last Admin: 07/18/21 05:26 Dose: 75 mls/hr Documented by: Ceftriaxone Sodium 1 gm/ (Sodium Chloride) 50 mls @ 100 mls/hr IVPB Q24HR [facility] Last Admin: 07/18/21 08:57 Dose: 100 mls/hr Documented by: Imipramine HCl (Imipramine 10 Mg Tab) 10 mg PO BID [facility] Last Admin: 07/18/21 08:56 Dose: 10 mg Documented by: Insulin Aspart (Insulin Aspart (Novolog) 100 Unit/Ml Vial) 0 unit SQ ACHS [facility]; Protocol Last Admin: 07/18/21 18:11 Dose: 1 unit Documented by: Lactobacillus Acidoph/Bulgaricus (Lactobacillus Acidoph & Bulgar 1 Each Packet) 1 each PO DAILY [facility] Last Admin: 07/18/21 08:56 Dose: 1 each Documented by: Lisinopril (Lisinopril 10 Mg Tab) 10 mg PO DAILY [facility] Last Admin: 07/18/21 09:52 Dose: 10 mg Documented by: Metformin HCl (Metformin 500 Mg Tab) 1,000 mg PO BID [facility] Last Admin: 07/18/21 08:56 Dose: 1,000 mg Documented by: Multivitamins (Multivitamins, Thera 1 Each Tab) 1 each PO DAILY [facility] Last Admin: 07/18/21 08:56 Dose: 1 each Documented by: Naloxone HCl (Naloxone 0.4 Mg/Ml 1 Ml Vial) 0.2 mg IV Q2M PRN PRN Reason: Opioid Reversal Ondansetron HCl (Ondansetron 4 Mg/2 Ml Vial) 4 mg IVP Q8HR PRN PRN Reason: Nausea And Vomiting Past medical history to include: T10 paraplegia from spinal injection, prerenal aneurysm, abdominal aortic aneurysm, diabetes, [place] filter, hyperlipidemia,neurogenic bladder Social history: Did smoke in the remote past. No alcohol. . Physical examination: VITAL SIGNS: 7.8, 79, 18, 119 72, 98% room air GENERAL:, Sitting up in bed,, comfortable EYES: Pupils equal. Conjunctiva normal. HEENT: Hard of hearing NECK: JVD not raised; masses not palpable. HEART: First and second heart sounds are normal; no edema. LUNGS: Respiratory rate normal; clear to auscultation. ABDOMEN: Soft, nontender, liver spleen not palpable, no masses palpable. Elliott catheter with cloudy urine PSYCH: Alert and oriented x3; mood and affect normal. NEUROLOGICAL: [Cranial nerves grossly intact; no facial asymmetry, lower extremity power 0/5. No sensation of lower extremity. INVESTIGATIONS, reviewed in the clinical context: Urine culture: Gram-negative bacilli White count 10.7 hemoglobin 13.6 platelets 291 potassium 4.2 creatinine 0.5 one Lactic acid 3.5 UA positive for leukoesterase, WBC EKG tracing personally reviewed by me-normal sinus rhythm. Nonspecific ST segment changes. Chest x-ray from personally reviewed by me: No infiltrates Assessment and plan: -Acute UTI with cystitis secondary to self-catheterization.: Cultures growing gram-negative bacilli IV ceftriaxone. Urine culture pending. -Chronic paraplegia from spinal cord injury at T10 -Diabetes mellitus type 2, Glucophage thousand milligrams twice a day. Amaryl 1 mg daily. Follow Accu- Cheks -[place] filter history of -Hyperlipidemia Mevacor 40 mg daily at bedtime -Essential hypertension Prinivil 10 mg daily -Chronic medical debility -Chronic bladder dysfunction patient does self-catheterization. -Chronic sacral decubitus ulcer and left gluteal area. Continue with wound care IV ceftriaxone. Discussed with the patient. Gram-negative bacilli in urine. DC when cultures are finalized
[2021-07-18] MEDS: ATORVASTATIN 10 MG TAB PO SCH (19:32)
[2021-07-18 20:04] LABS: Glucose,Whole Blood 173 mg/dL (75-99)
[2021-07-19] MEDS: SODIUM CHLORIDE 0.9% 1,000 ML IV SCH ×2 (05:57→20:32)
[2021-07-19 07:35] LABS: Glucose,Whole Blood 125 mg/dL (75-99)
[2021-07-19] MEDS: INSULIN ASPART (NovoLOG) 100 UNIT/ML VIAL SQ SCH ×4 (07:48→20:29)
[2021-07-19] MEDS: MULTIVITAMINS, THERA 1 EACH TAB PO SCH (07:55)
[2021-07-19] MEDS: ENOXAPARIN 40 MG/0.4 ML SYRINGE SQ SCH (07:55)
[2021-07-19] MEDS: LACTOBACILLUS ACIDOPH & BULGAR 1 EACH PACKET PO SCH (07:55)
[2021-07-19] MEDS: metFORMIN 500 MG TAB PO SCH ×2 (07:55→20:29)
[2021-07-19] MEDS: IMIPRAMINE 10 MG TAB PO SCH ×2 (07:55→20:29)
[2021-07-19] MEDS: lisinopriL 10 MG TAB PO SCH (07:58)
[2021-07-19 12:00] LABS: Glucose,Whole Blood 187 mg/dL (75-99)
--- NOTE | 2021-07-19 12:21 | P.CONS ---
History of Present Illness - Reason for Consult Consult date: 07/18/21 pressure ulcers Requesting physician: Ramon Mancera - Chief Complaint dizziness and vomiting x 1 day - History of Present Illness History of present illness : Patient is 70-year-old male with a past medical history significant for T10 paraplegia in this patient who did have a chronic bilateral ischial pressure ulcer with an episode of osteomyelitis for the patient has completed his antibiotic therapy current local wound care is with wound VAC and the patient to follow-up with us as needed on the [facility] wound care patient presented to [facility] ER on July 15 2019- for evaluation of episode of dizziness room spinning did have episode of vomiting patient due intermittent catheterization and was noticed that his urine was getting darker and foul-smelling the day of presentation to the hospital on arrival to the ER the patient was afebrile and no fever has been recorded subsequently patient did have a mildly elevated white count 10.7 with a left shift repeat is normal urine was positive khan PCR was negative patient did have a chest x-ray no active cardiopulmonary disease urine culture subsequently finalized urine culture sensitive pathogen and patient is being treated with Rocephin infectious disease was consulted for management of bilateral ischial pressure ulcer, wound VAC has been discontinued and is currently being treated with a dry dressing Review of system: CONSTITUTIONAL: Positive for weakness denies fever. EYES: No complaint. ENT: No complaint. RESPIRATORY: No complaint. CARDIOVASCULAR: No complaint. GENITOURINARY: No complaint. GASTROINTESTINAL: As per history of present illness. MUSCULOSKELETAL: As per history of present illness. INTEGUMENTARY: No complaint. PSYCHOLOGIC: No complaint. ENDOCRINE: No complaint. NEUROLOGIC: No complaint. Past medical history : Reviewed, documented below Past surgical history : Reviewed, documented below Social history: Reviewed, documented below Medications: Reviewed, as documented below EXAMINATION: Vital sigans= Reviewed and documented below GENERAL DESCRIPTION: Elderly male lying in bed, no distress. No tachypnea or accessory muscle of respiration use. HEENT: Shows Pallor , no scleral icterus. Oral mucous membrane is dry. NECK: Trachea central, no thyromegaly. LUNGS: Unlabored breathing. Clear to auscultation anteriorly. No wheeze or crack le. HEART: S1, S2, regular rate and rhythm. ABDOMEN: Soft, no tenderness , guarding or rigidity EXTREMITIES: No edema of feet. SKIN: No rash, no masses palpable. Bilateral ischial pressure ulcer wound base looks clean with no slough tissue no surrounding redness or drainage NEUROLOGICAL: The patient is awake, alert, oriented x3, mood and affect normal. LABS AND RADIOLOGY: Reviewed results see below Assessment :1-patient presented to hospital with dizziness episode of vomiting he did have a cloudy urine this patient did have positive UA with urine colonized with an E. coli with a component of symptomatic urinary tract infection 2-bilateral ischial pressure ulcer with no cellulitis Plan: 1-Rocephin 1 g daily to continue 2-wound care to bilateral ischial pressure ulcer to be resumed with a wound VAC continuous pressure of 125 mmHg change Tuesday 3-dry Aquacel silver dressing to the right gluteal pressure ulcer We will follow on clinical condition and cultures to further adjust medication if needed Thank you for this consultation we will follow the patient along with you Past Medical History Past Medical History: Diabetes Mellitus, Hyperlipidemia, Hypertension, Vascular Disorder Additional Past Medical History / Comment(s): Paraplegic T10 down after brain aneurysm surgery, neurogenic bladder/pt self caths 2-3 times a day, pt has a bowel program to have bowel movements each morning, urinary incontinence when he transfers which caused a R scrotal abscess/wound which is now healed, AAA with surgery, NIDDM type II, bladder stones with surgical removal, chronic back pain. History of Any Multi-Drug Resistant Organisms: ESBL Year Discovered:: 09/18/20 E.coli ESBL MDRO Source:: Pressure ulcer Past Surgical History: Appendectomy Additional Past Surgical History / Comment(s): AAA wrapped, brain aneurysm with clips, sabrina filter, I&D R scrotal abscess, cystoscopy with cystolithotripsy, attempted bladder sling surgery. Past Anesthesia/Blood Transfusion Reactions: No Reported Reaction, Motion Sickness Past Psychological History: No Psychological Hx Reported Additional Psychological History / Comment(s): lives with his in the family home. Pt is a paraplegic. He is independent. He transfers himself to wheelchair/shower chair. They have a wheelchair accessible van. His spouse assists him at times with dressing. He manages his own meds. He feeds himself and self caths/manages his bowel program. They have a ramp in the garage of their home. Smoking Status: Former smoker Past Alcohol Use History: None Reported Additional Past Alcohol Use History / Comment(s): Pt started smoking in 1964 and quit in 2000. 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 Medications and Allergies Home Medications Medication Instructions Recorded Confirmed Type Lisinopril [Prinivil] 10 mg PO DAILY 06/24/17 07/15/21 History Lovastatin [Mevacor] 40 mg PO HS 06/24/17 07/15/21 History metFORMIN HCL [Glucophage] 1,000 mg PO BID 06/24/17 07/15/21 History Cranberry Fruit Extract [Cranberry] 500 mg PO DAILY 09/04/19 07/15/21 History L.acidoph,Paracasei, B.lactis 1 cap PO DAILY 09/04/19 07/15/21 History [Probiotic] Multivitamins, Thera [Multivitamin 1 tab PO DAILY 09/04/19 07/15/21 History (formulary)] Imipramine [Tofranil] 10 mg PO BID 09/15/20 07/15/21 History Glimepiride [Amaryl] 1 mg PO DAILY 07/15/21 07/15/21 History Allergies Allergy/AdvReac Type Severity Reaction Status Date / Time phenytoin [From Dilantin] Allergy Rash/Hives Verified 07/15/21 18:23 Sulfa (Sulfonamide Allergy Rash/Hives Verified 07/15/21 18:23 Antibiotics) Physical Exam Vitals: Vital Signs Temp Pulse Resp BP Pulse Ox 07/18/21 13:40 97.8 F 79 18 119/72 98 07/18/21 09:51 101/62 07/18/21 08:00 17 07/18/21 07:42 97.7 F 82 17 93/56 96 07/18/21 01:50 98.4 F 92 16 105/63 96 07/17/21 19:01 98.1 F 88 16 120/57 98 Intake and Output 07/18/21 07/18/21 07/18/21 06:59 14:59 22:59 Intake Total 236 Output Total 1250 Balance -1250 236 Intake: Oral 236 Output: Urine 1250 Other: Voiding Method Indwelling Catheter Weight 85.275 kg Results CBC & Chem 7: 07/16/21 05:57 07/15/21 17:03 Labs: Abnormal Lab Results - Last 24 Hours (Table) 07/17/21 07/17/21 07/18/21 Range/Units 17:23 20:23 07:45 POC Glucose (mg/dL) 162 H 263 H 147 H (75-99) mg/dL 07/18/21 Range/Units 11:43 POC Glucose (mg/dL) 204 H (75-99) mg/dL Microbiology - Last 24 Hours (Table) 07/15/21 19:00 Urine Culture - Final Urine,Clean Catch Escherichia coli
--- NOTE | 2021-07-19 16:50 | P.PN ---
Progress Note - Text Progress Note Date: 07/19/21 Chief Complaint: Room spinning History of presenting complaint: This is a 70-year-old patient of Dr. Ferreira. Chronic stable medical conditions include history of T10 paraplegia following a spinal injection, brain aneurysm, AAA, hyperlipidemia, [place] filter, diabetes. neurogenic bladder-patient does self-catheterization. Patient is cared for by his . Patient got up at home when he felt the room spinning. It lasted for good 1 hour. No obvious fever and chills. Appetite had been fair. He notices urine to become more cloudy and some foul-smelling. Decided to come in. Patient's found to have a UTI. Elliott catheter was placed in the ER. Started on antibiotics. July 17: No fever no chills. Pending cultures. IV ceftriaxone. Oral intake good July 18: Comfortable. Oral intake good. Urine culture pending. Sacral wound was evaluated by Dr. Hurd. Not for any further intervention July 19: Patient comfortable. Oral intake good. Urine culture came back showing E. coli. Patient was to be discharged on Ceftin. Home care cannot bring out the wound VAC today. Has discharged reluctant tomorrow. Review of systems: Was done for constitutional, cardiovascular, GI, pulmonary. relevant finding as above Active Medications Acetaminophen (Acetaminophen Tab 325 Mg Tab) 650 mg PO Q6HR PRN PRN Reason: Mild Pain or Fever > 100.5 Atorvastatin Calcium (Atorvastatin 10 Mg Tab) 10 mg PO HS [facility] Last Admin: 07/18/21 19:32 Dose: 10 mg Documented by: Enoxaparin Sodium (Enoxaparin 40 Mg/0.4 Ml Syringe) 40 mg SQ DAILY [facility] Last Admin: 07/19/21 07:55 Dose: 40 mg Documented by: Sodium Chloride (Saline 0.9%) 1,000 mls @ 75 mls/hr IV .[id number] [facility] Last Admin: 07/19/21 05:57 Dose: 75 mls/hr Documented by: Ceftriaxone Sodium 1 gm/ (Sodium Chloride) 50 mls @ 100 mls/hr IVPB Q24HR [facility] Last Admin: 07/19/21 07:56 Dose: 100 mls/hr Documented by: Imipramine HCl (Imipramine 10 Mg Tab) 10 mg PO BID [facility] Last Admin: 07/19/21 07:55 Dose: 10 mg Documented by: Insulin Aspart (Insulin Aspart (Novolog) 100 Unit/Ml Vial) 0 unit SQ ACHS [facility]; Protocol Last Admin: 07/19/21 12:16 Dose: 2 unit Documented by: Lactobacillus Acidoph/Bulgaricus (Lactobacillus Acidoph & Bulgar 1 Each Packet) 1 each PO DAILY [facility] Last Admin: 07/19/21 07:55 Dose: 1 each Documented by: Lisinopril (Lisinopril 10 Mg Tab) 10 mg PO DAILY [facility] Last Admin: 07/19/21 07:58 Dose: 10 mg Documented by: Metformin HCl (Metformin 500 Mg Tab) 1,000 mg PO BID [facility] Last Admin: 07/19/21 07:55 Dose: 1,000 mg Documented by: Multivitamins (Multivitamins, Thera 1 Each Tab) 1 each PO DAILY [facility] Last Admin: 07/19/21 07:55 Dose: 1 each Documented by: Naloxone HCl (Naloxone 0.4 Mg/Ml 1 Ml Vial) 0.2 mg IV Q2M PRN PRN Reason: Opioid Reversal Ondansetron HCl (Ondansetron 4 Mg/2 Ml Vial) 4 mg IVP Q8HR PRN PRN Reason: Nausea And Vomiting Past medical history to include: T10 paraplegia from spinal injection, prerenal aneurysm, abdominal aortic aneurysm, diabetes, [place] filter, hyperlipidemia,neurogenic bladder Social history: Did smoke in the remote past. No alcohol. . Physical examination: VITAL SIGNS: 98.2, 80, 18, 130/71, 98% room air GENERAL:, Sitting up in bed,, comfortable EYES: Pupils equal. Conjunctiva normal. HEENT: Hard of hearing NECK: JVD not raised; masses not palpable. HEART: First and second heart sounds are normal; no edema. LUNGS: Respiratory rate normal; clear to auscultation. ABDOMEN: Soft, nontender, liver spleen not palpable, no masses palpable. Elliott catheter with cloudy urine PSYCH: Alert and oriented x3; mood and affect normal. NEUROLOGICAL: [Cranial nerves grossly intact; no facial asymmetry, lower extremity power 0/5. No sensation of lower extremity. INVESTIGATIONS, reviewed in the clinical context: Urine culture: E. coli White count 10.7 hemoglobin 13.6 platelets 291 potassium 4.2 creatinine 0.5 one Lactic acid 3.5 UA positive for leukoesterase, WBC EKG tracing personally reviewed by -normal sinus rhythm. Nonspecific ST segment changes. Chest x-ray from personally reviewed by me: No infiltrates Assessment and plan: -Acute UTI with cystitis secondary to self-catheterization.: Cultures growing gram-negative bacilli IV ceftriaxone. Urine culture pending. -Chronic paraplegia from spinal cord injury at T10 -Diabetes mellitus type 2, Glucophage thousand milligrams twice a day. Amaryl 1 mg daily. Follow [facility]- [facility] -Aptible filter history of -Hyperlipidemia Mevacor 40 mg daily at bedtime -Essential hypertension Prinivil 10 mg daily -Chronic medical debility -Chronic bladder dysfunction patient does self-catheterization. -Chronic sacral decubitus ulcer and left gluteal area. Continue with wound care IV ceftriaxone. Discussed with the patient. Home care cannot bring out the wound VAC today. Patient be discharged tomorrow.
[2021-07-19 17:07] LABS: Glucose,Whole Blood 108 mg/dL (75-99)
[2021-07-19 20:18] LABS: Glucose,Whole Blood 158 mg/dL (75-99)
[2021-07-19] MEDS: ATORVASTATIN 10 MG TAB PO SCH (20:29)
[2021-07-20 05:44] VITALS: PULSE 81
--- NOTE | 2021-07-20 06:03 | PN ---
PROGRESS NOTE DATE OF SERVICE: 07/19/2021 REASON FOR FOLLOWUP: UTI and bilateral ischial pressure ulcer. INTERVAL HISTORY: The patient is afebrile. The patient is currently breathing comfortably. Patient denies having any chest pain, shortness of breath or cough. No abdominal pain or diarrhea. PHYSICAL EXAMINATION: Blood pressure is 126/70 with a pulse of 82, temperature 97.8. She is 98% on room air. General description is an elderly male lying in bed in no distress. Respiratory system: Unlabored breathing, clear to auscultation anteriorly. Heart S1, S2. Regular rate and rhythm. Abdomen soft, no tenderness. LABS: No new labs have been obtained today. DIAGNOSTIC IMPRESSION AND PLAN: 1. Patient with E. coli urinary tract infection covered with Rocephin to finish therapy with oral Ceftin. 2. Bilateral ischial pressure ulcer. Local care to continue with current dressing can be transition to wound vac on discharge. MMODL / IJN: [id number] / MTDD
[2021-07-20 07:14] LABS: ALT 15 U/L (4-49); AST 21 U/L (17-59); African American GFR (CKD) >90 (>60 ml/min/1.73 sqM); Albumin 2.9 g/dL (3.5-5.0); Alkaline Phosphatase 107 U/L (38-126); Anion Gap 5 mmol/L; Blood Urea Nitrogen 11 mg/dL (9-20); Calcium 8.9 mg/dL (8.4-10.2); Carbon Dioxide 25 mmol/L (22-30); Chloride 106 mmol/L (98-107); Glucose 129 mg/dL (74-99); Non-African American GFR(CKD) >90 (>60 ml/min/1.73 sqM); Potassium 4.4 mmol/L (3.5-5.1); Sodium 136 mmol/L (137-145); Total Bilirubin 0.5 mg/dL (0.2-1.3); Total Protein 5.9 g/dL (6.3-8.2)
[2021-07-20 07:15] LABS: Anisocytosis Slight; Basophils % (A) 0 %; Eosinophils # (A) 0.2 k/uL (0-0.7); Eosinophils % (A) 4 %; HCT 40.3 % (39.0-53.0); HGB 12.3 gm/dL (13.0-17.5); Hypochromasia Moderate; Lymphocytes # (A) 1.8 k/uL (1.0-4.8); Lymphocytes % (A) 31 %; MCH 26.9 pg (25.0-35.0); MCHC 30.6 g/dL (31.0-37.0); MCV 87.8 fL (80.0-100.0); Mean Platelet Volume 7.1; Monocytes # (A) 0.3 k/uL (0-1.0); Monocytes % (A) 6 %; Neutrophils # (A) 3.3 k/uL (1.3-7.7); Neutrophils % (A) 57 %; Platelet Count 259 k/uL (150-450); RBC 4.59 m/uL (4.30-5.90); WBC 5.9 k/uL (3.8-10.6)
[2021-07-20 07:40] LABS: Glucose,Whole Blood 128 mg/dL (75-99)
[2021-07-20 08:29] VITALS: BP 108/54; RESP 20; TEMP 97.6
[2021-07-20] MEDS: INSULIN ASPART (NovoLOG) 100 UNIT/ML VIAL SQ SCH ×2 (08:58→12:31)
[2021-07-20] MEDS: SODIUM CHLORIDE 0.9% 1,000 ML IV SCH (09:25)
[2021-07-20] MEDS: ENOXAPARIN 40 MG/0.4 ML SYRINGE SQ SCH (09:36)
[2021-07-20] MEDS: metFORMIN 500 MG TAB PO SCH (09:36)
[2021-07-20] MEDS: MULTIVITAMINS, THERA 1 EACH TAB PO SCH (09:36)
[2021-07-20] MEDS: IMIPRAMINE 10 MG TAB PO SCH (09:36)
[2021-07-20] MEDS: lisinopriL 10 MG TAB PO SCH (09:37)
[2021-07-20] MEDS: LACTOBACILLUS ACIDOPH & BULGAR 1 EACH PACKET PO SCH (09:43)
[2021-07-20 12:24] LABS: Glucose,Whole Blood 233 mg/dL (75-99)
--- NOTE | 2021-07-20 21:45 | P.PN ---
Progress Note - Text Progress Note Date: 07/20/21 REASON FOR FOLLOWUP: UTI and bilateral ischial pressure ulcer. INTERVAL HISTORY: The patient remains to be afebrile. The patient is breathing comfortably. Patient denies having any chest pain, shortness of breath or cough. No abdominal pain or diarrhea. PHYSICAL EXAMINATION: Blood pressure is 120/75 with a pulse of 82, temperature 97.8. She is 98% on room air. General description is an elderly male lying in bed in no distress. Respiratory system: Unlabored breathing, clear to auscultation anteriorly. Heart S1, S2. Regular rate and rhythm. Abdomen soft, no tenderness. LABS: reviewed DIAGNOSTIC IMPRESSION AND PLAN: 1. Patient with E. coli urinary tract infection covered with Rocephin to finish therapy with oral Ceftin.Elliott to be discontinued on discharge to decrease risk of CAUTI 2. Bilateral ischial pressure ulcer. Local care will be resumed with wound vac on discharge and to follow up in wound care center next week.
--- NOTE | 2021-07-20 22:18 | P.DS ---
Providers Date of admission: 07/16/21 14:56 Expected date of discharge: 07/20/21 Attending physician: Ramon Mancera Consults: 07/18/21 01:11 Consult Physician Routine Consulting Provider: Tari Sarabia Consult Reason/Comments: multiple pressure ulcers /wound vac therapy Do you want consulting provider notified?: Yes, Notify in am 07/18/21 01:13 Consult Physician Routine Consulting Provider: Maxi Wright Consult Reason/Comments: multiple pressure ulcers. wound vac therapy Do you want consulting provider notified?: Yes, Notify in am Primary care physician: [facility] Course: Chief Complaint: Room spinning History of presenting complaint: This is a 70-year-old patient of Dr. Ferreira. Chronic stable medical conditions include history of T10 paraplegia following a spinal injection, brain aneurysm, AAA, hyperlipidemia, [place] filter, diabetes. neurogenic bladder-patient does self-catheterization. Patient is cared for by his . Patient got up at home when he felt the room spinning. It lasted for good 1 hour. No obvious fever and chills. Appetite had been fair. He notices urine to become more cloudy and some foul-smelling. Decided to come in. Patient's found to have a UTI. Elliott catheter was placed in the ER. Started on antibiotics. July 17: No fever no chills. Pending cultures. IV ceftriaxone. Oral intake good July 18: Comfortable. Oral intake good. Urine culture pending. Sacral wound was evaluated by Dr. Hurd. Not for any further intervention July 19: Patient comfortable. Oral intake good. Urine culture came back showing E. coli. Patient was to be discharged on Ceftin. Home care cannot bring out the wound VAC today. Has discharged reluctant tomorrow. July 20: Patient doing well. He'll be discharged on Ceftin. Wound VAC to continue per home care. DC Elliott. Patient does self-catheterization. Consultation: Dr. Sarabia from [facility] Past medical history to include: T10 paraplegia from spinal injection, prerenal aneurysm, abdominal aortic aneurysm, diabetes, [place] filter, hyperlipidemia,neurogenic bladder Social history: Did smoke in the remote past. No alcohol. . Physical examination: VITAL SIGNS: 97.6, 91, 20, 108/54, 98% on room air GENERAL:, Sitting up in bed,, comfortable EYES: Pupils equal. Conjunctiva normal. HEENT: Hard of hearing NECK: JVD not raised; masses not palpable. HEART: First and second heart sounds are normal; no edema. LUNGS: Respiratory rate normal; clear to auscultation. ABDOMEN: Soft, nontender, liver spleen not palpable, no masses palpable. Elliott catheter with cloudy urine PSYCH: Alert and oriented x3; mood and affect normal. NEUROLOGICAL: [Cranial nerves grossly intact; no facial asymmetry, lower extrem ity power 0/5. No sensation of lower extremity. INVESTIGATIONS, reviewed in the clinical context: July 20: White count 5.9 hemoglobin 12.3 potassium 4.4 creatinine 0.61 Urine culture: E. coli White count 10.7 hemoglobin 13.6 platelets 291 potassium 4.2 creatinine 0.5 one Lactic acid 3.5 UA positive for leukoesterase, WBC EKG tracing personally reviewed by me-normal sinus rhythm. Nonspecific ST segment changes. Chest x-ray from personally reviewed by me: No infiltrates Assessment and plan: -Acute UTI with cystitis secondary to self-catheterization.: Cultures growing E. coli IV ceftriaxone. DC on Ceftin -Chronic paraplegia from spinal cord injury at T10 -Diabetes mellitus type 2, Glucophage thousand milligrams twice a day. Amaryl 1 mg daily. Follow [facility]- [facility] -[place] filter history of -Hyperlipidemia Mevacor 40 mg daily at bedtime -Essential hypertension Prinivil 10 mg daily -Chronic medical debility -Chronic bladder dysfunction patient does self-catheterization. -Chronic sacral decubitus ulcer and left gluteal area. Continue with wound care. Resume wound VAC upon DC and follow with Dr. Simpson Disposition: Home Plan - Discharge Summary Discharge Rx Participant: No New Discharge Prescriptions: New Cefuroxime Axetil [Ceftin] 500 mg PO BID #10 tab Continue Lovastatin [Mevacor] 40 mg PO HS Lisinopril [Prinivil] 10 mg PO DAILY metFORMIN HCL [Glucophage] 1,000 mg PO BID L.acidoph,Paracasei, B.lactis [Probiotic] 1 cap PO DAILY Cranberry Fruit Extract [Cranberry] 500 mg PO DAILY Multivitamins, Thera [Multivitamin (formulary)] 1 tab PO DAILY Imipramine [Tofranil] 10 mg PO BID Glimepiride [Amaryl] 1 mg PO DAILY Discharge Medication List Lisinopril [Prinivil] 10 mg PO DAILY 06/24/17 [History] Lovastatin [Mevacor] 40 mg PO HS 06/24/17 [History] metFORMIN HCL [Glucophage] 1,000 mg PO BID 06/24/17 [History] Cranberry Fruit Extract [Cranberry] 500 mg PO DAILY 09/04/19 [History] L.acidoph,Paracasei, B.lactis [Probiotic] 1 cap PO DAILY 09/04/19 [History] Multivitamins, Thera [Multivitamin (formulary)] 1 tab PO DAILY 09/04/19 [History] Imipramine [Tofranil] 10 mg PO BID 09/15/20 [History] Glimepiride [Amaryl] 1 mg PO DAILY 07/15/21 [History] Cefuroxime Axetil [Ceftin] 500 mg PO BID #10 tab 07/19/21 [Rx] Follow up Appointment(s)/Referral(s): Jeremiah Ferreira DO [Primary Care Provider] - 1-2 days [facility], [NON-STAFF] - 1-2 Days Patient Instructions/Handouts: Urinary Tract Infection in Men (DC) Activity/Diet/Wound Care/Special Instructions: wound center- dr sarabia Discharge Disposition: HOME WITH HOME HEALTH SERVICES
== END 2021-07-20 15:55 | disposition home health service (06) | DRG 698 ==
LOC: EC 16:15 → 6NMEDSUR 21:02 → OBSVTOIN 07-16 14:56
PROVIDERS: ADMIT Hospitalist; ATTEND Hospitalist
DX: T83.511A Infection and inflammatory reaction due to indwelling urethral catheter, initial encounter (principal); A41.51 Sepsis due to Escherichia coli [E. coli]; S24.103A Unspecified injury at T7-T10 level of thoracic spinal cord, initial encounter; G82.20 Paraplegia, unspecified; N30.00 Acute cystitis without hematuria; L89.319 Pressure ulcer of right buttock, unspecified stage; L89.159 Pressure ulcer of sacral region, unspecified stage; L89.329 Pressure ulcer of left buttock, unspecified stage; E11.51 Type 2 diabetes mellitus with diabetic peripheral angiopathy without gangrene; Z20.822 Contact with and (suspected) exposure to COVID-19; E78.5 Hyperlipidemia, unspecified; I10 Essential (primary) hypertension; N31.9 Neuromuscular dysfunction of bladder, unspecified; G89.29 Other chronic pain; M54.9 Dorsalgia, unspecified; R32 Unspecified urinary incontinence; H91.90 Unspecified hearing loss, unspecified ear; R53.81 Other malaise; Z79.84 Long term (current) use of oral hypoglycemic drugs; Z79.899 Other long term (current) drug therapy; Z87.891 Personal history of nicotine dependence; Z95.828 Presence of other vascular implants and grafts; Z87.442 Personal history of urinary calculi; Z86.19 Personal history of other infectious and parasitic diseases; Z90.49 Acquired absence of other specified parts of digestive tract; Z87.19 Personal history of other diseases of the digestive system; Z98.890 Other specified postprocedural states; Z88.2 Allergy status to sulfonamides; Z88.8 Allergy status to other drugs, medicaments and biological substances; Z80.9 Family history of malignant neoplasm, unspecified
CPT/HCPCS: 36415; 71046; 80053; 81001; 83605; 83735; 84484; 85025; 87077; 87086; 87186; 87635; 93005; 96361; 96374; 99285

== ENCOUNTER 2022-12-17 12:32 | Inpatient (IN) | payer MEDICARE, BC ==
[2022-12-17 12:47] LABS: Glucose,Whole Blood 340 mg/dL (70-110)
[2022-12-17] MEDS ORDERED: SODIUM CHLORIDE 0.9% 1,000 ML IV STA (13:02)
--- NOTE | 2022-12-17 13:09 | ED ---
General Adult HPI - General Chief complaint: Urogenital Stated complaint: Dizziness Time Seen by Provider: 12/17/22 12:37 Source: patient, EMS Mode of arrival: EMS Limitations: no limitations - History of Present Illness Initial comments: Dictation was produced using [employer] dictation software. please excuse any grammatical, word or spelling errors. Chief Complaint: 72-year-old male presents emergency Department with weakness and dizziness History of Present Illness: Is 72-year-old male has multiple comorbidities. He is paraplegic has history of abdominal and intracranial aneurysms. Patient was 48 hours has been having dizziness and weakness. He states that the dizziness is intermittent. Patient's paraplegic. States that he feels more weak than usual. Patient is paraplegic from T10 down. He does not have a Elliott catheter. He wears adult diaper. Patient is asymptomatic at the bedside. States that he does not feel dizzy at this time. Denies sensation of vertigo. denies any history of vertigo. The ROS documented in this emergency department record has been reviewed and confirmed by me. Those systems with pertinent positive or negative responses have been documented in the HPI. All other systems are other negative and/or noncontributory. - Related Data Home Medications Medication Instructions Recorded Confirmed Lovastatin [Mevacor] 40 mg PO DAILY 06/24/17 12/17/22 Imipramine [Tofranil] 10 mg PO BID 09/15/20 12/17/22 Glimepiride [Amaryl] 1 mg PO DAILY 07/15/21 12/17/22 Insulin Detemir [Levemir Flexpen] 18 units SQ HS 12/17/22 12/17/22 Methenamine Hippurate [Hiprex] 1 gm PO BID 12/17/22 12/17/22 Allergies Allergy/AdvReac Type Severity Reaction Status Date / Time phenytoin [From Dilantin] Allergy Rash/Hives Verified 12/17/22 14:31 Sulfa (Sulfonamide Allergy Rash/Hives Verified 12/17/22 14:31 Antibiotics) Review of Systems ROS Statement: Those systems with pertinent positive or pertinent negative responses have been documented in the HPI. ROS Other: All systems not noted in ROS Statement are negative. Past Medical History Past Medical History: Diabetes Mellitus, Hyperlipidemia, Hypertension, Vascular Disorder Additional Past Medical History / Comment(s): Paraplegic T10 down after brain aneurysm surgery, neurogenic bladder/pt self caths 2-3 times a day, pt has a bowel program to have bowel movements each morning, urinary incontinence when he transfers which caused a R scrotal abscess/wound which is now healed, AAA with surgery, NIDDM type II, bladder stones with surgical removal, chronic back pain. History of Any Multi-Drug Resistant Organisms: ESBL Date of last positivie culture/infection: 09/18/20 E.coli ESBL MDRO Source:: Pressure ulcer Past Surgical History: Appendectomy Additional Past Surgical History / Comment(s): AAA wrapped, brain aneurysm with clips, sabrina filter, I&D R scrotal abscess, cystoscopy with cystolithotripsy, attempted bladder sling surgery. 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 General Exam - General Exam Comments Initial Comments: PHYSICAL EXAM: General Impression: Alert and oriented x3, not in acute distress HEENT: Normocephalic atraumatic, extra-ocular movements intact, pupils equal and reactive to light bilaterally, mucous membranes moist. Cardiovascular: Heart regular rate and rhythm Chest: Able to complete full sentences, no retractions, no tachypnea Abdomen: abdomen soft, non-tender, non-distended, no organomegaly Musculoskeletal: Pulses present and equal in all extremities, no peripheral edema Motor: Paraplegic to the lower extremities Neurological: CN II-XII grossly intact, noted, no nystagmus, dizziness not reproducible with position changes Skin: Large gaping decubitus ulcers to the bilateral hips, there is. exudative material however no significant surrounding erythema, it is malodorous Psych: Normal affect and mood Limitations: no limitations Course Vital Signs 12/17/22 12:35 Temperature 97.8 F Pulse Rate 90 Respiratory 18 Rate Blood Pressure 101/60 O2 Sat by Pulse 93 L Oximetry EKG Findings - EKG Comments: EKG Findings:: My EKG interpretation: Ventricular rate 80, sinus rhythm,. 156, QRS 108, QTC 49. No RI prolongation, no QTC prolongation, no ST or T-wave changes noted. Overall, this EKG is unremarkable Procedures - Sepsis Sepsis Focused Exam #1 Time Sepsis Criteria Met: 14:49 Sepsis Focused Exam Date: 12/17/22 Sepsis Focused Exam Time: 14:49 Sepsis Focused Exam Complete: Yes Vital Signs & RN Notes Reviewed: Yes Capillary Refill: < 2 Seconds: Fingers, Toes Peripheral Pulses: Normal: Radial (R), Radial (L), Posterior Tibialis (R), Posterior Tibialis (L), Dorsalis Pedis (R), Dorsalis Pedis (L) Skin Color: Normal for Patient Respiratory Exam: normal lung sounds Cardiovascular Exam: regular rate Medical Decision Making - Medical Decision Making Was pt. sent in by a medical professional or institution ([facility], CONSULTING PSYCHOLOGIST, urgent care, hospital, or residential...) When possible be specific @ -No Did you speak to anyone other than the patient for history (EMS, parent, family, police, friend...)? What history was obtained from this source @ -- at the bedside states the patient has been sick for the last 2 days Did you review nursing and triage notes (agree or disagree)? Why? @ -I reviewed and agree with nursing and triage notes Were old charts reviewed (outside hosp., previous admission, EMS record, old EKG, old radiological studies, urgent care reports/EKG's, residential records)? Report findings @ -No old charts were reviewed Differential Diagnosis (chest pain, altered mental status, abdominal pain women, abdominal pain men, vaginal bleeding, musculoskeletal, weakness, fever, dyspnea, syncope, headache, dizziness, GI bleed, back pain, seizure, CVA, palpatations, mental health)? @ -Differential Weakness: Hypoglycemia, shock, sepsis, hyponatremia, anemia, infection, DE, ETOH, adverse medicine reaction, overdose, stroke, this is not meant to be an all-inclusive list. EKG interpreted by me (3pts min.). @ -See above X-rays interpreted by me (1pt min.). @ -None done CT interpreted by me (1pt min.). @ -None done U/S interpreted by me (1pt. min.). @ -None done What testing was considered but not performed or refused? (CT, X-rays, U/S, labs)? Why? @ -None What meds were considered but not given or refused? Why? @ -None Did you discuss the management of the patient with other professionals (professionals i.e. , PA, CONSULTING PSYCHOLOGIST, lab, RT, psych nurse, manager social responsibility, rag cutting machine operator, teacher, account officer, telehealth case manager)? Give summary @ -Labs, clinical presentation and vital signs were discussed with Dr. Mancera for admission Was smoking cessation discussed for >3mins.? @ -No Was critical care preformed (if so, how long)? @ -No Were there social determinants of health that impacted care today? How? ( Homelessness, low income, unemployed, alcoholism, drug addiction, transportation, low edu. Level, literacy, decrease access to med. care, custodial, rehab)? @ -No Was there de-escalation of care discussed even if they declined (Discuss DNR or withdrawal of care, Hospice)? DNR status @ -No What co-morbidities impacted this encounter? (DM, HTN, Smoking, COPD, CAD, Cancer, CVA, ARF, Chemo, Hep., AIDS, mental health diagnosis, sleep apnea, morbid obesity)? @ -Paraplegic Was patient admitted / discharged? Hospital course, mention meds given and route, prescriptions, significant lab abnormalities, going to OR and other pertinent info. @ -72-year-old male presents to the emergency room for generalized weakness. Vital signs are stable. Patient however does appear to be ill is suffering from constitutional symptoms. CBC within acceptable limits. Metabolic panel shows hyponatremia 128. Hyperglycemia of 340. Lactic acid is 2.1. Urinalysis positive for urinary tract infection. Patient has large draining decubitus ulcers. Given patient's comorbidities she is showing signs of early sepsis. Patient be admitted. Broad spectrum antibiotics. Infectious disease and surgery consulted Undiagnosed new problem with uncertain prognosis? @ -No Drug Therapy requiring intensive monitoring for toxicity (Heparin, Nitro, Insulin, Cardizem)? @ -No Were any procedures done? @ -No Diagnosis/symptom? Acute, or Chronic, or Acute on Chronic? Uncomplicated (without systemic symptoms) or Complicated (systemic symptoms)? @ -Sepsis Side effects of treatment? @ -No Exacerbation, Progression, or Severe Exacerbation? @ -No Poses a threat to life or bodily function? How? (Chest pain, USA, DE, pneumonia, PE, COPD, DKA, ARF, appy, cholecystitis, CVA, Diverticulitis, Homicidal, Suicidal, threat to staff... and all critical care pts) @ -yes - Lab Data Result diagrams: 12/17/22 13:17 12/17/22 13:17 Lab Results 12/17/22 12/17/22 12/17/22 Range/Units 12:45 13:17 13:17 WBC 11.2 H (3.8-10.6) k/uL RBC 4.24 L (4.30-5.90) m/uL Hgb 10.6 L (13.0-17.5) gm/dL Hct 34.5 L (39.0-53.0) % MCV 81.5 (80.0-100.0) fL MCH 25.0 (25.0-35.0) pg MCHC 30.6 L (31.0-37.0) g/dL RDW 15.9 H (11.5-15.5) % Plt Count 267 (150-450) k/uL MPV 7.8 Neutrophils % 91 % Lymphocytes % 3 % Monocytes % 5 % Eosinophils % 0 % Basophils % 0 % Neutrophils # 10.2 H (1.3-7.7) k/uL Lymphocytes # 0.4 L (1.0-4.8) k/uL Monocytes # 0.5 (0-1.0) k/uL Eosinophils # 0.0 (0-0.7) k/uL Basophils # 0.0 (0-0.2) k/uL Hypochromasia Moderate Sodium (137-145) mmol/L Potassium (3.5-5.1) mmol/L Chloride (98-107) mmol/L Carbon Dioxide (22-30) mmol/L Anion Gap mmol/L BUN (9-20) mg/dL Creatinine (0.66-1.25) mg/dL Est GFR (CKD-EPI)AfAm (>60 ml/min/1.73 sqM) Est GFR (CKD-EPI)NonAf (>60 ml/min/1.73 sqM) Glucose (74-99) mg/dL POC Glucose (mg/dL) 340 H (70-110) mg/dL POC Glu Digital Editor ID Netter, Roberta, T Plasma Lactic Acid Carl (0.7-2.0) mmol/L Calcium (8.4-10.2) mg/dL Magnesium (1.6-2.3) mg/dL Total Bilirubin (0.2-1.3) mg/dL AST (17-59) U/L ALT (4-49) U/L Alkaline Phosphatase (38-126) U/L Total Protein (6.3-8.2) g/dL Albumin (3.5-5.0) g/dL Urine Color Yellow Urine Appearance Turbid (Clear) Urine pH 5.0 (5.0-8.0) Ur Specific [place] 1.019 (1.001-1.035) Urine Protein 1+ H (Negative) Urine Glucose (UA) 1+ H (Negative) Urine Ketones 2+ H (Negative) Urine Blood Moderate H (Negative) Urine Nitrite Negative (Negative) Urine Bilirubin Negative (Negative) Urine Urobilinogen <2.0 (<2.0) mg/dL Ur Leukocyte Esterase Large H (Negative) Urine RBC 63 H (0-5) /hpf Urine WBC >182 H (0-5) /hpf Urine WBC Clumps Many H (None) /hpf Urine Bacteria Many H (None) /hpf Urine Mucus Many H (None) /hpf Urine Yeast (Budding) Few H (None) /hpf 12/17/22 12/17/22 Range/Units 13:17 13:17 WBC (3.8-10.6) k/uL RBC (4.30-5.90) m/uL Hgb (13.0-17.5) gm/dL Hct (39.0-53.0) % MCV (80.0-100.0) fL MCH (25.0-35.0) pg MCHC (31.0-37.0) g/dL RDW (11.5-15.5) % Plt Count (150-450) k/uL MPV Neutrophils % % Lymphocytes % % Monocytes % % Eosinophils % % Basophils % % Neutrophils # (1.3-7.7) k/uL Lymphocytes # (1.0-4.8) k/uL Monocytes # (0-1.0) k/uL Eosinophils # (0-0.7) k/uL Basophils # (0-0.2) k/uL Hypochromasia Sodium 128 L (137-145) mmol/L Potassium 5.1 (3.5-5.1) mmol/L Chloride 94 L (98-107) mmol/L Carbon Dioxide 24 (22-30) mmol/L Anion Gap 10 mmol/L BUN 20 (9-20) mg/dL Creatinine 0.69 (0.66-1.25) mg/dL Est GFR (CKD-EPI)AfAm >90 (>60 ml/min/1.73 sqM) Est GFR (CKD-EPI)NonAf >90 (>60 ml/min/1.73 sqM) Glucose 326 H (74-99) mg/dL POC Glucose (mg/dL) (70-110) mg/dL POC Glu Digital Editor ID Plasma Lactic Acid Carl 2.1 H* (0.7-2.0) mmol/L Calcium 8.1 L (8.4-10.2) mg/dL Magnesium 1.8 (1.6-2.3) mg/dL Total Bilirubin 0.7 (0.2-1.3) mg/dL AST 32 (17-59) U/L ALT 16 (4-49) U/L Alkaline Phosphatase 143 H (38-126) U/L Total Protein 6.1 L (6.3-8.2) g/dL Albumin 2.6 L (3.5-5.0) g/dL Urine Color Urine Appearance (Clear) Urine pH (5.0-8.0) Ur Specific [place] (1.001-1.035) Urine Protein (Negative) Urine Glucose (UA) (Negative) Urine Ketones (Negative) Urine Blood (Negative) Urine Nitrite (Negative) Urine Bilirubin (Negative) Urine Urobilinogen (<2.0) mg/dL Ur Leukocyte Esterase (Negative) Urine RBC (0-5) /hpf Urine WBC (0-5) /hpf Urine WBC Clumps (None) /hpf Urine Bacteria (None) /hpf Urine Mucus (None) /hpf Urine Yeast (Budding) (None) /hpf Disposition Clinical Impression: Sepsis Disposition: ADMITTED IP TO THIS [facility] Condition: Fair Referrals: Jeremiah Ferreira DO [Primary Care Provider] - 1-2 days Decision Time: 14:59
[2022-12-17 14:03] LABS: Basophils % (A) 0 %; Eosinophils % (A) 0 %; HCT 34.5 % (39.0-53.0); HGB 10.6 gm/dL (13.0-17.5); Hypochromasia Moderate; Lymphocytes # (A) 0.4 k/uL (1.0-4.8); Lymphocytes % (A) 3 %; MCHC 30.6 g/dL (31.0-37.0); MCV 81.5 fL (80.0-100.0); Mean Platelet Volume 7.8; Monocytes # (A) 0.5 k/uL (0-1.0); Monocytes % (A) 5 %; Neutrophils # (A) 10.2 k/uL (1.3-7.7); Neutrophils % (A) 91 %; Platelet Count 267 k/uL (150-450); RBC 4.24 m/uL (4.30-5.90); RDW 15.9 % (11.5-15.5); WBC 11.2 k/uL (3.8-10.6)
[2022-12-17 14:12] LABS: ALT 16 U/L (4-49); AST 32 U/L (17-59); African American GFR (CKD) >90 (>60 ml/min/1.73 sqM); Albumin 2.6 g/dL (3.5-5.0); Alkaline Phosphatase 143 U/L (38-126); Anion Gap 10 mmol/L; Blood Urea Nitrogen 20 mg/dL (9-20); Calcium 8.1 mg/dL (8.4-10.2); Carbon Dioxide 24 mmol/L (22-30); Chloride 94 mmol/L (98-107); Glucose 326 mg/dL (74-99); Magnesium 1.8 mg/dL (1.6-2.3); Non-African American GFR(CKD) >90 (>60 ml/min/1.73 sqM); Potassium 5.1 mmol/L (3.5-5.1); Sodium 128 mmol/L (137-145); Total Bilirubin 0.7 mg/dL (0.2-1.3); Total Protein 6.1 g/dL (6.3-8.2)
[2022-12-17 14:15] LABS: Appearance,Urine Turbid (Clear); Bacteria,Urine Many /hpf; Bilirubin,Urine Negative (Negative); Blood,Urine Moderate (Negative); Budding Yeast,Urine Few /hpf; Color,Urine Yellow; Glucose,Urine (UA) 1+ (Negative); Leukocyte Esterase,Urine Large (Negative); Mucus,Urine Many /hpf; Nitrite,Urine Negative (Negative); Protein,Urine 1+ (Negative); RBC,Urine 63 /hpf (0-5); Specific Gravity,Urine 1.019 (1.001-1.035); Urobilinogen,Urine <2.0 mg/dL (<2.0); WBC,Urine >182 /hpf (0-5)
[2022-12-17 14:18] LABS: Ketones,Urine 2+ (Negative)
[2022-12-17] MEDS ORDERED: VANCOMYCIN IV PER PHARMACY 1 EACH MISC MISCELLANE PRN (14:31)
[2022-12-17] MEDS ORDERED: PIPERACILLIN-TAZOBACTAM 3.375 GM in SODIUM CHLORIDE 0.9% 100 ML IVPB STA (14:31)
[2022-12-17] MEDS ORDERED: NALOXONE 0.4 MG/ML 1 ML VIAL IV PRN (14:47)
[2022-12-17] MEDS ORDERED: VANCOMYCIN 1,500 MG in SODIUM CHLORIDE 0.9% 500 ML 500 ML IVPB ONE (15:00)
[2022-12-17] MEDS: SODIUM CHLORIDE 0.9% 1,000 ML IV SCH ×2 (15:06→21:40)
[2022-12-17 19:33] LABS: Glucose,Whole Blood 275 mg/dL (70-110)
--- NOTE | 2022-12-17 22:32 | P.CONS ---
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 area for the patient is currently being evaluated at [facility] wound care patient presenting to the ER for evaluation of dizziness and weakness symptom has been getting worse over the last 2 days before presentation to the hospital at the patient feels more weak than usual patient did have a urine retention however had to use intermittent self-catheterization and apparently the patient urine is getting more cloudy nursing staff who did straight cath on him mention urine is very cloudy and creamy thick patient on presentation to hospital did have a low-grade fever 100.1 has been tachycardic did have any white count of 11.2 kidney function has been normal lactic acid elevated urine was large leukocyte esterase more than 182 WBC patient was started on vancomycin infectious disease was consulted for further management of antibiotic therapy Past Medical History Past Medical History: Diabetes Mellitus, Hyperlipidemia, Hypertension, Vascular Disorder Additional Past Medical History / Comment(s): Paraplegic T10 down after brain aneurysm surgery, neurogenic bladder/pt self caths 2-3 times a day, pt has a bowel program to have bowel movements each morning, urinary incontinence when he transfers which caused a R scrotal abscess/wound which is now healed, AAA with surgery, NIDDM type II, bladder stones with surgical removal, chronic back pain. History of Any Multi-Drug Resistant Organisms: ESBL Year Discovered:: 09/18/20 E.coli ESBL MDRO Source:: Pressure ulcer Past Surgical History: Appendectomy Additional Past Surgical History / Comment(s): AAA wrapped, brain aneurysm with clips, sabrina filter, I&D R scrotal abscess, cystoscopy with cystolithotripsy, attempted bladder sling surgery. 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 Medications and Allergies Home Medications Medication Instructions Recorded Confirmed Type Lovastatin [Mevacor] 40 mg PO DAILY 06/24/17 12/17/22 History Imipramine [Tofranil] 10 mg PO BID 09/15/20 12/17/22 History Glimepiride [Amaryl] 1 mg PO DAILY 07/15/21 12/17/22 History Insulin Detemir [Levemir Flexpen] 18 units SQ HS 12/17/22 12/17/22 History Methenamine Hippurate [Hiprex] 1 gm PO BID 12/17/22 12/17/22 History Allergies Allergy/AdvReac Type Severity Reaction Status Date / Time phenytoin [From Dilantin] Allergy Rash/Hives Verified 12/17/22 14:31 Sulfa (Sulfonamide Allergy Rash/Hives Verified 12/17/22 14:31 Antibiotics) Physical Exam Vitals: Vital Signs Temp Pulse Resp BP Pulse Ox 12/17/22 14:45 99.0 F 12/17/22 12:35 97.8 F 90 18 101/60 93 L Intake and Output 12/17/22 12/17/22 12/17/22 06:59 14:59 22:59 Other: Weight 81.647 kg Results CBC & Chem 7: 12/17/22 13:17 12/17/22 13:17 Labs: Abnormal Lab Results - Last 24 Hours (Table) 12/17/22 12/17/22 12/17/22 Range/Units 12:45 13:17 13:17 WBC 11.2 H (3.8-10.6) k/uL RBC 4.24 L (4.30-5.90) m/uL Hgb 10.6 L (13.0-17.5) gm/dL Hct 34.5 L (39.0-53.0) % MCHC 30.6 L (31.0-37.0) g/dL RDW 15.9 H (11.5-15.5) % Neutrophils # 10.2 H (1.3-7.7) k/uL Lymphocytes # 0.4 L (1.0-4.8) k/uL Sodium (137-145) mmol/L Chloride (98-107) mmol/L Glucose (74-99) mg/dL POC Glucose (mg/dL) 340 H (70-110) mg/dL Plasma Lactic Acid Carl (0.7-2.0) mmol/L Calcium (8.4-10.2) mg/dL Alkaline Phosphatase (38-126) U/L Total Protein (6.3-8.2) g/dL Albumin (3.5-5.0) g/dL Urine Protein 1+ H (Negative) Urine Glucose (UA) 1+ H (Negative) Urine Ketones 2+ H (Negative) Urine Blood Moderate H (Negative) Ur Leukocyte Esterase Large H (Negative) Urine RBC 63 H (0-5) /hpf Urine WBC >182 H (0-5) /hpf Urine WBC Clumps Many H (None) /hpf Urine Bacteria Many H (None) /hpf Urine Mucus Many H (None) /hpf Urine Yeast (Budding) Few H (None) /hpf 12/17/22 12/17/22 Range/Units 13:17 13:17 WBC (3.8-10.6) k/uL RBC (4.30-5.90) m/uL Hgb (13.0-17.5) gm/dL Hct (39.0-53.0) % MCHC (31.0-37.0) g/dL RDW (11.5-15.5) % Neutrophils # (1.3-7.7) k/uL Lymphocytes # (1.0-4.8) k/uL Sodium 128 L (137-145) mmol/L Chloride 94 L (98-107) mmol/L Glucose 326 H (74-99) mg/dL POC Glucose (mg/dL) (70-110) mg/dL Plasma Lactic Acid Carl 2.1 H* (0.7-2.0) mmol/L Calcium 8.1 L (8.4-10.2) mg/dL Alkaline Phosphatase 143 H (38-126) U/L Total Protein 6.1 L (6.3-8.2) g/dL Albumin 2.6 L (3.5-5.0) g/dL Urine Protein (Negative) Urine Glucose (UA) (Negative) Urine Ketones (Negative) Urine Blood (Negative) Ur Leukocyte Esterase (Negative) Urine RBC (0-5) /hpf Urine WBC (0-5) /hpf Urine WBC Clumps (None) /hpf Urine Bacteria (None) /hpf Urine Mucus (None) /hpf Urine Yeast (Budding) (None) /hpf Assessment and Plan Plan: 1patient presented hospital with sepsis in this patient who did have a fever tachycardia elevated white count source is likely urinary tract infection in this patient who do have urine retention requiring self-catheterization and was noticed to have significantly cloudy creamy urine and significantly positive UA likely from enteric gram-negative pathogen 2-patient also have multiple pressure ulcer to the lower back especially bilateral hip and sacral area with some slough tissue and minimal foul-smelling drainage could be the source of the sepsis as well 3-vancomycin pharmacy to dose with a target trough of 15 while watching kidney function and Vanco trough closely. However we will add cefepime to cover for gram-negative while waiting for the culture to finalize 4-local wound care with Santyl followed by moist dressing change daily keep the area of the pressure We will follow on clinical condition and cultures to further adjust medication if needed Thank you for this consultation we will follow the patient along with you Time with Patient: Greater than 30
[2022-12-17] MEDS: CEFEPIME 2 GM in SODIUM CHLORIDE 0.9% 100 ML IVPB SCH (23:33)
[2022-12-18] MEDS: VANCOMYCIN 1,500 MG in SODIUM CHLORIDE 0.9% 500 ML 500 ML IVPB SCH ×2 (03:21→14:36)
[2022-12-18 07:48] LABS: Glucose,Whole Blood 158 mg/dL (70-110)
[2022-12-18 08:01] LABS: African American GFR (CKD) >90 (>60 ml/min/1.73 sqM); Anion Gap 7 mmol/L; Blood Urea Nitrogen 13 mg/dL (9-20); Calcium 7.3 mg/dL (8.4-10.2); Carbon Dioxide 23 mmol/L (22-30); Chloride 104 mmol/L (98-107); Glucose 149 mg/dL (74-99); Non-African American GFR(CKD) >90 (>60 ml/min/1.73 sqM); Potassium 3.8 mmol/L (3.5-5.1); Sodium 134 mmol/L (137-145)
[2022-12-18] MEDS: CEFEPIME 2 GM in SODIUM CHLORIDE 0.9% 100 ML IVPB SCH ×3 (09:36→23:10)
[2022-12-18] MEDS: COLLAGENASE 250 UNIT/GM OINTMENT 30 GM TUBE TOPICAL SCH (09:37)
--- NOTE | 2022-12-18 10:44 | P.PN ---
Subjective Progress Note Date: 12/18/22 Principal diagnosis: UTI and pressure ulcer Patient is a 72-year-old male with a past medical history significant for T10 paraplegia patient did have a bilateral hip and sacral pressure ulcer did have urinary retention requiring self-catheterization presenting to the [facility] with sepsis source likely urinary On today's evaluation that is 12/18/2022 the patient overall fever pattern has improved, patient mentioned feeling better, patient is breathing comfortably no chest pain shortness of breath or cough no nausea no vomiting no abdominal pain or diarrhea Objective - Vital Signs Vital signs: Vital Signs Temp 97.4 F L 12/18/22 01:08 Pulse 83 12/18/22 01:08 Resp 16 12/18/22 01:08 BP 109/61 12/18/22 01:08 Pulse Ox 94 L 12/18/22 01:08 FiO2 Intake & Output 12/17/22 12/18/22 12/18/22 18:59 06:59 18:59 Intake Total 1200 Output Total 2125 Balance -925 Weight 81.647 kg Intake: Intake, IV Titration 1200 Amount Cefepime 2 gm In Sodium 100 Chloride 0.9% 100 ml @ 25 mls/hr IVPB Q8HR AZRA Rx# :[id number] Sodium Chloride 0.9% 1, 600 000 ml @ 75 mls/hr IV . [id number] AZRA Rx#:[id number] Vancomycin 1,500 mg In 500 Sodium Chloride 0.9% 500 ml 500 ml @ 167 mls/hr IVPB Q12H AZRA Rx#: [id number] Output: Urine 2125 Uretheral (Elliott) 800 Other: Voiding Method Diaper Incontinent Self-Catheterization External Catheter - Exam GENERAL DESCRIPTION: An elderly male lying in bed in no distress RESPIRATORY SYSTEM: Unlabored breathing , decreased breath sounds at bases HEART: S1 S2 regular rate and rhythm , ABDOMEN: Soft , no tenderness EXTREMITIES: No edema feet - Labs CBC & Chem 7: 12/17/22 13:17 12/18/22 07:27 Labs: Abnormal Lab Results - Last 24 Hours (Table) 12/17/22 12/17/22 12/17/22 Range/Units 12:45 13:17 13:17 WBC 11.2 H (3.8-10.6) k/uL RBC 4.24 L (4.30-5.90) m/uL Hgb 10.6 L (13.0-17.5) gm/dL Hct 34.5 L (39.0-53.0) % MCHC 30.6 L (31.0-37.0) g/dL RDW 15.9 H (11.5-15.5) % Neutrophils # 10.2 H (1.3-7.7) k/uL Lymphocytes # 0.4 L (1.0-4.8) k/uL Sodium (137-145) mmol/L Chloride (98-107) mmol/L Glucose (74-99) mg/dL POC Glucose (mg/dL) 340 H (70-110) mg/dL Plasma Lactic Acid Carl (0.7-2.0) mmol/L Calcium (8.4-10.2) mg/dL Alkaline Phosphatase (38-126) U/L Total Protein (6.3-8.2) g/dL Albumin (3.5-5.0) g/dL Urine Protein 1+ H (Negative) Urine Glucose (UA) 1+ H (Negative) Urine Ketones 2+ H (Negative) Urine Blood Moderate H (Negative) Ur Leukocyte Esterase Large H (Negative) Urine RBC 63 H (0-5) /hpf Urine WBC >182 H (0-5) /hpf Urine WBC Clumps Many H (None) /hpf Urine Bacteria Many H (None) /hpf Urine Mucus Many H (None) /hpf Urine Yeast (Budding) Few H (None) /hpf 12/17/22 12/17/22 12/17/22 Range/Units 13:17 13:17 16:31 WBC (3.8-10.6) k/uL RBC (4.30-5.90) m/uL Hgb (13.0-17.5) gm/dL Hct (39.0-53.0) % MCHC (31.0-37.0) g/dL RDW (11.5-15.5) % Neutrophils # (1.3-7.7) k/uL Lymphocytes # (1.0-4.8) k/uL Sodium 128 L (137-145) mmol/L Chloride 94 L (98-107) mmol/L Glucose 326 H (74-99) mg/dL POC Glucose (mg/dL) (70-110) mg/dL Plasma Lactic Acid Carl 2.1 H* 2.5 H* (0.7-2.0) mmol/L Calcium 8.1 L (8.4-10.2) mg/dL Alkaline Phosphatase 143 H (38-126) U/L Total Protein 6.1 L (6.3-8.2) g/dL Albumin 2.6 L (3.5-5.0) g/dL Urine Protein (Negative) Urine Glucose (UA) (Negative) Urine Ketones (Negative) Urine Blood (Negative) Ur Leukocyte Esterase (Negative) Urine RBC (0-5) /hpf Urine WBC (0-5) /hpf Urine WBC Clumps (None) /hpf Urine Bacteria (None) /hpf Urine Mucus (None) /hpf Urine Yeast (Budding) (None) /hpf 12/17/22 Range/Units 19:31 WBC (3.8-10.6) k/uL RBC (4.30-5.90) m/uL Hgb (13.0-17.5) gm/dL Hct (39.0-53.0) % MCHC (31.0-37.0) g/dL RDW (11.5-15.5) % Neutrophils # (1.3-7.7) k/uL Lymphocytes # (1.0-4.8) k/uL Sodium (137-145) mmol/L Chloride (98-107) mmol/L Glucose (74-99) mg/dL POC Glucose (mg/dL) 275 H (70-110) mg/dL Plasma Lactic Acid Carl (0.7-2.0) mmol/L Calcium (8.4-10.2) mg/dL Alkaline Phosphatase (38-126) U/L Total Protein (6.3-8.2) g/dL Albumin (3.5-5.0) g/dL Urine Protein (Negative) Urine Glucose (UA) (Negative) Urine Ketones (Negative) Urine Blood (Negative) Ur Leukocyte Esterase (Negative) Urine RBC (0-5) /hpf Urine WBC (0-5) /hpf Urine WBC Clumps (None) /hpf Urine Bacteria (None) /hpf Urine Mucus (None) /hpf Urine Yeast (Budding) (None) /hpf Assessment and Plan (1) Sepsis Current Visit: Yes Status: Acute Code(s): A41.9 - SEPSIS, UNSPECIFIED ORGANISM SNOMED Code(s): 84318314 (2) Infected wound Current Visit: No Status: Acute Code(s): T14.8XXA - OTHER INJURY OF UNSPECIFIED BODY REGION, INITIAL ENCOUNTER; L08.9 - LOCAL INFECTION OF THE SKIN AND SUBCUTANEOUS TISSUE, UNSP SNOMED Code(s): 95523619 (3) UTI (urinary tract infection) Current Visit: No Status: Acute Code(s): N39.0 - URINARY TRACT INFECTION, SITE NOT SPECIFIED SNOMED Code(s): 31927138 Plan: 1patient presented hospital with sepsis in this patient who did have a fever tachycardia elevated white count source is likely urinary tract infection in this patient who do have urine retention requiring self-catheterization and was noticed to have significantly cloudy creamy urine and significantly positive UA likely from enteric gram-negative pathogen 2-patient also have multiple pressure ulcer to the lower back especially bilateral hip and sacral area with some slough tissue and minimal foul-smelling drainage could be the source of the sepsis as well 3- patient to continue with vancomycin pharmacy to dose with a target trough of 15 while watching kidney function and Vanco trough closely and cefepime to cover for gram-negative while waiting for the culture to finalize 4-local wound care with Santyl followed by moist dressing change daily keep the area of the pressure Time with Patient: Less than 30
[2022-12-18 11:50] LABS: Glucose,Whole Blood 310 mg/dL (70-110)
--- NOTE | 2022-12-18 14:13 | P.HPIM ---
History of Present Illness H&P Date: 12/17/22 Chief Complaint: Not feeling well History of presenting complaint: This is a 72-year-old patient of Dr. Ferreira. Chronic stable medical conditions include history of T10 paraplegia following a spinal injection, brain aneurysm, AAA, hyperlipidemia, [place] filter, diabetes. neurogenic bladder-patient does self-catheterization. Patient also has a daily bowel regime that he does himself. Patient is cared for by his . At the baseline able to transfer from bed to the chair. Has chronic wounds and home care for the same. Patient now presents with not feeling well. Fever and chills. Urine becoming dark in color. Decreased appetite. Low-grade fever. Tired rundown. at the bedside in the ER home assisted with the history. Review of systems: GEN.: tired EYES: None HEENT: None NECK: None RESPIRATORY: None CARDIOVASCULAR: None GASTROINTESTINAL: None GENITOURINARY: As above MUSCULOSKELETAL: As above LYMPHATICS: None HEMATOLOGICAL: None PSYCHIATRY: None NEUROLOGICAL: chronic[Lower extremity weakness Past medical history to include: T10 paraplegia from spinal injection, prerenal aneurysm, abdominal aortic aneurysm, diabetes, [place] filter, hyperlipidemia,neurogenic bladder, chronic decubital ulcers Social history: Did smoke in the remote past. No alcohol. . Physical examination: VITAL SIGNS: 100.1, 107, 18, 97/48, 96% room air GENERAL:BMI 25.1, reclining in bed, awake, comfortable DERMATOLOGICAL: Multiple decubitus wounds. CAD is endorsing EYES: Pupils equal. Conjunctiva normal. HEENT: External appearance of nose and ears normal, oral cavity grossly normal. NECK: JVD not raised; masses not palpable. HEART: First and second heart sounds are normal; no edema. LUNGS: Respiratory rate normal; clear to auscultation. ABDOMEN: Soft, nontender, liver spleen not palpable, no masses palpable. Elliott catheter with cloudy urine PSYCH: Alert and oriented x3; mood and affect normal. NEUROLOGICAL: [Cranial nerves grossly intact; no facial asymmetry, lower extremity power 0/5. No sensation of lower extremity. LYMPHATICS: No lymph nodes palpable in the axilla and neck INVESTIGATIONS, reviewed in the clinical context: White count 11.2 hemoglobin 10.6 platelets 267 sodium 128 potassium 5.1 creatinine 0.69 Lactic acid 2.1 albumin 2.6 UA positive for leukoesterase, negative for nitrite, WBC Assessment and plan: -Acute UTI with cystitis secondary to self-catheterization. Causing sepsis IV Zosyn. Cultures ordered. ID consulted. -Sepsis with lactic acidosis -Chronic paraplegia from spinal cord injury at T10 -Diabetes mellitus type 2, chronically on insulin Levemir Follow Accu-Cheks -[place] filter history of -Hyperlipidemia Mevacor 40 mg daily at bedtime -Normocytic anemia of chronic disease -Hyponatremia likely from decreased oral intake -Chronic medical debility, able to transfer from bed to the chair -Chronic bladder dysfunction patient does self-catheterization. -Chronic sacral decubitus ulcer and left gluteal area. Continue with wound care. Consult ID and Dr. Wright from vascular -Full code Past Medical History Past Medical History: Diabetes Mellitus, Hyperlipidemia, Hypertension, Vascular Disorder Additional Past Medical History / Comment(s): Paraplegic T10 down after brain aneurysm surgery, neurogenic bladder/pt self caths 2-3 times a day, pt has a bowel program to have bowel movements each morning, urinary incontinence when he transfers which caused a R scrotal abscess/wound which is now healed, AAA with surgery, NIDDM type II, bladder stones with surgical removal, chronic back pain. History of Any Multi-Drug Resistant Organisms: ESBL Date of last positivie culture/infection: 09/18/20 E.coli ESBL MDRO Source:: Pressure ulcer Past Surgical History: Appendectomy Additional Past Surgical History / Comment(s): AAA wrapped, brain aneurysm with clips, [place] filter, I&D R scrotal abscess, cystoscopy with cystolithotripsy, attempted bladder sling surgery. 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 Medications and Allergies Home Medications Medication Instructions Recorded Confirmed Type Lovastatin [Mevacor] 40 mg PO DAILY 06/24/17 12/17/22 History Imipramine [Tofranil] 10 mg PO BID 09/15/20 12/17/22 History Glimepiride [Amaryl] 1 mg PO DAILY 07/15/21 12/17/22 History Insulin Detemir [Levemir Flexpen] 18 units SQ HS 12/17/22 12/17/22 History Methenamine Hippurate [Hiprex] 1 gm PO BID 12/17/22 12/17/22 History Allergies Allergy/AdvReac Type Severity Reaction Status Date / Time phenytoin [From Dilantin] Allergy Rash/Hives Verified 12/17/22 14:31 Sulfa (Sulfonamide Allergy Rash/Hives Verified 12/17/22 14:31 Antibiotics) Physical Exam Vitals: Vital Signs Temp Pulse Resp BP Pulse Ox 12/17/22 16:00 108 H 16 131/92 96 12/17/22 14:45 99.0 F 12/17/22 12:35 97.8 F 90 18 101/60 93 L Intake and Output 12/17/22 12/17/22 12/17/22 06:59 14:59 22:59 Other: Weight 81.647 kg Results CBC & Chem 7: 12/17/22 13:17 12/18/22 07:27 Labs: Abnormal Lab Results - Last 24 Hours (Table) 12/17/22 12/17/22 12/17/22 Range/Units 12:45 13:17 13:17 WBC 11.2 H (3.8-10.6) k/uL RBC 4.24 L (4.30-5.90) m/uL Hgb 10.6 L (13.0-17.5) gm/dL Hct 34.5 L (39.0-53.0) % MCHC 30.6 L (31.0-37.0) g/dL RDW 15.9 H (11.5-15.5) % Neutrophils # 10.2 H (1.3-7.7) k/uL Lymphocytes # 0.4 L (1.0-4.8) k/uL Sodium (137-145) mmol/L Chloride (98-107) mmol/L Glucose (74-99) mg/dL POC Glucose (mg/dL) 340 H (70-110) mg/dL Plasma Lactic Acid Carl (0.7-2.0) mmol/L Calcium (8.4-10.2) mg/dL Alkaline Phosphatase (38-126) U/L Total Protein (6.3-8.2) g/dL Albumin (3.5-5.0) g/dL Urine Protein 1+ H (Negative) Urine Glucose (UA) 1+ H (Negative) Urine Ketones 2+ H (Negative) Urine Blood Moderate H (Negative) Ur Leukocyte Esterase Large H (Negative) Urine RBC 63 H (0-5) /hpf Urine WBC >182 H (0-5) /hpf Urine WBC Clumps Many H (None) /hpf Urine Bacteria Many H (None) /hpf Urine Mucus Many H (None) /hpf Urine Yeast (Budding) Few H (None) /hpf 12/17/22 12/17/22 12/17/22 Range/Units 13:17 13:17 16:31 WBC (3.8-10.6) k/uL RBC (4.30-5.90) m/uL Hgb (13.0-17.5) gm/dL Hct (39.0-53.0) % MCHC (31.0-37.0) g/dL RDW (11.5-15.5) % Neutrophils # (1.3-7.7) k/uL Lymphocytes # (1.0-4.8) k/uL Sodium 128 L (137-145) mmol/L Chloride 94 L (98-107) mmol/L Glucose 326 H (74-99) mg/dL POC Glucose (mg/dL) (70-110) mg/dL Plasma Lactic Acid Carl 2.1 H* 2.5 H* (0.7-2.0) mmol/L Calcium 8.1 L (8.4-10.2) mg/dL Alkaline Phosphatase 143 H (38-126) U/L Total Protein 6.1 L (6.3-8.2) g/dL Albumin 2.6 L (3.5-5.0) g/dL Urine Protein (Negative) Urine Glucose (UA) (Negative) Urine Ketones (Negative) Urine Blood (Negative) Ur Leukocyte Esterase (Negative) Urine RBC (0-5) /hpf Urine WBC (0-5) /hpf Urine WBC Clumps (None) /hpf Urine Bacteria (None) /hpf Urine Mucus (None) /hpf Urine Yeast (Budding) (None) /hpf
--- NOTE | 2022-12-18 14:16 | P.PN ---
Progress Note - Text Progress Note Date: 12/18/22 Chief Complaint: Not feeling well History of presenting complaint: This is a 72-year-old patient of Dr. Ferreira. Chronic stable medical conditions include history of T10 paraplegia following a spinal injection, brain aneurysm, AAA, hyperlipidemia, [place] filter, diabetes. neurogenic bladder-patient does self-catheterization. Patient also has a daily bowel regime that he does himself. Patient is cared for by his . At the baseline able to transfer from bed to the chair. Has chronic wounds and home care for the same. Patient now presents with not feeling well. Fever and chills. Urine becoming dark in color. Decreased appetite. Low-grade fever. Tired rundown. at the bedside in the ER home assisted with the history. Admitted with acute UTI with sepsis, multiple decubitus ulcers. December 18: Seen by ID. His started IV meropenem. IV vancomycin. IV fluids. Decrease appetite. Feels tired. Discussed. Active Medications Collagenase (Collagenase 250 Unit/Gm Ointment 30 Gm Tube) 1 applic TOPICAL DAILY AZRA; Protocol Last Admin: 12/18/22 09:37 Dose: 1 applic Vancomycin HCl 1,500 mg/ (Sodium Chloride) 500 mls @ 167 mls/hr IVPB Q12H AZRA Last Admin: 12/18/22 03:21 Dose: 167 mls/hr Sodium Chloride (Saline 0.9%) 1,000 mls @ 75 mls/hr IV .[id number] AZRA Last Admin: 12/17/22 21:40 Dose: 75 mls/hr Cefepime HCl 2 gm/ Sodium (Chloride) 100 mls @ 25 mls/hr IVPB Q8HR AZRA; Protocol Last Admin: 12/18/22 09:36 Dose: 25 mls/hr Miscellaneous Information (Vancomycin Trough Due 1 Each Misc) 1 each MISCELLANE ONCE ONE Stop: 12/19/22 13:01 Naloxone HCl (Naloxone 0.4 Mg/Ml 1 Ml Vial) 0.2 mg IV Q2M PRN PRN Reason: Opioid Reversal Past medical history to include: T10 paraplegia from spinal injection, prerenal aneurysm, abdominal aortic aneurysm, diabetes, [place] filter, hyperlipidemia,neurogenic bladder, chronic decubital ulcers Social history: Did smoke in the remote past. No alcohol. . Physical examination: VITAL SIGNS: 98.4, 93, 16, 90/52, 94% room air GENERAL:BMI 25.1, reclining in bed, awake, comfortable DERMATOLOGICAL: Multiple decubitus wounds. CAD is endorsing EYES: Pupils equal. Conjunctiva normal. HEENT: External appearance of nose and ears normal, oral cavity grossly normal. NECK: JVD not raised; masses not palpable. HEART: First and second heart sounds are normal; no edema. LUNGS: Respiratory rate normal; clear to auscultation. ABDOMEN: Soft, nontender, liver spleen not palpable, no masses palpable. Elliott catheter with cloudy urine PSYCH: Alert and oriented x3; mood and affect normal. NEUROLOGICAL: [Cranial nerves grossly intact; no facial asymmetry, lower extremity power 0/5. No sensation of lower extremity. INVESTIGATIONS, reviewed in the clinical context: December 18: Sodium 134 potassium 3.8 BUN 13 creatinine 0.5 to White count 11.2 hemoglobin 10.6 platelets 267 sodium 128 potassium 5.1 creatinine 0.69 Lactic acid 2.1 albumin 2.6 UA positive for leukoesterase, negative for nitrite, WBC Assessment and plan: -Acute UTI with cystitis secondary to self-catheterization. Causing sepsis IV meropenem, IV vancomycin. Cultures ordered. Follow with ID -Multiple decubitus wound ulcers. Antibiotics ID. Vascular is Dr. Hurd consulted. -Sepsis with lactic acidosis -Chronic paraplegia from spinal cord injury at T10 -Diabetes mellitus type 2, chronically on insulin Levemir Follow Accu-Cheks -[place] filter history of -Hyperlipidemia Mevacor 40 mg daily at bedtime -Normocytic anemia of chronic disease -Hyponatremia likely from decreased oral intake -Chronic medical debility, able to transfer from bed to the chair -Chronic bladder dysfunction patient does self-catheterization. -Chronic sacral decubitus ulcer and left gluteal area. Continue with wound care. Consult ID and Dr. Wright from vascular -Full code IV meropenem. Wound care. IV fluids. Discussed with patient.
[2022-12-18 14:24] VITALS: BMI 25.1
[2022-12-18] MEDS: LACTATED RINGERS 1,000 ML IV SCH (14:36)
[2022-12-18] MEDS ORDERED: INSULIN REGULAR 100 UNIT/ML VIAL (IM/SQ) SQ ONE (16:02)
[2022-12-18] MEDS ORDERED: DEXTROSE 50% SYRINGE 50 ML IVP PRN ×2 (16:09)
--- NOTE | 2022-12-18 16:33 | P.GSCN ---
History of Present Illness History of present illness: 72-year-old gentleman patient has history of paraplegic patient has been coming to the wound clinic for long. Of time. Patient has a pressure ulcer right great right hip we will and also on the left hip right hip surgery has a 6 x 4 x 2 cm with some necrotic tissue left hip pressure ulcer has some induration tissue patient came with sepsis fever and tachycardia under care of infectious disease for IV antibiotic I was consulted for wound management on examination patient was seen in his room neck is supple chest is clear auscultation first and second sound present abdomen soft nontender Femorals are 1+ bilateral patient has a pressure of the right gluteal area measurement is 6 x 4 x 2 with there are necrotic tissue present down to the fascia Plan is a debridement and deep culture Past Medical History Past Medical History: Diabetes Mellitus, Hyperlipidemia, Hypertension, Vascular Disorder Additional Past Medical History / Comment(s): Paraplegic T10 down after brain aneurysm surgery, neurogenic bladder/pt self caths 2-3 times a day, pt has a bowel program to have bowel movements each morning, urinary incontinence when he transfers which caused a R scrotal abscess/wound which is now healed, AAA with surgery, NIDDM type II, bladder stones with surgical removal, chronic back pain. History of Any Multi-Drug Resistant Organisms: ESBL Year Discovered:: 09/18/20 E.coli ESBL MDRO Source:: Pressure ulcer Past Surgical History: Appendectomy Additional Past Surgical History / Comment(s): AAA wrapped, brain aneurysm with clips, [place] filter, I&D R scrotal abscess, cystoscopy with cystolithotripsy, attempted bladder sling surgery. 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 Medications and Allergies Home Medications Medication Instructions Recorded Confirmed Type Lovastatin [Mevacor] 40 mg PO DAILY 06/24/17 12/17/22 History Imipramine [Tofranil] 10 mg PO BID 09/15/20 12/17/22 History Glimepiride [Amaryl] 1 mg PO DAILY 07/15/21 12/17/22 History Insulin Detemir [Levemir Flexpen] 18 units SQ HS 12/17/22 12/17/22 History Methenamine Hippurate [Hiprex] 1 gm PO BID 12/17/22 12/17/22 History Allergies Allergy/AdvReac Type Severity Reaction Status Date / Time phenytoin [From Dilantin] Allergy Rash/Hives Verified 12/17/22 14:31 Sulfa (Sulfonamide Allergy Rash/Hives Verified 12/17/22 14:31 Antibiotics) Surgical - Exam Vital Signs Temp Pulse Resp BP Pulse Ox 97.8 F 90 18 101/60 93 L 12/17/22 12:35 12/17/22 12:35 12/17/22 12:35 12/17/22 12:35 12/17/22 12:35 Results - Labs 12/17/22 13:17 12/18/22 07:27 Abnormal Lab Results - Last 24 Hours (Table) 12/17/22 12/17/22 12/18/22 Range/Units 16:31 19:31 07:27 Sodium 134 L (137-145) mmol/L Creatinine 0.52 L (0.66-1.25) mg/dL Glucose 149 H (74-99) mg/dL POC Glucose (mg/dL) 275 H (70-110) mg/dL Plasma Lactic Acid Carl 2.5 H* (0.7-2.0) mmol/L Calcium 7.3 L (8.4-10.2) mg/dL 12/18/22 12/18/22 Range/Units 07:47 11:49 Sodium (137-145) mmol/L Creatinine (0.66-1.25) mg/dL Glucose (74-99) mg/dL POC Glucose (mg/dL) 158 H 310 H (70-110) mg/dL Plasma Lactic Acid Carl (0.7-2.0) mmol/L Calcium (8.4-10.2) mg/dL Diabetes panel 12/18/22 Range/Units 07:27 Sodium 134 L (137-145) mmol/L Potassium 3.8 (3.5-5.1) mmol/L Chloride 104 (98-107) mmol/L Carbon Dioxide 23 (22-30) mmol/L BUN 13 (9-20) mg/dL Creatinine 0.52 L (0.66-1.25) mg/dL Glucose 149 H (74-99) mg/dL Calcium 7.3 L (8.4-10.2) mg/dL Calcium panel 12/18/22 Range/Units 07:27 Calcium 7.3 L (8.4-10.2) mg/dL Pituitary panel 12/18/22 Range/Units 07:27 Sodium 134 L (137-145) mmol/L Potassium 3.8 (3.5-5.1) mmol/L Chloride 104 (98-107) mmol/L Carbon Dioxide 23 (22-30) mmol/L BUN 13 (9-20) mg/dL Creatinine 0.52 L (0.66-1.25) mg/dL Glucose 149 H (74-99) mg/dL Calcium 7.3 L (8.4-10.2) mg/dL Adrenal panel 12/18/22 Range/Units 07:27 Sodium 134 L (137-145) mmol/L Potassium 3.8 (3.5-5.1) mmol/L Chloride 104 (98-107) mmol/L Carbon Dioxide 23 (22-30) mmol/L BUN 13 (9-20) mg/dL Creatinine 0.52 L (0.66-1.25) mg/dL Glucose 149 H (74-99) mg/dL Calcium 7.3 L (8.4-10.2) mg/dL
--- NOTE | 2022-12-18 16:34 | P.PCN ---
Description of Procedure: Preoperative diagnoses is chronic large pressure ulcer right gluteal area measurement is 6 x 4.2 with necrotic necrotic tissue at the base Posterior same Procedure debridement of the wound down to separate his tissue and the fascia did we will address tissue was removed which was sent for deep culture no active bleeding was noted wound was irrigated with saline Santyl cream applied to the wound dressing applied patient for the procedure well plan is change the dressing daily with Santyl cream follow with you
[2022-12-18] MEDS: NON FORMULARY DRUG (Methenamine Hippurate [Hiprex] 1 GM Tablet) PO SCH ×2 (16:45→20:23)
[2022-12-18] MEDS: GLIMEPIRIDE 1 MG TAB PO SCH (16:56)
[2022-12-18 16:57] LABS: Glucose,Whole Blood 286 mg/dL (70-110)
[2022-12-18 17:30] LABS: Glucose,Whole Blood 294 mg/dL (70-110)
[2022-12-18] MEDS: INSULIN ASPART (NovoLOG) 100 UNIT/ML VIAL SQ SCH (18:15)
[2022-12-18] MEDS: SODIUM CHLORIDE 0.9% 1,000 ML IV SCH (18:45)
[2022-12-18 20:23] LABS: Glucose,Whole Blood 304 mg/dL (70-110)
[2022-12-18] MEDS: IMIPRAMINE 10 MG TAB PO SCH (20:34)
[2022-12-18] MEDS ORDERED: INSULIN DETEMIR (LEVEMIR) 100 UNIT/ML SYR SQ SCH (21:00)
[2022-12-19] MEDS: VANCOMYCIN 1,500 MG in SODIUM CHLORIDE 0.9% 500 ML 500 ML IVPB SCH (01:39)
[2022-12-19] MEDS: LACTATED RINGERS 1,000 ML IV SCH ×4 (06:18→21:17)
[2022-12-19 07:08] LABS: Glucose,Whole Blood 73 mg/dL (70-110)
[2022-12-19] MEDS: CEFEPIME 2 GM in SODIUM CHLORIDE 0.9% 100 ML IVPB SCH ×2 (09:28→17:15)
[2022-12-19] MEDS: INSULIN ASPART (NovoLOG) 100 UNIT/ML VIAL SQ SCH ×3 (09:28→18:10)
[2022-12-19] MEDS: ATORVASTATIN 10 MG TAB PO SCH (09:29)
[2022-12-19] MEDS: IMIPRAMINE 10 MG TAB PO SCH ×2 (09:30→21:16)
[2022-12-19] MEDS: GLIMEPIRIDE 1 MG TAB PO SCH (09:30)
[2022-12-19] MEDS: NON FORMULARY DRUG (Methenamine Hippurate [Hiprex] 1 GM Tablet) PO SCH ×2 (09:31→20:59)
[2022-12-19] MEDS: COLLAGENASE 250 UNIT/GM OINTMENT 30 GM TUBE TOPICAL SCH (09:44)
[2022-12-19 11:10] LABS: Glucose,Whole Blood 185 mg/dL (70-110)
[2022-12-19] MEDS ORDERED: VANCOMYCIN TROUGH DUE 1 EACH MISC MISCELLANE ONE (13:00)
[2022-12-19 13:43] LABS: African American GFR (CKD) >90 (>60 ml/min/1.73 sqM); Non-African American GFR(CKD) >90 (>60 ml/min/1.73 sqM)
[2022-12-19] MEDS ORDERED: INSULIN DETEMIR (LEVEMIR) 100 UNIT/ML SYR SQ SCH ×2 (15:02→21:00)
--- NOTE | 2022-12-19 15:48 | P.PN ---
Subjective Progress Note Date: 12/19/22 Principal diagnosis: UTI and pressure ulcer Patient is a 72-year-old male with a past medical history significant for T10 paraplegia patient did have a bilateral hip and sacral pressure ulcer did have urinary retention requiring self-catheterization presenting to the [facility] with sepsis source likely urinary, patient did have debridement of his right ischial/gluteal wound by vascular surgery and deep culture did not mention any extension down to the bone On today's evaluation that is 12/19/2022 the patient is afebrile today, the patient is breathing comfortably denies any chest pain shortness of breath or cough no nausea no vomiting no abdominal pain no diarrhea Objective - Vital Signs Vital signs: Vital Signs Temp 97.7 F 12/19/22 12:50 Pulse 79 12/19/22 12:50 Resp 16 12/19/22 12:50 BP 110/62 12/19/22 12:50 Pulse Ox 99 12/19/22 12:50 FiO2 Intake & Output 12/18/22 12/19/22 12/19/22 18:59 06:59 18:59 Output Total 900 1200 700 Balance -900 -1200 -700 Weight 81.647 kg Output: Urine 900 1200 700 Other: Voiding Method Incontinent Indwelling Catheter External Catheter Self-Catheterization External Catheter # Bowel Movements 0 1 - Exam GENERAL DESCRIPTION: An elderly male lying in bed in no distress RESPIRATORY SYSTEM: Unlabored breathing , decreased breath sounds at bases HEART: S1 S2 regular rate and rhythm , ABDOMEN: Soft , no tenderness EXTREMITIES: No edema feet - Labs CBC & Chem 7: 12/17/22 13:17 12/19/22 13:05 Labs: Abnormal Lab Results - Last 24 Hours (Table) 12/18/22 12/18/22 12/18/22 Range/Units 16:55 17:28 20:21 Creatinine (0.66-1.25) mg/dL POC Glucose (mg/dL) 286 H 294 H 304 H (70-110) mg/dL 12/19/22 12/19/22 Range/Units 11:09 13:05 Creatinine 0.40 L (0.66-1.25) mg/dL POC Glucose (mg/dL) 185 H (70-110) mg/dL Microbiology - Last 24 Hours (Table) 12/17/22 13:17 Urine Culture - Final Urine,Voided 12/17/22 14:58 Blood Culture Gram Stain - Preliminary Blood Assessment and Plan (1) Sepsis Current Visit: Yes Status: Acute Code(s): A41.9 - SEPSIS, UNSPECIFIED ORGANISM SNOMED Code(s): 80782517 (2) Infected wound Current Visit: No Status: Acute Code(s): T14.8XXA - OTHER INJURY OF UNSPECIFIED BODY REGION, INITIAL ENCOUNTER; L08.9 - LOCAL INFECTION OF THE SKIN AND SUBCUTANEOUS TISSUE, UNSP SNOMED Code(s): 22209810 (3) UTI (urinary tract infection) Current Visit: No Status: Acute Code(s): N39.0 - URINARY TRACT INFECTION, SITE NOT SPECIFIED SNOMED Code(s): 00989186 Plan: 1patient presented hospital with sepsis in this patient who did have a fever tachycardia elevated white count source is likely urinary tract infection in this patient who do have urine retention requiring self-catheterization and was noticed to have significantly cloudy creamy urine and significantly positive UA likely from enteric gram-negative pathogen 2-patient also have multiple pressure ulcer to the lower back especially bilateral hip and sacral area with some slough tissue and minimal foul-smelling drainage , patient did have breast was surgically evaluation and debridement of the wound and deep cultures which are currently pending 3- patient blood cultures Were positive for Streptococcus agalactiae which is usually of skin and soft tissue origin, blood cultures repeated document clearance of bacteremia continue with the cefepime and vancomycin discontinued Time with Patient: Less than 30
--- NOTE | 2022-12-19 16:42 | P.PN ---
Progress Note - Text Progress Note Date: 12/19/22 Chief Complaint: Not feeling well History of presenting complaint: This is a 72-year-old patient of Dr. Ferreira. Chronic stable medical conditions include history of T10 paraplegia following a spinal injection, brain aneurysm, AAA, hyperlipidemia, [place] filter, diabetes. neurogenic bladder-patient does self-catheterization. Patient also has a daily bowel regime that he does himself. Patient is cared for by his . At the baseline able to transfer from bed to the chair. Has chronic wounds and home care for the same. Patient now presents with not feeling well. Fever and chills. Urine becoming dark in color. Decreased appetite. Low-grade fever. Tired rundown. at the bedside in the ER home assisted with the history. Admitted with acute UTI with sepsis, multiple decubitus ulcers. December 18: Seen by ID. His started IV meropenem. IV vancomycin. IV fluids. Decrease appetite. Feels tired. Discussed. December 19: Right gluteal area decubital ulcer debrided by Dr. Hurd yesterday. Patient eating better. Feels better. IV cefepime. IV fluids. Blood cultures growing Streptococcus agalactiae. Repeat blood culture. Active Medications Atorvastatin Calcium (Atorvastatin 10 Mg Tab) 10 mg PO DAILY [facility] Last Admin: 12/19/22 09:29 Dose: 10 mg Collagenase (Collagenase 250 Unit/Gm Ointment 30 Gm Tube) 1 applic TOPICAL DAILY [facility]; Protocol Last Admin: 12/19/22 09:44 Dose: 1 applic Dextrose/Water (Dextrose 50% Syringe 50 Ml) 25 ml IVP PER PROTOCOL PRN; Protocol PRN Reason: Hypoglycemia Dextrose/Water (Dextrose 50% Syringe 50 Ml) 50 ml IVP PER PROTOCOL PRN; Protocol PRN Reason: Hypoglycemia Glimepiride (Glimepiride 1 Mg Tab) 1 mg PO DAILY [facility] Last Admin: 12/19/22 09:30 Dose: 1 mg Cefepime HCl 2 gm/ Sodium (Chloride) 100 mls @ 25 mls/hr IVPB Q8HR [facility]; Protocol Last Admin: 12/19/22 09:28 Dose: 25 mls/hr Lactated Ringer's (Lactated Ringers) 1,000 mls @ 125 mls/hr IV .Q8H [facility] Last Admin: 12/19/22 09:37 Dose: 125 mls/hr Imipramine HCl (Imipramine 10 Mg Tab) 10 mg PO BID [facility] Last Admin: 12/19/22 09:30 Dose: 10 mg Insulin Aspart (Insulin Aspart (Novolog) 100 Unit/Ml Vial) 0 unit SQ AC-TID [facility]; Protocol Last Admin: 12/19/22 14:09 Dose: 2 unit Insulin Detemir (Insulin Detemir (Levemir) 100 Unit/Ml Syr) 18 unit SQ HS [facility] Naloxone HCl (Naloxone 0.4 Mg/Ml 1 Ml Vial) 0.2 mg IV Q2M PRN PRN Reason: Opioid Reversal Non-Formulary Medication (Methenamine Hippurate [Hiprex]) 1 gm PO BID [facility] Last Admin: 12/19/22 09:31 Dose: Not Given Past medical history to include: T10 paraplegia from spinal injection, prerenal aneurysm, abdominal aortic aneurysm, diabetes, [place] filter, hyperlipidemia,neurogenic bladder, chronic decubital ulcers Social history: Did smoke in the remote past. No alcohol. . Physical examination: VITAL SIGNS: 97.7, 79, 16, 110/62, 99% room air GENERAL:BMI 25.1, reclining in bed, awake, comfortable DERMATOLOGICAL: Multiple decubitus wounds. CAD is endorsing EYES: Pupils equal. Conjunctiva normal. HEENT: External appearance of nose and ears normal, oral cavity grossly normal. NECK: JVD not raised; masses not palpable. HEART: First and second heart sounds are normal; no edema. LUNGS: Respiratory rate normal; clear to auscultation. ABDOMEN: Soft, nontender, liver spleen not palpable, no masses palpable. Elliott catheter with cloudy urine PSYCH: Alert and oriented x3; mood and affect normal. NEUROLOGICAL: [Cranial nerves grossly intact; no facial asymmetry, lower extremity power 0/5. No sensation of lower extremity. INVESTIGATIONS, reviewed in the clinical context: Blood culture: Streptococcus agalactiae group B. December 18: Sodium 134 potassium 3.8 BUN 13 creatinine 0.5 to White count 11.2 hemoglobin 10.6 platelets 267 sodium 128 potassium 5.1 creatinine 0.69 Lactic acid 2.1 albumin 2.6 UA positive for leukoesterase, negative for nitrite, WBC Assessment and plan: -Acute UTI with cystitis secondary to self-catheterization. Causing sepsis IV meropenem, . Cultures ordered. Follow with ID -Sepsis with blood culture positive for Streptococcus agalactiae, POA -Multiple decubitus wound ulcers. Antibiotics ID. right every 2 decubital ulcer debrided -Sepsis with lactic acidosis -Chronic paraplegia from spinal cord injury at T10 -Diabetes mellitus type 2, chronically on insulin Levemir Follow Accu-Cheks -[employer] filter history of -Hyperlipidemia Mevacor 40 mg daily at bedtime -Normocytic anemia of chronic disease -Hyponatremia likely from decreased oral intake -Chronic medical debility, able to transfer from bed to the chair -Chronic bladder dysfunction patient does self-catheterization. -Chronic sacral decubitus ulcer and left gluteal area. Wound debridement done. -Full code IV meropenem. Wound care. IV fluids. Discussed with patient. Repeat blood culture today.
[2022-12-19 17:14] LABS: Glucose,Whole Blood 303 mg/dL (70-110)
[2022-12-19 20:23] LABS: Glucose,Whole Blood 207 mg/dL (70-110)
[2022-12-20] MEDS: CEFEPIME 2 GM in SODIUM CHLORIDE 0.9% 100 ML IVPB SCH ×2 (00:48→08:22)
[2022-12-20] MEDS: LACTATED RINGERS 1,000 ML IV SCH ×2 (06:10→08:23)
[2022-12-20 07:45] LABS: Glucose,Whole Blood 128 mg/dL (70-110)
[2022-12-20] MEDS: ATORVASTATIN 10 MG TAB PO SCH (08:22)
[2022-12-20] MEDS: INSULIN ASPART (NovoLOG) 100 UNIT/ML VIAL SQ SCH ×3 (08:23→17:38)
[2022-12-20] MEDS: COLLAGENASE 250 UNIT/GM OINTMENT 30 GM TUBE TOPICAL SCH (08:24)
[2022-12-20] MEDS: IMIPRAMINE 10 MG TAB PO SCH ×2 (08:25→21:26)
[2022-12-20] MEDS: GLIMEPIRIDE 1 MG TAB PO SCH (08:25)
[2022-12-20] MEDS: NON FORMULARY DRUG (Methenamine Hippurate [Hiprex] 1 GM Tablet) PO SCH ×2 (08:26→21:32)
[2022-12-20 11:08] LABS: Glucose,Whole Blood 194 mg/dL (70-110)
--- NOTE | 2022-12-20 12:26 | P.PN ---
Progress Note - Text Progress Note Date: 12/20/22 Chief Complaint: Not feeling well History of presenting complaint: This is a 72-year-old patient of Dr. Ferreira. Chronic stable medical conditions include history of T10 paraplegia following a spinal injection, brain aneurysm, AAA, hyperlipidemia, [place] filter, diabetes. neurogenic bladder-patient does self-catheterization. Patient also has a daily bowel regime that he does himself. Patient is cared for by his . At the baseline able to transfer from bed to the chair. Has chronic wounds and home care for the same. Patient now presents with not feeling well. Fever and chills. Urine becoming dark in color. Decreased appetite. Low-grade fever. Tired rundown. at the bedside in the ER home assisted with the history. Admitted with acute UTI with sepsis, multiple decubitus ulcers. December 18: Seen by ID. His started IV meropenem. IV vancomycin. IV fluids. Decrease appetite. Feels tired. Discussed. December 19: Right gluteal area decubital ulcer debrided by Dr. Hurd yesterday. Patient eating better. Feels better. IV cefepime. IV fluids. Blood cultures growing Streptococcus agalactiae. Repeat blood culture. December 20: Resting in bed. Eating fair. No fevers. Cultures from the wound are pending. Repeat blood cultures pending. Discussed with patient. IV Ancef Active Medications Atorvastatin Calcium (Atorvastatin 10 Mg Tab) 10 mg PO DAILY [facility] Last Admin: 12/20/22 08:22 Dose: 10 mg Collagenase (Collagenase 250 Unit/Gm Ointment 30 Gm Tube) 1 applic TOPICAL DAILY [facility]; Protocol Last Admin: 12/20/22 08:24 Dose: 1 applic Dextrose/Water (Dextrose 50% Syringe 50 Ml) 25 ml IVP PER PROTOCOL PRN; Protocol PRN Reason: Hypoglycemia Dextrose/Water (Dextrose 50% Syringe 50 Ml) 50 ml IVP PER PROTOCOL PRN; Protocol PRN Reason: Hypoglycemia Glimepiride (Glimepiride 1 Mg Tab) 1 mg PO DAILY [facility] Last Admin: 12/20/22 08:25 Dose: 1 mg Lactated Ringer's (Lactated Ringers) 1,000 mls @ 125 mls/hr IV .Q8H [facility] Last Admin: 12/20/22 08:23 Dose: 125 mls/hr Cefazolin Sodium 2 gm/ Sodium (Chloride) 50 mls @ 100 mls/hr IVPB Q8HR [facility]; Protocol Imipramine HCl (Imipramine 10 Mg Tab) 10 mg PO BID [facility] Last Admin: 12/20/22 08:25 Dose: 10 mg Insulin Aspart (Insulin Aspart (Novolog) 100 Unit/Ml Vial) 0 unit SQ AC-TID [facility]; Protocol Last Admin: 12/20/22 08:23 Dose: Not Given Insulin Detemir (Insulin Detemir (Levemir) 100 Unit/Ml Syr) 18 unit SQ HS [facility] Last Admin: 12/19/22 21:16 Dose: 18 unit Naloxone HCl (Naloxone 0.4 Mg/Ml 1 Ml Vial) 0.2 mg IV Q2M PRN PRN Reason: Opioid Reversal Non-Formulary Medication (Methenamine Hippurate [Hiprex]) 1 gm PO BID [facility] Last Admin: 12/20/22 08:26 Dose: Not Given Past medical history to include: T10 paraplegia from spinal injection, prerenal aneurysm, abdominal aortic aneurysm, diabetes, [place] filter, hyperlipidemia,neurogenic bladder, chronic decubital ulcers Social history: Did smoke in the remote past. No alcohol. . Physical examination: VITAL SIGNS: 97.7, 78, 16, 102/55, 97% room air GENERAL:BMI 25.1, laying in bed, awake, comfortable DERMATOLOGICAL: Multiple decubitus wounds. CAD is endorsing EYES: Pupils equal. Conjunctiva normal. HEENT: External appearance of nose and ears normal, oral cavity grossly normal. NECK: JVD not raised; masses not palpable. HEART: First and second heart sounds are normal; no edema. LUNGS: Respiratory rate normal; clear to auscultation. ABDOMEN: Soft, nontender, liver spleen not palpable, no masses palpable. Elliott catheter with cloudy urine PSYCH: Alert and oriented x3; mood and affect normal. NEUROLOGICAL: [Cranial nerves grossly intact; no facial asymmetry, lower extremity power 0/5. No sensation of lower extremity. INVESTIGATIONS, reviewed in the clinical context: Blood culture: Streptococcus agalactiae group B. December 18: Sodium 134 potassium 3.8 BUN 13 creatinine 0.5 to White count 11.2 hemoglobin 10.6 platelets 267 sodium 128 potassium 5.1 creatinine 0.69 Lactic acid 2.1 albumin 2.6 UA positive for leukoesterase, negative for nitrite, WBC Assessment and plan: -Acute UTI with cystitis secondary to self-catheterization. Causing sepsis IV Ancef, . Blood culture: Streptococcus agalactiae group B. Follow with ID -Sepsis with blood culture positive for Streptococcus agalactiae, POA -Multiple decubitus wound ulcers. Antibiotics ID. right every 2 decubital ulcer debrided -Sepsis with lactic acidosis -Chronic paraplegia from spinal cord injury at T10 -Diabetes mellitus type 2, chronically on insulin, uncontrolled with hyperglycemia secondary to infection Increase Levemir 22 units subcu daily at bedtime. Follow Accu-Angham[employer] -[employer] filter history of -Hyperlipidemia Mevacor 40 mg daily at bedtime -Normocytic anemia of chronic disease -Hyponatremia likely from decreased oral intake -Chronic medical debility, able to transfer from bed to the chair -Chronic bladder dysfunction patient does self-catheterization. -Chronic sacral decubitus ulcer and left gluteal area. Wound debridement done. -Full code IV Ancef. Wound care. IV fluids cutback. Discussed with patient. Repeat blood cultures pending.
--- NOTE | 2022-12-20 13:49 | CDI ---
Documentation Clarification Form Date: 12/20/2022 01:35:37 PM From: Debbie Engel RN CCDS Phone: [phone] Admit Date: 12/17/2022 02:47:00 PM Patient Name: Milton Arnett Visit Number: [id number] Discharge Date: ATTENTION: The Clinical Documentation Specialists (CDI) and [facility] Coding Staff appreciate your assistance in clarifying documentation. Please respond to the clarification below the line at the bottom and electronically sign. The CDI & [facility] Coding staff will review the response and follow-up if needed. Please note: Queries are made part of the Legal Health Record. If you have any questions, please contact the author of this message via ITS. Dr. Maxi Masters debridement is documented 12/18, Right gluteal. Additional clarification regarding the procedure is requested. History/Risk Factors:72-year-old male presents with fever, chills and urine becoming dark in color. Medical history: Paraplegia T10, Straight catheterizations, DM 2 and Chronic decubital ulcers. 12/17 H&P. Clinical Indicators: Preoperative diagnosis is chronic large pressure ulcer right gluteal area measurement is 6 x 4.2 with necrotic tissue at the base. Procedure debridement of wound down to separate his tissue and the fascia did we will address tissue was removed which was sent for deep culture. Treatment: Debridement on 12/18. Please clarify the type of procedure performed: [ X ] Excisional debridement (the removal of necrotic, devitalized tissue or slough by means of cutting away of tissue) [ ] Non-excisional debridement (the removal of necrotic, devitalized tissue or slough by means of flushing, brushing, or washing. (Irrigation) [ ] Other; please specify [ ] Unable to determine Please clarify the depth of procedure performed: [ X ] Subcutaneous tissue [ ] Fascia [ ] Muscle [ ] Other, please specify [ ] Unable to determine Five elements required for accurate and compliant documentation of a debridement: Technique used (e.g., excisional, excised, cutting, brushing, jet lavage etc.) Instrument(s) used (e.g., scalpel, curette, etc.) Nature of the tissue removed (e.g., necrotic, devitalized tissues, non-viable tissue, etc.) Appearance and size of the wound (e.g., down to fresh bleeding tissue, 7cm x 10cm, etc.) Depth of the debridement* (e.g., skin, subcutaneous tissue, fascia, muscle, bone, etc.) (Template Last Revised: September 2020) MTDD
--- NOTE | 2022-12-20 14:02 | CDI ---
Documentation Clarification Form Date: 12/20/2022 01:51:50 PM From: Debbie Engel RN CCDS Phone: [phone] Admit Date: 12/17/2022 02:47:00 PM Patient Name: Milton Arnett Visit Number: [id number] Discharge Date: ATTENTION: The Clinical Documentation Specialists (CDI) and [facility] Coding Staff appreciate your assistance in clarifying documentation. Please respond to the clarification below the line at the bottom and electronically sign. The CDI & [facility] Coding staff will review the response and follow-up if needed. Please note: Queries are made part of the Legal Health Record. If you have any questions, please contact the author of this message via ITS. Dr. Tari Paris A Right Buttock, III pressure ulcer is documented by Nursing, 12/18, Wound assessment. Based on this information and the findings below, is there an additional diagnosis that is clinically appropriate for this patient? History/Risk Factors:72-year-old male presents with fever, chills and urine becoming dark in color. Medical history: Paraplegia T10, Straight catheterizations, DM 2 and Chronic decubital ulcers. 12/17 H&P. Clinical Indicators: Location: Right buttock (gluteal) Wound description: Stage III Dressing dry and intact, changed reinforced Treatment: Turn Q two hours, Absorbent under pad, Barrier protection, Pillow between the knees. Is there an additional diagnosis that is clinically appropriate for this patient? [ X] Right buttock (gluteal) Pressure Ulcer Stage 3 [ ] Other condition, please specify [ ] Unable to determine Clinical Definitions: Stage 1 Pressure Ulcer: intact skin, non-blanching redness of local area Stage 2 Pressure Ulcer: Partial thickness, loss of dermis, pink wound bed Stage 3 Pressure Ulcer: Full thickness tissue loss Stage 4 Pressure Ulcer: Full thickness tissue loss with exposed bone, tendon, or muscle. Unstageable pressure ulcer: Full thickness tissue loss in which the base of the ulcer is covered by slough (yellow, barboza, elkins, green or brown) and/or eschar (barboza, brown or black) in the wound bed. (Template Last Revised: September 2020) MTDD
--- NOTE | 2022-12-20 14:11 | CDI ---
Documentation Clarification Form Date: 12/20/2022 02:03:12 PM From: Debbie Engel RN CCDS Phone: [phone] Admit Date: 12/17/2022 02:47:00 PM Patient Name: Milton Arnett Visit Number: [id number] Discharge Date: ATTENTION: The Clinical Documentation Specialists (CDI) and [facility] Coding Staff appreciate your assistance in clarifying documentation. Please respond to the clarification below the line at the bottom and electronically sign. The CDI & [facility] Coding staff will review the response and follow-up if needed. Please note: Queries are made part of the Legal Health Record. If you have any questions, please contact the author of this message via ITS. Dr. Tari Paris A Left Buttock, IV pressure ulcer is documented by Nursing, 12/18, Wound assessment. Based on this information and the findings below, is there an additional diagnosis that is clinically appropriate for this patient? History/Risk Factors:72-year-old male presents with fever, chills and urine becoming dark in color. Medical history: Paraplegia T10, Straight catheterizations, DM 2 and Chronic decubital ulcers. 12/17 H&P. Clinical Indicators: Location: Left Hip Wound description: Structure exposed Muscle, Fascia, Fat layer, purulent drainage Treatment: Turn Q two hours, Absorbent under pad, Barrier protection, Pillow between the knees. , Abd pad dressing , Santyl. Is there an additional diagnosis that is clinically appropriate for this patient? [ ] Left Hip Pressure Ulcer Stage 4 [ X ] Other condition, please specify -left gluteal stage III pressure ulcer [ ] Unable to determine Clinical Definitions: Stage 1 Pressure Ulcer: intact skin, non-blanching redness of local area Stage 2 Pressure Ulcer: Partial thickness, loss of dermis, pink wound bed Stage 3 Pressure Ulcer: Full thickness tissue loss Stage 4 Pressure Ulcer: Full thickness tissue loss with exposed bone, tendon, or muscle. Unstageable pressure ulcer: Full thickness tissue loss in which the base of the ulcer is covered by slough (yellow, barboza, elkins, green or brown) and/or eschar (barboza, brown or black) in the wound bed. (Template Last Revised: September 2020) MTDD
--- NOTE | 2022-12-20 14:27 | CDI ---
Documentation Clarification Form Date: 12/20/2022 02:12:30 PM From: Debbie Engel RN CCDS Phone: [phone] Admit Date: 12/17/2022 02:47:00 PM Patient Name: Milton Arnett Visit Number: [id number] Discharge Date: ATTENTION: The Clinical Documentation Specialists (CDI) and [facility] Coding Staff appreciate your assistance in clarifying documentation. Please respond to the clarification below the line at the bottom and electronically sign. The CDI & [facility] Coding staff will review the response and follow-up if needed. Please note: Queries are made part of the Legal Health Record. If you have any questions, please contact the author of this message via ITS. Dr. Tari Paris A Right Hip, stage III pressure ulcer is documented by Nursing 12/17, Wound assessment. A Right Hip, stage IV pressure ulcer is documented by Nursing 12/18, Wound assessment. Based on this information and the findings below, please provide clarification. History/Risk Factors:72-year-old male presents with fever, chills and urine becoming dark in color. Medical history: Paraplegia T10, Straight catheterizations, DM 2 and Chronic decubital ulcers. 12/17 H&P. Clinical Indicators: Location: Right HIp Wound description: structure exposed Muscle, Fascia, Fat layer. Drainage odor Slight Treatment: Turn Q two hours, Absorbent under pad, Barrier protection, Pillow between the knees. ABD Pad, Santyl. Is there an additional diagnosis that is clinically appropriate for this patient? [ X] Right Hip Pressure Ulcer Stage 3 POA [ ] Right Hip Pressure Ulcer Stage 4 POA [ ] Other condition, please specify [ ] Unable to determine Clinical Definitions: Stage 1 Pressure Ulcer: intact skin, non-blanching redness of local area Stage 2 Pressure Ulcer: Partial thickness, loss of dermis, pink wound bed Stage 3 Pressure Ulcer: Full thickness tissue loss Stage 4 Pressure Ulcer: Full thickness tissue loss with exposed bone, tendon, or muscle. Unstageable pressure ulcer: Full thickness tissue loss in which the base of the ulcer is covered by slough (yellow, barboza, elkins, green or brown) and/or eschar (barboza, brown or black) in the wound bed. (Template Last Revised: September 2020) MTDD
--- NOTE | 2022-12-20 14:41 | CDI ---
Documentation Clarification Form Date: 12/20/2022 02:31:45 PM From: Debbie Engel RN CCDS Phone: [phone] Admit Date: 12/17/2022 02:47:00 PM Patient Name: Milton Arnett Visit Number: [id number] Discharge Date: ATTENTION: The Clinical Documentation Specialists (CDI) and [facility] Coding Staff appreciate your assistance in clarifying documentation. Please respond to the clarification below the line at the bottom and electronically sign. The CDI & [facility] Coding staff will review the response and follow-up if needed. Please note: Queries are made part of the Legal Health Record. If you have any questions, please contact the author of this message via ITS. Dr. Tari Paris Unstageable Pressure ulcer Between Buttocks is documented by Nursing 12/17 12/19, Wound assessment. Stage III pressure ulcer Between Buttock is documented by Nursing 12/19, Wound assessment. Based on this information and the findings below, please provide clarification. History/Risk Factors: 72-year-old male presents with fever, chills and urine becoming dark in color. Medical history: Paraplegia T10, Straight catheterizations, DM 2 and Chronic decubital ulcers. 12/17 H&P. Clinical Indicators: Location: Buttock Wound description: small amount of serous drainage, foul order. Treatment: Turn Q two hours, Absorbent under pad, Barrier protection, Pillow between the knees. ABD Pad Is there an additional diagnosis that is clinically appropriate for this patient? [ ] Between Buttock Pressure Ulcer Stage 3 POA [ ] Between Buttock Pressure Ulcer unstageable POA [ X] Other condition, please specify stage III sacral pressure ulcer [ ] Unable to determine Clinical Definitions: Stage 1 Pressure Ulcer: intact skin, non-blanching redness of local area Stage 2 Pressure Ulcer: Partial thickness, loss of dermis, pink wound bed Stage 3 Pressure Ulcer: Full thickness tissue loss Stage 4 Pressure Ulcer: Full thickness tissue loss with exposed bone, tendon, or muscle. Unstageable pressure ulcer: Full thickness tissue loss in which the base of the ulcer is covered by slough (yellow, barboza, elkins, green or brown) and/or eschar (barboza, brown or black) in the wound bed. (Template Last Revised: September 2020) MTDD
[2022-12-20] MEDS ORDERED: VANCOMYCIN IV PER PHARMACY 1 EACH MISC MISCELLANE PRN (14:58)
[2022-12-20] MEDS: VANCOMYCIN 1,500 MG in SODIUM CHLORIDE 0.9% 500 ML 500 ML IVPB SCH (16:21)
[2022-12-20 17:06] LABS: Glucose,Whole Blood 317 mg/dL (70-110)
[2022-12-20 20:44] LABS: Glucose,Whole Blood 368 mg/dL (70-110)
[2022-12-20] MEDS: INSULIN DETEMIR (LEVEMIR) 100 UNIT/ML SYR SQ SCH (21:26)
[2022-12-21] MEDS: VANCOMYCIN 1,500 MG in SODIUM CHLORIDE 0.9% 500 ML 500 ML IVPB SCH ×2 (04:28→16:16)
[2022-12-21 06:02] LABS: African American GFR (CKD) >90 (>60 ml/min/1.73 sqM); Anion Gap 4 mmol/L; Blood Urea Nitrogen 6 mg/dL (9-20); Calcium 7.2 mg/dL (8.4-10.2); Carbon Dioxide 27 mmol/L (22-30); Chloride 105 mmol/L (98-107); Glucose 128 mg/dL (74-99); Non-African American GFR(CKD) >90 (>60 ml/min/1.73 sqM); Potassium 3.6 mmol/L (3.5-5.1); Sodium 136 mmol/L (137-145)
[2022-12-21 06:44] LABS: Anisocytosis Slight; HCT 30.8 % (39.0-53.0); HGB 9.5 gm/dL (13.0-17.5); Hypochromasia Marked; MCHC 30.8 g/dL (31.0-37.0); MCV 81.1 fL (80.0-100.0); Mean Platelet Volume 8.4; Platelet Count 207 k/uL (150-450); RDW 16.2 % (11.5-15.5); WBC 5.4 k/uL (3.8-10.6)
[2022-12-21 06:55] LABS: C Reactive Protein 12.8 mg/dL (<1.0)
[2022-12-21 07:34] LABS: Glucose,Whole Blood 123 mg/dL (70-110)
[2022-12-21 09:05] LABS: Basophils # (M) 0.05 k/uL (0-0.2); Eosinophils # (M) 0.16 k/uL (0-0.7); Lymphocytes # (M) 0.86 k/uL (1.0-4.8); Metamyelocytes # (M) 0.05 k/uL (0); Metamyelocytes % 1 %; Monocytes # (M) 0.38 k/uL (0-1.0); Neutrophils # (M) 3.94 k/uL (1.3-7.7); Neutrophils % (M) 73 %; Nucleated Red Blood Cells 0 /100 WBC (0-0); Total Cells Counted 200
[2022-12-21 09:06] LABS: Rouleaux Present
[2022-12-21] MEDS: INSULIN ASPART (NovoLOG) 100 UNIT/ML VIAL SQ SCH ×4 (09:09→17:53)
[2022-12-21] MEDS: IMIPRAMINE 10 MG TAB PO SCH ×2 (09:10→20:07)
[2022-12-21] MEDS: ATORVASTATIN 10 MG TAB PO SCH (09:10)
[2022-12-21] MEDS: NON FORMULARY DRUG (Methenamine Hippurate [Hiprex] 1 GM Tablet) PO SCH ×2 (09:10→20:08)
[2022-12-21] MEDS: COLLAGENASE 250 UNIT/GM OINTMENT 30 GM TUBE TOPICAL SCH (09:10)
[2022-12-21] MEDS: GLIMEPIRIDE 1 MG TAB PO SCH (09:10)
[2022-12-21 11:57] LABS: Glucose,Whole Blood 187 mg/dL (70-110)
[2022-12-21] MEDS: LACTATED RINGERS 1,000 ML IV SCH (13:00)
--- NOTE | 2022-12-21 13:13 | CDI ---
Documentation Clarification Form Date: 12/21/2022 12:49:25 PM From: Debbie Engel RN CCDS Phone: [phone] Admit Date: 12/17/2022 02:47:00 PM Patient Name: Milton Arnett Visit Number: [id number] Discharge Date: ATTENTION: The Clinical Documentation Specialists (CDI) and [facility] Coding Staff appreciate your assistance in clarifying documentation. Please respond to the clarification below the line at the bottom and electronically sign. The CDI & [facility] Coding staff will review the response and follow-up if needed. Please note: Queries are made part of the Legal Health Record. If you have any questions, please contact the author of this message via ITS. Dr. Ramon Mancera The Registered Dietitian assessment on [insert 12/18 indicates this patient meets criteria for increased nutrient needs. Based on this information and the findings below, is there an additional diagnosis that is clinically appropriate for this patient? History/Risk Factors:72-year-old male presents with fever, chills and urine Becoming dark in color. Medical history: Paraplegia T10, Straight Catheterizations, DM 2 and chronic decubital ulcers.6/9 H P. Clinical Indicators: RD Consult Assessment: Current BMI:25.1kg Hgt 5ft 11 in; Weight 81.647kg staged by patient Diet History: Regular diet, appetite good, Intake good 75-100% consumed. Physical findings: Decubitus ulcers right hip, right buttock, left hip Estimated protein range 1.5g/kg estimated protein needs 122g/day Nutrition diagnosis: Increased nutrient needs, for wound healing, multiple pressure injuries. Nutrition education: Recommended modifications- adequate PO, need for protein and fluids for wound healing. Consistent carb diet with high protein for wound healing. Treatment: Diet education see above: Consistent carbohydrate, Feeding assessment glucose monitoring. RD Consult: See above Is there an additional diagnosis that is clinically appropriate for this patient? [ ] Mild Protein Calorie Malnutrition [ ] Moderate Protein-Calorie Malnutrition [ ] Severe Protein-Calorie Malnutrition [ + ] No additional diagnosis/Not clinically significant [ ] Other condition, please specify [ ] Unable to Determine (Template Last Revised: September 2020) MTDD
[2022-12-21 17:11] LABS: Glucose,Whole Blood 163 mg/dL (70-110)
[2022-12-21 20:04] LABS: Glucose,Whole Blood 282 mg/dL (70-110)
[2022-12-21] MEDS: INSULIN DETEMIR (LEVEMIR) 100 UNIT/ML SYR SQ SCH (20:07)
--- NOTE | 2022-12-21 20:23 | P.PN ---
Progress Note - Text Progress Note Date: 12/21/22 Chief Complaint: Not feeling well History of presenting complaint: This is a 72-year-old patient of Dr. Ferreira. Chronic stable medical conditions include history of T10 paraplegia following a spinal injection, brain aneurysm, AAA, hyperlipidemia, [place] filter, diabetes. neurogenic bladder-patient does self-catheterization. Patient also has a daily bowel regime that he does himself. Patient is cared for by his . At the baseline able to transfer from bed to the chair. Has chronic wounds and home care for the same. Patient now presents with not feeling well. Fever and chills. Urine becoming dark in color. Decreased appetite. Low-grade fever. Tired rundown. at the bedside in the ER home assisted with the history. Admitted with acute UTI with sepsis, multiple decubitus ulcers. December 18: Seen by ID. His started IV meropenem. IV vancomycin. IV fluids. Decrease appetite. Feels tired. Discussed. December 19: Right gluteal area decubital ulcer debrided by Dr. Hurd yesterday. Patient eating better. Feels better. IV cefepime. IV fluids. Blood cultures growing Streptococcus agalactiae. Repeat blood culture. December 20: Resting in bed. Eating fair. No fevers. Cultures from the wound are pending. Repeat blood cultures pending. Discussed with patient. IV Ancef December 21: In bed. Comfortable. Cultures are pending. Antibiotic changed to IV vancomycin. MRSA in the blood culture. Oral intake variable Past medical history to include: T10 paraplegia from spinal injection, prerenal aneurysm, abdominal aortic aneurysm, diabetes, [place] filter, hyperlipidemia,neurogenic bladder, chronic decubital ulcers Social history: Did smoke in the remote past. No alcohol. . Physical examination: VITAL SIGNS: 97.7, 78, 16, 102/55, 97% room air GENERAL:BMI 25.1, laying in bed, awake, comfortable DERMATOLOGICAL: Multiple decubitus wounds. CAD is endorsing EYES: Pupils equal. Conjunctiva normal. HEENT: External appearance of nose and ears normal, oral cavity grossly normal. NECK: JVD not raised; masses not palpable. HEART: First and second heart sounds are normal; no edema. LUNGS: Respiratory rate normal; clear to auscultation. ABDOMEN: Soft, nontender, liver spleen not palpable, no masses palpable. Elliott catheter with cloudy urine PSYCH: Alert and oriented x3; mood and affect normal. NEUROLOGICAL: [Cranial nerves grossly intact; no facial asymmetry, lower extremity power 0/5. No sensation of lower extremity. INVESTIGATIONS, reviewed in the clinical context: Blood culture [December 17]: Streptococcus agalactiae group B. Presumptive MRSA December 18: Sodium 134 potassium 3.8 BUN 13 creatinine 0.5 to White count 11.2 hemoglobin 10.6 platelets 267 sodium 128 potassium 5.1 creatinine 0.69 Lactic acid 2.1 albumin 2.6 UA positive for leukoesterase, negative for nitrite, WBC Assessment and plan: -Acute UTI with cystitis secondary to self-catheterization. Causing sepsis IV Ancef, . Blood culture: Streptococcus agalactiae group B. Follow with ID -Sepsis with blood culture positive for Streptococcus agalactiae, POA -Multiple decubitus wound ulcers. Antibiotics ID. right hip decubital ulcer debrided -Sepsis with lactic acidosis -Chronic paraplegia from spinal cord injury at T10 -Diabetes mellitus type 2, chronically on insulin, uncontrolled with hyperglycemia secondary to infection Levemir 22 units subcu daily at bedtime. Follow Accu-CheSistemic -[employer] filter history of -Hyperlipidemia Mevacor 40 mg daily at bedtime -Normocytic anemia of chronic disease -Hyponatremia likely from decreased oral intake -Chronic medical debility, able to transfer from bed to the chair -Chronic bladder dysfunction patient does self-catheterization. -Chronic sacral decubitus ulcer and left gluteal area. Wound debridement done. -Full code IV vancomycin. Other medications to continue. Repeat blood cultures pending.
--- NOTE | 2022-12-21 22:09 | P.PN ---
Subjective Progress Note Date: 12/20/22 Principal diagnosis: UTI and pressure ulcer Patient is a 72-year-old male with a past medical history significant for T10 paraplegia patient did have a bilateral hip and sacral pressure ulcer did have urinary retention requiring self-catheterization presenting to the [facility] with sepsis source likely urinary, patient did have debridement of his right ischial/gluteal wound by vascular surgery and deep culture did not mention any extension down to the bone On today's evaluation that is 12/20/2022 the patient remains to be afebrile, the patient is breathing comfortably on room air, the patient denies any chest pain shortness of breath or cough no nausea no vomiting no abdominal pain no diarrhea Objective - Vital Signs Vital signs: Vital Signs Temp 97.7 F 12/20/22 07:45 Pulse 78 12/20/22 07:45 Resp 16 12/20/22 07:45 BP 102/55 12/20/22 07:45 Pulse Ox 97 12/20/22 07:45 FiO2 Intake & Output 12/19/22 12/20/22 12/20/22 18:59 06:59 18:59 Intake Total 320 Output Total 1275 1050 Balance -1275 -730 Intake: Oral 320 Output: Urine 1275 1050 Other: Voiding Method External Catheter Indwelling Catheter # Bowel Movements 1 - Exam GENERAL DESCRIPTION: An elderly male lying in bed in no distress RESPIRATORY SYSTEM: Unlabored breathing , decreased breath sounds at bases HEART: S1 S2 regular rate and rhythm , ABDOMEN: Soft , no tenderness EXTREMITIES: No edema feet - Labs CBC & Chem 7: 12/21/22 05:23 12/21/22 05:23 Labs: Abnormal Lab Results - Last 24 Hours (Table) 12/19/22 12/19/22 12/19/22 Range/Units 11:09 13:05 17:12 Creatinine 0.40 L (0.66-1.25) mg/dL POC Glucose (mg/dL) 185 H 303 H (70-110) mg/dL 12/19/22 12/20/22 Range/Units 20:21 07:38 Creatinine (0.66-1.25) mg/dL POC Glucose (mg/dL) 207 H 128 H (70-110) mg/dL Microbiology - Last 24 Hours (Table) 12/18/22 16:30 Gram Stain - Preliminary Hip - Left 12/17/22 14:58 Blood Culture Gram Stain - Preliminary Blood Blood Culture - Preliminary Strep agalactiae - (group b) 12/17/22 13:17 Urine Culture - Final Urine,Voided Assessment and Plan (1) Sepsis Current Visit: Yes Status: Acute Code(s): A41.9 - SEPSIS, UNSPECIFIED ORGANISM SNOMED Code(s): 41011943 (2) Infected wound Current Visit: No Status: Acute Code(s): T14.8XXA - OTHER INJURY OF UNSPECIFIED BODY REGION, INITIAL ENCOUNTER; L08.9 - LOCAL INFECTION OF THE SKIN AND SUBCUTANEOUS TISSUE, UNSP SNOMED Code(s): 14809374 (3) UTI (urinary tract infection) Current Visit: No Status: Acute Code(s): N39.0 - URINARY TRACT INFECTION, SITE NOT SPECIFIED SNOMED Code(s): 21298935 Plan: 1patient presented hospital with sepsis in this patient who did have a fever tachycardia elevated white count source is likely urinary tract infection in this patient who do have urine retention requiring self-catheterization and was noticed to have significantly cloudy creamy urine and significantly positive UA likely from enteric gram-negative pathogen 2-patient also have multiple pressure ulcer to the lower back especially bilateral hip and sacral area with some slough tissue and minimal foul-smelling drainage , patient did have breast was surgically evaluation and debridement of the wound and deep cultures which are currently pending 3- patient blood cultures Were positive for Streptococcus agalactiae which is usually of skin and soft tissue origin, blood cultures repeated document ramonita arance of bacteremia , the patient is now also growing MRSA in the blood antibiotic has been switched to vancomycin pharmacy to dose Time with Patient: Less than 30
--- NOTE | 2022-12-21 22:10 | P.PN ---
Subjective Progress Note Date: 12/21/22 Principal diagnosis: UTI and pressure ulcer Patient is a 72-year-old male with a past medical history significant for T10 paraplegia patient did have a bilateral hip and sacral pressure ulcer did have urinary retention requiring self-catheterization presenting to the [facility] with sepsis source likely urinary, patient did have debridement of his right ischial/gluteal wound by vascular surgery and deep culture did not mention any extension down to the bone On today's evaluation that is 12/21/2022 the patient continues to be afebrile, the patient is breathing comfortably on room air, the patient denies any chest pain shortness of breath or cough, the patient denies nausea no vomiting no abdominal pain no diarrhea Objective - Vital Signs Vital signs: Vital Signs Temp 97.7 F 12/21/22 07:35 Pulse 77 12/21/22 07:35 Resp 16 12/21/22 07:35 BP 109/53 12/21/22 07:35 Pulse Ox 96 12/21/22 07:35 FiO2 Intake & Output 12/20/22 12/21/22 12/21/22 18:59 06:59 18:59 Output Total 0998 066 6433 Balance -1400 -300 -1200 Output: Urine 1849 512 8268 Uretheral (Elliott) 1200 Other: Voiding Method Indwelling Catheter Indwelling Catheter Indwelling Catheter # Bowel Movements 1 - Exam GENERAL DESCRIPTION: An elderly male lying in bed in no distress RESPIRATORY SYSTEM: Unlabored breathing , decreased breath sounds at bases HEART: S1 S2 regular rate and rhythm , ABDOMEN: Soft , no tenderness EXTREMITIES: No edema feet - Labs CBC & Chem 7: 12/21/22 05:23 12/21/22 05:23 Labs: Abnormal Lab Results - Last 24 Hours (Table) 12/20/22 12/20/22 12/21/22 Range/Units 17:01 20:42 05:23 RBC 3.80 L (4.30-5.90) m/uL Hgb 9.5 L (13.0-17.5) gm/dL Hct 30.8 L (39.0-53.0) % MCHC 30.8 L (31.0-37.0) g/dL RDW 16.2 H (11.5-15.5) % Lymphocytes # (Manual) 0.86 L (1.0-4.8) k/uL Metamyelocytes # (Man) 0.05 H (0) k/uL Sodium (137-145) mmol/L BUN (9-20) mg/dL Creatinine (0.66-1.25) mg/dL Glucose (74-99) mg/dL POC Glucose (mg/dL) 317 H 368 H (70-110) mg/dL Calcium (8.4-10.2) mg/dL C-Reactive Protein (<1.0) mg/dL 12/21/22 12/21/22 12/21/22 Range/Units 05:23 07:32 11:56 RBC (4.30-5.90) m/uL Hgb (13.0-17.5) gm/dL Hct (39.0-53.0) % MCHC (31.0-37.0) g/dL RDW (11.5-15.5) % Lymphocytes # (Manual) (1.0-4.8) k/uL Metamyelocytes # (Man) (0) k/uL Sodium 136 L (137-145) mmol/L BUN 6 L (9-20) mg/dL Creatinine 0.37 L (0.66-1.25) mg/dL Glucose 128 H (74-99) mg/dL POC Glucose (mg/dL) 123 H 187 H (70-110) mg/dL Calcium 7.2 L (8.4-10.2) mg/dL C-Reactive Protein 12.8 H (<1.0) mg/dL Microbiology - Last 24 Hours (Table) 12/17/22 14:58 Blood Culture Gram Stain - Preliminary Blood Blood Culture - Preliminary Strep agalactiae - (group b) Presumptive MRSA Assessment and Plan (1) Sepsis Current Visit: Yes Status: Acute Code(s): A41.9 - SEPSIS, UNSPECIFIED ORGANISM SNOMED Code(s): 65480092 (2) Infected wound Current Visit: No Status: Acute Code(s): T14.8XXA - OTHER INJURY OF UNSPECIFIED BODY REGION, INITIAL ENCOUNTER; L08.9 - LOCAL INFECTION OF THE SKIN AND SUBCUTANEOUS TISSUE, UNSP SNOMED Code(s): 51616102 (3) UTI (urinary tract infection) Current Visit: No Status: Acute Code(s): N39.0 - URINARY TRACT INFECTION, SITE NOT SPECIFIED SNOMED Code(s): 58281028 Plan: 1patient presented hospital with sepsis in this patient who did have a fever tachycardia elevated white count source is likely urinary tract infection in this patient who do have urine retention requiring self-catheterization and was noticed to have significantly cloudy creamy urine and significantly positive UA likely from enteric gram-negative pathogen 2-patient also have multiple pressure ulcer to the lower back especially bilateral hip and sacral area with some slough tissue and minimal foul-smelling drainage , patient did have breast was surgically evaluation and debridement of the wound and deep cultures which are currently pending 3- patient blood cultures Were positive for Streptococcus agalactiae as well as MRSA blood cultures have been repeated which are pending so far patient to continue vancomycin pharmacy to dose, he will need PICC line for outpatient IV antibiotics Time with Patient: Less than 30
[2022-12-22] MEDS: VANCOMYCIN 1,500 MG in SODIUM CHLORIDE 0.9% 500 ML 500 ML IVPB SCH ×2 (03:58→17:39)
[2022-12-22 07:27] LABS: Glucose,Whole Blood 110 mg/dL (70-110)
[2022-12-22] MEDS: INSULIN ASPART (NovoLOG) 100 UNIT/ML VIAL SQ SCH ×3 (07:36→17:38)
[2022-12-22] MEDS: IMIPRAMINE 10 MG TAB PO SCH ×2 (09:04→20:07)
[2022-12-22] MEDS: COLLAGENASE 250 UNIT/GM OINTMENT 30 GM TUBE TOPICAL SCH (09:04)
[2022-12-22] MEDS: GLIMEPIRIDE 1 MG TAB PO SCH (09:04)
[2022-12-22] MEDS: ATORVASTATIN 10 MG TAB PO SCH (09:04)
[2022-12-22] MEDS: NON FORMULARY DRUG (Methenamine Hippurate [Hiprex] 1 GM Tablet) PO SCH ×2 (09:05→20:07)
[2022-12-22] MEDS: LACTATED RINGERS 1,000 ML IV SCH (09:05)
[2022-12-22] MEDS ORDERED: ACETAMINOPHEN TAB 500 MG TAB PO PRN (09:06)
[2022-12-22 11:49] LABS: Glucose,Whole Blood 220 mg/dL (70-110)
--- NOTE | 2022-12-22 14:34 | P.PN ---
Subjective Progress Note Date: 12/22/22 Principal diagnosis: UTI and pressure ulcer Patient is a 72-year-old male with a past medical history significant for T10 paraplegia patient did have a bilateral hip and sacral pressure ulcer did have urinary retention requiring self-catheterization presenting to the [facility] with sepsis source likely urinary, patient did have debridement of his right ischial/gluteal wound by vascular surgery and deep culture did not mention any extension down to the bone On today's evaluation that is 12/22/2022 the patient remains to be afebrile, the patient is breathing comfortably on room air, the patient denies any chest pain shortness of breath or cough, the patient denies nausea no vomiting no abdominal pain no diarrhea, no new symptoms Objective - Vital Signs Vital signs: Vital Signs Temp 96.5 F L 12/22/22 11:15 Pulse 78 12/22/22 11:15 Resp 16 12/22/22 11:15 BP 117/59 12/22/22 11:15 Pulse Ox 93 L 12/22/22 11:15 FiO2 Intake & Output 12/21/22 12/22/22 12/22/22 18:59 06:59 18:59 Intake Total 1100 1100 Output Total 1600 1100 Balance -500 0 Intake: Intake, IV Titration 1100 1100 Amount Lactated Ringers 1,000 ml 600 600 @ 50 mls/hr IV .Q20H AZRA Rx#:[id number] Vancomycin 1,500 mg In 500 500 Sodium Chloride 0.9% 500 ml 500 ml @ 167 mls/hr IVPB Q12H AZRA Rx#: [id number] Output: Urine 1600 1100 Other: Voiding Method Indwelling Catheter Indwelling Catheter Indwelling Catheter - Exam GENERAL DESCRIPTION: An elderly male lying in bed in no distress RESPIRATORY SYSTEM: Unlabored breathing , decreased breath sounds at bases HEART: S1 S2 regular rate and rhythm , ABDOMEN: Soft , no tenderness EXTREMITIES: No edema feet Patient did have a left gluteal Ulcer with significant slough tissue and foul- smelling drainage - Labs CBC & Chem 7: 12/21/22 05:23 12/21/22 05:23 Labs: Abnormal Lab Results - Last 24 Hours (Table) 12/21/22 12/21/22 12/22/22 Range/Units 17:10 20:03 11:47 POC Glucose (mg/dL) 163 H 282 H 220 H (70-110) mg/dL Microbiology - Last 24 Hours (Table) 12/20/22 10:35 Blood Culture - Preliminary Blood 12/18/22 16:30 Gram Stain - Final Hip - Left Tissue Culture - Final Assessment and Plan (1) Sepsis Current Visit: Yes Status: Acute Code(s): A41.9 - SEPSIS, UNSPECIFIED ORG ANISM SNOMED Code(s): 01090855 (2) Infected wound Current Visit: No Status: Acute Code(s): T14.8XXA - OTHER INJURY OF UNSPECIFIED BODY REGION, INITIAL ENCOUNTER; L08.9 - LOCAL INFECTION OF THE SKIN AND SUBCUTANEOUS TISSUE, UNSP SNOMED Code(s): 60894288 (3) UTI (urinary tract infection) Current Visit: No Status: Acute Code(s): N39.0 - URINARY TRACT INFECTION, SITE NOT SPECIFIED SNOMED Code(s): 36879388 Plan: 1patient [facility] with sepsis in this patient now with evidence of MRSA and Streptococcus bacteremia with a usually of skin and soft tissue origin possibly related to the left gluteal infected pressure ulcer which needs to be provided Gen. surgery consult has been requested of a discussion with the admitting physician continue with the vancomycin, patient will need a PICC line once cleared his bacteremia for out patient IV antibiotic therapy Time with Patient: Less than 30
[2022-12-22] MEDS ORDERED: VANCOMYCIN TROUGH DUE 1 EACH MISC MISCELLANE ONE (15:00)
[2022-12-22 15:22] LABS: African American GFR (CKD) >90 (>60 ml/min/1.73 sqM); Non-African American GFR(CKD) >90 (>60 ml/min/1.73 sqM)
[2022-12-22 17:21] LABS: Glucose,Whole Blood 209 mg/dL (70-110)
--- NOTE | 2022-12-22 17:26 | P.PN ---
Progress Note - Text Progress Note Date: 12/22/22 Chief Complaint: Not feeling well History of presenting complaint: This is a 72-year-old patient of Dr. Ferreira. Chronic stable medical conditions include history of T10 paraplegia following a spinal injection, brain aneurysm, AAA, hyperlipidemia, Topaz filter, diabetes. neurogenic bladder-patient does self-catheterization. Patient also has a daily bowel regime that he does himself. Patient is cared for by his . At the baseline able to transfer from bed to the chair. Has chronic wounds and home care for the same. Patient now presents with not feeling well. Fever and chills. Urine becoming dark in color. Decreased appetite. Low-grade fever. Tired rundown. at the bedside in the ER home assisted with the history. Admitted with acute UTI with sepsis, multiple decubitus ulcers. December 18: Seen by ID. His started IV meropenem. IV vancomycin. IV fluids. Decrease appetite. Feels tired. Discussed. December 19: Right gluteal area decubital ulcer debrided by Dr. Hurd yesterday. Patient eating better. Feels better. IV cefepime. IV fluids. Blood cultures growing Streptococcus agalactiae. Repeat blood culture. December 20: Resting in bed. Eating fair. No fevers. Cultures from the wound are pending. Repeat blood cultures pending. Discussed with patient. IV Ancef December 21: In bed. Comfortable. Cultures are pending. Antibiotic changed to IV vancomycin. MRSA in the blood culture. Oral intake variable December 22: Discussed with ID doctor site. Repeat blood cultures pending from the . Oral intake fair. No fever. He is also consulting Dr. Foy for further wound debridement. Dr. Hurd is out of town. Active Medications Acetaminophen (Acetaminophen Tab 500 Mg Tab) 500 mg PO Q6HR PRN PRN Reason: Fever and/ or Pain Last Admin: 12/22/22 09:13 Dose: 500 mg Atorvastatin Calcium (Atorvastatin 10 Mg Tab) 10 mg PO DAILY AZRA Last Admin: 12/22/22 09:04 Dose: 10 mg Collagenase (Collagenase 250 Unit/Gm Ointment 30 Gm Tube) 1 applic TOPICAL DAILY AZRA; Protocol Last Admin: 12/22/22 09:04 Dose: 1 applic Dextrose/Water (Dextrose 50% Syringe 50 Ml) 25 ml IVP PER PROTOCOL PRN; Protocol PRN Reason: Hypoglycemia Dextrose/Water (Dextrose 50% Syringe 50 Ml) 50 ml IVP PER PROTOCOL PRN; Protocol PRN Reason: Hypoglycemia Glimepiride (Glimepiride 1 Mg Tab) 1 mg PO DAILY [facility] Last Admin: 12/22/22 09:04 Dose: 1 mg Lactated Ringer's (Lactated Ringers) 1,000 mls @ 50 mls/hr IV .Q20H [facility] Last Admin: 12/22/22 09:05 Dose: Not Given Vancomycin HCl 1,500 mg/ (Sodium Chloride) 500 mls @ 167 mls/hr IVPB Q12H [facility] Last Admin: 12/22/22 03:58 Dose: 167 mls/hr Imipramine HCl (Imipramine 10 Mg Tab) 10 mg PO BID [facility] Last Admin: 12/22/22 09:04 Dose: 10 mg Insulin Aspart (Insulin Aspart (Novolog) 100 Unit/Ml Vial) 0 unit SQ AC-TID [facility]; Protocol Last Admin: 12/22/22 12:57 Dose: 4 unit Insulin Detemir (Insulin Detemir (Levemir) 100 Unit/Ml Syr) 22 unit SQ HS [facility] Last Admin: 12/21/22 20:07 Dose: 22 unit Naloxone HCl (Naloxone 0.4 Mg/Ml 1 Ml Vial) 0.2 mg IV Q2M PRN PRN Reason: Opioid Reversal Non-Formulary Medication (Methenamine Hippurate [Hiprex]) 1 gm PO BID [facility] Last Admin: 12/22/22 09:05 Dose: Not Given Past medical history to include: T10 paraplegia from spinal injection, prerenal aneurysm, abdominal aortic aneurysm, diabetes, Melba filter, hyperlipidemia,neurogenic bladder, chronic decubital ulcers Social history: Did smoke in the remote past. No alcohol. . Physical examination: VITAL SIGNS: 96.5, 78, 16, 117/59, 93% room air GENERAL:BMI 25.1, laying in bed, awake, comfortable DERMATOLOGICAL: Multiple decubitus wounds. CAD is endorsing EYES: Pupils equal. Conjunctiva normal. HEENT: External appearance of nose and ears normal, oral cavity grossly normal. NECK: JVD not raised; masses not palpable. HEART: First and second heart sounds are normal; no edema. LUNGS: Respiratory rate normal; clear to auscultation. ABDOMEN: Soft, nontender, liver spleen not palpable, no masses palpable. Elliott catheter with cloudy urine PSYCH: Alert and oriented x3; mood and affect normal. NEUROLOGICAL: [Cranial nerves grossly intact; no facial asymmetry, lower extremity power 0/5. No sensation of lower extremity. INVESTIGATIONS, reviewed in the clinical context: Blood culture [December 17]: Streptococcus agalactiae group B. Presumptive MRSA December 18: Sodium 134 potassium 3.8 BUN 13 creatinine 0.5 to White count 11.2 hemoglobin 10.6 platelets 267 sodium 128 potassium 5.1 creatinine 0.69 Lactic acid 2.1 albumin 2.6 UA positive for leukoesterase, negative for nitrite, WBC Assessment and plan: -Acute UTI with cystitis secondary to self-catheterization. Causing sepsis IV vancomycin . Blood culture: Streptococcus agalactiae group B, presumptive MRSA. Follow with ID -Sepsis with blood culture positive for Streptococcus agalactiae, presumptive MRSA POA -Multiple decubitus wound ulcers. Antibiotics ID. right hip decubital ulcer debrided -Sepsis with lactic acidosis -Chronic paraplegia from spinal cord injury at T10 -Diabetes mellitus type 2, chronically on insulin, uncontrolled with hyperglycemia secondary to infection Levemir 22 units subcu daily at bedtime. Follow Accu-Che[facility] -Topaz filter history of -Hyperlipidemia Mevacor 40 mg daily at bedtime -Normocytic anemia of chronic disease -Hyponatremia likely from decreased oral intake -Chronic medical debility, able to transfer from bed to the chair -Chronic bladder dysfunction patient does self-catheterization. -Chronic sacral decubitus ulcer and left gluteal area. Wound debridement done. -Full code IV vancomycin. For further wound debridement. Discussed with patient. Other medications to continue.
[2022-12-22] MEDS: INSULIN DETEMIR (LEVEMIR) 100 UNIT/ML SYR SQ SCH (20:06)
[2022-12-22 20:07] LABS: Glucose,Whole Blood 197 mg/dL (70-110)
[2022-12-23] MEDS: VANCOMYCIN 1,500 MG in SODIUM CHLORIDE 0.9% 500 ML 500 ML IVPB SCH ×2 (03:31→19:08)
[2022-12-23] MEDS: LACTATED RINGERS 1,000 ML IV SCH (03:36)
[2022-12-23 05:46] LABS: African American GFR (CKD) >90 (>60 ml/min/1.73 sqM); Anion Gap 4 mmol/L; Blood Urea Nitrogen 10 mg/dL (9-20); Calcium 7.4 mg/dL (8.4-10.2); Carbon Dioxide 26 mmol/L (22-30); Chloride 105 mmol/L (98-107); Glucose 139 mg/dL (74-99); Non-African American GFR(CKD) >90 (>60 ml/min/1.73 sqM); Potassium 3.9 mmol/L (3.5-5.1); Sodium 135 mmol/L (137-145)
[2022-12-23 06:04] LABS: Anisocytosis Slight; HCT 37.2 % (39.0-53.0); HGB 11.3 gm/dL (13.0-17.5); Hypochromasia Marked; MCH 24.6 pg (25.0-35.0); MCHC 30.3 g/dL (31.0-37.0); MCV 81.2 fL (80.0-100.0); Mean Platelet Volume 7.5; Platelet Count 253 k/uL (150-450); RBC 4.57 m/uL (4.30-5.90); RDW 16.6 % (11.5-15.5); WBC 5.1 k/uL (3.8-10.6)
[2022-12-23 07:05] LABS: Glucose,Whole Blood 121 mg/dL (70-110)
[2022-12-23] MEDS: INSULIN ASPART (NovoLOG) 100 UNIT/ML VIAL SQ SCH ×3 (07:25→19:06)
[2022-12-23 08:25] LABS: Lymphocytes # (M) 1.43 k/uL (1.0-4.8); Monocytes # (M) 0.61 k/uL (0-1.0); Myelocytes % 2 %; Neutrophils # (M) 2.81 k/uL (1.3-7.7); Neutrophils % (M) 55 %; Nucleated Red Blood Cells 0 /100 WBC (0-0); Total Cells Counted 200
[2022-12-23] MEDS: COLLAGENASE 250 UNIT/GM OINTMENT 30 GM TUBE TOPICAL SCH (08:38)
[2022-12-23] MEDS: IMIPRAMINE 10 MG TAB PO SCH ×2 (08:38→21:10)
[2022-12-23] MEDS: ATORVASTATIN 10 MG TAB PO SCH (08:38)
[2022-12-23] MEDS: NON FORMULARY DRUG (Methenamine Hippurate [Hiprex] 1 GM Tablet) PO SCH ×2 (08:38→21:10)
[2022-12-23] MEDS: GLIMEPIRIDE 1 MG TAB PO SCH (08:38)
--- NOTE | 2022-12-23 10:58 | P.GSCN ---
History of Present Illness Consult date: 12/23/22 History of present illness: CHIEF COMPLAINT: Dizziness and weakness HISTORY OF PRESENT ILLNESS: This 72-year-old male who presented with dizziness and weakness with evidence of sepsis initially thought due to UTI. He has evidence of MRSA and Streptococcus bacteremia and concerns of possible left gluteal infection. Patient is followed by infectious disease. He is on IV antibiotics. Patient has a known history of diabetes and T10 paraplegia following a spinal injection. Patient has chronic decubitus wounds and hasn't required debridement. Patient had debridement during this hospitalization on the right gluteal wound by Dr. Wright. Apparently Dr. Wright is out of town and infectious disease has requested surgical consult for further debridement of decubitus wounds. Patient is currently afebrile. His white count has improved since admission. PAST MEDICAL HISTORY: See below PAST SURGICAL HISTORY: See below MEDICATIONS: See below ALLERGIES: See below SOCIAL HISTORY: No illicit drug use. REVIEW OF SYSTEMS: CONSTITUTIONAL: Denies fever or chills. HEENT: Denies blurred vision, vision changes, or eye pain. Denies hemoptysis CARDIOVASCULAR: Denies chest pain or pressure. RESPIRATORY: No shortness of breath. GASTROINTESTINAL: See HPI for pertinent findings HEMATOLOGIC: Denies bleeding disorders. GENITOURINARY: Denies any blood in urine or increased urinary frequency. SKIN: Denies pruitis. Denies rash. PHYSICAL EXAM: VITAL SIGNS: Reviewed GENERAL: Well-developed in no acute distress. HEENT: No sclera icterus. Extraocular movements grossly intact. Moist buccal mucosa. Head is atraumatic, normocephalic. No nasal drainage. ABDOMEN: Soft. Nondistended. Nontender NEUROLOGIC: Alert and oriented. Cranial nerves II through XII grossly intact. SKIN: Left gluteal wound with foul odor and dark unhealthy tissue located on the left glute and hip area. Smaller wound left glute crease. pink, with tunneling. right glute darkened tissue and another lower wound with slough, tunneling. LABORATORY DATA: WBC 11.2 down to 5.1 hgb 11.3 platelets 253 Sodium 135 potassium 3.9 creatinine 0.39 IMAGING: ASSESSMENT: 1. Bilateral decubitus gluteal ulcers 2. History of diabetes 3. History of paraplegia 4. History of chronic decubitus ulcers PLAN: -Patient scheduled for bilateral gluteal wound debridement today with Dr. Pryor -Keep patient nothing by mouth -Continue antibiotics -Continue supportive care Thank you for this consultation Physician Individual Pension Consultant note has been reviewed by physician. Signing provider agrees with the documented findings, assessment, and plan of care. I have personally seen and examined the patient, reviewed the LAMINATION BUILDER /PAs history, exam and MDM and agree with the assessment and plan as written. Based on total visit time, I have performed more than 50% of the visit. As above: Will proceed with debridement bilateral gluteal wounds today in the operating room. Patient is agreeable. Past Medical History Past Medical History: Diabetes Mellitus, Hyperlipidemia, Hypertension, Vascular Disorder Additional Past Medical History / Comment(s): Paraplegic T10 down after brain aneurysm surgery, neurogenic bladder/pt self caths 2-3 times a day, pt has a bowel program to have bowel movements each morning, urinary incontinence when he transfers which caused a R scrotal abscess/wound which is now healed, AAA with surgery, NIDDM type II, bladder stones with surgical removal, chronic back pain. History of Any Multi-Drug Resistant Organisms: ESBL Year Discovered:: 09/18/20 E.coli ESBL MDRO Source:: Pressure ulcer Past Surgical History: Appendectomy Additional Past Surgical History / Comment(s): AAA wrapped, brain aneurysm with clips, sabrina filter, I&D R scrotal abscess, cystoscopy with cystolit hotripsy, attempted bladder sling surgery. 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 Medications and Allergies Home Medications Medication Instructions Recorded Confirmed Type Lovastatin [Mevacor] 40 mg PO DAILY 06/24/17 12/17/22 History Imipramine [Tofranil] 10 mg PO BID 09/15/20 12/17/22 History Glimepiride [Amaryl] 1 mg PO DAILY 07/15/21 12/17/22 History Insulin Detemir [Levemir Flexpen] 18 units SQ HS 12/17/22 12/17/22 History Methenamine Hippurate [Hiprex] 1 gm PO BID 12/17/22 12/17/22 History Allergies Allergy/AdvReac Type Severity Reaction Status Date / Time phenytoin [From Dilantin] Allergy Rash/Hives Verified 12/17/22 14:31 Sulfa (Sulfonamide Allergy Rash/Hives Verified 12/17/22 14:31 Antibiotics) Surgical - Exam Vital Signs Temp Pulse Resp BP Pulse Ox 97.8 F 90 18 101/60 93 L 12/17/22 12:35 12/17/22 12:35 12/17/22 12:35 12/17/22 12:35 12/17/22 12:35 Results - Labs 12/23/22 05:02 12/23/22 05:02 Abnormal Lab Results - Last 24 Hours (Table) 12/22/22 12/22/22 12/22/22 Range/Units 11:47 14:45 17:18 Hgb (13.0-17.5) gm/dL Hct (39.0-53.0) % MCH (25.0-35.0) pg MCHC (31.0-37.0) g/dL RDW (11.5-15.5) % Myelocytes # (Manual) (0) k/uL Sodium (137-145) mmol/L Creatinine 0.47 L (0.66-1.25) mg/dL Glucose (74-99) mg/dL POC Glucose (mg/dL) 220 H 209 H (70-110) mg/dL Calcium (8.4-10.2) mg/dL 12/22/22 12/23/22 12/23/22 Range/Units 20:05 05:02 05:02 Hgb 11.3 L (13.0-17.5) gm/dL Hct 37.2 L (39.0-53.0) % MCH 24.6 L (25.0-35.0) pg MCHC 30.3 L (31.0-37.0) g/dL RDW 16.6 H (11.5-15.5) % Myelocytes # (Manual) 0.10 H (0) k/uL Sodium 135 L (137-145) mmol/L Creatinine 0.39 L (0.66-1.25) mg/dL Glucose 139 H (74-99) mg/dL POC Glucose (mg/dL) 197 H (70-110) mg/dL Calcium 7.4 L (8.4-10.2) mg/dL 12/23/22 Range/Units 07:03 Hgb (13.0-17.5) gm/dL Hct (39.0-53.0) % MCH (25.0-35.0) pg MCHC (31.0-37.0) g/dL RDW (11.5-15.5) % Myelocytes # (Manual) (0) k/uL Sodium (137-145) mmol/L Creatinine (0.66-1.25) mg/dL Glucose (74-99) mg/dL POC Glucose (mg/dL) 121 H (70-110) mg/dL Calcium (8.4-10.2) mg/dL Microbiology - Last 24 Hours (Table) 12/20/22 10:35 Blood Culture - Preliminary Blood 12/18/22 16:30 Anaerobic Culture - Final Hip - Left Anaerobic Gm Negative Bacilli 12/21/22 05:23 Blood Culture - Preliminary Blood Diabetes panel 12/22/22 12/23/22 Range/Units 14:45 05:02 Sodium 135 L (137-145) mmol/L Potassium 3.9 (3.5-5.1) mmol/L Chloride 105 (98-107) mmol/L Carbon Dioxide 26 (22-30) mmol/L BUN 10 (9-20) mg/dL Creatinine 0.47 L 0.39 L (0.66-1.25) mg/dL Glucose 139 H (74-99) mg/dL Calcium 7.4 L (8.4-10.2) mg/dL Calcium panel 12/23/22 Range/Units 05:02 Calcium 7.4 L (8.4-10.2) mg/dL Pituitary panel 12/22/22 12/23/22 Range/Units 14:45 05:02 Sodium 135 L (137-145) mmol/L Potassium 3.9 (3.5-5.1) mmol/L Chloride 105 (98-107) mmol/L Carbon Dioxide 26 (22-30) mmol/L BUN 10 (9-20) mg/dL Creatinine 0.47 L 0.39 L (0.66-1.25) mg/dL Glucose 139 H (74-99) mg/dL Calcium 7.4 L (8.4-10.2) mg/dL Adrenal panel 12/22/22 12/23/22 Range/Units 14:45 05:02 Sodium 135 L (137-145) mmol/L Potassium 3.9 (3.5-5.1) mmol/L Chloride 105 (98-107) mmol/L Carbon Dioxide 26 (22-30) mmol/L BUN 10 (9-20) mg/dL Creatinine 0.47 L 0.39 L (0.66-1.25) mg/dL Glucose 139 H (74-99) mg/dL Calcium 7.4 L (8.4-10.2) mg/dL
[2022-12-23] MEDS: metroNIDAZOLE 500 MG TAB PO SCH ×3 (11:17→21:09)
[2022-12-23 11:22] LABS: Glucose,Whole Blood 92 mg/dL (70-110)
--- NOTE | 2022-12-23 14:50 | P.PN ---
Progress Note - Text Progress Note Date: 12/23/22 Chief Complaint: Not feeling well History of presenting complaint: This is a 72-year-old patient of Dr. Ferreira. Chronic stable medical conditions include history of T10 paraplegia following a spinal injection, brain aneurysm, AAA, hyperlipidemia, Minto filter, diabetes. neurogenic bladder-patient does self-catheterization. Patient also has a daily bowel regime that he does himself. Patient is cared for by his . At the baseline able to transfer from bed to the chair. Has chronic wounds and home care for the same. Patient now presents with not feeling well. Fever and chills. Urine becoming dark in color. Decreased appetite. Low-grade fever. Tired rundown. at the bedside in the ER home assisted with the history. Admitted with acute UTI with sepsis, multiple decubitus ulcers. December 18: Seen by ID. His started IV meropenem. IV vancomycin. IV fluids. Decrease appetite. Feels tired. Discussed. December 19: Right gluteal area decubital ulcer debrided by Dr. Hurd yesterday. Patient eating better. Feels better. IV cefepime. IV fluids. Blood cultures growing Streptococcus agalactiae. Repeat blood culture. December 20: Resting in bed. Eating fair. No fevers. Cultures from the wound are pending. Repeat blood cultures pending. Discussed with patient. IV Ancef December 21: In bed. Comfortable. Cultures are pending. Antibiotic changed to IV vancomycin. MRSA in the blood culture. Oral intake variable December 22: Discussed with ID doctor site. Repeat blood cultures pending from the . Oral intake fair. No fever. He is also consulting Dr. Foy for further wound debridement. Dr. Hurd is out of town. December 23: Laying in bed. Comfortable. This afternoon pending debridement of the wound by Dr. Foy. On IV vancomycin. Nothing by mouth. Active Medications Acetaminophen (Acetaminophen Tab 500 Mg Tab) 500 mg PO Q6HR PRN PRN Reason: Fever and/ or Pain Last Admin: 12/22/22 09:13 Dose: 500 mg Atorvastatin Calcium (Atorvastatin 10 Mg Tab) 10 mg PO DAILY AZRA Last Admin: 12/23/22 08:38 Dose: 10 mg Collagenase (Collagenase 250 Unit/Gm Ointment 30 Gm Tube) 1 applic TOPICAL DAILY AZRA; Protocol Last Admin: 12/23/22 08:38 Dose: 1 applic Dextrose/Water (Dextrose 50% Syringe 50 Ml) 25 ml IVP PER PROTOCOL PRN; Protocol PRN Reason: Hypoglycemia Dextrose/Water (Dextrose 50% Syringe 50 Ml) 50 ml IVP PER PROTOCOL PRN; Protocol PRN Reason: Hypoglycemia Glimepiride (Glimepiride 1 Mg Tab) 1 mg PO DAILY COUNT [facility]CLUD[facility] Last Admin: 12/23/22 08:38 Dose: 1 mg Lactated Ringer's (Lactated Ringers) 1,000 mls @ 50 mls/hr IV .Q20H COUNT [facility]CLUDES [facility] Last Admin: 12/23/22 03:36 Dose: 50 mls/hr Vancomycin HCl 1,500 mg/ (Sodium Chloride) 500 mls @ 167 mls/hr IVPB Q12H COUNT [facility]CLUD[facility] Last Admin: 12/23/22 03:31 Dose: 167 mls/hr Imipramine HCl (Imipramine 10 Mg Tab) 10 mg PO BID COUNT [facility]CLUD[facility] Last Admin: 12/23/22 08:38 Dose: 10 mg Insulin Aspart (Insulin Aspart (Novolog) 100 Unit/Ml Vial) 0 unit SQ AC-TID COUNT [facility]CLUDES [facility]; Protocol Last Admin: 12/23/22 11:34 Dose: Not Given Insulin Detemir (Insulin Detemir (Levemir) 100 Unit/Ml Syr) 22 unit SQ HS COUNT [facility]CLUDES [facility] Last Admin: 12/22/22 20:06 Dose: 22 unit Metronidazole (Metronidazole 500 Mg Tab) 500 mg PO TID COUNT [facility]CLUDES THE [facility]; Protocol Last Admin: 12/23/22 11:17 Dose: 500 mg Naloxone HCl (Naloxone 0.4 Mg/Ml 1 Ml Vial) 0.2 mg IV Q2M PRN PRN Reason: Opioid Reversal Non-Formulary Medication (Methenamine Hippurate [Hiprex]) 1 gm PO BID COUNT INCLUDES THE [facility] Last Admin: 12/23/22 08:38 Dose: Not Given Past medical history to include: T10 paraplegia from spinal injection, prerenal aneurysm, abdominal aortic aneurysm, diabetes, Minto filter, hyperlipidemia,neurogenic bladder, ch ronic decubital ulcers Social history: Did smoke in the remote past. No alcohol. . Physical examination: VITAL SIGNS: 96.3, 76, 18, 120/60, 92% room air GENERAL:BMI 25.1, laying in bed, awake, comfortable DERMATOLOGICAL: Multiple decubitus wounds. CAD is endorsing EYES: Pupils equal. Conjunctiva normal. HEENT: External appearance of nose and ears normal, oral cavity grossly normal. NECK: JVD not raised; masses not palpable. HEART: First and second heart sounds are normal; no edema. LUNGS: Respiratory rate normal; clear to auscultation. ABDOMEN: Soft, nontender, liver spleen not palpable, no masses palpable. Elliott catheter with cloudy urine PSYCH: Alert and oriented x3; mood and affect normal. NEUROLOGICAL: [Cranial nerves grossly intact; no facial asymmetry, lower e xtremity power 0/5. No sensation of lower extremity. INVESTIGATIONS, reviewed in the clinical context: Blood culture [December 20]: Negative until now December 23: Count 5.1 hemoglobin 11.3 platelets 253 progression 3.9 creatinine 0.39 Blood culture [December 17]: Streptococcus agalactiae group B. Presumptive MRSA December 18: Sodium 134 potassium 3.8 BUN 13 creatinine 0.5 to White count 11.2 hemoglobin 10.6 platelets 267 sodium 128 potassium 5.1 creatinine 0.69 Lactic acid 2.1 albumin 2.6 UA positive for leukoesterase, negative for nitrite, WBC Assessment and plan: -Acute UTI with cystitis secondary to self-catheterization. Causing sepsis IV vancomycin . Blood culture [December 17]: Streptococcus agalactiae group B, presumptive MRSA. Follow with ID -Sepsis with blood culture positive for Streptococcus agalactiae, presumptive MRSA POA -Multiple decubitus wound ulcers.: Not improving Antibiotics ID. right hip decubital ulcer debrided by Dr. Hurd. Patient scheduled for bilateral hip wound debridement today by Dr. Foy -Sepsis with lactic acidosis -Chronic paraplegia from spinal cord injury at T10 -Diabetes mellitus type 2, chronically on insulin, uncontrolled with hyperglycemia secondary to infection Levemir 22 units subcu daily at bedtime. Follow [facility] history of -Hyperlipidemia Mevacor 40 mg daily at bedtime -Normocytic anemia of chronic disease -Hyponatremia likely from decreased oral intake -Chronic medical debility, able to transfer from bed to the chair -Chronic bladder dysfunction patient does self-catheterization. -Chronic sacral decubitus ulcer and left gluteal area. Wound debridement done. -Full code IV vancomycin. A bilateral hip wound debridement today by Dr. Foy. Follow with ID.
[2022-12-23] MEDS ORDERED: LACTATED RINGERS 1,000 ML IV ONE (15:42)
[2022-12-23 15:48] LABS: Glucose,Whole Blood 86 mg/dL (70-110)
--- NOTE | 2022-12-23 15:48 | P.PN ---
Subjective Progress Note Date: 12/23/22 Principal diagnosis: UTI and pressure ulcer Patient is a 72-year-old male with a past medical history significant for T10 paraplegia patient did have a bilateral hip and sacral pressure ulcer did have urinary retention requiring self-catheterization presenting [facility] the [facility] with sepsis source likely urinary, patient did have debridement of his right ischial/gluteal wound by vascular surgery and deep culture did not mention any extension down to the bone On today's evaluation that is 12/23/2022 the patient continues to be afebrile, the patient is breathing comfortably on room air, the patient denies any chest pain shortness of breath or cough, the patient denies nausea no vomiting no abdominal pain no diarrhea, patient is feeling better Objective - Vital Signs Vital signs: Vital Signs Temp 96.3 F L 12/23/22 11:16 Pulse 76 12/23/22 11:16 Resp 18 12/23/22 11:16 BP 120/60 12/23/22 11:16 Pulse Ox 92 L 12/23/22 11:16 FiO2 Intake & Output 12/22/22 12/23/22 12/23/22 18:59 06:59 18:59 Intake Total 1100 Output Total 1600 700 Balance -1600 400 Weight 81.647 kg Intake: Intake, IV Titration 1100 Amount Lactated Ringers 1,000 ml 600 @ 50 mls/hr IV .Q20H [facility]RA Rx#:[id number] Vancomycin 1,500 mg In 500 Sodium Chloride 0.9% 500 ml 500 ml @ 167 mls/hr IVPB Q12H [facility] Rx#: [id number] Output: Urine 1600 700 Other: Voiding Method Indwelling Catheter Indwelling Catheter Indwelling Catheter - Exam GENERAL DESCRIPTION: An elderly male lying in bed in no distress RESPIRATORY SYSTEM: Unlabored breathing , decreased breath sounds at bases HEART: S1 S2 regular rate and rhythm , ABDOMEN: Soft , no tenderness EXTREMITIES: No edema feet Patient did have a left gluteal Ulcer with significant slough tissue and foul-smelling drainage - Labs CBC & Chem 7: 12/23/22 05:02 12/23/22 05:02 Labs: Abnormal Lab Results - Last 24 Hours (Table) 12/22/22 12/22/22 12/22/22 Range/Units 14:45 17:18 20:05 Hgb (13.0-17.5) gm/dL Hct (39.0-53.0) % MCH (25.0-35.0) pg MCHC (31.0-37.0) g/dL RDW (11.5-15.5) % Myelocytes # (Manual) (0) k/uL Sodium (137-145) mmol/L Creatinine 0.47 L (0.66-1.25) mg/dL Glucose (74-99) mg/dL POC Glucose (mg/dL) 209 H 197 H (70-110) mg/dL Calcium (8.4-10.2) mg/dL 12/23/22 12/23/22 12/23/22 Range/Units 05:02 05:02 07:03 Hgb 11.3 L (13.0-17.5) gm/dL Hct 37.2 L (39.0-53.0) % MCH 24.6 L (25.0-35.0) pg MCHC 30.3 L (31.0-37.0) g/dL RDW 16.6 H (11.5-15.5) % Myelocytes # (Manual) 0.10 H (0) k/uL Sodium 135 L (137-145) mmol/L Creatinine 0.39 L (0.66-1.25) mg/dL Glucose 139 H (74-99) mg/dL POC Glucose (mg/dL) 121 H (70-110) mg/dL Calcium 7.4 L (8.4-10.2) mg/dL Microbiology - Last 24 Hours (Table) 12/17/22 14:58 Blood Culture Gram Stain - Preliminary Blood Blood Culture - Preliminary Strep agalactiae - (group b) Presumptive MRSA 12/20/22 10:35 Blood Culture - Preliminary Blood 12/18/22 16:30 Anaerobic Culture - Final Hip - Left Anaerobic Gm Negative Bacilli 12/21/22 05:23 Blood Culture - Preliminary Blood Assessment and Plan (1) Sepsis Current Visit: Yes Status: Acute Code(s): A41.9 - SEPSIS, UNSPECIFIED ORGANISM SNOMED Code(s): 70924315 (2) Infected wound Current Visit: No Status: Acute Code(s): T14.8XXA - OTHER INJURY OF UNSPECIFIED BODY REGION, INITIAL ENCOUNTER; L08.9 - LOCAL INFECTION OF THE SKIN AND SUBCUTANEOUS TISSUE, UNSP SNOMED Code(s): 87918311 (3) UTI (urinary tract infection) Current Visit: No Status: Acute Code(s): N39.0 - URINARY TRACT INFECTION, SITE NOT SPECIFIED SNOMED Code(s): 14858020 Plan: 1patient presented hospital with sepsis in this patient now with evidence of MRSA and Streptococcus bacteremia with a usually of skin and soft tissue origin possibly related to the left gluteal infected pressure ulcer , Gen. surgery has seen the patient and will be doing a surgical debridement this afternoon as per discussion with the surgeon 2-patient to continue the vancomycin, Flagyl was added because of the anaerobic culture positive PICC line has been ordered for tomorrow Time with Patient: Less than 30
[2022-12-23] MEDS ORDERED: ONDANSETRON 4 MG/2 ML VIAL ONE (16:15)
[2022-12-23] MEDS ORDERED: ONDANSETRON 4 MG/2 ML VIAL IVP ONE (16:26)
[2022-12-23] MEDS ORDERED: fentaNYL (PF) 50 MCG/ML 2 ML AMP ONE (16:58)
[2022-12-23] MEDS ORDERED: PROPOFOL 10 MG/ML 20 ML VIAL IV ONE (16:58)
[2022-12-23] MEDS ORDERED: MIDAZOLAM 2 MG/2 ML VIAL ONE (16:58)
[2022-12-23] MEDS ORDERED: KETAMINE 10 MG/ML 20 ML VIAL ONE (16:58)
[2022-12-23] MEDS ORDERED: PHENYLEPHRINE-0.9% NACL SYG 1,000 MCG/10 ML SYRINGE ONE (16:58)
[2022-12-23] MEDS ORDERED: BUPIVACAINE (PF) 0.25% 30 ML VIAL SQ ONE (17:25)
[2022-12-23 20:32] LABS: Glucose,Whole Blood 71 mg/dL (70-110)
[2022-12-23] MEDS: INSULIN DETEMIR (LEVEMIR) 100 UNIT/ML SYR SQ SCH (21:10)
[2022-12-24 03:30] LABS: Glucose,Whole Blood 113 mg/dL (70-110)
[2022-12-24] MEDS: VANCOMYCIN 1,500 MG in SODIUM CHLORIDE 0.9% 500 ML 500 ML IVPB SCH ×2 (04:41→16:59)
[2022-12-24] MEDS: LACTATED RINGERS 1,000 ML IV SCH ×2 (04:43→16:59)
[2022-12-24 07:21] LABS: Glucose,Whole Blood 99 mg/dL (70-110)
[2022-12-24] MEDS: INSULIN ASPART (NovoLOG) 100 UNIT/ML VIAL SQ SCH ×3 (07:22→17:30)
[2022-12-24] MEDS ORDERED: LIDOCAINE 1% INJ 10MG/ML (5 ML VIAL-PF) SQ ONE (08:50)
[2022-12-24] MEDS: GLIMEPIRIDE 1 MG TAB PO SCH (09:34)
[2022-12-24] MEDS: IMIPRAMINE 10 MG TAB PO SCH ×2 (09:34→21:15)
[2022-12-24] MEDS: metroNIDAZOLE 500 MG TAB PO SCH ×3 (09:34→21:15)
[2022-12-24] MEDS: ATORVASTATIN 10 MG TAB PO SCH (09:34)
[2022-12-24] MEDS: COLLAGENASE 250 UNIT/GM OINTMENT 30 GM TUBE TOPICAL SCH (09:35)
[2022-12-24] MEDS: NON FORMULARY DRUG (Methenamine Hippurate [Hiprex] 1 GM Tablet) PO SCH ×2 (09:35→21:18)
--- NOTE | 2022-12-24 10:46 | P.PN ---
Subjective Progress Note Date: 12/24/22 CHIEF COMPLAINT: Bilateral gluteal wound debridement HISTORY OF PRESENT ILLNESS: Patient is postop day #1 status post debridement of bilateral gluteal wounds. PHYSICAL EXAM: VITAL SIGNS: Reviewed. GENERAL: Well-developed in no acute distress. ABDOMEN: Soft. Nondistended. Nontender. NEUROLOGIC: Alert and oriented. Cranial nerves II through XII grossly intact. Skin: Bilateral gluteal wounds. Serosanguineous drainage noted on the bandage dressing for bilateral ASSESSMENT: 1. Bilateral gluteal wounds status post debridement 2. Diabetes mellitus 3. History of paraplegia PLAN: -Continue local wound care -Antibiotics per infectious disease -Continue offloading Physician Circuit Board Assembler note has been reviewed by physician. Signing provider agrees with the documented findings, assessment, and plan of care. I have personally seen and examined the patient, reviewed the DRILLING ENGINEER /PAs history, exam and MDM and agree with the assessment and plan as written. Based on total visit time, I have performed more than 50% of the visit. As above: Patient without new complaints. Continue local wound care. Continue antibiotic per infectious disease. Objective - Vital Signs Vital signs: Vital Signs Temp 96.2 F L 12/24/22 07:00 Pulse 70 12/24/22 07:00 Resp 20 12/24/22 07:00 BP 144/67 12/24/22 07:00 Pulse Ox 95 12/24/22 07:00 FiO2 Intake & Output 12/23/22 12/24/22 12/24/22 18:59 06:59 18:59 Intake Total 500 590 Output Total 1220 500 Balance -720 90 Intake: IV 500 Oral 590 Output: Urine 1200 500 Estimated Blood Loss 20 Other: Voiding Method Indwelling Catheter Indwelling Catheter - Labs CBC & Chem 7: 12/23/22 05:02 12/23/22 05:02 Labs: Abnormal Lab Results - Last 24 Hours (Table) 12/24/22 Range/Units 03:26 POC Glucose (mg/dL) 113 H (70-110) mg/dL Microbiology - Last 24 Hours (Table) 12/20/22 10:35 Blood Culture - Preliminary Blood 12/21/22 05:23 Blood Culture - Preliminary Blood 12/17/22 14:58 Blood Culture Gram Stain - Preliminary Blood Blood Culture - Preliminary Strep agalactiae - (group b) Presumptive MRSA
--- NOTE | 2022-12-24 12:19 | IR ---
PICC LINE PLACEMENT: HISTORY: Infection requiring long-term antibiotic therapy PROCEDURE: Ultrasound and fluoroscopic guidance of PICC line placement. COMPLICATIONS: None ANESTHESIA: 1. 1% Lidocaine locally. FINDINGS/TECHNIQUE: The procedure was explained to the patient. The risks, complications, benefits and alternatives were discussed and any questions were answered. Informed consent was obtained. The patient was placed supine on the fluoroscopic table and prepped and draped in the usual sterile fash ion. Utilizing a 21 gauge needle and sonographic and fluoroscopic guidance, access in the left basi lic vein was achieved and there is placement of a 0.018 guidewire. The vein is patent. A 4-F sheath was placed over the guidewire. The guidewire and dilator were removed and a 4-F. PICC line was plac ed through the sheath with the tip at the level of the SVC. The sheath was removed, the catheter was flushed and sutured into position. The patient was stable throughout the procedure and remained sta ble upon discharge from the Department of Radiology. The vein puncture was patent under ultrasound. A elkins scale image was obtained to document patency of the vein punctured. All elements of the maximal barrier technique were utilized. FLUOROSCOPY TIME: DAP [id number] cm2 IMPRESSION: Successful PICC line placement under ultrasound and fluoroscopic guidance.
[2022-12-24 12:44] LABS: Glucose,Whole Blood 92 mg/dL (70-110)
--- NOTE | 2022-12-24 15:36 | P.PN ---
Subjective Progress Note Date: 12/24/22 Principal diagnosis: UTI and pressure ulcer Patient is a 72-year-old male with a past medical history significant for T10 paraplegia patient did have a bilateral hip and sacral pressure ulcer did have urinary retention requiring self-catheterization presenting to the [facility] with sepsis source likely urinary, patient did have debridement of his right ischial/gluteal wound by vascular surgery and deep culture did not mention any extension down to the bone, patient did have debridement of the left gluteal/ischial wound by general surgery on 12/23/2022 On today's evaluation that is 12/24/2022 the patient remains to be afebrile, the patient is breathing comfortably on room air, the patient denies any chest pain shortness of breath or cough, the patient denies nausea no vomiting no abdominal pain no diarrhea, no new symptoms Objective - Vital Signs Vital signs: Vital Signs Temp 96.2 F L 12/24/22 07:00 Pulse 70 12/24/22 07:00 Resp 20 12/24/22 07:00 BP 144/67 12/24/22 07:00 Pulse Ox 95 12/24/22 07:00 FiO2 Intake & Output 12/23/22 12/24/22 12/24/22 18:59 06:59 18:59 Intake Total 500 590 Output Total 1220 500 Balance -720 90 Weight 81.647 kg Intake: IV 500 Oral 590 Output: Urine 1200 500 Estimated Blood Loss 20 Other: Voiding Method Indwelling Catheter Indwelling Catheter Indwelling Catheter - Exam GENERAL DESCRIPTION: An elderly male lying in bed in no distress RESPIRATORY SYSTEM: Unlabored breathing , decreased breath sounds at bases HEART: S1 S2 regular rate and rhythm , ABDOMEN: Soft , no tenderness EXTREMITIES: No edema feet Patient did have a left gluteal Ulcer with significant slough tissue and foul- smelling drainage - Labs CBC & Chem 7: 12/23/22 05:02 12/23/22 05:02 Labs: Abnormal Lab Results - Last 24 Hours (Table) 12/24/22 Range/Units 03:26 POC Glucose (mg/dL) 113 H (70-110) mg/dL Microbiology - Last 24 Hours (Table) 12/20/22 10:35 Blood Culture - Preliminary Blood 12/21/22 05:23 Blood Culture - Preliminary Blood 12/17/22 14:58 Blood Culture Gram Stain - Preliminary Blood Blood Culture - Preliminary Strep agalactiae - (group b) Presumptive MRSA Assessment and Plan (1) Sepsis Current Visit: Yes Status: Acute Code(s): A41.9 - SEPSIS, UNSPECIFIED ORGANISM SNOMED Code(s): 56060980 (2) Infected wound Current Visit: No Status: Acute Code(s): T14.8XXA - OTHER INJURY OF UNSPECIFIED BODY REGION, INITIAL ENCOUNTER; L08.9 - LOCAL INFECTION OF THE SKIN AND SUBCUTANEOUS TISSUE, UNSP SNOMED Code(s): 80627116 (3) UTI (urinary tract infection) Current Visit: No Status: Acute Code(s): N39.0 - URINARY TRACT INFECTION, SITE NOT SPECIFIED SNOMED Code(s): 09365964 Plan: 1patient [facility] with sepsis in this patient now with evidence of MRSA and Streptococcus bacteremia with a usually of skin and soft tissue origin possibly related to the left gluteal infected pressure ulcer , Gen. surgery has seen the patient and did have surgical debridement on 12/23/2022 2-patient did get a PICC line plan is to to continue the vancomycin, Flagyl 3 weeks and because the patient follow-up Time with Patient: Less than 30
--- NOTE | 2022-12-24 15:55 | P.PN ---
Progress Note - Text Progress Note Date: 12/24/22 Chief Complaint: Not feeling well History of presenting complaint: This is a 72-year-old patient of Dr. Ferreira. Chronic stable medical conditions include history of T10 paraplegia following a spinal injection, brain aneurysm, AAA, hyperlipidemia, [place] filter, diabetes. neurogenic bladder-patient does self-catheterization. Patient also has a daily bowel regime that he does himself. Patient is cared for by his . At the baseline able to transfer from bed to the chair. Has chronic wounds and home care for the same. Patient now presents with not feeling well. Fever and chills. Urine becoming dark in color. Decreased appetite. Low-grade fever. Tired rundown. at the bedside in the ER home assisted with the history. Admitted with acute UTI with sepsis, multiple decubitus ulcers. December 18: Seen by ID. His started IV meropenem. IV vancomycin. IV fluids. Decrease appetite. Feels tired. Discussed. December 19: Right gluteal area decubital ulcer debrided by Dr. Hurd yesterday. Patient eating better. Feels better. IV cefepime. IV fluids. Blood cultures growing Streptococcus agalactiae. Repeat blood culture. December 20: Resting in bed. Eating fair. No fevers. Cultures from the wound are pending. Repeat blood cultures pending. Discussed with patient. IV Ancef December 21: In bed. Comfortable. Cultures are pending. Antibiotic changed to IV vancomycin. MRSA in the blood culture. Oral intake variable December 22: Discussed with ID doctor site. Repeat blood cultures pending from the . Oral intake fair. No fever. He is also consulting Dr. Foy for further wound debridement. Dr. Hurd is out of town. December 23: Laying in bed. Comfortable. This afternoon pending debridement of the wound by Dr. Foy. On IV vancomycin. Nothing by mouth. December 24: Yesterday patient bilateral hip wound debridement by Dr. Foy. Initially plan was for patient to go home. No is looking into ECF. Discussed with medical case manager. Discharged not occur today. Discussed with ID. Patient to continue vancomycin and Flagyl for 3 weeks. Total time spent today over 50 minutes. Active Medications Acetaminophen (Acetaminophen Tab 500 Mg Tab) 500 mg PO Q6HR PRN PRN Reason: Fever and/ or Pain Last Admin: 12/22/22 09:13 Dose: 500 mg Atorvastatin Calcium (Atorvastatin 10 Mg Tab) 10 mg PO DAILY [facility] Last Admin: 12/24/22 09:34 Dose: 10 mg Collagenase (Collagenase 250 Unit/Gm Ointment 30 Gm Tube) 1 applic TOPICAL DAILY [facility]; Protocol Last Admin: 12/24/22 09:35 Dose: 1 applic Dextrose/Water (Dextrose 50% Syringe 50 Ml) 25 ml IVP PER PROTOCOL PRN; Protocol PRN Reason: Hypoglycemia Dextrose/Water (Dextrose 50% Syringe 50 Ml) 50 ml IVP PER PROTOCOL PRN; Protocol PRN Reason: Hypoglycemia Glimepiride (Glimepiride 1 Mg Tab) 1 mg PO DAILY [facility] Last Admin: 12/24/22 09:34 Dose: 1 mg Lactated Ringer's (Lactated Ringers) 1,000 mls @ 50 mls/hr IV .Q20H [facility] Last Admin: 12/24/22 04:43 Dose: Not Given Vancomycin HCl 1,500 mg/ (Sodium Chloride) 500 mls @ 167 mls/hr IVPB Q12H [facility] Last Admin: 12/24/22 04:41 Dose: 167 mls/hr Imipramine HCl (Imipramine 10 Mg Tab) 10 mg PO BID [facility] Last Admin: 12/24/22 09:34 Dose: 10 mg Insulin Aspart (Insulin Aspart (Novolog) 100 Unit/Ml Vial) 0 unit SQ AC-TID [facility]; Protocol Last Admin: 12/24/22 12:47 Dose: Not Given Insulin Detemir (Insulin Detemir (Levemir) 100 Unit/Ml Syr) 22 unit SQ HS [facility] Last Admin: 12/23/22 21:10 Dose: Not Given Metronidazole (Metronidazole 500 Mg Tab) 500 mg PO TID [facility]; Protocol Last Admin: 12/24/22 09:34 Dose: 500 mg Miscellaneous Information (Vancomycin Trough Due 1 Each Misc) 0 each MISCELLANE DIRECTED ONE Stop: 12/25/22 15:01 Naloxone HCl (Naloxone 0.4 Mg/Ml 1 Ml Vial) 0.2 mg IV Q2M PRN PRN Reason: Opioid Reversal Non-Formulary Medication (Methenamine Hippurate [Hiprex]) 1 gm PO BID [facility] Last Admin: 12/24/22 09:35 Dose: Not Given Past medical history to include: T10 paraplegia from spinal injection, prerenal aneurysm, abdominal aortic aneurysm, diabetes, [place] filter, hyperlipidemia,neurogenic bladder, chronic decubital ulcers Social history: Did smoke in the remote past. No alcohol. . Physical examination: VITAL SIGNS: 97.8, 72, 16, 123/66, 94% on 2 L GENERAL:BMI 25.1, laying in bed, awake, comfortable DERMATOLOGICAL: Multiple decubitus wounds. CAD is endorsing EYES: Pupils equal. Conjunctiva normal. HEENT: External appearance of nose and ears normal, oral cavity grossly normal. NECK: JVD not raised; masses not palpable. HEART: First and second heart sounds are normal; no edema. LUNGS: Respiratory rate normal; clear to auscultation. ABDOMEN: Soft, nontender, liver spleen not palpable, no masses palpable. Elliott catheter with cloudy urine PSYCH: Alert and oriented x3; mood and affect normal. NEUROLOGICAL: [Cranial nerves grossly intact; no facial asymmetry, lower extremity power 0/5. No sensation of lower extremity. INVESTIGATIONS, reviewed in the clinical context: Blood culture [December 20]: Negative until now December 23: Count 5.1 hemoglobin 11.3 platelets 253 progression 3.9 creatinine 0.39 Blood culture [December 17]: Streptococcus agalactiae group B. Presumptive MRSA December 18: Sodium 134 potassium 3.8 BUN 13 creatinine 0.5 to White count 11.2 hemoglobin 10.6 platelets 267 sodium 128 potassium 5.1 creatinine 0.69 Lactic acid 2.1 albumin 2.6 UA positive for leukoesterase, negative for nitrite, WBC Assessment and plan: -Acute UTI with cystitis secondary to self-catheterization. Causing sepsis IV vancomycin . Blood culture [December 17]: Streptococcus agalactiae group B, presumptive MRSA. Follow with ID -Sepsis with blood culture positive for Streptococcus agalactiae, presumptive MRSA POA -Multiple decubitus wound ulcers.: Not improving Antibiotics ID. right hip decubital ulcer debrided by Dr. Hurd. December 23: bilateral hip wound debridement t- Dr. Foy -Sepsis with lactic acidosis -Chronic paraplegia from spinal cord injury at T10 -Diabetes mellitus type 2, chronically on insulin, uncontrolled with hyperglycemia secondary to infection Levemir 22 units subcu daily at bedtime. Follow Accu-Cheks -[place] filter history of -Hyperlipidemia Mevacor 40 mg daily at bedtime -Normocytic anemia of chronic disease -Hyponatremia likely from decreased oral intake -Chronic medical debility, able to transfer from bed to the chair -Chronic bladder dysfunction patient does self-catheterization. -Chronic sacral decubitus ulcer and left gluteal area. Wound debridement done. -Full code Continue current medications. Looking for the patient to go to [facility]. 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
[2022-12-24 17:28] LABS: Glucose,Whole Blood 116 mg/dL (70-110)
[2022-12-24 20:21] LABS: Glucose,Whole Blood 155 mg/dL (70-110)
[2022-12-24] MEDS: INSULIN DETEMIR (LEVEMIR) 100 UNIT/ML SYR SQ SCH (21:15)
[2022-12-25] MEDS: VANCOMYCIN 1,500 MG in SODIUM CHLORIDE 0.9% 500 ML 500 ML IVPB SCH ×2 (03:44→16:10)
[2022-12-25 07:23] LABS: Glucose,Whole Blood 129 mg/dL (70-110)
[2022-12-25] MEDS: IMIPRAMINE 10 MG TAB PO SCH ×2 (07:27→20:49)
[2022-12-25] MEDS: ATORVASTATIN 10 MG TAB PO SCH (07:27)
[2022-12-25] MEDS: metroNIDAZOLE 500 MG TAB PO SCH ×3 (07:27→20:49)
[2022-12-25] MEDS: GLIMEPIRIDE 1 MG TAB PO SCH (07:27)
[2022-12-25] MEDS: COLLAGENASE 250 UNIT/GM OINTMENT 30 GM TUBE TOPICAL SCH (07:27)
[2022-12-25] MEDS: NON FORMULARY DRUG (Methenamine Hippurate [Hiprex] 1 GM Tablet) PO SCH ×2 (07:28→20:44)
[2022-12-25] MEDS: INSULIN ASPART (NovoLOG) 100 UNIT/ML VIAL SQ SCH ×3 (07:34→18:42)
--- NOTE | 2022-12-25 10:13 | P.PN ---
Subjective Progress Note Date: 12/25/22 Principal diagnosis: Decubitus ulcers Patient resting comfortably. No significant pain at the decubitus ulcer sites. He is afebrile. Objective - Vital Signs Vital signs: Vital Signs Temp 97.9 F 12/25/22 07:22 Pulse 78 12/25/22 07:22 Resp 16 12/25/22 07:22 BP 119/54 12/25/22 07:22 Pulse Ox 94 L 12/25/22 07:22 FiO2 Intake & Output 12/24/22 12/25/22 12/25/22 18:59 06:59 18:59 Intake Total 1240 Output Total 700 1500 Balance -700 -260 Weight 81.647 kg Intake: Intake, IV Titration 1000 Amount Lactated Ringers 1,000 ml 500 @ 50 mls/hr IV .Q20H [facility] Rx#:[id number] Vancomycin 1,500 mg In 500 Sodium Chloride 0.9% 500 ml 500 ml @ 167 mls/hr IVPB Q12H [facility] Rx#: [id number] Oral 240 Output: Urine 700 1500 Other: Voiding Method Indwelling Catheter Indwelling Catheter - Exam Bilateral trochanteric and if she'll decubitus ulcer dressings in place, minimal drainage, nontender - Labs CBC & Chem 7: 12/23/22 05:02 12/23/22 05:02 Labs: Abnormal Lab Results - Last 24 Hours (Table) 12/24/22 12/24/22 12/25/22 Range/Units 17:27 20:19 07:20 POC Glucose (mg/dL) 116 H 155 H 129 H (70-110) mg/dL Microbiology - Last 24 Hours (Table) 12/21/22 05:23 Blood Culture - Preliminary Blood Assessment and Plan (1) Decubitus ulcer of left buttock Narrative/Plan: 72-year-old male with multiple decubitus ulcers. Continue antibiotics and local wound care. Apparently plans are for ECF. Current Visit: No Status: Acute Code(s): L89.329 - PRESSURE ULCER OF LEFT BUTTOCK, UNSPECIFIED STAGE SNOMED Code(s): 20800185006446
[2022-12-25 12:30] LABS: Glucose,Whole Blood 128 mg/dL (70-110)
--- NOTE | 2022-12-25 14:01 | P.PN ---
Progress Note - Text Progress Note Date: 12/25/22 Chief Complaint: Not feeling well History of presenting complaint: This is a 72-year-old patient of Dr. Ferreiar. Chronic stable medical conditions include history of T10 paraplegia following a spinal injection, brain aneurysm, AAA, hyperlipidemia, [place] filter, diabetes. neurogenic bladder-patient does self-catheterization. Patient also has a daily bowel regime that he does himself. Patient is cared for by his . At the baseline able to transfer from bed to the chair. Has chronic wounds and home care for the same. Patient now presents with not feeling well. Fever and chills. Urine becoming dark in color. Decreased appetite. Low-grade fever. Tired rundown. at the bedside in the ER home assisted with the history. Admitted with acute UTI with sepsis, multiple decubitus ulcers. December 18: Seen by ID. His started IV meropenem. IV vancomycin. IV fluids. Decrease appetite. Feels tired. Discussed. December 19: Right gluteal area decubital ulcer debrided by Dr. Hurd yesterday. Patient eating better. Feels better. IV cefepime. IV fluids. Blood cultures growing Streptococcus agalactiae. Repeat blood culture. December 20: Resting in bed. Eating fair. No fevers. Cultures from the wound are pending. Repeat blood cultures pending. Discussed with patient. IV Ancef December 21: In bed. Comfortable. Cultures are pending. Antibiotic changed to IV vancomycin. MRSA in the blood culture. Oral intake variable December 22: Discussed with ID doctor site. Repeat blood cultures pending from the . Oral intake fair. No fever. He is also consulting Dr. Foy for further wound debridement. Dr. Hurd is out of town. December 23: Laying in bed. Comfortable. This afternoon pending debridement of the wound by Dr. Foy. On IV vancomycin. Nothing by mouth. December 24: Yesterday patient bilateral hip wound debridement by Dr. Foy. Initially plan was for patient to go home. No is looking into F. Discussed with case briefer. Discharged not occur today. Discussed with ID. Patient to continue vancomycin and Flagyl for 3 weeks. Total time spent today over 50 minutes. December 25: Patient currently has not been accepted at [facility]. Stable. Tolerating diet. Antibodies to continue. No new issues. Active Medications Acetaminophen (Acetaminophen Tab 500 Mg Tab) 500 mg PO Q6HR PRN PRN Reason: Fever and/ or Pain Last Admin: 12/22/22 09:13 Dose: 500 mg Atorvastatin Calcium (Atorvastatin 10 Mg Tab) 10 mg PO DAILY [facility] Last Admin: 12/25/22 07:27 Dose: 10 mg Collagenase (Collagenase 250 Unit/Gm Ointment 30 Gm Tube) 1 applic TOPICAL DAILY [facility]; Protocol Last Admin: 12/25/22 07:27 Dose: 1 applic Dextrose/Water (Dextrose 50% Syringe 50 Ml) 25 ml IVP PER PROTOCOL PRN; Protocol PRN Reason: Hypoglycemia Dextrose/Water (Dextrose 50% Syringe 50 Ml) 50 ml IVP PER PROTOCOL PRN; Protoco l PRN Reason: Hypoglycemia Glimepiride (Glimepiride 1 Mg Tab) 1 mg PO DAILY [facility] Last Admin: 12/25/22 07:27 Dose: 1 mg Lactated Ringer's (Lactated Ringers) 1,000 mls @ 50 mls/hr IV .Q20H [facility] Last Admin: 12/24/22 16:59 Dose: 50 mls/hr Vancomycin HCl 1,500 mg/ (Sodium Chloride) 500 mls @ 167 mls/hr IVPB Q12H [facility] Last Admin: 12/25/22 03:44 Dose: 167 mls/hr Imipramine HCl (Imipramine 10 Mg Tab) 10 mg PO BID [facility] Last Admin: 12/25/22 07:27 Dose: 10 mg Insulin Aspart (Insulin Aspart (Novolog) 100 Unit/Ml Vial) 0 unit SQ AC-TID [facility]; Protocol Last Admin: 12/25/22 12:34 Dose: Not Given Insulin Detemir (Insulin Detemir (Levemir) 100 Unit/Ml Syr) 22 unit SQ HS [facility] Last Admin: 12/24/22 21:15 Dose: 22 unit Metronidazole (Metronidazole 500 Mg Tab) 500 mg PO TID [facility]; Protocol Last Admin: 12/25/22 07:27 Dose: 500 mg Miscellaneous Information (Vancomycin Trough Due 1 Each Misc) 0 each MISCELLANE DIRECTED ONE Stop: 12/25/22 15:01 Naloxone HCl (Naloxone 0.4 Mg/Ml 1 Ml Vial) 0.2 mg IV Q2M PRN PRN Reason: Opioid Reversal Non-Formulary Medication (Methenamine Hippurate [Hiprex]) 1 gm PO BID [facility] Last Admin: 12/25/22 07:28 Dose: Not Given Past medical history to include: T10 paraplegia from spinal injection, prerenal aneurysm, abdominal aortic aneurysm, diabetes, [place] filter, hyperlipidemia,neurogenic bladder, chronic decubital ulcers Social history: Did smoke in the remote past. No alcohol. . Physical examination: VITAL SIGNS: 97.9, 78, 16, 119/54, 94% room air GENERAL:BMI 25.1, laying in bed, awake, comfortable DERMATOLOGICAL: Multiple decubitus wounds. EYES: Pupils equal. Conjunctiva normal. HEENT: External appearance of nose and ears normal, oral cavity grossly normal. NECK: JVD not raised; masses not palpable. HEART: First and second heart sounds are normal; no edema. LUNGS: Respiratory rate normal; clear to auscultation. ABDOMEN: Soft, nontender, liver spleen not palpable, no masses palpable. Elliott catheter with cloudy urine PSYCH: Alert and oriented x3; mood and affect normal. NEUROLOGICAL: [Cranial nerves grossly intact; no facial asymmetry, lower extremity power 0/5. No sensation of lower extremity. INVESTIGATIONS, reviewed in the clinical context: Blood culture [December 20]: Negative until now December 23: Count 5.1 hemoglobin 11.3 platelets 253 progression 3.9 creatinine 0.39 Blood culture [December 17]: Streptococcus agalactiae group B. Presumptive MRSA December 18: Sodium 134 potassium 3.8 BUN 13 creatinine 0.5 to White count 11.2 hemoglobin 10.6 platelets 267 sodium 128 potassium 5.1 creatinine 0.69 Lactic acid 2.1 albumin 2.6 UA positive for leukoesterase, negative for nitrite, WBC Assessment and plan: -Acute UTI with cystitis secondary to self-catheterization. Causing sepsis IV vancomycin . Blood culture [December 17]: Streptococcus agalactiae group B, presumptive MRSA. Follow with ID -Sepsis with blood culture positive for Streptococcus agalactiae, presumptive MRSA POA -Multiple decubitus wound ulcers.: Not improving Antibiotics ID. right hip decubital ulcer debrided by Dr. Hurd. December 23: bilateral hip wound debridement t- Dr. Foy -Sepsis with lactic acidosis -Chronic paraplegia from spinal cord injury at T10 -Diabetes mellitus type 2, chronically on insulin, uncontrolled with hyperglycemia secondary to infection Levemir 22 units subcu daily at bedtime. Follow Accu-Cheks -Melba filter history of -Hyperlipidemia Mevacor 40 mg daily at bedtime -Normocytic anemia of chronic disease -Hyponatremia likely from decreased oral intake -Chronic medical debility, able to transfer from bed to the chair -Chronic bladder dysfunction patient does self-catheterization. -Chronic sacral decubitus ulcer and left gluteal area. Wound debridement done. -Full code Continue current medications. Pending authorization to go to [facility].
[2022-12-25] MEDS ORDERED: VANCOMYCIN TROUGH DUE 1 EACH MISC MISCELLANE ONE (15:00)
[2022-12-25 15:29] LABS: African American GFR (CKD) >90 (>60 ml/min/1.73 sqM); Non-African American GFR(CKD) >90 (>60 ml/min/1.73 sqM)
[2022-12-25] MEDS: LACTATED RINGERS 1,000 ML IV SCH (16:33)
[2022-12-25 17:27] LABS: Glucose,Whole Blood 175 mg/dL (70-110)
[2022-12-25 20:16] LABS: Glucose,Whole Blood 275 mg/dL (70-110)
[2022-12-25] MEDS: INSULIN DETEMIR (LEVEMIR) 100 UNIT/ML SYR SQ SCH (20:49)
[2022-12-26] MEDS: VANCOMYCIN 1,250 MG in SODIUM CHLORIDE 0.9% 250 ML IVPB SCH ×2 (05:30→17:15)
[2022-12-26 07:45] LABS: Glucose,Whole Blood 123 mg/dL (70-110)
[2022-12-26] MEDS: INSULIN ASPART (NovoLOG) 100 UNIT/ML VIAL SQ SCH ×3 (08:18→17:15)
[2022-12-26] MEDS: metroNIDAZOLE 500 MG TAB PO SCH ×3 (09:14→20:45)
[2022-12-26] MEDS: GLIMEPIRIDE 1 MG TAB PO SCH (09:14)
[2022-12-26] MEDS: ATORVASTATIN 10 MG TAB PO SCH (09:14)
[2022-12-26] MEDS: IMIPRAMINE 10 MG TAB PO SCH ×2 (09:14→20:45)
[2022-12-26] MEDS: NON FORMULARY DRUG (Methenamine Hippurate [Hiprex] 1 GM Tablet) PO SCH ×2 (09:15→20:46)
[2022-12-26] MEDS: COLLAGENASE 250 UNIT/GM OINTMENT 30 GM TUBE TOPICAL SCH (09:15)
--- NOTE | 2022-12-26 09:33 | P.PN ---
Subjective Progress Note Date: 12/26/22 Principal diagnosis: Decubitus ulcers Patient doing well today. No pain. No fevers. Patient is tolerating his diet. Objective - Vital Signs Vital signs: Vital Signs Temp 97.9 F 12/26/22 07:45 Pulse 77 12/26/22 07:45 Resp 16 12/26/22 07:45 BP 121/54 12/26/22 07:45 Pulse Ox 95 12/26/22 07:45 FiO2 Intake & Output 12/25/22 12/26/22 12/26/22 18:59 06:59 18:59 Intake Total 120 Output Total 700 720 Balance -700 -600 Intake: Oral 120 Output: Urine 700 720 Uretheral (Elliott) 420 Other: Voiding Method Indwelling Catheter Indwelling Catheter - Exam Bilateral trochanteric and if she'll decubitus ulcer dressings in place, minimal drainage, nontender - Labs CBC & Chem 7: 12/23/22 05:02 12/25/22 14:50 Labs: Abnormal Lab Results - Last 24 Hours (Table) 12/25/22 12/25/22 12/25/22 Range/Units 12:28 14:50 17:24 Creatinine 0.50 L (0.66-1.25) mg/dL POC Glucose (mg/dL) 128 H 175 H (70-110) mg/dL 12/25/22 12/26/22 Range/Units 20:14 07:43 Creatinine (0.66-1.25) mg/dL POC Glucose (mg/dL) 275 H 123 H (70-110) mg/dL Microbiology - Last 24 Hours (Table) 12/20/22 10:35 Blood Culture - Final Blood Assessment and Plan (1) Decubitus ulcer of left buttock Narrative/Plan: Continue local wound care. Continue antibiotics per infectious disease. Continue offloading. Possible transfer to rehab. Current Visit: No Status: Acute Code(s): L89.329 - PRESSURE ULCER OF LEFT BUTTOCK, UNSPECIFIED STAGE SNOMED Code(s): 42474521816036
[2022-12-26] MEDS: LACTATED RINGERS 1,000 ML IV SCH (12:05)
[2022-12-26 12:10] LABS: Glucose,Whole Blood 148 mg/dL (70-110)
[2022-12-26 17:11] LABS: Glucose,Whole Blood 182 mg/dL (70-110)
--- NOTE | 2022-12-26 18:27 | P.PN ---
Progress Note - Text Progress Note Date: 12/26/22 Chief Complaint: Not feeling well History of presenting complaint: This is a 72-year-old patient of Dr. Ferreira. Chronic stable medical conditions include history of T10 paraplegia following a spinal injection, brain aneurysm, AAA, hyperlipidemia, [place] filter, diabetes. neurogenic bladder-patient does self-catheterization. Patient also has a daily bowel regime that he does himself. Patient is cared for by his . At the baseline able to transfer from bed to the chair. Has chronic wounds and home care for the same. Patient now presents with not feeling well. Fever and chills. Urine becoming dark in color. Decreased appetite. Low-grade fever. Tired rundown. at the bedside in the ER home assisted with the history. Admitted with acute UTI with sepsis, multiple decubitus ulcers. December 18: Seen by ID. His started IV meropenem. IV vancomycin. IV fluids. Decrease appetite. Feels tired. Discussed. December 19: Right gluteal area decubital ulcer debrided by Dr. Hurd yesterday. Patient eating better. Feels better. IV cefepime. IV fluids. Blood cultures growing Streptococcus agalactiae. Repeat blood culture. December 20: Resting in bed. Eating fair. No fevers. Cultures from the wound are pending. Repeat blood cultures pending. Discussed with patient. IV Ancef December 21: In bed. Comfortable. Cultures are pending. Antibiotic changed to IV vancomycin. MRSA in the blood culture. Oral intake variable December 22: Discussed with ID doctor site. Repeat blood cultures pending from the . Oral intake fair. No fever. He is also consulting Dr. Foy for further wound debridement. Dr. Hurd is out of town. December 15: Laying in bed. Comfortable. This afternoon pending debridement of the wound by Dr. Foy. On IV vancomycin. Nothing by mouth. December 24: Yesterday patient bilateral hip wound debridement by Dr. Foy. Initially plan was for patient to go home. No is looking into ECF. Discussed with family caseworker. Discharged not occur today. Discussed with ID. Patient to continue vancomycin and Flagyl for 3 weeks. Total time spent today over 50 minutes. December 25: Patient currently has not been accepted at [facility]. Stable. Tolerating diet. Antibodies to continue. No new issues. December 26: In bed. Comfortable. Awaiting authorization/acceptance at [facility]. Otherwise medically stable. Oral intake fair Active Medications Acetaminophen (Acetaminophen Tab 500 Mg Tab) 500 mg PO Q6HR PRN PRN Reason: Fever and/ or Pain Last Admin: 12/22/22 09:13 Dose: 500 mg Atorvastatin Calcium (Atorvastatin 10 Mg Tab) [address] [facility] Last Admin: 12/26/22 09:14 Dose: 10 mg Collagenase (Collagenase 250 Unit/Gm Ointment 30 Gm Tube) [address] [facility]; Protocol Last Admin: 12/26/22 09:15 Dose: 1 applic Dextrose/Water (Dextrose 50% Syringe 50 Ml) 25 ml IVP PER PROTOCOL PRN; Protocol PRN Reason: Hypoglycemia Dextrose/Water (Dextrose 50% Syringe 50 Ml) 50 ml IVP PER PROTOCOL PRN; Protocol PRN Reason: Hypoglycemia Glimepiride (Glimepiride 1 Mg Tab) [address] [facility] Last Admin: 12/26/22 09:14 Dose: 1 mg Lactated Ringer's (Lactated Ringers) 1,000 mls @ 50 mls/hr IV .Q20H [facility] Last Admin: 12/26/22 12:05 Dose: Not Given Vancomycin HCl 1,250 mg/ (Sodium Chloride) 250 mls @ 125 mls/hr IVPB Q12H [facility] Last Admin: 12/26/22 17:15 Dose: 125 mls/hr Imipramine HCl (Imipramine 10 Mg Tab) [address] [facility] Last Admin: 12/26/22 09:14 Dose: 10 mg Insulin Aspart (Insulin Aspart (Novolog) 100 Unit/Ml Vial) [address] unit SQ AC-TID [facility]; Protocol Last Admin: 12/26/22 17:15 Dose: 2 unit Insulin Detemir (Insulin Detemir (Levemir) 100 Unit/Ml Syr) [address] [facility] Last Admin: 12/25/22 20:49 Dose: 22 unit Metronidazole (Metronidazole 500 Mg Tab) [address] [facility]; Protocol Last Admin: 12/26/22 15:26 Dose: 500 mg Miscellaneous Information (Vancomycin Trough Due 1 Each Misc) 1 each MISCELLANE ONCE ONE Stop: 12/27/22 17:01 Naloxone HCl (Naloxone 0.4 Mg/Ml 1 Ml Vial) 0.2 mg IV Q2M PRN PRN Reason: Opioid Reversal Non-Formulary Medication (Methenamine Hippurate [Hiprex]) 1 gm PO BID [facility] Last Admin: 12/26/22 09:15 Dose: Not Given Past medical history to include: T10 paraplegia from spinal injection, prerenal aneurysm, abdominal aortic aneurysm, diabetes, [place] filter, hyperlipidemia,neurogenic bladder, chronic decubital ulcers Social history: Did smoke in the remote past. No alcohol. . Physical examination: VITAL SIGNS: 98.1, 86, 16, 106/69, 96% room air GENERAL:BMI 25.1, laying in bed, awake, comfortable DERMATOLOGICAL: Multiple decubitus wounds. EYES: Pupils equal. Conjunctiva normal. HEENT: External appearance of nose and ears normal, oral cavity grossly normal. NECK: JVD not raised; masses not palpable. HEART: First and second heart sounds are normal; no edema. LUNGS: Respiratory rate normal; clear to auscultation. ABDOMEN: Soft, nontender, liver spleen not palpable, no masses palpable. Elliott catheter with cloudy urine PSYCH: Alert and oriented x3; mood and affect normal. NEUROLOGICAL: [Cranial nerves grossly intact; no facial asymmetry, lower extremity power 0/5. No sensation of lower extremity. INVESTIGATIONS, reviewed in the clinical context: Blood culture [December 20]: Negative until now December 23: Count 5.1 hemoglobin 11.3 platelets 253 progression 3.9 creatinine 0.39 Blood culture [December 17]: Streptococcus agalactiae group B. Presumptive MRSA December 18: Sodium 134 potassium 3.8 BUN 13 creatinine 0.5 to White count 11.2 hemoglobin 10.6 platelets 267 sodium 128 potassium 5.1 creatinine 0.69 Lactic acid 2.1 albumin 2.6 UA positive for leukoesterase, negative for nitrite, WBC Assessment and plan: -Acute UTI with cystitis secondary to self-catheterization. Causing sepsis IV vancomycin . Blood culture [December 17]: Streptococcus agalactiae group B, presumptive MRSA. Follow with ID -Sepsis with blood culture positive for Streptococcus agalactiae, presumptive MRSA POA -Multiple decubitus wound ulcers.: Not improving Antibiotics ID. right hip decubital ulcer debrided by Dr. Hurd. December 23: bilateral hip wound debridement t- Dr. Foy -Sepsis with lactic acidosis -Chronic paraplegia from spinal cord injury at T10 -Diabetes mellitus type 2, chronically on insulin, uncontrolled with hyperglycemia secondary to infection Levemir 22 units subcu daily at bedtime. Follow Accu-Cheks -[place] filter history of -Hyperlipidemia Mevacor 40 mg daily at bedtime -Normocytic anemia of chronic disease -Hyponatremia likely from decreased oral intake -Chronic medical debility, able to transfer from bed to the chair -Chronic bladder dysfunction patient does self-catheterization. -Chronic sacral decubitus ulcer and left gluteal area. Wound debridement done. -Full code Pending authorization to go to [facility]. Plan is to continue vancomycin and Flagyl for 3 weeks. Otherwise stable to be discharge.
[2022-12-26 20:47] LABS: Glucose,Whole Blood 138 mg/dL (70-110)
[2022-12-26] MEDS: INSULIN DETEMIR (LEVEMIR) 100 UNIT/ML SYR SQ SCH (20:50)
[2022-12-27] MEDS: VANCOMYCIN 1,250 MG in SODIUM CHLORIDE 0.9% 250 ML IVPB SCH (05:40)
[2022-12-27 07:21] LABS: Glucose,Whole Blood 80 mg/dL (70-110)
[2022-12-27] MEDS: INSULIN ASPART (NovoLOG) 100 UNIT/ML VIAL SQ SCH ×2 (07:55→11:41)
[2022-12-27] MEDS: metroNIDAZOLE 500 MG TAB PO SCH ×2 (08:26→16:05)
[2022-12-27] MEDS: ATORVASTATIN 10 MG TAB PO SCH (08:26)
[2022-12-27] MEDS: IMIPRAMINE 10 MG TAB PO SCH (08:27)
[2022-12-27] MEDS: GLIMEPIRIDE 1 MG TAB PO SCH (08:27)
[2022-12-27] MEDS: COLLAGENASE 250 UNIT/GM OINTMENT 30 GM TUBE TOPICAL SCH (08:27)
[2022-12-27] MEDS: NON FORMULARY DRUG (Methenamine Hippurate [Hiprex] 1 GM Tablet) PO SCH (10:03)
--- NOTE | 2022-12-27 10:55 | P.PN ---
Subjective Progress Note Date: 12/27/22 CHIEF COMPLAINT: Bilateral gluteal wound debridement HISTORY OF PRESENT ILLNESS: Patient is postop day #3 status post debridement of bilateral gluteal wounds. Patient is lying in comfortably. He reports that he is trying to stay off of the ulcers. He is tolerating diet. No pain. No fevers. PHYSICAL EXAM: VITAL SIGNS: Reviewed. GENERAL: Well-developed in no acute distress. Skin: Bilateral gluteal wounds. Minimal drainage. Nontender. Dressing in place. ASSESSMENT: 1. Bilateral gluteal wounds status post debridement 2. Diabetes mellitus 3. History of paraplegia PLAN: -Continue local wound care -Antibiotics per infectious disease -Continue offloading -Patient can be discharged from surgical standpoint Physician Floor Coverings Salesperson note has been reviewed by physician. Signing provider agrees with the documented findings, assessment, and plan of care. Objective - Vital Signs Vital signs: Vital Signs Temp 97.4 F L 12/27/22 08:00 Pulse 73 12/27/22 08:00 Resp 16 12/27/22 08:00 BP 124/75 12/27/22 08:00 Pulse Ox 96 12/27/22 08:00 FiO2 Intake & Output 12/26/22 12/27/22 12/27/22 18:59 06:59 18:59 Intake Total 250 Output Total 2300 3500 Balance -2300 -3250 Intake: Intake, IV Titration 250 Amount Vancomycin 1,250 mg In 250 Sodium Chloride 0.9% 250 ml @ 125 mls/hr IVPB Q12H [facility] Rx#:[id number] Output: Urine 2300 3500 Uretheral (Leliott) 600 Other: Voiding Method Indwelling Catheter Indwelling Catheter Indwelling Catheter # Bowel Movements 1 - Labs CBC & Chem 7: 12/23/22 05:02 12/25/22 14:50 Labs: Abnormal Lab Results - Last 24 Hours (Table) 12/26/22 12/26/22 12/26/22 Range/Units 12:09 17:09 20:46 POC Glucose (mg/dL) 148 H 182 H 138 H (70-110) mg/dL Microbiology - Last 24 Hours (Table) 12/21/22 05:23 Blood Culture - Final Blood
[2022-12-27 11:23] LABS: Glucose,Whole Blood 142 mg/dL (70-110)
[2022-12-27 13:52] VITALS: BP 124/59; PULSE 83; RESP 15; TEMP 97.7
--- NOTE | 2022-12-27 14:59 | P.DS ---
Providers Date of admission: 12/17/22 14:47 Expected date of discharge: 12/27/22 Attending physician: Ramon Mancera Consults: 12/17/22 14:42 Consult Physician Routine Consulting Provider: Tari Sarabia Consult Reason/Comments: uti, wounds Do you want consulting provider notified?: Yes 12/17/22 14:43 Consult Physician Routine Consulting Provider: Maxi Wright Consult Reason/Comments: decub ulcers Do you want consulting provider notified?: Yes 12/22/22 14:04 Consult Physician Routine Consulting Provider: Law Pryor Consult Reason/Comments: L gluteal wound needs debridment Do you want consulting provider notified?: Yes Primary care physician: Jeremiah Ferreira [facility] Course: Final diagnosis Acute urinary tract infection with cystitis, secondary to self catheterizations causing sepsis, present on admission with presumptive MRSA shown in the blood cultures Multiple decubitus wounds and ulcers of bilateral hips status post debridement, present on admission Sepsis with positive blood cultures, present on admission Sepsis with lactic acidosis secondary to assessment #1 Chronic paraplegia from spinal cord injury at T10 Diabetes mellitus, type II, insulin-dependent, uncontrolled with hyperglycemia History of Melba filter Hyperlipidemia Normocytic anemia of chronic disease Hyponatremia, likely from poor oral intake, improving Chronic medical debility Chronic sacral decubitus ulcer, left gluteal ulcer status post debridement, present on admission Full code Discharge disposition Patient is being discharged in a stable condition with guarded prognosis to [facility]. Patient will follow-up with Dr. Ferreira in the outpatient setting upon discharge. Patient is to continue with antibiotics per ID recommendations and close outpatient follow-up as scheduled. Total time taken is greater than 35 minutes. Hospital course This is a 72-year-old male who was recently admitted with feeling generalized weakness and unwell with fevers and chills with decreased appetite and admitted with UTI and sepsis with multiple decubitus ulcers. Patient has had prolonged hospitalization with infectious disease following closely along with right gluteal decubitus ulcer debridement with vascular surgery. Culture showing Streptococcus agalactiae as well as another debridement of the bilateral hip wounds with general surgery. Patient will be continued on vancomycin and Flagyl and has received an IV for discharge IV antibiotics. Patient to follow-up with wound care with infectious disease closely. Patient has been cleared by consultations for discharge today. Please refer to other consultation notes for further HPI. Patient also with significant weakness and extensive wound care with IV antibiotics family wanted patient to go to rehab and patient has been accepted at [facility]. Currently no reports of chest pain, shortness of breath, or palpitations. Patient is afebrile. No reports of nausea or vomiting and patient is tolerating diet. Patient will be going to [facility] today. Guarded prognosis. Physical exam: Gen: This is a 72-year-old male who is awake, alert and oriented 3, well- developed, well-nourished HEENT: Head is atraumatic, normocephalic. Pupils equal, round. Sclerae is anicteric. NECK: Supple. No JVD. No lymphadenopathy. No thyromegaly. LUNGS: Clear to auscultation. No wheezes or rhonchi. No intercostal retractions. HEART: Regular rate and rhythm. No murmur. ABDOMEN: Soft. Bowel sounds are present. No masses. No tenderness. EXTREMITIES: No pedal edema. No calf tenderness. NEUROLOGICAL: Patient is awake, alert and oriented x3. Cranial nerves 2 through 12 are grossly intact. Diffusely weak Please refer to medication reconciliation sheet for a list of medications. The impression and plan of care has been dictated by Sania Bailey, Nurse Practitioner as directed. Dr. Dilshad MD I have performed a history and examination and MDM of this patient, discussed the same with the dictator, and agree with the dictator's assessment and plan as written ,documented as a scribe. Based on total visit time, I have performed more than 50% of the visit. Patient Condition at Discharge: Fair Plan - Discharge Summary New Discharge Prescriptions: New metroNIDAZOLE [Flagyl] 500 mg PO TID #90 tab Collagenase [Santyl Ointment] 1 applic TOPICAL DAILY each Continue Lovastatin [Mevacor] 40 mg PO DAILY Imipramine [Tofranil] 10 mg PO BID Methenamine Hippurate [Hiprex] 1 gm PO BID Glimepiride [Amaryl] 1 mg PO DAILY Insulin Detemir [Levemir Flexpen] 18 units SQ HS Discharge Medication List Lovastatin [Mevacor] 40 mg PO DAILY 06/24/17 [History] Imipramine [Tofranil] 10 mg PO BID 09/15/20 [History] Glimepiride [Amaryl] 1 mg PO DAILY 07/15/21 [History] Insulin Detemir [Levemir Flexpen] 18 units SQ HS 12/17/22 [History] Methenamine Hippurate [Hiprex] 1 gm PO BID 12/17/22 [History] Collagenase [Santyl Ointment] 1 applic TOPICAL DAILY each 12/24/22 [Rx] metroNIDAZOLE [Flagyl] 500 mg PO TID #90 tab 12/24/22 [Rx] Follow up Appointment(s)/Referral(s): Jeremiah Ferreira DO [Primary Care Provider] - 1-2 days (The office will give you a call when they have an opening.) [facility], [NON-STAFF] - 1 Week Tari Sarabia MD [STAFF PHYSICIAN] - 3 Weeks Ambulatory/Diagnostic Orders: Basic Metabolic Panel [LAB.AMB] Location: None Selected C Reactive Protein [LAB.AMB] Location: None Selected Complete Blood Count w/diff [LAB.AMB] Location: None Selected Erythrocyte Sedimentation Rate [LAB.AMB] Location: None Selected Activity/Diet/Wound Care/Special Instructions: wound care per dr sarabia f/u with dr wright pt will be going to [facility] for the outpt infusion- and PICC care. Discharge Disposition: TRANSFER TO SNF/ECF
[2022-12-27] MEDS ORDERED: VANCOMYCIN TROUGH DUE 1 EACH MISC MISCELLANE ONE (17:00)
== END 2022-12-27 17:44 | DRG 673 ==
LOC: EC 12:32 → 5NMEDONC 14:47
PROVIDERS: ADMIT Hospitalist; ATTEND Hospitalist
PROC: 0JB90ZZ Excision of Buttock Subcutaneous Tissue and Fascia, Open Approach (ICD-10-PCS; principal; 2022-12-18)
PROC: 02HV33Z Insertion of Infusion Device into Superior Vena Cava, Percutaneous Approach (ICD-10-PCS; 2022-12-24)
DX: T83.518A Infection and inflammatory reaction due to other urinary catheter, initial encounter (principal); A40.9 Streptococcal sepsis, unspecified; L89.323 Pressure ulcer of left buttock, stage 3; L89.313 Pressure ulcer of right buttock, stage 3; L89.213 Pressure ulcer of right hip, stage 3; L89.893 Pressure ulcer of other site, stage 3; L89.153 Pressure ulcer of sacral region, stage 3; E87.1 Hypo-osmolality and hyponatremia; E87.20 Acidosis, unspecified; G82.20 Paraplegia, unspecified; D63.8 Anemia in other chronic diseases classified elsewhere; N31.2 Flaccid neuropathic bladder, not elsewhere classified; E11.49 Type 2 diabetes mellitus with other diabetic neurological complication; E11.649 Type 2 diabetes mellitus with hypoglycemia without coma; E78.5 Hyperlipidemia, unspecified; I10 Essential (primary) hypertension; Z86.79 Personal history of other diseases of the circulatory system; Z28.310 Unvaccinated for COVID-19; Z71.3 Dietary counseling and surveillance; G89.29 Other chronic pain; N30.90 Cystitis, unspecified without hematuria; B95.62 Methicillin resistant Staphylococcus aureus infection as the cause of diseases classified elsewhere; Z95.828 Presence of other vascular implants and grafts; N31.9 Neuromuscular dysfunction of bladder, unspecified; R53.81 Other malaise; M54.9 Dorsalgia, unspecified; Z88.5 Allergy status to narcotic agent; Z88.2 Allergy status to sulfonamides; S24.103S Unspecified injury at T7-T10 level of thoracic spinal cord, sequela; Y84.8 Other medical procedures as the cause of abnormal reaction of the patient, or of later complication, without mention of misadventure at the time of the procedure; Z79.4 Long term (current) use of insulin; Z79.84 Long term (current) use of oral hypoglycemic drugs; Z79.899 Other long term (current) drug therapy
CPT/HCPCS: 36415; 36573; 80048; 80053; 80202; 81001; 82565; 83605; 83735; 85025; 86140; 87040; 87070; 87075; 87086; 87205; 88304; 93005; 96365; 96366; 96367; 99285